=== PATIENT | female | born 1945 | race Caucasian/White ===

== ENCOUNTER 2016-04-22 16:32 | Inpatient (IN) | payer MEDICARE ==
[2016-04-22] MEDS ORDERED: Albuterol-Ipratrop 3 mg / 0.5 (3 ml) UD INH STA ×2 (16:48→16:49)
--- NOTE | 2016-04-22 16:59 | ED PDOC ---
HPI: SOB/CHF/COPD Time Seen by Provider: 04/22/16 16:46 Chief Complaint (Nursing): Respiratory Distress Chief Complaint (Provider): Respiratory Distress History Per: EMS, Family History/Exam Limitations: clinical condition Onset/Duration Of Symptoms: Days (2x) Current Symptoms Are (Timing): Still Present Current Respiratory Medications: See Home Med List, Albuterol Severity: Severe Additional History Per: EMS, Family Additional Complaint(s): 70 year old female patient with a pertinent past medical history of asthma is brought into the ED by EMS for respiratory distress. She was in bed for the past 2x days. He family found her and called 911 just prior to arrival because she was having shortness of breath. She was tachycardic with her heart rate in the 180's as per EMS. EMS reports she had bilateral wheezing, and she was given albuterol and Cardizem one 25. Her heart rate lowered to the 120's and she was put on CPAP. Her condition improved upon arrival to the ED. PMD: cannot obtain secondary to patient's clinical condition. Past Medical History Reviewed: Historical Data, Nursing Documentation, Vital Signs Vital Signs: Last Vital Signs Temp 100.0 F H 04/22/16 17:10 Pulse 153 H 04/22/16 16:41 Resp 40 H 04/22/16 17:02 BP 155/76 H 04/22/16 17:45 Pulse Ox 98 04/22/16 18:14 - Medical History PMH: Asthma, CHF, HTN, Hypercholesterolemia, Seizures Denies: HIV, Chronic Kidney Disease - Family History Family History: States: Unknown Family Hx - Living Arrangements Living Arrangements: Alone - Social History Alcohol: None Drugs: Denies - Home Medications Home Medications: Ambulatory Orders Medication Instructions Recorded Albuterol HFA [Ventolin HFA 90 2 puff IH Q4H PRN 04/22/16 mcg/actuation (8 g)] Amlodipine Besylate/Benazepril 1 cap PO DAILY 04/22/16 [Lotrel 10-20 mg Capsule] Atenolol/Chlorthalidone [Tenoretic 1 tab PO DAILY 04/22/16 50 Tablet] Fluticasone/Salmeterol 250/50 1 puff IH Q12H 04/22/16 [Advair Diskus 250/50] Montelukast [Singulair] 10 mg PO DAILY 04/22/16 Phenytoin, Extended [Dilantin] 100 mg PO BID 04/22/16 - Allergies Allergies/Adverse Reactions: Allergies Allergy/AdvReac Type Severity Reaction Status Date / Time No Known Allergies Allergy Verified 04/22/16 16:41 Wells Criteria for PE - Wells Criteria for Pulmonary Embolism Clinical Signs and Symptoms of DVT: Yes P.E is #1 Diagnosis, or Equally Likely: Yes Heart Rate >100: Yes Immobilization at least 3 days;Surgery previous 4 weeks: No Previous, objectively diagnosed PE or DVT: No Hemoptysis: No Malignancy w/treatment within 6 months, or palliative: No Total Score: 5.5 Review of Systems Review Of Systems: ROS cannot be obtained secondary to pt's inabilty to answer questions. (secondary to clinical condition) Physical Exam - Reviewed Nursing Documentation Reviewed: Yes Vital Signs Reviewed: Yes - Physical Exam Appears: Positive for: Non-toxic Head Exam: Positive for: ATRAUMATIC, NORMOCEPHALIC Cardiovascular/Chest: Positive for: Tachycardia, Irregularly Irregular Respiratory: Positive for: Rhonchi (bilateral). Negative for: Respiratory Distress Extremity: Positive for: Pedal Edema (no open lesions), Other (bilateral lower edema) DTR - Ankle (R): 3+ DTR - Ankle (L): 3+ - Laboratory Results Result Diagrams: 04/22/16 17:15 04/22/16 17:15 - ECG Interpretation Of ECG: A fib with RVR @ 151. O2 Sat by Pulse Oximetry: 98 (RA) Pulse Ox Interpretation: Normal - Radiology X-Ray: Read By Radiologist (Right lower lobe infiltrate and associated right pleural effusion. Cardiomegaly, move mild pulmonary vascular congestion.) - CT Scan/US CT chest Other Rad Interpretation: Pending - Progress ED Course And Treament: Pt administered Cardizem, Duonebs, Solumedrol, Rocephin, Zithromax and Lasix. - Physician Consult Information Physician Contacted: Luis Gilbert - Core Measure Core Measure Indicators: Pneumonia - Critical Care Total Time (In Min): 45 Nebulizer Treatments/Peak Flow - Duonebs Number of Bronchodilator Doses given?: 2 - Pre/Post Peak Flow Pre Treatment Peak Flow: 2 Post treatment Peak Flow: 2 Medical Decision Making Medical Decision Makin:46 Initial impression: differential diagnoses include but are not limited to CHF, atrial fibrillation, and asthma exacerbation. Initial plan: * XRay portale cest * EKG * b-type natriuretic peptide * labs * thyroid stimulating hormone * d-dimer (COAG) * PTT * prothrombin time * cardizem 25mg IVP * duoneb 3mL INH * duoneb 3ml INH * SOLU-medrol 125mg IVP * blood culture * accu-chek * peak flow pre/post * peak flow pre/post * urinalysis * reevaluation Scribe Attestation: Documented by Kadie Neff, acting as a scribe for Marcela Cho MD. Provider Scribe Attestation: All medical record entries made by the Scribe were at my direction and personally dictated by me. I have reviewed the chart and agree that the record accurately reflects my personal performance of the history, physical exam, medical decision making, and the department course for this patient. I have also personally directed, reviewed, and agree with the discharge instructions and disposition. Disposition - Clinical Impression Clinical Impression: Pneumonia, CHF (congestive heart failure), New onset atrial fibrillation, Atrial fibrillation with RVR, Severe sepsis - Patient ED Disposition Is Patient to be Admitted: Yes - Disposition Disposition Time: 18:27 Condition: GUARDED - Pt Status Changed To: Hospital Disposition Of: Inpatient - Admit Certification Admit to Inpatient:: After my assessment, the patient will require hospitalization for at least two midnights. This is because of the severity of symptoms shown, intensity of services needed, and/or the medical risk in this patient being treated as an outpatient. - POA Present On Arrival: None
[2016-04-22 17:22] LABS: BASO % 0.2 % (0.0-2.0); HEMATOCRIT 47.9 % (34.0-47.0); LYMPH # 0.6 K/uL (1.0-4.3); LYMPH % 4.4 % (20.0-40.0); MEAN CELL VOLUME 98.4 fl (81.0-99.0); MEAN CORPUSCULAR HEMOGLOBIN 31.2 pg (27.0-31.0); MEAN CORPUSCULAR HGB CONC 31.7 g/dL (33.0-37.0); MEAN PLATELET VOLUME 10.3 fl (7.2-11.7); MONO % 7.5 % (0.0-10.0); NEUT # 11.5 K/uL (1.8-7.0); NEUT % 87.9 % (50.0-75.0); NRBC % 0.3 % (0.0-0.0); PLATELET COUNT 105 K/uL (130-400); RED CELL DISTRIBUTION WIDTH 16.5 % (11.5-14.5); WHITE BLOOD COUNT 13.1 K/uL (4.8-10.8)
[2016-04-22 17:28] LABS: ALB/GLOB RATIO 0.7 (1.0-2.1); ALKALINE PHOSPHATASE 139 U/L (38-126); ALT/SGPT 176 U/L (9-52); AST/SGOT 212 U/L (14-36); BILIRUBIN,TOTAL 2.2 mg/dl (0.2-1.3); BLOOD UREA NITROGEN 35 mg/dl (7-17); CARBON DIOXIDE 23 mmol/L (22-30); CHLORIDE 104 mmol/L (98-107); GFR AFRICAN-AMERICAN > 60; GLUCOSE,RANDOM 149 mg/dL (65-105); POTASSIUM 4.7 MMOL/L (3.6-5.0); SODIUM 140 mmol/l (132-148); TOTAL PROTEIN 7.1 G/DL (6.3-8.2)
[2016-04-22] MEDS ORDERED: Albuterol-Ipratrop 3 mg / 0.5 (3 ml) UD ONE (17:38)
[2016-04-22 17:47] LABS: PARTIAL THROMBOPLASTIN TIME 31.4 SECONDS (23.3-32.5)
[2016-04-22 17:59] LABS: THYROID STIMULATING HORMONE 0.15 mIU/ML (0.46-4.68)
--- NOTE | 2016-04-22 17:59 | RAD ---
HISTORY: Shortness of breath, elevated D-dimer. Technique: Single view portable semi erect @ 17:30. COMPARISON: 05/30/2015. FINDINGS: LUNGS: Extensive right lower lobe infiltrate. PLEURA: Right pleural effusion. CARDIOVASCULAR: Cardiomegaly without florid CHF, mild pulmonary vascular congestion. OSSEOUS STRUCTURES: No significant abnormalities. VISUALIZED UPPER ABDOMEN: Normal. OTHER FINDINGS: None. IMPRESSION: Right lower lobe infiltrate and associated right pleural effusion. Cardiomegaly, move mild pulmonary vascular congestion.
[2016-04-22 18:02] LABS: VENOUS BLOOD GAS BASE EXCESS -1.8 mmol/L (0.0-2.0); VENOUS BLOOD GAS PCO2 39 mmHg (40-60); VENOUS BLOOD PH 7.38 (7.32-7.43)
[2016-04-22] MEDS ORDERED: Azithromycin 500 MG in Sodium Chloride 0.9% 250 ML IVPB STA (18:03)
[2016-04-22] MEDS ORDERED: Iodixanol 320 MG/ML 100 ML BOTTLE IV ONE (18:07)
[2016-04-22] MEDS ORDERED: Sodium Chloride 0.9% 50 ML IV ONE (18:07)
[2016-04-22] MEDS ORDERED: cefTRIAXone (Rocephin) 1 gm Inj ONE (18:55)
--- NOTE | 2016-04-22 19:20 | CT ---
EXAM: CT Angiography Chest With Intravenous Contrast. CLINICAL HISTORY: 70 years old, female; Signs and symptoms; Shortness of breath; Additional info: SOB, new onset a fib. Sent ed physician doc. With request. Stopped injector at 80ml' s of contrast, patient raised her hand, TECHNIQUE: Axial computed tomographic angiography images of the chest with intravenous contrast using pulmonary embolism protocol. This CT exam was performed using one or more of the following dose reduction techniques: automated exposure control, adjustment of the mA and/or kV according to patient size, and/or use of iterative reconstruction technique. MIP reconstructed images were created and reviewed. Coronal and sagittal reformatted images were created and reviewed. CONTRAST: 80 mL of [id number] administered intravenously. EXAM DATE/TIME: 04/22/2016 5:51 PM COMPARISON: CR - CHEST PORTABLE 05/30/2015 7:19:40 PM FINDINGS: Artifacts: Streak artifact degrades image quality. Motion artifact degrades image quality. Heart and aorta: The heart is enlarged. There are coronary calcifications. There is fluid in the pericardial recesses. Ascending aorta is dilated 4.3 cm maximal diameter. There are vascular calcifications.Diameter tapers at the arch. Pulmonary arteries: Main pulmonary artery is normal in caliber. There is a very large embolus in the right main pulmonary artery extending into upper, middle and lower lobe branches. There is occlusion of right lower lobe vessels.. There is occlusion of right middle lobe vessels.. There is perfusion of portions of the right upper lobe. There are small nonocclusive left upper lobe emboli. Lungs and pleural spaces: Trachea and main bronchi are patent. There is a moderately large right pleural effusion. There is asymmetric air space disease greatest in the right middle and lower lobes. There is less extensive airspace disease in left upper and right upper lobes. There is minimal atelectasis and scarring at the left base. There is no left effusion. Mediastinum: Esophagus is not optimally evaluated. There is a small hiatal hernia There are mildly prominent mediastinal nodes. Rissa are difficult to evaluate. Thyroid: Thyroid is only partially imaged. Bones/joints: Bony structures are osteopenic.There are degenerative changes in the osseus structures. There is mild compression deformity at T7.There are degenerative changes in the osseus structures. Soft tissues: unremarkable Lymph nodes: See above. Upper abdomen: There is reflux of contrast into hepatic veins and inferior vena cava. There is prominence of both adrenals. IMPRESSION: Large embolus in the right main pulmonary artery, occlusive thrombus in the right middle and lower lobe vessels with airspace disease/infarcts in the right middle and lower lobes and moderately large right effusion; nonocclusive central right upper lobe emboli; small nonocclusive left upper lobe emboli with minimal peripheral airspace disease/infarct; cardiomegaly and atherosclerotic disease in the: 4.3 cm ascending aortic aneurysm Additional findings as described above.
--- NOTE | 2016-04-22 19:21 | CP.CCUPN ---
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 BP after Cardizem bolus = 134 /80. Temp now 100F, RR 40, 98% SPO2 on 100% NRBM. In ER, given IV Lasix (no urine output yet), Empiric dose of Rocephin and Azithromycin. Given elevated d- Dimer, CTA chest pending in ER. No reported observed seizures at home. PMH: HTN, CHF, Hyperlipidemia, Asthma, Seizure disorder PSH: R breast lumpectomy SH: denies tobacco, ETOH use FH: no early deaths from heart disease, stroke, CA. ROS: as above , no other pertinent negs or positives on 12 system review. Allergies: NKDA Home Meds: Albuterol HFA, Salmeterol/ Flutic, Dilantin, Amlodipine/benazepril, Singular, Atenolol/Chlorthalidone No other distress noted: EXAM- HEENT: no icterus, pupils equal and reactive, no nystagmus NECK: no visible JVD, supple, carotids equal upstroke bilat/no bruits CHEST: decreased BS bases, few scattered wheezes audible bilaterally HEART: irregular, distant, S1S2, no murmur audible, no rubs. ABD: soft, no increased distention, no focal tenderness, no HSM. BS hypoactive , EXT: +3 leg edema with bilat hyperpigmented hyperkeratotic distal LE skin changes and discoloration with varicosities and no peripheral/ digital cyanosis , no calf tenderness or palpable cords, distal pulses intact and symmetrical NEURO: oriented x 3, no gross focal motor deficits. SKIN: no rashes, distal LE venous insuff/ stasis skin changes bilaterally EKG: A Fib 151/min, poor quality baseline with noise. LABS: WBC= 13.1 HGB= 15.2 PLTs = 105K PT/INR/PTT= 17.4/1.67/31.4 Na= 140 K= 4.7 CL= 104 HCO3= 23 BUN/Cr= 35/0.7 BS= 149 TBili= 2.2 AST= 212 ALT= 176 ALK Phos= 139 TSH= 0.15 BNP= 29106 Trop #1 neg Lactate= 2.9 on VBG VBG= 7.39/39/79 98% Satn. CXR: Bilateral basilar haziness with RLL RML Pneumonitis (my Interp). Assessment / Major Problems: 1. Acute Resp Insuff 2 Pneumonitis / CHF, with RV and r/o for LV dysfx, r/o Acute-Subacute CA; r/o Acute PTE 2. Paroxysmal, new onset Atrial Fib with RVR, r/o 2' Hyperthyroidism 3. Azotemia, r/o SURAJ versus CKD 4. Elevated LFTs 2 Hepatic Congestion and R Heart Failure 5. Thrombocytopenia 6. Mild Coagulopathy 7. h/o Seizure Disorder PLAN: 1. Close monitoring of resp status, may try non-invasive ventilatory support on BiPAP or HFNC. No Advance Directives noted, thus MV support if deteriorates further. 2. Empiric abx coverage, check Influenza A/B, CT Chest to evaluate for any drainable pleural effusions, also having CTA chest to r/o PTE. 3. Repeat ECHO, results from Jan 2015 reviewed. 4. Lasix IV trial. 5. Serial trops and repeat EKG for better study. EKG from May 2015 was normal in NSR. 6. US Abdomen 7. Venous Doppler Legs 8. Check Free T4, T3, Consider Endo eval for subclinical Hyperthyroidism or NTI. 9. Further immediate orders and mgmt pending clinical course over the next 24H. Clarify any Advance Directives, so far full resuscitation status.
[2016-04-22 19:40] LABS: RBC URINE 4 /hpf (0-3); URINE BACTERIA MANY (<OCC); URINE BILIRUBIN NEGATIVE (NEGATIVE); URINE BLOOD SMALL (NEGATIVE); URINE COLOR AMBER (YELLOW); URINE GLUCOSE (UA) NEG (Normal); URINE KETONE NEGATIVE (NEGATIVE); URINE LEUKOCYTE ESTERASE NEG Leu/uL (Negative); URINE PROTEIN 100 mg/dL (NEGATIVE); WBC URINE 6 /hpf (0-5)
--- NOTE | 2016-04-22 20:03 | US ---
EXAM: US Duplex Bilateral Lower Extremity Veins. CLINICAL HISTORY: 70 years old, female; Signs and symptoms; Edema, localized; Lower extremity, bilateral; Additional info: Ble edema; pulmonary emboli seen on CTA chest TECHNIQUE: Real-time ultrasound scan of the veins of the bilateral lower extremities with color Doppler flow, spectral waveform analysis and compression. EXAM DATE/TIME: 04/22/2016 5:17 PM COMPARISON: There are no prior studies for comparison. FINDINGS: Right deep veins: Common femoral, superficial femoral, popliteal and posterior tibial veins were evaluated. Distal right superficial femoral vein could not be identified. There is occlusive thrombus causing noncompressibility in the right popliteal vein. Right posterior tibial vein could not be identified. Right common femoral, proximal and mid superficial femoral veins are unremarkable. There is compressibility. There is expected flow and spectral and color imaging There is extensive edema in the soft tissues at the right knee and upper calf Left deep veins: Common femoral, superficial femoral, popliteal and posterior tibial veins were evaluated. There is occlusive thrombus causing noncompressibility in the left popliteal vein. Left posterior tibial vein could not be identified. Common femoral and superficial femoral veins are unremarkable. Veins are compressible with expected flow color and spectral imaging There is extensive edema in the soft tissues at the left knee and calf IMPRESSION: Bilateral lower extremity deep venous thrombosis with occlusive thrombi in both popliteal veins with extensive edema at the knees and in the upper calves and nonvisualization of either posterior tibial vein
--- NOTE | 2016-04-22 20:06 | US ---
EXAM: US Duplex Right Upper Extremity Veins. CLINICAL HISTORY: 70 years old, female; Signs and symptoms; Swelling of limb; Lower extremity, right; Additional info: Rue swelling TECHNIQUE: Real-time ultrasound scan of the veins of the right upper extremity with color Doppler flow, spectral waveform analysis and compression. EXAM DATE/TIME: 04/22/2016 6:01 PM COMPARISON: There are no prior studies for comparison. FINDINGS: Deep veins:Jugular, subclavian, axillary, brachial, ulnar and radial veins were examined. Superficial veins: Basilic and cephalic veins were also imaged. Left jugular vein was evaluated for comparison. All accessible veins examined are compressible. There are no intraluminal filling defects. There is expected blood flow on Doppler imaging. There is change in waveform with augmentation. Impression: No deep venous thrombosis in the visualized vascular segments of the right upper extremity
--- NOTE | 2016-04-22 20:25 | CP.PCM.HP ---
Addendum entered and electronically signed by Kendra Dover 04/22/16 22:58: 1. Lactic Acid increased to 4.7, d/w Dr Helton, decision to give 1L NS bolus combined with 60mg of Lasix and repeat lactic acid and BMP at 0100. 2. Hematology Consult placed, spoke with Dr Chacko who will see patient in morning, Pulmonary Consult Dr Mcpherson service called. Original Note: History of Present Illness - History of Present Illness History of Present Illness: 70F seen and examined at bedside, information is from patient, ED documents, and chart review. Patient reports that her symptoms started about 1 week prior with a dry cough, shortness of breath, with lower extremity swelling that worsened, but she denies associated fevers, chills, sore throat, sick contacts, diarrhea. She say she last took her Dilantin 2 wks ago (supported by level <3) and says that she was feeling nauseous at that time. She denies chest pain, abdominal pain, last BM was 2 days ago and she continues to pass flatus. Of note she says she has spent the last 3 days in bed. PMH: Systolic CHF(ECHO 02/12/2015: LVEF- 45-50%, mild TR, mild Pulm HTN), HTN, Asthma, Seizure DO Allergies: NKDA ED COURSE CBC: 13.1>15.2/48<105, MCV- 98.4 CMP: 140/4.7-104/23-35/0.7, Gluc- 149, TBili-2.2, AST/ALT- 212/176, ALP- 139 PT/INR: 17.4H/1.67H aPTT: 31.4 TSH: 0.15L BNP: 13,100 Lactate: 2.9 EKG: A-fib w/ RVR @151 as interpreted by ED attending CXR: RLL infiltrate and effusion CTA Chest: Large PE RIGHT PA, occlusive thrombus in the right middle/lower lobe vessels with airspace dz/infarcts in the right middle/lower lobes and moderately large right effusion, non-occlusive central right upper lobe embol; small non-occlusive ALTHEA emboli w/ minimal peripheral airspace disease/infarct; cardiomegaly and atherosclerotic disease in the 4.3cm ascending aortic aneurysm. RUE Venous Duplex: no DVT BLLE Venous duplex: occlusive thrombi in b/l popliteal veins with extensive edema at the knees and the upper calves Present on Admission - Present on Admission Any Indicators Present on Admission: No Review of Systems - Review of Systems All systems: reviewed and no additional remarkable complaints except - Constitutional Constitutional: As Per HPI - EENT Nose/Mouth/Throat: As Per HPI - Cardiovascular Cardiovascular: As Per HPI - Respiratory Respiratory: As Per HPI, Cough, Dyspnea Past Patient History - Past Medical History & Family History Past Medical History?: Yes - Past Social History Alcohol: None Drugs: Denies - CARDIAC Hx Cardiac Disorders: Yes - PULMONARY Hx Respiratory Disorders: Yes - NEUROLOGICAL Hx Neurological Disorder: Yes - HEENT Hx HEENT Problems: No - RENAL Hx Chronic Kidney Disease: No - ENDOCRINE/METABOLIC Hx Endocrine Disorders: No - HEMATOLOGICAL/ONCOLOGICAL Hx Human Immunodeficiency Virus (HIV): No - INTEGUMENTARY Hx Dermatological Problems: No - MUSCULOSKELETAL/RHEUMATOLOGICAL Hx Falls: No - GASTROINTESTINAL Hx Gastrointestinal Disorders: No - GENITOURINARY/GYNECOLOGICAL Hx Genitourinary Disorders: No - PSYCHIATRIC Hx Psychophysiologic Disorder: No Hx Substance Use: No - SURGICAL HISTORY Other/Comment: R beast lump removal - ANESTHESIA Hx Anesthesia: Yes Hx Anesthesia Reactions: No Meds Allergies/Adverse Reactions: Allergies Allergy/AdvReac Type Severity Reaction Status Date / Time No Known Allergies Allergy Verified 04/22/16 16:41 Physical Exam - Constitutional Appears: Non-toxic, In Acute Distress - Head Exam Head Exam: ATRAUMATIC, NORMAL INSPECTION - Eye Exam Eye Exam: EOMI, Normal appearance, PERRL - ENT Exam ENT Exam: Mucous Membranes Moist, Normal Exam - Neck Exam Neck exam: Positive for: Full Rom, Normal Inspection - Respiratory Exam Respiratory Exam: Accessory Muscle Use, Decreased Breath Sounds (R>L), Clear to Auscultation Bilateral. absent: Rhonchi, Wheezes, NORMAL BREATHING PATTERN ( Tachypneic) - Cardiovascular Exam Cardiovascular Exam: Tachycardia, Irregular Rhythm. absent: Rubs - GI/Abdominal Exam GI & Abdominal Exam: Hernia (umbilical, non-reducible at present, no ulcerations /skin changes), Normal Bowel Sounds, Soft. absent: Guarding, Rebound, Tenderness - Extremities Exam Extremities exam: Positive for: pedal edema (3+ b/l up to knees, 2+ at b/l posterior thighs). Negative for: calf tenderness, normal inspection (thickened skin c/w chronic venous stasis) - Neurological Exam Neurological exam: Alert, Oriented x3 - Psychiatric Exam Psychiatric exam: Normal Affect, Normal Mood - Skin Skin Exam: Intact, Warm Results - Vital Signs Recent Vital Signs: Last Vital Signs Temp 100.0 F H 04/22/16 17:10 Pulse 154 H 04/22/16 20:19 Resp 33 H 04/22/16 20:19 BP 148/59 L 04/22/16 20:19 Pulse Ox 99 04/22/16 19:50 - Labs Result Diagrams: 04/22/16 17:15 04/22/16 17:15 Labs: Laboratory Results - last 24 hr 04/22/16 19:16 Phenytoin < 3.0 L Assessment & Plan (1) Pulmonary embolism with infarction Assessment and Plan: As per positive CTA findings with associated b/l lower extremity DVTs. Exacerbating event multi-factorial with days spent in bed. Unclear at this time if this is entirely responsible for stress leukocytosis and liver congestion picture vs. pneumonia w/separate liver pathology. In addition, combined with heart failure picture likely contributed to new onset atrial fibrillation. Initial Troponin negative at this time. Also may explain prolonged PT/INR and decreased platelet count. - Admit to ICU, Dr Gilbert aware - Therapeutic Lovenox 1mg/kg, SC, Q12H - Pulmonary Consult (Dr Mcpherson) placed - Procalcitonin, repeat lactate - Consider initiating Coumadin bridge - BiPAP - c/w empiric Rocephin/Azithromycin - Echocardiogram in AM - EKG in AM Status: Acute (2) Atrial fibrillation with RVR Assessment and Plan: Acute onset likely exacerbated by fluid overload and shunting from PE. Initial troponin not elevated. - Cardiology Consult (Dr Patton) placed - Therapeutic Lovenox 1mg/kg, SC, Q12H - Cardizem gtt - Consider initiating Coumadin bridge - Serial Troponins - BiPAP - Echocardiogram in AM - EKG in AM Status: Acute (3) Systolic dysfunction with acute on chronic heart failure Assessment and Plan: Patient with worsening SOB, picture complicated with findings of PE, effusion present, bilateral peripheral edema to thighs, and BNP >13, 000. - Cardiology Consult (Dr Patton) - Cardizem gtt - Serial Troponins - BiPAP - Echocardiogram in AM - EKG in AM Status: Acute (4) Hypertension Assessment and Plan: Controlled at this time - Monitor VS - Cardizem gtt Status: Chronic (5) Seizure disorder Assessment and Plan: Patient stopped phenytoin 2 weeks ago 2/2 nausea. Level < 3. - Re-start medication - Seizure Precautions Status: Chronic (6) Asthma Assessment and Plan: Controlled, wheezing treated by EMS likely combination of PE and fluid overload - c/w home medications Status: Chronic
[2016-04-22] MEDS: Enoxaparin 80 mg Syringe SC SCH (20:50)
[2016-04-22 21:13] LABS: NEUTROPHIL 87 % (42-75); TOTAL CELLS COUNTED 100
[2016-04-22] MEDS ORDERED: Albuterol HFA 90 mcg/actuation (8 g) IH PRN (21:49)
[2016-04-22] MEDS ORDERED: Sodium Chloride 0.9% 1,000 ML IV SCH (22:30)
[2016-04-22] MEDS: Fluticasone-Salmeterol 250-50mcg Diskus IH SCH (23:10)
[2016-04-23 01:40] LABS: BLOOD UREA NITROGEN 32 mg/dl (7-17); CALCIUM 7.7 mg/dL (8.4-10.2); CARBON DIOXIDE 23 mmol/L (22-30); CHLORIDE 104 mmol/L (98-107); GFR AFRICAN-AMERICAN > 60; GLUCOSE,RANDOM 162 mg/dL (65-105); POTASSIUM 3.4 MMOL/L (3.6-5.0); SODIUM 145 mmol/l (132-148)
[2016-04-23] MEDS: Potassium CL 10 MEQ/50 ML 50 ML IVPB SCH ×2 (03:09→04:21)
[2016-04-23 05:36] LABS: ALB/GLOB RATIO 0.7 (1.0-2.1); ALKALINE PHOSPHATASE 106 U/L (38-126); ALT/SGPT 150 U/L (9-52); AST/SGOT 158 U/L (14-36); BILIRUBIN,TOTAL 1.6 mg/dl (0.2-1.3); BLOOD UREA NITROGEN 33 mg/dl (7-17); CALCIUM 8.3 mg/dL (8.4-10.2); CARBON DIOXIDE 28 mmol/L (22-30); CHLORIDE 104 mmol/L (98-107); GFR AFRICAN-AMERICAN > 60; GLUCOSE,RANDOM 164 mg/dL (65-105); POTASSIUM 3.7 MMOL/L (3.6-5.0); SODIUM 145 mmol/l (132-148); TOTAL PROTEIN 5.9 G/DL (6.3-8.2)
[2016-04-23 05:37] LABS: BASO % 0.3 % (0.0-2.0); LYMPH # 0.4 K/uL (1.0-4.3); LYMPH % 3.8 % (20.0-40.0); MEAN CELL VOLUME 99.7 fl (81.0-99.0); MEAN CORPUSCULAR HEMOGLOBIN 33.2 pg (27.0-31.0); MEAN CORPUSCULAR HGB CONC 33.3 g/dL (33.0-37.0); MONO # 0.4 K/uL (0.0-0.8); MONO % 3.8 % (0.0-10.0); NEUT # 9.1 K/uL (1.8-7.0); NEUT % 92.1 % (50.0-75.0); NRBC % 0.2 % (0.0-0.0); PLATELET COUNT 92 K/uL (130-400); RED CELL DISTRIBUTION WIDTH 16.1 % (11.5-14.5); WHITE BLOOD COUNT 9.8 K/uL (4.8-10.8)
[2016-04-23 05:44] LABS: PARTIAL THROMBOPLASTIN TIME 36.9 SECONDS (23.3-32.5)
[2016-04-23] MEDS ORDERED: Digoxin 500 mcg/2ml (0.5 mg/2ml) Inj ONE (08:03)
--- NOTE | 2016-04-23 08:09 | CP.PCM.CON ---
History of Present Illness - History of Present Illness History of Present Illness: Full Note Dictated. Pulmonary embolism with A Fib H/O Br Asthma/HTN CVhr Venous stasis lower extremities Pro BNP in 2014 was normal indicating No CHF at that time. IV Digoxin given to slow down HR Echocardiogram to be done once HR slows down Past Patient History - Past Medical History & Family History Past Medical History?: Yes - Past Social History Alcohol: None Drugs: Denies - CARDIAC Hx Cardiac Disorders: Yes - PULMONARY Hx Respiratory Disorders: Yes - NEUROLOGICAL Hx Neurological Disorder: Yes - HEENT Hx HEENT Problems: No - RENAL Hx Chronic Kidney Disease: No - ENDOCRINE/METABOLIC Hx Endocrine Disorders: No - HEMATOLOGICAL/ONCOLOGICAL Hx Human Immunodeficiency Virus (HIV): No - INTEGUMENTARY Hx Dermatological Problems: No - MUSCULOSKELETAL/RHEUMATOLOGICAL Hx Falls: No - GASTROINTESTINAL Hx Gastrointestinal Disorders: No - GENITOURINARY/GYNECOLOGICAL Hx Genitourinary Disorders: No - PSYCHIATRIC Hx Psychophysiologic Disorder: No Hx Substance Use: No - SURGICAL HISTORY Other/Comment: R beast lump removal - ANESTHESIA Hx Anesthesia: Yes Hx Anesthesia Reactions: No Meds Allergies/Adverse Reactions: Allergies Allergy/AdvReac Type Severity Reaction Status Date / Time No Known Allergies Allergy Verified 04/22/16 16:41 - Medications Medications: Current Medications Albuterol (Ventolin Hfa 90 Mcg/Actuation (8 G)) 2 puff IH Q4H PRN PRN Reason: Shortness of Breath Enoxaparin Sodium (Lovenox) 80 mg SC Q12 BRAD PRN Reason: Protocol Last Admin: 04/22/16 20:50 Dose: 80 mg Furosemide (Lasix) 40 mg IVP Q12H [facility] Last Admin: 04/22/16 21:13 Dose: 40 mg Diltiazem HCl 125 mg/ Sodium (Chloride) 125 mls @ 5 mls/hr IV .Q24H ONE; 5 MG/ HR PRN Reason: Protocol Stop: 04/23/16 20:07 Last Titration: 04/23/16 07:12 Dose: 7.5 mg/hr Ceftriaxone Sodium 1 gm/ (Sodium Chloride) 100 mls @ 100 mls/hr IVPB DAILY BRAD Azithromycin 500 mg/ Sodium (Chloride) 250 mls @ 250 mls/hr IVPB DAILY BRAD Sodium Chloride (Sodium Chloride 0.9%) 1,000 mls @ 999 mls/hr IV .Q1H1M [facility] Stop: 04/23/16 22:31 Last Admin: 04/22/16 22:37 Dose: 999 mls/hr Montelukast Sodium (Singulair) 10 mg PO DAILY [facility] Phenytoin Sodium (Dilantin) 100 mg PO BID BRAD Potassium Chloride (K-Dur 20 Meq Er Tab) 20 meq PO BID BRAD Fluticasone/Salmeterol (Advair Diskus 250/50) 1 puff IH Q12H [facility] Last Admin: 04/22/16 23:10 Dose: 1 puff Results - Vital Signs Recent Vital Signs: Last Vital Signs Temp 98.8 F 04/23/16 04:00 Pulse 127 H 04/23/16 07:52 Resp 111 H 04/23/16 07:00 BP 119/86 04/23/16 07:27 Pulse Ox 95 04/23/16 07:27 - Labs Result Diagrams: 04/23/16 04:25 04/23/16 04:25 Labs: Laboratory Results - last 24 hr 04/22/16 04/22/16 04/23/16 19:16 21:23 01:00 WBC RBC Hgb Hct MCV MCH MCHC RDW Plt Count MPV Neut % (Auto) Lymph % (Auto) [place] % (Auto) Eos % (Auto) Baso % (Auto) Neut # Lymph # [place] # Eos # Baso # PT INR APTT Fibrinogen Sodium 145 Potassium 3.4 L Chloride 104 Carbon Dioxide 23 Anion Gap 21 H BUN 32 H Creatinine 0.7 Est GFR ( Amer) > 60 Est GFR (Non-Af Amer) > 60 Random Glucose 162 H Lactic Acid 4.7 H* 2.3 H Calcium 7.7 L Total Bilirubin AST ALT Alkaline Phosphatase Troponin I 0.0150 Total Protein Albumin Globulin Albumin/Globulin Ratio Phenytoin < 3.0 L 04/23/16 04:25 WBC 9.8 RBC 4.11 Hgb 13.6 Hct 41.0 MCV 99.7 H MCH 33.2 H MCHC 33.3 RDW 16.1 H Plt Count 92 L MPV 10.0 Neut % (Auto) 92.1 H Lymph % (Auto) 3.8 L [place] % (Auto) 3.8 Eos % (Auto) 0.0 Baso % (Auto) 0.3 Neut # 9.1 H Lymph # 0.4 L [place] # 0.4 Eos # 0.0 Baso # 0.0 PT 17.5 H INR 1.68 H APTT 36.9 H Fibrinogen 257 Sodium 145 Potassium 3.7 Chloride 104 Carbon Dioxide 28 Anion Gap 17 BUN 33 H Creatinine 0.8 Est GFR ( Amer) > 60 Est GFR (Non-Af Amer) > 60 Random Glucose 164 H Lactic Acid Calcium 8.3 L Total Bilirubin 1.6 H AST 158 H D ALT 150 H Alkaline Phosphatase 106 Troponin I Total Protein 5.9 L Albumin 2.5 L Globulin 3.5 Albumin/Globulin Ratio 0.7 L Phenytoin
[2016-04-23] MEDS ORDERED: Digoxin 500 mcg/2ml (0.5 mg/2ml) Inj IVP ONE (08:13)
[2016-04-23] MEDS ORDERED: Azithromycin 500 MG in Sodium Chloride 0.9% 250 ML IVPB SCH (09:00)
[2016-04-23] MEDS: Potassium Chloride 20 mEq ER Tab PO SCH ×2 (09:01→17:15)
[2016-04-23] MEDS: Enoxaparin 80 mg Syringe SC SCH (09:02)
[2016-04-23] MEDS: Fluticasone-Salmeterol 250-50mcg Diskus IH SCH ×2 (09:12→21:05)
--- NOTE | 2016-04-23 09:59 | CP.PCM.PN ---
Subjective - Date & Time of Evaluation Date of Evaluation: 04/23/16 Time of Evaluation: 07:30 - Subjective Subjective: Ms. Bynum is a 70yo F with PMH of asthma, CHF, HTN and seizures who presented with SOB and leg swelling and is being evaluated and treated for multifactoral respiratory distress. - Pt seen at bedside on NRBM responsive to name and is AAOx3. Pt states she is able to breathing better. . Pt produced 4L of urine over night and has 100ml currently, yellowish clear urine. - Pt has tolerated PO intake denies n/v 12:00 pm :Patient was off of BIPAP eating and tolerating PO intake. Not using accessory muscles, looked comfortable. Objective - Vital Signs/Intake and Output Vital Signs (last 24 hours): Temp Pulse Resp BP Pulse Ox 98.7 F 116 H 43 H 118/81 96 04/23/16 08:00 04/23/16 08:26 04/23/16 08:00 04/23/16 09:01 04/23/16 08:00 Intake and Output: 04/23/16 04/23/16 06:59 18:59 Intake Total 100 15 Output Total 4300 Balance -4200 15 - Medications Medications: Current Medications Albuterol (Ventolin Hfa 90 Mcg/Actuation (8 G)) 2 puff IH Q4H PRN PRN Reason: Shortness of Breath Enoxaparin Sodium (Lovenox) 80 mg SC Q12 BRAD PRN Reason: Protocol Last Admin: 04/23/16 09:02 Dose: 80 mg Furosemide (Lasix) 40 mg IVP Q12H [facility] Last Admin: 04/23/16 09:01 Dose: 40 mg Diltiazem HCl 125 mg/ Sodium (Chloride) 125 mls @ 5 mls/hr IV .Q24H ONE; 5 MG/ HR PRN Reason: Protocol Stop: 04/23/16 20:07 Last Titration: 04/23/16 07:12 Dose: 7.5 mg/hr Ceftriaxone Sodium 1 gm/ (Sodium Chloride) 100 mls @ 100 mls/hr IVPB DAILY [facility] Last Admin: 04/23/16 09:02 Dose: 100 mls/hr Azithromycin 500 mg/ Sodium (Chloride) 250 mls @ 250 mls/hr IVPB DAILY [facility] Last Admin: 04/23/16 09:12 Dose: 250 mls/hr Sodium Chloride (Sodium Chloride 0.9%) 1,000 mls @ 999 mls/hr IV .Q1H1M [facility] Stop: 04/23/16 22:31 Last Admin: 04/22/16 22:37 Dose: 999 mls/hr Montelukast Sodium (Singulair) 10 mg PO DAILY [facility] Last Admin: 04/23/16 09:11 Dose: 10 mg Phenytoin Sodium (Dilantin) 100 mg PO BID [facility] Last Admin: 04/23/16 09:00 Dose: 100 mg Potassium Chloride (K-Dur 20 Meq Er Tab) 20 meq PO BID [facility] Last Admin: 04/23/16 09:01 Dose: 20 meq Fluticasone/Salmeterol (Advair Diskus 250/50) 1 puff IH Q12H [facility] Last Admin: 04/23/16 09:12 Dose: 1 puff - Labs Labs: 04/23/16 04:25 04/23/16 04:25 PT 17.5 SECONDS (9.6-11.2) H 04/23/16 04:25 INR 1.68 (0.92-1.08) H 04/23/16 04:25 APTT 36.9 SECONDS (23.3-32.5) H 04/23/16 04:25 - Head Exam Head Exam: NORMAL INSPECTION - Eye Exam Eye Exam: Normal appearance - Respiratory Exam Respiratory Exam: Accessory Muscle Use, Clear to Ausculation Bilateral Additional comments: Decreased breath sounds on right side more then left - Cardiovascular Exam Cardiovascular Exam: Tachycardia, +S1, +S2 - GI/Abdominal Exam GI & Abdominal Exam: Hernia (umbilical, non-reducible at present) - Extremities Exam Extremities Exam: Pedal Edema Additional comments: B/l swelling of lower extremities - Neurological Exam Neurological Exam: Alert, Awake - Skin Skin Exam: Intact, Warm Assessment and Plan - Assessment and Plan (Free Text) Assessment: Ms. Bynum is a 70yo F with PMH of asthma, CHF, HTN and seizures who presented with SOB and leg swelling and is being evaluated and treated for multifactoral respiratory distress. Multifactoral sepsis Patient present with tachycardia, tachypnea. Initial WBC of 13.1. Lactate level of 4.7. Possible pneumonia as infective source. - Given IV NS fluid bolus - Empiric treatment with azithromycin 500mg IVPB daily and ceftriaxone 1g IVPB daily - Continue IVF hydration Unprovoked subacute Pulmonary Embolism Patient presented with SOB, b/l LE edema of one week onset. Tachycardia of 153bpm and tachypnea of 40bpm and visible respiratory distress. - Full dose lovenox 80mg SC Q12 - Pulmonary consult appreciated - Consider placement of IVC filter Bilateral LE DVTs confirmed w/ U/S - LE duplex positive for b/l occlusive thrombi of the popliteal veins. No DVT of upper extremities. - Full dose lovenox 80mg SC Q12 - Consider placement of IVC filter New onset Afib with RVR not rate controlled - Patient presented with tachycardia of 153 and irregularly irregular rhythm. EKG confirmed afib with RVR. - Cardizem drip 125mg @5ml/hr for rate control - Digoxin 0.25mg PO Q2 rate control - Pt on full dose lovenox for anticoagulation -Cardiology consulted -r/o thyroid pathology, TSH 0.15, f/u T4/T3 levels - Echocardiogram revealed EF of 55% with mildly reduced RV systolic dysfunction and dilated L and R atria. Possible PNA CAP vs HAP - Presented with respiratory distress, elevated white count. Pulmonary infiltrate in R lobe with prominent pleural effusion. - Empiric treatment with azithromycin 500mg IVP daily and ceftriaxone 1g IVP daily - Influenza swab was negative Acute on chronic diastolic HF Patient presented with h/o worsening b/l lower extremity swelling. Pitting edema of b/l LE 3+ up to knees and 2+ the thighs. pBNP 13,000. - Echocardiogram w/ EF of 55% - F/U I/O - Sweeney catheter in place - Cardiology consulted Elevated liver enzymes - F/u Hepatitis panel Chronic HTN - Monitor BP, currently controlled. - Cardizem drip 125mg @5ml/hr Chronic Asthma - Albuteral inhaler 2 puffs Q4 as needed - Advair 1 puff inhaled Q12 - Montlukast 10mg PO daily Seizure disorder - Dilantin 100mg PO BID - f/u CPK levels - seizure precautions Prophylaxis GI: Pantoprazole 20mg PO daily DVT: on full dose lovenox
[2016-04-23 10:15] LABS: T4 6.05 ug/dl (5.5-11.0)
[2016-04-23 10:29] LABS: THYROID STIMULATING HORMONE 0.05 mIU/ML (0.46-4.68)
[2016-04-23] MEDS: Digoxin 250 mcg (0.25 mg) Tab PO SCH ×2 (11:01→12:36)
[2016-04-23 11:06] LABS: NEUTROPHIL 95 % (42-75); TOTAL CELLS COUNTED 100
[2016-04-23 11:09] LABS: LARGE PLATELETS PRESENT
[2016-04-23] MEDS ORDERED: Influenza Vaccine(5yr & older) 0.5 ML/45 MCG IM ONE (11:42)
--- NOTE | 2016-04-23 12:31 | CP.PCM.CON ---
History of Present Illness - History of Present Illness History of Present Illness: CC: Respiratory failure. Pulmonary consult. 70 y/o F, brought to ER [facility] by EMS due to respiratory distress, onset 2-3 days [employer], Pt using Advair, Singular, Albuterol at home with no relief. Pt found by family after 2 days in bed with severe SOB associated to occasional productive cough with strikes of blood, swelling of lower extremities. Worsening symptom of R chest wall pain upon breathing and coughing, dyspnea to minimal exertion, dyspnea at rest, unable to lie flat. Patient stated that was having SOB , RIVAS , leg edema gradually increasing for 1-2 weeks. Aggravating factor: Pt developed tachycardia while assisted by EMS, HR was in the 180's-200 's and having wheezes, was given Albuterol, Cardizem bolus, and placed on BIPAP , after Pt had some relief, HR decreased to the 120's. One's in ER, EKG showed: Initial onset A Fib with RVR, HR 151. CXR showed: RLL PNA associated to R pleural effusion. CT Chest showed: PE R main pulmonary artery, occlusion thrombus in the R middle and lower lobe vessels/infarct , R pleural effusion , Venous U-S L/E showed: B/L lower extremities DVT with occlusive thrombi in both plopiteal veins with extensive edema at the R knee and upper calves/ In ER Pt was placed in Cardizem, Solumedrol, Duoneb, Rocephin, Zithromax, Lasix, there after was admitted to ICU unit. As per Pt; Hx of Asthma since 38 yrs old, retired around 48 y/o 2nd to Pulmonary disability and apparently some psychiatric issue. 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 Pt denied: Fever, chills, n/v/d, abdominal pain, sore throat, CP, syncope, numbness, urinary symptoms, sick contact, recent travel. PMHx: Asthma, Pulmonary HTN, HTN, Acute on Chronic Diastolic HF, dysfunction, Hyperlipidemia, Seizure. Review of Systems - Constitutional Constitutional: Weakness - EENT Eyes: Requires Corrective Lenses Ears: Other (negative) Nose/Mouth/Throat: Other (negative) - Cardiovascular Cardiovascular: Leg Edema, Rapid Heart Rate - Respiratory Respiratory: Cough, Dyspnea, Dyspnea on Exertion, Wheezing, Pain on Inspiration , Chest Congestion, Pain with Coughing - Gastrointestinal Gastrointestinal: Other (negative) - Genitourinary Genitourinary: Other (negative) - Musculoskeletal Musculoskeletal: Other (negative) - Integumentary Integumentary: Change in Pigmentation (lower extremities), Swelling - Neurological Neurological: Convulsions - Psychiatric Psychiatric: Other (negative) - Endocrine Endocrine: Other (negative) - Hematologic/Lymphatic Hematologic: Other (negative) Past Patient History - Past Medical History & Family History Past Medical History?: Yes Pertinent Family History: Unknown - Past Social History Smoking Status: Never Smoked Alcohol: None Drugs: Denies Home Situation {Lives}: Alone - CARDIAC Hx Cardiac Disorders: Yes Hx Congestive Heart Failure: Yes Hx Hypercholesterolemia: Yes Hx Hypertension: Yes - PULMONARY Hx Respiratory Disorders: Yes Hx Asthma: Yes - NEUROLOGICAL Hx Neurological Disorder: Yes Hx Seizures: Yes - HEENT Hx HEENT Problems: No - RENAL Hx Chronic Kidney Disease: No - ENDOCRINE/METABOLIC Hx Endocrine Disorders: Yes Hx Diabetes Mellitus Type 2: Yes - HEMATOLOGICAL/ONCOLOGICAL Hx Blood Disorders: Yes Hx Anemia: Yes Hx Human Immunodeficiency Virus (HIV): No - INTEGUMENTARY Hx Dermatological Problems: Yes Other/Comment: Chronic skin changes lower extremities. - MUSCULOSKELETAL/RHEUMATOLOGICAL Hx Musculoskeletal Disorders: No Hx Falls: No - GASTROINTESTINAL Hx Gastrointestinal Disorders: No - GENITOURINARY/GYNECOLOGICAL Hx Genitourinary Disorders: No - PSYCHIATRIC Hx Psychophysiologic Disorder: No Hx Substance Use: No - SURGICAL HISTORY Hx Surgeries: Yes Other/Comment: R breast lump removed - ANESTHESIA Hx Anesthesia: Yes Hx Anesthesia Reactions: No Meds Allergies/Adverse Reactions: Allergies Allergy/AdvReac Type Severity Reaction Status Date / Time No Known Allergies Allergy Verified 04/22/16 16:41 - Medications Medications: Current Medications Albuterol (Ventolin Hfa 90 Mcg/Actuation (8 G)) 2 puff IH Q4H PRN PRN Reason: Shortness of Breath Digoxin (Lanoxin) 0.25 mg PO Q2H [facility] Stop: 04/23/16 13:01 Last Admin: 04/23/16 11:01 Dose: 0.25 mg Enoxaparin Sodium (Lovenox) 80 mg SC Q12 BRAD PRN Reason: Protocol Last Admin: 04/23/16 09:02 Dose: 80 mg Furosemide (Lasix) 40 mg IVP Q12H [facility] Last Admin: 04/23/16 09:01 Dose: 40 mg Diltiazem HCl 125 mg/ Sodium (Chloride) 125 mls @ 5 mls/hr IV .Q24H ONE; 5 MG/ HR PRN Reason: Protocol Stop: 04/23/16 20:07 Last Titration: 04/23/16 07:12 Dose: 7.5 mg/hr Ceftriaxone Sodium 1 gm/ (Sodium Chloride) 100 mls @ 100 mls/hr IVPB DAILY [facility] Last Admin: 04/23/16 09:02 Dose: 100 mls/hr Azithromycin 500 mg/ Sodium (Chloride) 250 mls @ 250 mls/hr IVPB DAILY [facility] Last Admin: 04/23/16 09:12 Dose: 250 mls/hr Sodium Chloride (Sodium Chloride 0.9%) 1,000 mls @ 999 mls/hr IV .Q1H1M [facility] Stop: 04/23/16 22:31 Last Admin: 04/22/16 22:37 Dose: 999 mls/hr Montelukast Sodium (Singulair) 10 mg PO DAILY [facility] Last Admin: 04/23/16 09:11 Dose: 10 mg Pantoprazole Sodium (Protonix Inj) 40 mg IVP DAILY [facility] Phenytoin Sodium (Dilantin) 100 mg PO BID [facility] Last Admin: 04/23/16 09:00 Dose: 100 mg Potassium Chloride (K-Dur 20 Meq Er Tab) 20 meq PO BID [facility] Last Admin: 04/23/16 09:01 Dose: 20 meq Fluticasone/Salmeterol (Advair Diskus 250/50) 1 puff IH Q12H [facility] Last Admin: 04/23/16 09:12 Dose: 1 puff Physical Exam - Constitutional Additional comments: Mild respiratory distress. - Head Exam Head Exam: NORMAL INSPECTION - Eye Exam Pupil Exam: PERRL - ENT Exam Additional comments: on BIPAP - Neck Exam Neck exam: Positive for: Normal Inspection - Respiratory Exam Respiratory Exam: Decreased Breath Sounds (at bases, R>L), Rhonchi (few), Wheezes (scattered) Additional comments: Crackles R base - Cardiovascular Exam Cardiovascular Exam: Irregular Rhythm. absent: Systolic Murmur - GI/Abdominal Exam GI & Abdominal Exam: Normal Bowel Sounds, Soft - Extremities Exam Extremities exam: Positive for: pedal edema Additional comments: 3+ edema L/E, chronic venous stasis lower extremities. - Back Exam Back exam: NORMAL INSPECTION - Neurological Exam Neurological exam: Alert, Oriented x3 Additional comments: No gross focal motor deficit, generalized weakness. - Psychiatric Exam Psychiatric exam: Anxious - Skin Skin Exam: Normal Color, Warm Additional comments: Lower extremities with scales, callused. Results - Vital Signs Recent Vital Signs: Last Vital Signs Temp 98.2 F 04/23/16 12:00 Pulse 97 H 04/23/16 12:00 Resp 24 04/23/16 12:00 BP 120/73 04/23/16 12:00 Pulse Ox 95 04/23/16 12:00 reviewed Carissa - Labs Result Diagrams: 05/03/16 04:00 05/03/16 06:00 Labs: Laboratory Results - last 24 hr 04/22/16 04/22/16 04/23/16 19:16 21:23 01:00 WBC RBC Hgb Hct MCV MCH MCHC RDW Plt Count MPV Neut % (Auto) Lymph % (Auto) [place] % (Auto) Eos % (Auto) Baso % (Auto) Neut # Lymph # [place] # Eos # Baso # Neutrophils % (Manual) Band Neutrophils % Lymphocytes % (Manual) Monocytes % (Manual) Platelet Estimate Large Platelets Macrocytosis (manual) Tear Drop Cells Ovalocytes PT INR APTT Fibrinogen Sodium 145 Potassium 3.4 L Chloride 104 Carbon Dioxide 23 Anion Gap 21 H BUN 32 H Creatinine 0.7 Est GFR ( Amer) > 60 Est GFR (Non-Af Amer) > 60 Random Glucose 162 H Lactic Acid 4.7 H* 2.3 H Calcium 7.7 L Total Bilirubin AST ALT Alkaline Phosphatase Total Creatine Kinase Troponin I 0.0150 Total Protein Albumin Globulin Albumin/Globulin Ratio Thyroxine (T4) Total T3 TSH 3rd Generation Phenytoin < 3.0 L 04/23/16 04/23/16 04/23/16 04:25 08:19 09:55 WBC 9.8 RBC 4.11 Hgb 13.6 Hct 41.0 MCV 99.7 H MCH 33.2 H MCHC 33.3 RDW 16.1 H Plt Count 92 L MPV 10.0 Neut % (Auto) 92.1 H Lymph % (Auto) 3.8 L [place] % (Auto) 3.8 Eos % (Auto) 0.0 Baso % (Auto) 0.3 Neut # 9.1 H Lymph # 0.4 L [place] # 0.4 Eos # 0.0 Baso # 0.0 Neutrophils % (Manual) 95 H Band Neutrophils % 1 Lymphocytes % (Manual) 1 L Monocytes % (Manual) 3 Platelet Estimate Decreased L Large Platelets Present Macrocytosis (manual) Slight Tear Drop Cells Slight Ovalocytes Slight PT 17.5 H INR 1.68 H APTT 36.9 H Fibrinogen 257 Sodium 145 Potassium 3.7 Chloride 104 Carbon Dioxide 28 Anion Gap 17 BUN 33 H Creatinine 0.8 Est GFR ( Amer) > 60 Est GFR (Non-Af Amer) > 60 Random Glucose 164 H Lactic Acid Calcium 8.3 L Total Bilirubin 1.6 H AST 158 H D ALT 150 H Alkaline Phosphatase 106 Total Creatine Kinase < 20 L Troponin I 0.0160 Total Protein 5.9 L Albumin 2.5 L Globulin 3.5 Albumin/Globulin Ratio 0.7 L Thyroxine (T4) 6.05 Total T3 0.614 L TSH 3rd Generation 0.05 L Phenytoin reviewed J.P. - EKG Data EKG comments: reviewed J.P. - Imaging and Cardiology Chest x-ray Status: Report reviewed by me (Carissa) CT scan - chest Status: Report reviewed by me (Carissa) Venous US Status: Report reviewed by me (Carissa) Assessment & Plan (1) Acute respiratory failure Status: Acute Priority: High (2) Pulmonary embolism with infarction Status: Acute (3) DVT of lower extremity, bilateral Status: Acute Priority: High (4) New onset atrial fibrillation Status: Acute Priority: High (5) Pleural effusion, right Status: Acute (6) Pulmonary artery hypertension Status: Acute (7) Asthma Status: Chronic - Assessment and Plan (Free Text) Plan: Continue BIPAP , switch to N/C when more stable , continue Lovenox, monitor R pleural effusion, Lasix , Xopenex , Pulmicort , genetic markers, IVC filter plans ICU Time: 60 min. - Date & Time Date: 04/23/16
--- NOTE | 2016-04-23 13:07 | CARD ---
APPROVED REPORT EXAM: Two-dimensional and M-mode echocardiogram with Doppler and color Doppler. Other Information Quality : GoodRhythm : NSR INDICATION Pulmonary Embolism 2D DIMENSIONS IVSd0.98 (0.7-1.1cm)LVDd4.52 (3.9-5.9cm) LVOT Diameter2.22 (1.8-2.4cm)PWd1.19 (0.7-1.1cm) IVSs1.18 (0.8-1.2cm)LVDs4.58 (2.5-4.0cm) FS (%) 1.5 %PWs1.24 (0.8-1.2cm) LVEF (%)55.0 (>50%) M-Mode DIMENSIONS Left Atrium (MM)4.47 (2.5-4.0cm)IVSd0.73 (0.7-1.1cm) Aortic Root3.11 (2.2-3.7cm)LVDd5.26 (4.0-5.6cm) Aortic Cusp Exc.1.99 (1.5-2.0cm)PWd0.89 (0.7-1.1cm) IVSs0.76 cmFS (%) 14 % LVDs4.53 (2.0-3.8cm)PWs1.32 cm Mitral Valve E/A ratio0.0 TDI E/Lateral E'0.0E/Medial E'0.0 Tricuspid Valve TR Peak [id number] [id number] Peak Gr.32mmHg [id number] LEFT VENTRICLE The left ventricle is normal size. There is normal left ventricular wall thickness. The left ventricular function is normal. The left ventricular ejection fraction is within the normal range. There is normal LV segmental wall motion. Patient is in A Fib RIGHT VENTRICLE The right ventricle is mildly dilated. There is normal right ventricular wall thickness. RV Systolic function is moderately reduced. ATRIA The left atrium is mildly dilated. The right atrium is mildly dilated. AORTIC VALVE The aortic valve is not well visualized. There is mild aortic regurgitation. There is no aortic valvular stenosis. MITRAL VALVE The mitral valve is mildly thickened. There is no mitral valve stenosis. Mitral regurgitation is moderate. TRICUSPID VALVE The tricuspid valve is normal in structure There is mild tricuspid regurgitation. There is mild pulmonary hypertension. PULMONIC VALVE The pulmonary valve is normal in structure and function. There is no pulmonic valvular regurgitation. GREAT VESSELS The aortic root is normal in size. The IVC is dilated. PERICARDIAL EFFUSION There is a trace loculated anterior pericardial effusion. <Conclusion> The right ventricle is mildly dilated. RV Systolic function is moderately reduced. The left ventricle is normal size. There is normal left ventricular wall thickness. The left ventricular function is normal. The left ventricular ejection fraction is within the normal range. There is mild aortic regurgitation. There is no mitral valve stenosis. There is mild tricuspid regurgitation. There is mild pulmonary hypertension.
--- NOTE | 2016-04-23 14:15 | CARD ---
APPROVED REPORT EKG Measurement Heart [id number] <Conclusion> Atrial fibrillation with rapid ventricular response Nonspecific T wave abnormality Abnormal ECG
--- NOTE | 2016-04-23 14:52 | CARD ---
APPROVED REPORT EKG Measurement Heart [id number] <Conclusion> Atrial fibrillation with rapid ventricular response Anterior infarct, age undetermined Abnormal ECG
--- NOTE | 2016-04-23 15:23 | CP.PCM.CON ---
History of Present Illness - History of Present Illness History of Present Illness: 70 year old female with a history of seizure, HTN, HL, asthma, admitted with pulmonary embolism, bilateral LE DVT complicated by Afib on anticoagulation. The patient reports to progressive shortness of breath over several days. She denies immobility and trauma to her extremities. She is currently receiving therapeutic anticoagulation with lovenox and reports to breathing better. Past medical history: seizure, HTN, HL, asthma Past surgical history: None Family history: Sister had breast cancer Social history: Denies tobacco, alcohol, and illicit drug use. Allergies: NKA Review of systems: All remaining review of systems including HEENT, cardiovascular, respiratory, gastrointestinal, genitourinary, musculoskeletal, dermatologic, neurologic, and psychiatric are negative unless mentioned in the HPI. Past Patient History - Past Medical History & Family History Past Medical History?: Yes - Past Social History Alcohol: None Drugs: Denies - CARDIAC Hx Cardiac Disorders: Yes - PULMONARY Hx Respiratory Disorders: Yes - NEUROLOGICAL Hx Neurological Disorder: Yes - HEENT Hx HEENT Problems: No - RENAL Hx Chronic Kidney Disease: No - ENDOCRINE/METABOLIC Hx Endocrine Disorders: No - HEMATOLOGICAL/ONCOLOGICAL Hx Human Immunodeficiency Virus (HIV): No - INTEGUMENTARY Hx Dermatological Problems: No - MUSCULOSKELETAL/RHEUMATOLOGICAL Hx Falls: No - GASTROINTESTINAL Hx Gastrointestinal Disorders: No - GENITOURINARY/GYNECOLOGICAL Hx Genitourinary Disorders: No - PSYCHIATRIC Hx Psychophysiologic Disorder: No Hx Substance Use: No - SURGICAL HISTORY Other/Comment: R beast lump removal - ANESTHESIA Hx Anesthesia: Yes Hx Anesthesia Reactions: No Meds Allergies/Adverse Reactions: Allergies Allergy/AdvReac Type Severity Reaction Status Date / Time No Known Allergies Allergy Verified 04/22/16 16:41 - Medications Medications: Current Medications Albuterol (Ventolin Hfa 90 Mcg/Actuation (8 G)) 2 puff IH Q4H PRN PRN Reason: Shortness of Breath Enoxaparin Sodium (Lovenox) 80 mg SC Q12 BRAD PRN Reason: Protocol Last Admin: 04/23/16 09:02 Dose: 80 mg Furosemide (Lasix) 40 mg IVP Q12H BRAD Last Admin: 04/23/16 09:01 Dose: 40 mg Diltiazem HCl 125 mg/ Sodium (Chloride) 125 mls @ 5 mls/hr IV .Q24H ONE; 5 MG/ HR PRN Reason: Protocol Stop: 04/23/16 20:07 Last Titration: 04/23/16 07:12 Dose: 7.5 mg/hr Ceftriaxone Sodium 1 gm/ (Sodium Chloride) 100 mls @ 100 mls/hr IVPB DAILY [facility] Last Admin: 04/23/16 09:02 Dose: 100 mls/hr Azithromycin 500 mg/ Sodium (Chloride) 250 mls @ 250 mls/hr IVPB DAILY [facility] Last Admin: 04/23/16 09:12 Dose: 250 mls/hr Sodium Chloride (Sodium Chloride 0.9%) 1,000 mls @ 999 mls/hr IV .Q1H1M [facility] Stop: 04/23/16 22:31 Last Admin: 04/22/16 22:37 Dose: 999 mls/hr Montelukast Sodium (Singulair) 10 mg PO DAILY [facility] Last Admin: 04/23/16 09:11 Dose: 10 mg Pantoprazole Sodium (Protonix Inj) 40 mg IVP DAILY [facility] Last Admin: 04/23/16 12:37 Dose: 40 mg Phenytoin Sodium (Dilantin) 100 mg PO BID [facility] Last Admin: 04/23/16 09:00 Dose: 100 mg Potassium Chloride (K-Dur 20 Meq Er Tab) 20 meq PO BID [facility] Last Admin: 04/23/16 09:01 Dose: 20 meq Fluticasone/Salmeterol (Advair Diskus 250/50) 1 puff IH Q12H [facility] Last Admin: 04/23/16 09:12 Dose: 1 puff Physical Exam - Head Exam Head Exam: ATRAUMATIC - Eye Exam Eye Exam: Normal appearance - ENT Exam ENT Exam: Mucous Membranes Dry - Respiratory Exam Respiratory Exam: NORMAL BREATHING PATTERN - Cardiovascular Exam Cardiovascular Exam: +S1, +S2 - GI/Abdominal Exam GI & Abdominal Exam: Normal Bowel Sounds - Extremities Exam Extremities exam: Positive for: pedal edema - Neurological Exam Neurological exam: Oriented x3 - Psychiatric Exam Psychiatric exam: Normal Affect, Normal Mood - Skin Skin Exam: Warm Results - Vital Signs Recent Vital Signs: Last Vital Signs Temp 98.2 F 04/23/16 12:00 Pulse 106 H 04/23/16 12:44 Resp 24 04/23/16 12:00 BP 123/77 04/23/16 12:44 Pulse Ox 95 04/23/16 12:00 - Labs Result Diagrams: 04/23/16 04:25 04/23/16 04:25 Labs: Laboratory Results - last 24 hr 04/22/16 04/22/16 04/22/16 19:16 21:23 22:06 WBC RBC Hgb Hct MCV MCH MCHC RDW Plt Count MPV Neut % (Auto) Lymph % (Auto) Knox % (Auto) Eos % (Auto) Baso % (Auto) Neut # Lymph # Knox # Eos # Baso # Neutrophils % (Manual) Band Neutrophils % Lymphocytes % (Manual) Monocytes % (Manual) Platelet Estimate Large Platelets Macrocytosis (manual) Tear Drop Cells Ovalocytes PT INR APTT Fibrinogen Sodium Potassium Chloride Carbon Dioxide Anion Gap BUN Creatinine Est GFR ( Amer) Est GFR (Non-Af Amer) Random Glucose Lactic Acid 4.7 H* Calcium Total Bilirubin AST ALT Alkaline Phosphatase Total Creatine Kinase Troponin I Total Protein Albumin Globulin Albumin/Globulin Ratio Procalcitonin 0.26 Thyroxine (T4) Total T3 TSH 3rd Generation Phenytoin < 3.0 L 04/23/16 04/23/16 04/23/16 01:00 04:25 08:19 WBC 9.8 RBC 4.11 Hgb 13.6 Hct 41.0 MCV 99.7 H MCH 33.2 H MCHC 33.3 RDW 16.1 H Plt Count 92 L MPV 10.0 Neut % (Auto) 92.1 H Lymph % (Auto) 3.8 L Knox % (Auto) 3.8 Eos % (Auto) 0.0 Baso % (Auto) 0.3 Neut # 9.1 H Lymph # 0.4 L Knox # 0.4 Eos # 0.0 Baso # 0.0 Neutrophils % (Manual) 95 H Band Neutrophils % 1 Lymphocytes % (Manual) 1 L Monocytes % (Manual) 3 Platelet Estimate Decreased L Large Platelets Present Macrocytosis (manual) Slight Tear Drop Cells Slight Ovalocytes Slight PT 17.5 H INR 1.68 H APTT 36.9 H Fibrinogen 257 Sodium 145 145 Potassium 3.4 L 3.7 Chloride 104 104 Carbon Dioxide 23 28 Anion Gap 21 H 17 BUN 32 H 33 H Creatinine 0.7 0.8 Est GFR ( Amer) > 60 > 60 Est GFR (Non-Af Amer) > 60 > 60 Random Glucose 162 H 164 H Lactic Acid 2.3 H Calcium 7.7 L 8.3 L Total Bilirubin 1.6 H AST 158 H D ALT 150 H Alkaline Phosphatase 106 Total Creatine Kinase Troponin I 0.0150 Total Protein 5.9 L Albumin 2.5 L Globulin 3.5 Albumin/Globulin Ratio 0.7 L Procalcitonin Thyroxine (T4) 6.05 Total T3 0.614 L TSH 3rd Generation 0.05 L Phenytoin 04/23/16 09:55 WBC RBC Hgb Hct MCV MCH MCHC RDW Plt Count MPV Neut % (Auto) Lymph % (Auto) Knox % (Auto) Eos % (Auto) Baso % (Auto) Neut # Lymph # Knox # Eos # Baso # Neutrophils % (Manual) Band Neutrophils % Lymphocytes % (Manual) Monocytes % (Manual) Platelet Estimate Large Platelets Macrocytosis (manual) Tear Drop Cells Ovalocytes PT INR APTT Fibrinogen Sodium Potassium Chloride Carbon Dioxide Anion Gap BUN Creatinine Est GFR ( Amer) Est GFR (Non-Af Amer) Random Glucose Lactic Acid Calcium Total Bilirubin AST ALT Alkaline Phosphatase Total Creatine Kinase < 20 L Troponin I 0.0160 Total Protein Albumin Globulin Albumin/Globulin Ratio Procalcitonin Thyroxine (T4) Total T3 TSH 3rd Generation Phenytoin Assessment & Plan (1) Pulmonary embolism with infarction Assessment and Plan: with B/L DVT - unprovoked recommend IVC filter placement given extensive LE clot burden agree with therapeutic anticoagulation Status: Acute (2) Thrombocytopenia Assessment and Plan: will check HIV and hepatitis panel may be consumptive from extensive clotting Status: Acute (3) Coagulopathy Assessment and Plan: secondary to anticoagulation Thank you for this interesting consult. Status: Acute
--- NOTE | 2016-04-23 16:20 | CP.CCUPN ---
CCU Subjective - Physician Review Subjective (Free Text): PARTS CONTROL CLERK PROGRESS NOTE Patient examined, interim events reviewed: Awake and Alert, placed onto BIPAP (10/5, 40% and TVs averaging 375ml with SPo2 96%) overnight, did tolerate brief time off BiPAP on nasal cannula for breakfast. She denies any headaches, chest discomfort or exertional dyspnea while moving around in bed. Afebrile, no fever spikes overnight, still in rapid A Fib 128, loaded with Digoxin 0.50mg this AM, on Cardizem drip 7.5 mg/hr. ROS: as above , no other pertinent negs or positives on 12 system review. PSFMH: no other new information relevant to current medical problems. No other distress noted: EXAM- HEENT: no icterus, pupils equal and reactive, no nystagmus NECK: no visible JVD, supple, carotids equal upstroke bilat/no bruits CHEST: decreased BS bases, few scattered wheezes audible bilaterally HEART: irregular, distant, S1S2, no murmur audible, no rubs. ABD: soft, no increased distention, no focal tenderness, no HSM. BS hypoactive , EXT: +3 leg edema with bilat hyperpigmented hyperkeratotic distal LE skin changes and discoloration with varicosities and no peripheral/ digital cyanosis , no calf tenderness or palpable cords, distal pulses intact and symmetrical NEURO: oriented x 3, no gross focal motor deficits. SKIN: no rashes, distal LE venous insuff/ stasis skin changes bilaterally LABS: WBC= 9.8 HGB= 13.6 PLTs = 92K PT/INR/PTT= 17.5/1.68/36.9 Na= 145 K= 3.7 CL= 104 HCO3= 28 BUN/Cr= 33/0.8 BS= 164 TBili= 2.2 to 1.6 AST= 212 to 158 ALT= 176 to 150 ALK Phos= 139 to normal 106 Assessment / Major Problems: 1. Acute Resp Insuff 2 Pneumonitis, CHF, Acute PTE 2. Paroxysmal, new onset Atrial Fib with RVR 3. Azotemia, r/o SURAJ versus CKD 4. Elevated LFTs 2 Hepatic Congestion and R Heart Failure 5. Thrombocytopenia 6. Mild Coagulopathy 7. h/o Seizure Disorder PLAN: 1. Consideration for IVC Filter placement given large clot burden. 2. Increase Lovenox to 100mg Q12H 3. Empiric abx coverage. 4. Serial lactates 5. LFTs improved. 6. More digoxin for rate control. 7. Lasix PRN 8. Trial off BiPAP to regular Nasal cannula.
[2016-04-23] MEDS: Enoxaparin 100 mg Syringe SC SCH (21:06)
[2016-04-24 05:22] LABS: HEMATOCRIT 41.6 % (34.0-47.0); MEAN CELL VOLUME 96.1 fl (81.0-99.0); MEAN CORPUSCULAR HEMOGLOBIN 31.4 pg (27.0-31.0); MEAN CORPUSCULAR HGB CONC 32.7 g/dL (33.0-37.0); PLATELET COUNT 106 K/uL (130-400); WHITE BLOOD COUNT 13.4 K/uL (4.8-10.8)
[2016-04-24 05:42] LABS: ALB/GLOB RATIO 0.7 (1.0-2.1); ALKALINE PHOSPHATASE 101 U/L (38-126); ALT/SGPT 107 U/L (9-52); AST/SGOT 67 U/L (14-36); BILIRUBIN,TOTAL 1.3 mg/dl (0.2-1.3); BLOOD UREA NITROGEN 28 mg/dl (7-17); CALCIUM 8.5 mg/dL (8.4-10.2); CARBON DIOXIDE 34 mmol/L (22-30); CHLORIDE 100 mmol/L (98-107); GFR AFRICAN-AMERICAN > 60; GLUCOSE,RANDOM 131 mg/dL (65-105); POTASSIUM 3.3 MMOL/L (3.6-5.0); SODIUM 145 mmol/l (132-148); TOTAL PROTEIN 5.9 G/DL (6.3-8.2)
--- NOTE | 2016-04-24 06:55 | CP.PCM.PN ---
Subjective - Date & Time of Evaluation Date of Evaluation: 04/24/16 Time of Evaluation: 07:15 - Subjective Subjective: -Pt is seen at bedside resting comfortably on nasal canula. Pt states she has been feeling better. Pt denies n/v/d, chest pain. PT produced 2.5L of urine overnight. Placement of a filter in the infrarenal IVC by Dr. Montanez today. Objective - Vital Signs/Intake and Output Vital Signs (last 24 hours): Temp Pulse Resp BP Pulse Ox 97.6 F 105 H 35 H 149/68 92 L 04/24/16 04:00 04/24/16 06:00 04/24/16 06:00 04/24/16 06:00 04/24/16 06:00 Intake and Output: 04/23/16 04/24/16 18:59 06:59 Intake Total 1255 Output Total 1600 2400 Balance -345 -2400 - Medications Medications: Current Medications Budesonide (Pulmicort Respules) 0.5 mg IH Q12 [facility] Enoxaparin Sodium (Lovenox) 100 mg SC Q12 [facility] Last Admin: 04/23/16 21:06 Dose: 100 mg Furosemide (Lasix) 40 mg IVP Q12H [facility] Last Admin: 04/23/16 21:05 Dose: 40 mg Levalbuterol HCl (Xopenex) 0.63 mg INH RQ8 BRAD Montelukast Sodium (Singulair) 10 mg PO DAILY [facility] Last Admin: 04/23/16 09:11 Dose: 10 mg Pantoprazole Sodium (Protonix Inj) 40 mg IVP DAILY [facility] Last Admin: 04/23/16 12:37 Dose: 40 mg Phenytoin Sodium (Dilantin) 100 mg PO BID [facility] Last Admin: 04/23/16 17:13 Dose: 100 mg Potassium Chloride (K-Dur 20 Meq Er Tab) 20 meq PO BID [facility] Last Admin: 04/23/16 17:15 Dose: 20 meq - Labs Labs: 04/24/16 04:30 04/24/16 04:30 PT 17.5 SECONDS (9.6-11.2) H 04/23/16 04:25 INR 1.68 (0.92-1.08) H 04/23/16 04:25 APTT 36.9 SECONDS (23.3-32.5) H 04/23/16 04:25 - Constitutional Appears: No Acute Distress - Head Exam Head Exam: ATRAUMATIC, NORMAL INSPECTION, NORMOCEPHALIC - Respiratory Exam Respiratory Exam: Wheezes (slight wheezes hear in right lung), NORMAL BREATHING PATTERN - Cardiovascular Exam Cardiovascular Exam: Irregular Rhythm, +S1, +S2. absent: Murmur - GI/Abdominal Exam GI & Abdominal Exam: Soft. absent: Tenderness - Extremities Exam Extremities Exam: Pedal Edema. absent: Calf Tenderness Additional comments: - Swelling of lower extremities - Back Exam Additional comments: No bed sore or lesions noted - Skin Skin Exam: Normal Color Assessment and Plan - Assessment and Plan (Free Text) Assessment: Assessment: Ms. Bynum is a 70yo F with PMH of asthma, CHF, HTN and seizures who presented with SOB and leg swelling and is being evaluated and treated for multifactoral respiratory distress. Multifactoral sepsis (improving) - Patient present with tachycardia, tachypnea. Initial WBC of 13.1. Lactate level of 4.7. Possible pneumonia as infective source. - On admission WBC:13.1 - WBC increased from 9.8 to 13.4 from yesterday - Procalcitonin WNL - Given IV NS fluid bolus - Empiric treatment with azithromycin 500mg IVPB daily and ceftriaxone 1g IVPB daily - Continue IVF hydration Unprovoked subacute Pulmonary Embolism Patient presented with SOB, b/l LE edema of one week onset. Tachycardia of 153bpm and tachypnea of 40bpm and visible respiratory distress. - Today heart rate is improving to 100 and RR was 36 - Full dose lovenox 80mg SC Q12 - Pulmonary consult appreciated - IVC filter scheduled for this afternoon - F/u MFTHR, Factor V, ATIII, Protein C&S Bilateral LE DVTs confirmed w/ U/S - LE duplex positive for b/l occlusive thrombi of the popliteal veins. No DVT of upper extremities. - Full dose lovenox 80mg SC Q12 - IVC filter was placed today by New onset Afib with RVR not rate controlled - Patient presented with tachycardia of 153 and irregularly irregular rhythm. EKG confirmed afib with RVR. - Digoxin 0.25mg PO Daily - Pt on full dose lovenox for anticoagulation -Cardiology consulted - Echocardiogram revealed EF of 55% with mildly reduced RV systolic dysfunction and dilated L and R atria. - F/U coag Possible PNA CAP vs HAP - Presented with respiratory distress, elevated white count. Pulmonary infiltrate in R lobe with prominent pleural effusion. - Empiric treatment with azithromycin 500mg IVP daily and ceftriaxone 1g IVP daily - Influenza swab was negative Acute on chronic diastolic HF (Improving) Patient presented with h/o worsening b/l lower extremity swelling. Pitting edema of b/l LE 3+ up to knees and 2+ the thighs. pBNP 13,000. - Echocardiogram w/ EF of 55% - F/U I/O- produced 2.5 liters overnight - Lasix 40 mg IVP Q12H - Pitting edema looking better, rales not heard on auscultataion - Sweeney catheter in place - Cardiology consulted Secondary hypothyroidism: - TSH: .05 - T3: .61, T4 wnl - monitor Elevated liver enzymes (improving) - AST/ALT improved from 158/150 to 67/107 - F/u Hepatitis panel Chronic HTN - Monitor BP, currently controlled. Chronic Asthma - Albuteral inhaler 2 puffs Q4 as needed - Advair 1 puff inhaled Q12 - Montlukast 10mg PO daily Hypokalemia - 3.3 - KDUR 20 meq PO BID - F/U bmp Seizure disorder - Dilantin 100mg PO BID - CPK levels WNL - seizure precautions Thrombocytopenia - F/U HIV, Hep Panel - F/U CBC - F/U coags Prophylaxis GI: Pantoprazole 20mg PO daily DVT: on full dose lovenox
--- NOTE | 2016-04-24 07:29 | CP.CCUPN ---
<Maverick Felix T - Last Filed: 04/24/16 10:29> CCU Subjective - Physician Review Subjective (Free Text): Pt seen and examined at bedside in the ICU. Pt states she's stable and hasn't had any worsening respiratory symptoms and she also denies any acute overnight events or problems. Pt denies any fevers/chills, n/v/d/c, headaches, chest pain , abd pain, hematuria, or dysuria. CCU Objective - Vital Signs / Intake & Output Vital Signs (Last 4 hours): Vital Signs Temp Pulse Resp BP Pulse Ox 04/24/16 07:27 97.7 F 04/24/16 06:00 105 H 35 H 149/68 92 L 04/24/16 04:00 97.6 F 94 H 44 H 146/84 94 L Intake and Output (Last 8hrs): Intake & Output 04/23/16 04/24/16 04/24/16 22:59 06:59 14:59 Intake Total 300 Output Total 3700 300 Balance -3400 -300 Intake: Oral 300 Output: Urine 3700 300 Urethral (Sweeney) 3700 300 Other: # Bowel Movements 1 - Physical Exam Head: Positive for: Atraumatic Pupils: Positive for: PERRL Extroacular Muscles: Positive for: EOMI Mouth: Positive for: Moist Mucous Membranes Neck: Positive for: Normal Range of Motion, Trachea Midline. Negative for: MIDLINE TENDERNESS, JVD Respiratory/Chest: Positive for: Wheezes (mild throughout), Decreased Breath Sounds Cardiovascular: Positive for: Irregular Rhythm Abdomen: Positive for: Normal Bowel Sounds. Negative for: Tenderness, Distention Upper Extremity: Positive for: Normal Inspection. Negative for: Cyanosis Lower Extremity: Positive for: Edema (2+ ), Other (venous insufficiency) Neurological: Positive for: GCS=15, CN II-XII Intact - Medications Active Medications: Active Medications Generic Name Dose Route Start Last Admin Trade Name Freq PRN Reason Stop Dose Admin Budesonide 0.5 mg 04/24/16 09:00 Pulmicort Respules IH Q12 BRAD Enoxaparin Sodium 100 mg 04/23/16 21:00 04/23/16 21:06 Lovenox SC 100 mg Q12 BRAD Administration Furosemide 40 mg 04/22/16 21:00 04/23/16 21:05 Lasix IVP 40 mg Q12H BRAD Administration Levalbuterol HCl 0.63 mg 04/24/16 08:00 Xopenex INH RQ8 BRAD Montelukast Sodium 10 mg 04/23/16 09:00 04/23/16 09:11 Singulair PO 10 mg DAILY BRAD Administration Pantoprazole Sodium 40 mg 04/23/16 11:15 04/23/16 12:37 Protonix Inj IVP 40 mg DAILY BRAD Administration Phenytoin Sodium 100 mg 04/23/16 09:00 04/23/16 17:13 Dilantin PO 100 mg BID BRAD Administration Potassium Chloride 20 meq 04/23/16 09:00 04/23/16 17:15 K-Dur 20 Meq Er Tab PO 20 meq BID BRAD Administration - Patient Studies Lab Studies: Lab Studies 04/24/16 04/23/16 04/23/16 Range/Units 04:30 09:55 08:19 WBC 13.4 H (4.8-10.8) K/uL RBC 4.33 (3.80-5.20) Mil/uL Hgb 13.6 (12.0-16.0) g/dL Hct 41.6 (34.0-47.0) % MCV 96.1 D (81.0-99.0) fl MCH 31.4 H (27.0-31.0) pg MCHC 32.7 L (33.0-37.0) g/dL RDW 16.0 H (11.5-14.5) % Plt Count 106 L (130-400) K/uL Neutrophils % (Manual) (42-75) % Band Neutrophils % (0-2) % Lymphocytes % (Manual) (20-50) % Monocytes % (Manual) (0-10) % Platelet Estimate (NORMAL) Large Platelets Macrocytosis (manual) Tear Drop Cells Ovalocytes Fibrinogen (200-400) mg/dl Sodium 145 (132-148) mmol/l Potassium 3.3 L (3.6-5.0) MMOL/L Chloride 100 (98-107) mmol/L Carbon Dioxide 34 H (22-30) mmol/L Anion Gap 14 (10-20) BUN 28 H (7-17) mg/dl Creatinine 0.6 L (0.7-1.2) mg/dL Est GFR ( Amer) > 60 Est GFR (Non-Af Amer) > 60 Random Glucose 131 H (65-105) mg/dL Calcium 8.5 (8.4-10.2) mg/dL Total Bilirubin 1.3 (0.2-1.3) mg/dl AST 67 H D (14-36) U/L ALT 107 H D (9-52) U/L Alkaline Phosphatase 101 (38-126) U/L Total Creatine Kinase < 20 L (30-135) U/L Troponin I 0.0160 (0.00-0.120) ng/mL Total Protein 5.9 L (6.3-8.2) G/DL Albumin 2.4 L (3.5-5.0) g/dL Globulin 3.5 (2.2-3.9) gm/dL Albumin/Globulin Ratio 0.7 L (1.0-2.1) Procalcitonin (0.19-0.49) NG/ML Thyroxine (T4) 6.05 (5.5-11.0) ug/dl Total T3 0.614 L (1.49-2.60) nmol/L TSH 3rd Generation 0.05 L (0.46-4.68) mIU/ML 04/23/16 04/22/16 Range/Units 04:25 22:06 WBC (4.8-10.8) K/uL RBC (3.80-5.20) Mil/uL Hgb (12.0-16.0) g/dL Hct (34.0-47.0) % MCV (81.0-99.0) fl MCH (27.0-31.0) pg MCHC (33.0-37.0) g/dL RDW (11.5-14.5) % Plt Count (130-400) K/uL Neutrophils % (Manual) 95 H (42-75) % Band Neutrophils % 1 (0-2) % Lymphocytes % (Manual) 1 L (20-50) % Monocytes % (Manual) 3 (0-10) % Platelet Estimate Decreased L (NORMAL) Large Platelets Present Macrocytosis (manual) Slight Tear Drop Cells Slight Ovalocytes Slight Fibrinogen 257 (200-400) mg/dl Sodium (132-148) mmol/l Potassium (3.6-5.0) MMOL/L Chloride (98-107) mmol/L Carbon Dioxide (22-30) mmol/L Anion Gap (10-20) BUN (7-17) mg/dl Creatinine (0.7-1.2) mg/dL Est GFR ( Amer) Est GFR (Non-Af Amer) Random Glucose (65-105) mg/dL Calcium (8.4-10.2) mg/dL Total Bilirubin (0.2-1.3) mg/dl AST (14-36) U/L ALT (9-52) U/L Alkaline Phosphatase (38-126) U/L Total Creatine Kinase (30-135) U/L Troponin I (0.00-0.120) ng/mL Total Protein (6.3-8.2) G/DL Albumin (3.5-5.0) g/dL Globulin (2.2-3.9) gm/dL Albumin/Globulin Ratio (1.0-2.1) Procalcitonin 0.26 (0.19-0.49) NG/ML Thyroxine (T4) (5.5-11.0) ug/dl Total T3 (1.49-2.60) nmol/L TSH 3rd Generation (0.46-4.68) mIU/ML Laboratory Results - last 24 hr 04/22/16 04/23/16 04/23/16 22:06 04:25 08:19 WBC RBC Hgb Hct MCV MCH MCHC RDW Plt Count Neutrophils % (Manual) 95 H Band Neutrophils % 1 Lymphocytes % (Manual) 1 L Monocytes % (Manual) 3 Platelet Estimate Decreased L Large Platelets Present Macrocytosis (manual) Slight Tear Drop Cells Slight Ovalocytes Slight Fibrinogen 257 Sodium Potassium Chloride Carbon Dioxide Anion Gap BUN Creatinine Est GFR ( Amer) Est GFR (Non-Af Amer) Random Glucose Calcium Total Bilirubin AST ALT Alkaline Phosphatase Total Creatine Kinase Troponin I Total Protein Albumin Globulin Albumin/Globulin Ratio Procalcitonin 0.26 Thyroxine (T4) 6.05 Total T3 0.614 L TSH 3rd Generation 0.05 L 04/23/16 04/24/16 09:55 04:30 WBC 13.4 H RBC 4.33 Hgb 13.6 Hct 41.6 MCV 96.1 D MCH 31.4 H MCHC 32.7 L RDW 16.0 H Plt Count 106 L Neutrophils % (Manual) Band Neutrophils % Lymphocytes % (Manual) Monocytes % (Manual) Platelet Estimate Large Platelets Macrocytosis (manual) Tear Drop Cells Ovalocytes Fibrinogen Sodium 145 Potassium 3.3 L Chloride 100 Carbon Dioxide 34 H Anion Gap 14 BUN 28 H Creatinine 0.6 L Est GFR ( Amer) > 60 Est GFR (Non-Af Amer) > 60 Random Glucose 131 H Calcium 8.5 Total Bilirubin 1.3 AST 67 H D ALT 107 H D Alkaline Phosphatase 101 Total Creatine Kinase < 20 L Troponin I 0.0160 Total Protein 5.9 L Albumin 2.4 L Globulin 3.5 Albumin/Globulin Ratio 0.7 L Procalcitonin Thyroxine (T4) Total T3 TSH 3rd Generation EKG/Cardiology Studies: Cardiology / EKG Studies 04/23/16 09:00 EKG [ELECTROCARDIOGRAM] DAILY Comment: CHF exacerbation Mode Of Transportation: PORTABLE Reason For Exam: New Onset A-fib w/ PE Fingerstick Blood Sugar Results: 162 Review of Systems - Review of Systems Review of Systems: see HPI Critical Care Progress Note - Nutrition Nutrition: Nutrition Category Date Time Status Heart Healthy Diet [DIET] Diets 04/23/16 Breakfast Active Assessment/Plan - Assessment and Plan (Free Text) Plan: 70yo F with PMHx of asthma, CHF, HTN and seizures is admitted to ICU for SOB, dyspnea, and new onset afib rvr in setting of pulmonary embolisms 1) Acute Respiratory Insufficiency -Likely due to pneumonitis, CHF, acute PE -Chest CT (04/22): Large embolus R main pulm artery, airspace dz/infarcts in R middle & lower lobs -NC o2NC -Lasix 40mg IVP Q12H -Xopenex 0.63mg INh RQ8H -Pulmicort 0.5mg INH Q12H -Azithromycin 500mg IVPB Daily -f/u MTHFR, Factor V, ATIII -f/u Protein C, S -f/u IVC filter placement given extensive clot burden and decreased pulmonary reserve 2) Afib w RVR -New onset -Echo (04/23): LVEF 55%, Normal LV wal thickness, Normal LV function, Mild RV dilation, Moderately reduced RV systolic function -Lovenox 100mg SC Q12H -Dig 0.25mg PO Daily, may increase to total of 0.375mg as per Cardio -f/u Coags 3) Pneumonia -CAP vs HAP -Azithromycin 500mg IVP Daily -Ceftriaxone 1g IVP Daily 4) Azotemia -r/o SURAJ vs CKD -f/u Renal function 5) Elevated LFTs -Likely due to hepatic congestion and R heart failure -Trending downward -f/u coags 6) Thrombocytopenia -Extensive clotting VS dz process -f/u HIV, Hep Panel -f/u CBCs -f/u coags 7) Mild coagulopathy -Liver dysfunction -f/u coags 8) Seizure Disorder -Phenytoin 100mg PO BID 9) Hypokalemia -Kdur 20 PO Daily -K 10 mEq x2 <Luis Gilbert - Last Filed: 04/24/16 14:24> CCU Subjective - Physician Review Subjective (Free Text): 04/24/16 14:23Attestation: Patient seen and examined at the bedside with Resident Dr. Fili Felix; and I agree with his outline of plans and management documented below as discussed on AM rounds reflecting my review of all applicable clinical data, and participation in the care of the patient throughout the day in ICU; today, April 24, 2016.
[2016-04-24] MEDS: Levalbuterol 0.63 MG/3 ML Inhal Soln UD INH SCH ×2 (07:31→15:33)
[2016-04-24] MEDS ORDERED: Azithromycin 500 MG in Sodium Chloride 0.9% 250 ML IVPB SCH (09:00)
[2016-04-24] MEDS: Potassium Chloride 20 mEq ER Tab PO SCH ×2 (09:35→16:12)
[2016-04-24] MEDS: Azithromycin 500 MG in Sodium Chloride 0.9% 250 ML IVPB SCH (09:39)
[2016-04-24 09:40] LABS: NEUTROPHIL 93 % (42-75); TOTAL CELLS COUNTED 100
[2016-04-24] MEDS: Potassium CL 10 MEQ/50 ML 50 ML IVPB SCH (09:41)
[2016-04-24] MEDS: Digoxin 250 mcg (0.25 mg) Tab PO SCH (10:41)
--- NOTE | 2016-04-24 10:55 | CP.PCM.PN ---
Subjective - Date & Time of Evaluation Date of Evaluation: 04/24/16 Time of Evaluation: 10:30 - Subjective Subjective: Clinically improved , sitting up in bed, able to eat her breafast unassisted Can participate in conversation Mild tachypnoea at 18-20 BPM Pulse Ox 96% on O2 with N/C A Fib at 110 BPM BP 120/70 mm Hg Echocardiogram shows Dilated RV and RA with IVS showing paradoxical motion TR with elevated PA syst pressure Pt anticoagulated/ on Digoxin for rate control Going for IVC filter placement Objective - Vital Signs/Intake and Output Vital Signs (last 24 hours): Temp Pulse Resp BP Pulse Ox 97.7 F 105 H 35 H 130/75 92 L 04/24/16 07:27 04/24/16 06:00 04/24/16 06:00 04/24/16 09:36 04/24/16 06:00 Intake and Output: 04/24/16 04/24/16 06:59 18:59 Output Total 2400 Balance -2400 - Medications Medications: Current Medications Budesonide (Pulmicort Respules) 0.5 mg IH Q12 [facility] Digoxin (Lanoxin) 0.25 mg PO DAILY [facility] Last Admin: 04/24/16 10:41 Dose: 0.25 mg Enoxaparin Sodium (Lovenox) 100 mg SC Q12 [facility] Last Admin: 04/23/16 21:06 Dose: 100 mg Furosemide (Lasix) 40 mg IVP Q12H [facility] Last Admin: 04/24/16 09:36 Dose: 40 mg Ceftriaxone Sodium 1 gm/ (Sodium Chloride) 100 mls @ 100 mls/hr IVPB DAILY [facility] Last Admin: 04/24/16 09:37 Dose: 100 mls/hr Azithromycin 500 mg/ Sodium (Chloride) 250 mls @ 250 mls/hr IVPB DAILY [facility] Last Admin: 04/24/16 09:39 Dose: 250 mls/hr Levalbuterol HCl (Xopenex) 0.63 mg INH RQ8 [facility] Last Admin: 04/24/16 07:31 Dose: 0.63 mg Montelukast Sodium (Singulair) 10 mg PO DAILY [facility] Last Admin: 04/24/16 09:35 Dose: 10 mg Pantoprazole Sodium (Protonix Inj) 40 mg IVP DAILY [facility] Last Admin: 04/24/16 09:36 Dose: 40 mg Phenytoin Sodium (Dilantin) 100 mg PO BID [facility] Last Admin: 04/24/16 09:35 Dose: 100 mg Potassium Chloride (K-Dur 20 Meq Er Tab) 20 meq PO BID [facility] Last Admin: 04/24/16 09:35 Dose: 20 meq - Labs Labs: 04/24/16 04:30 04/24/16 04:30 PT 17.5 SECONDS (9.6-11.2) H 04/23/16 04:25 INR 1.68 (0.92-1.08) H 04/23/16 04:25 APTT 36.9 SECONDS (23.3-32.5) H 04/23/16 04:25
[2016-04-24] MEDS ORDERED: Iodixanol 320 MG/ML 100 ML BOTTLE IV ONE (11:18)
[2016-04-24] MEDS ORDERED: Lidocaine 1% Inj (20ml) ONE (11:48)
--- NOTE | 2016-04-24 12:18 | PCM.SURG1 ---
Surgeon's Initial Post Op Note - Surgeon's Notes Surgeon: Josse Montanez MD Track Greaser: None Type of Anesthesia: Local Pre-Operative Diagnosis: Pulmonary embolism, DVT Operative Findings: Patent right common femoral vein. Inferior venacavagram showed normal IVC, no thrombus. Inflow of renal veins noted. Post-Operative Diagnosis: Pulmonary embolism, DVT Operation Performed: Placement of a retrievable filter in the infrarenal IVC. Specimen/Specimens Removed: None Estimated Blood Loss: EBL {In ML}: 2 Blood Products Given: N/A Drains Used: No Drains Post-Op Condition: Fair Date of Surgery/Procedure: 04/24/16 Time of Surgery/Procedure: 12:15
--- NOTE | 2016-04-24 12:50 | CP.PCM.CON ---
History of Present Illness - History of Present Illness History of Present Illness: PODIATRY CONSULT NOTE 70 year old female seen at bedside with attending Dr. Sola negrete. Pt has painful elongated disfigured toenails heightened by digital deformities. Pt reperts pain is a 2/10 to the nail plates when they catch on bedding. Pt is noted to have increased bilateral lower extremity edema. Patient reports recent shortness of breath due to respiratory symptoms and acute PE, breathing normally on nasal air at time of interview. Pt denies chest pain, n/v/f/c at this time. Past Patient History - Past Medical History & Family History Past Medical History?: Yes - Past Social History Alcohol: None Drugs: Denies - CARDIAC Hx Cardiac Disorders: Yes - PULMONARY Hx Respiratory Disorders: Yes - NEUROLOGICAL Hx Neurological Disorder: Yes - HEENT Hx HEENT Problems: No - RENAL Hx Chronic Kidney Disease: No - ENDOCRINE/METABOLIC Hx Endocrine Disorders: No - HEMATOLOGICAL/ONCOLOGICAL Hx Human Immunodeficiency Virus (HIV): No - INTEGUMENTARY Hx Dermatological Problems: No - MUSCULOSKELETAL/RHEUMATOLOGICAL Hx Falls: No - GASTROINTESTINAL Hx Gastrointestinal Disorders: No - GENITOURINARY/GYNECOLOGICAL Hx Genitourinary Disorders: No - PSYCHIATRIC Hx Psychophysiologic Disorder: No Hx Substance Use: No - SURGICAL HISTORY Other/Comment: R beast lump removal - ANESTHESIA Hx Anesthesia: Yes Hx Anesthesia Reactions: No Meds Allergies/Adverse Reactions: Allergies Allergy/AdvReac Type Severity Reaction Status Date / Time No Known Allergies Allergy Verified 04/22/16 16:41 - Medications Medications: Current Medications Budesonide (Pulmicort Respules) 0.5 mg IH Q12 [facility] Digoxin (Lanoxin) 0.25 mg PO DAILY [facility] Last Admin: 04/24/16 10:41 Dose: 0.25 mg Enoxaparin Sodium (Lovenox) 100 mg SC Q12 [facility] Last Admin: 04/23/16 21:06 Dose: 100 mg Ceftriaxone Sodium 1 gm/ (Sodium Chloride) 100 mls @ 100 mls/hr IVPB DAILY [facility] Last Admin: 04/24/16 09:37 Dose: 100 mls/hr Azithromycin 500 mg/ Sodium (Chloride) 250 mls @ 250 mls/hr IVPB DAILY [facility] Last Admin: 04/24/16 09:39 Dose: 250 mls/hr Levalbuterol HCl (Xopenex) 0.63 mg INH RQ8 [facility] Last Admin: 04/24/16 07:31 Dose: 0.63 mg Montelukast Sodium (Singulair) 10 mg PO DAILY [facility] Last Admin: 04/24/16 09:35 Dose: 10 mg Pantoprazole Sodium (Protonix Inj) 40 mg IVP DAILY [facility] Last Admin: 04/24/16 09:36 Dose: 40 mg Phenytoin Sodium (Dilantin) 100 mg PO BID [facility] Last Admin: 04/24/16 09:35 Dose: 100 mg Potassium Chloride (K-Dur 20 Meq Er Tab) 20 meq PO BID [facility] Last Admin: 04/24/16 09:35 Dose: 20 meq Physical Exam - Constitutional Appears: Well, Non-toxic, No Acute Distress - Extremities Exam Extremities exam: Positive for: calf tenderness, pedal edema Additional comments: VASC: DP and PT pulses are fully palpable. Bilateral pitting edema noted, Minor calf tenderness bilaterally. Temperature gradient rusn warm to cool proximal to distal. DERM: No open wounds or inter-digital macerations. Elongated, dystrophic, discolored, brittle nails noted bilaterally to all 10 nail plates. Right anterior tesfaye noted scaling tender patch on a bed of erythemaous dermal tissue. Same presentation noted to medial left ankle. Left sub 3rd metatarsal head hyperkeratotic lesion noted. Right foot plantar-medial callous noted to 1st met- head prominence. NEURO: Protective sensation is grossly intact bilaterally. ORTHO: Riht foot severed abducted hallux with significantly dorsally deviated/ subluxed 2nd digit overriding 1st digit. Right hammertoe contractures noted to 3rd and 4th digits Results - Vital Signs Recent Vital Signs: Last Vital Signs Temp 97.9 F 04/24/16 12:31 Pulse 125 H 04/24/16 12:31 Resp 22 04/24/16 12:31 BP 138/75 04/24/16 12:31 Pulse Ox 94 L 04/24/16 12:31 - Labs Result Diagrams: 04/24/16 04:30 04/24/16 04:30 Labs: Laboratory Results - last 24 hr 04/22/16 04/24/16 22:06 04:30 WBC 13.4 H RBC 4.33 Hgb 13.6 Hct 41.6 MCV 96.1 D MCH 31.4 H MCHC 32.7 L RDW 16.0 H Plt Count 106 L Neutrophils % (Manual) 93 H Lymphocytes % (Manual) 3 L Monocytes % (Manual) 4 Platelet Estimate Decreased L RBC Morphology Normal Sodium 145 Potassium 3.3 L Chloride 100 Carbon Dioxide 34 H Anion Gap 14 BUN 28 H Creatinine 0.6 L Est GFR ( Amer) > 60 Est GFR (Non-Af Amer) > 60 Random Glucose 131 H Calcium 8.5 Total Bilirubin 1.3 AST 67 H D ALT 107 H D Alkaline Phosphatase 101 Total Protein 5.9 L Albumin 2.4 L Globulin 3.5 Albumin/Globulin Ratio 0.7 L Procalcitonin 0.26 Hepatitis A IgM Ab Negative Hep Bs Antigen Negative Hep B Core IgM Ab Negative Hepatitis C Antibody Negative Assessment & Plan - Assessment and Plan (Free Text) Assessment: 70 year old female with 1) onychomycosis x10 digits 2) Left severe hallux abducto-valgus deformity w/ potentially dislocated 2nd digit. 3) Unprovoked subacute Pulmonary Embolism, LE duplex positive for b/l occlusive thrombi of the popliteal vein. 4) Left plantar callous/IPK lesion Plan: Patient evaluated and treated at bedside, with attending Dr. Selby present. Chart labs and vitals reviewed. - LE duplex reviewed, noted positive for b/l occlusive thrombi of the popliteal veins - Performed onycho-reduction to all 10 nail plates. - Ordered Lac-hydrin cream for application to bilateral lower extremity. - Educated patient on need for routine nail care. All patient's questions and concerns were addressed to her satisfaction. Pt is stable from podiatric stand point. Podiatry signing off. To follow-up with Dr. Selby in office. Thank you for allowing podiatry service to participate in the care this patient. - Date & Time Date: 04/24/16 Time: 09:00
[2016-04-24] MEDS ORDERED: Metoprolol 1 mg/ml Inj IVP ONE (13:12)
--- NOTE | 2016-04-24 14:05 | CON ---
DATE: 04/23/2016 She is hospitalized in room 421 of intensive care unit. HISTORY OF PRESENT ILLNESS: This 70-year-old female who has a history of bronchial asthma and hypert ension and was hospitalized for shortness of breath in 01/2015, arrived in the hospital profoundly sh ort of breath after having been unwell and having spent a couple of days in bed. She was found to be in atrial fibrillation and is now in intensive care unit after CT scan of the chest showed evidence of large pulmonary emboli. She is not a smoker. She is hypertensive with a history of bronchial ast hma and chronic venous stasis of the lower extremities. PHYSICAL EXAMINATION: GENERAL AND VITAL SIGNS: Shows an elderly, slightly obese female, on a BiPAP machine with 40% FiO2 a nd a pulse oximetry at 95%. She demonstrates atrial fibrillation and her heart rate is controlled us ing IV Cardizem. Her heart rate now is 115-120 beats per minute with a blood pressure of 114/70 mmHg . EXTREMITIES: There was evidence of chronic venous stasis of lower extremities, which included partia lly pitting significant pedal edema with evidence of stasis dermatitis. Pedal pulses could not be pa lpated because of significant pedal edema. NECK: Her neck veins could not be examined because of a s hort, thick neck. Warm. Nailbeds were pink. No cyanosis, central or peripheral, was evident.HEART: The apex was not palpable. The heart sounds were distant. There was no gallop. LUNGS: Inspiratory effort was poor. Rales could not be appreciated. DIAGNOSTIC DATA: Her electrocardiogram at admission showed atrial fibrillation with rapid heart rate and a poor R-wave progression from V1-V3 suggestive of possible old septal wall myocardial infarctio n. An electrocardiogram from 01/2015 showed normal R waves in chest leads and a virtually normal josr ctrocardiogram at that time. Electrocardiogram done this morning shows persistent atrial flutter/fib rillation with normal R-wave progression in anterior chest leads, no Q-waves in inferior leads and no nspecific ST-T changes. Review of the echocardiogram from 01/2015 shows a fairly normally functionin g left ventricle with no ____. LABORATORY DATA: At this point, shows that on arrival in the hospital her WBC count was 13,100 which is normal this morning at 9800. She arrived in the hospital with severe lactic acidosis with a leve l of 4.7, which subsequently came down to 2.3. The patient also had a brief period of hypokalemia, w hich has been subsequently corrected. BUN and creatinine at admission were 35 and 0.7 mg%, which thi s morning is 33 and 1.8 mg%. AST, ALT show moderately elevated levels which are also beginning to co me down. A CT of the chest shows large pulmonary emboli, particularly in the right pulmonary artery. The troponins are normal. IMPRESSION: At this time is multiple pulmonary emboli in a patient with chronic venous stasis of low er extremities, a history of hypertension and asthma with an acute onset of atrial fibrillation which I suspect is a consequence of pulmonary emboli. The patient at this juncture is adequately oxygenat ed and appears hemodynamically stable. I have requested 0.5 mg of digoxin to be given intravenously so her heart rate can be slowed down and she can be tapered off of Cardizem. An echocardiogram will be obtained once her heart rate comes below 90 beats per minute. In the meantime, she has been start ed on anticoagulation. She will need long-term anticoagulation given the evidence of chronic venous stasis and this large pulmonary emboli. I will follow the patient with you. Shawn Patton MD cc: 23 TT: 04/23/2016 09:39:17 Confirmation # [id number] Dictation # [id number] mn 04/24/2016 13:04:26
[2016-04-24] MEDS: Enoxaparin 100 mg Syringe SC SCH ×2 (14:07→21:30)
--- NOTE | 2016-04-24 15:15 | VASCULAR ---
PROCEDURE: Date of procedure: 04/24/2016 Procedure: Inferior vena cava filter insertion, CPT 39757 Medications: 1% lidocaine HISTORY: Pulmonary embolization, DVT. TECHNIQUE: Following informed consent and procedure time-out, the patient is placed supine on the interventional table. Patient right groin was prepped and draped in the usual sterile fashion. Ultrasound showed a compressible and patent right common femoral vein. After skin was anesthetized with 1% lidocaine, the femoral vein was accessed with micropuncture technique. The introducer sheath of an IVC filter was advanced over wire and positioned within the inferior vena cava and an inferior vena cavagram was performed. The inferior vena cava is normal without evidence of thrombus. The inflow of the right and left renal veins were noted. There is no venous anomalies. A retrievable filter was then placed within the infrarenal IVC. Following IVC filter placement, the sheath was removed and pressure was applied to Pt's right groin until hemostasis was achieved. A dressing was applied. IMPRESSION: Placement of retrievable filter within the infrarenal IVC.
--- NOTE | 2016-04-24 16:39 | CP.PCM.PN ---
Subjective - Date & Time of Evaluation Date of Evaluation: 04/24/16 Time of Evaluation: 13:10 - Subjective Subjective: F/U Acute respiratory failure/PE. Pt on O2 with N/C, increased HR up to 132, no chest pain, no chest congestion. Objective - Vital Signs/Intake and Output Vital Signs (last 24 hours): Temp Pulse Resp BP Pulse Ox 97.4 F L 120 H 28 H 127/79 91 L 04/24/16 16:00 04/24/16 16:00 04/24/16 16:00 04/24/16 16:00 04/24/16 16:00 Intake and Output: 04/24/16 04/24/16 06:59 18:59 Output Total 2400 Balance -2400 - Medications Medications: Current Medications Budesonide (Pulmicort Respules) 0.5 mg IH Q12 [facility] Digoxin (Lanoxin) 0.25 mg PO DAILY [facility] Last Admin: 04/24/16 10:41 Dose: 0.25 mg Enoxaparin Sodium (Lovenox) 100 mg SC Q12 [facility] Last Admin: 04/24/16 14:07 Dose: 100 mg Ceftriaxone Sodium 1 gm/ (Sodium Chloride) 100 mls @ 100 mls/hr IVPB DAILY [facility] Last Admin: 04/24/16 09:37 Dose: 100 mls/hr Azithromycin 500 mg/ Sodium (Chloride) 250 mls @ 250 mls/hr IVPB DAILY [facility] Last Admin: 04/24/16 09:39 Dose: 250 mls/hr Lactic Acid (Lac-Hydrin 12% Lotion (225 G)) 1 applic TOP DAILY [facility] Last Admin: 04/24/16 14:06 Dose: 1 applic Levalbuterol HCl (Xopenex) 0.63 mg INH RQ8 [facility] Last Admin: 04/24/16 15:33 Dose: 0.63 mg Montelukast Sodium (Singulair) 10 mg PO DAILY [facility] Last Admin: 04/24/16 09:35 Dose: 10 mg Pantoprazole Sodium (Protonix Inj) 40 mg IVP DAILY [facility] Last Admin: 04/24/16 09:36 Dose: 40 mg Phenytoin Sodium (Dilantin) 100 mg PO BID [facility] Last Admin: 04/24/16 16:12 Dose: 100 mg Potassium Chloride (K-Dur 20 Meq Er Tab) 20 meq PO BID [facility] Last Admin: 04/24/16 16:12 Dose: 20 meq - Labs Labs: 04/24/16 04:30 04/24/16 04:30 PT 17.5 SECONDS (9.6-11.2) H 04/23/16 04:25 INR 1.68 (0.92-1.08) H 04/23/16 04:25 APTT 36.9 SECONDS (23.3-32.5) H 04/23/16 04:25 - Constitutional Appears: No Acute Distress - Head Exam Head Exam: NORMAL INSPECTION - Eye Exam Eye Exam: PERRL - ENT Exam ENT Exam: Normal Oropharynx Additional comments: On BIPAP - Neck Exam Neck Exam: Normal Inspection - Respiratory Exam Respiratory Exam: Rhonchi (scattered), Wheezes (few) - Cardiovascular Exam Cardiovascular Exam: Tachycardia, Irregular Rhythm - GI/Abdominal Exam GI & Abdominal Exam: Soft, Normal Bowel Sounds - Extremities Exam Extremities Exam: Pedal Edema Additional comments: L/E with edema 3+, chronic venous stasis, distal skin changes. - Neurological Exam Neurological Exam: Alert, Oriented x3 Additional comments: No gross focal motor deficit, generalized weakness. - Psychiatric Exam Psychiatric exam: Anxious - Skin Skin Exam: Warm Assessment and Plan (1) Acute respiratory failure Status: Acute (2) Pulmonary embolism with infarction Status: Acute (3) DVT of lower extremity, bilateral Status: Acute (4) New onset atrial fibrillation Status: Acute (5) Pleural effusion, right Status: Acute (6) Pulmonary artery hypertension Status: Acute (7) Asthma Status: Chronic - Assessment and Plan (Free Text) Plan: Pt continue with A Fib with increased ventricular response, having Digoxin, Lopressor, had IVC filter insertion, Continue Lovenox, albuterol and rest of Tx. ICU time: 40 minutes.
--- NOTE | 2016-04-24 19:46 | CP.PCM.PN ---
Subjective - Date & Time of Evaluation Date of Evaluation: 04/24/16 Time of Evaluation: 13:00 - Subjective Subjective: Breathing better s/p IVC filter Objective - Vital Signs/Intake and Output Vital Signs (last 24 hours): Temp Pulse Resp BP Pulse Ox 97.4 F L 114 H 32 H 119/66 90 L 04/24/16 16:00 04/24/16 17:59 04/24/16 17:59 04/24/16 17:59 04/24/16 17:59 Intake and Output: 04/24/16 04/25/16 18:59 06:59 Intake Total 1030 Output Total 1600 Balance -570 - Medications Medications: Current Medications Budesonide (Pulmicort Respules) 0.5 mg IH Q12 [facility] Digoxin (Lanoxin) 0.25 mg PO DAILY [facility] Last Admin: 04/24/16 10:41 Dose: 0.25 mg Enoxaparin Sodium (Lovenox) 100 mg SC Q12 [facility] Last Admin: 04/24/16 14:07 Dose: 100 mg Ceftriaxone Sodium 1 gm/ (Sodium Chloride) 100 mls @ 100 mls/hr IVPB DAILY [facility] Last Admin: 04/24/16 09:37 Dose: 100 mls/hr Azithromycin 500 mg/ Sodium (Chloride) 250 mls @ 250 mls/hr IVPB DAILY [facility] Last Admin: 04/24/16 09:39 Dose: 250 mls/hr Lactic Acid (Lac-Hydrin 12% Lotion (225 G)) 1 applic TOP DAILY [facility] Last Admin: 04/24/16 14:06 Dose: 1 applic Levalbuterol HCl (Xopenex) 0.63 mg INH RQ8 [facility] Last Admin: 04/24/16 15:33 Dose: 0.63 mg Metoprolol Tartrate (Lopressor) 25 mg PO Q12 [facility] Montelukast Sodium (Singulair) 10 mg PO DAILY [facility] Last Admin: 04/24/16 09:35 Dose: 10 mg Pantoprazole Sodium (Protonix Inj) 40 mg IVP DAILY [facility] Last Admin: 04/24/16 09:36 Dose: 40 mg Phenytoin Sodium (Dilantin) 100 mg PO BID [facility] Last Admin: 04/24/16 16:12 Dose: 100 mg Potassium Chloride (K-Dur 20 Meq Er Tab) 20 meq PO BID [facility] Last Admin: 04/24/16 16:12 Dose: 20 meq - Labs Labs: 04/24/16 04:30 04/24/16 04:30 PT 17.5 SECONDS (9.6-11.2) H 04/23/16 04:25 INR 1.68 (0.92-1.08) H 04/23/16 04:25 APTT 36.9 SECONDS (23.3-32.5) H 04/23/16 04:25 - Head Exam Head Exam: ATRAUMATIC - ENT Exam ENT Exam: Mucous Membranes Dry - Respiratory Exam Respiratory Exam: NORMAL BREATHING PATTERN - Cardiovascular Exam Cardiovascular Exam: +S1, +S2 - GI/Abdominal Exam GI & Abdominal Exam: Normal Bowel Sounds - Extremities Exam Extremities Exam: Pedal Edema - Neurological Exam Neurological Exam: Oriented x3 - Psychiatric Exam Psychiatric exam: Normal Affect, Normal Mood - Skin Skin Exam: Warm Assessment and Plan (1) Pulmonary embolism with infarction Assessment & Plan: with B/L LE DVT - unprovoked s/p IVC filter therapeutic anticoagulation Status: Acute (2) Thrombocytopenia Assessment & Plan: mild and improved element of consumption from clotting ?element of dilantin effect Status: Acute (3) Coagulopathy Assessment & Plan: anticoagulation Status: Acute
[2016-04-24] MEDS: Budesonide 0.5 mg/2 ml Inhal Susp UD IH SCH (20:00)
[2016-04-25] MEDS: Levalbuterol 0.63 MG/3 ML Inhal Soln UD INH SCH ×3 (00:51→15:15)
[2016-04-25] MEDS ORDERED: Metoprolol 1 mg/ml Inj IVP ONE (01:53)
[2016-04-25] MEDS ORDERED: Levalbuterol 0.63 MG/3 ML Inhal Soln UD INH ONE (05:50)
[2016-04-25] MEDS: Budesonide 0.5 mg/2 ml Inhal Susp UD IH SCH ×2 (07:19→20:01)
[2016-04-25 07:21] LABS: BLOOD UREA NITROGEN 23 mg/dl (7-17); CALCIUM 8.4 mg/dL (8.4-10.2); CARBON DIOXIDE 33 mmol/L (22-30); CHLORIDE 99 mmol/L (98-107); GFR AFRICAN-AMERICAN > 60; GLUCOSE,RANDOM 109 mg/dL (65-105); POTASSIUM 4.1 MMOL/L (3.6-5.0); SODIUM 138 mmol/l (132-148)
[2016-04-25 07:47] LABS: HEMATOCRIT 42.5 % (34.0-47.0); MEAN CORPUSCULAR HEMOGLOBIN 31.6 pg (27.0-31.0); MEAN CORPUSCULAR HGB CONC 32.2 g/dL (33.0-37.0); RED CELL DISTRIBUTION WIDTH 16.2 % (11.5-14.5); WHITE BLOOD COUNT 11.2 K/uL (4.8-10.8)
[2016-04-25 07:51] LABS: MEAN CELL VOLUME 98.1 fl (81.0-99.0)
--- NOTE | 2016-04-25 08:19 | CP.PCM.PN ---
Subjective - Date & Time of Evaluation Date of Evaluation: 04/25/16 Time of Evaluation: 08:00 - Subjective Subjective: Patient is resting comfortably, sating well at 98% on o2 via nc, s/p ivc filter right lower ext; bedside monitor shows persistent tachycardia, 100-110s; lopressor 5mg iv given overnight; patient is in no acute distress; denies chest pain, headache, vision changes, nausea, vomiting, fever, or chills; has been tolerating diet well; physical therapy pending. Objective - Vital Signs/Intake and Output Vital Signs (last 24 hours): Temp Pulse Resp BP Pulse Ox 98.8 F 106 H 21 133/90 96 04/25/16 04:00 04/25/16 06:00 04/25/16 06:00 04/25/16 06:00 04/25/16 06:00 Intake and Output: 04/25/16 04/25/16 06:59 18:59 Intake Total 210 Output Total 800 Balance -590 - Medications Medications: Current Medications Budesonide (Pulmicort Respules) 0.5 mg IH Q12 [facility] Last Admin: 04/25/16 07:19 Dose: 0.5 mg Digoxin (Lanoxin) 0.25 mg PO DAILY [facility] Last Admin: 04/24/16 10:41 Dose: 0.25 mg Enoxaparin Sodium (Lovenox) 100 mg SC Q12 [facility] Last Admin: 04/24/16 21:30 Dose: 100 mg Ceftriaxone Sodium 1 gm/ (Sodium Chloride) 100 mls @ 100 mls/hr IVPB DAILY [facility] Last Admin: 04/24/16 09:37 Dose: 100 mls/hr Azithromycin 500 mg/ Sodium (Chloride) 250 mls @ 250 mls/hr IVPB DAILY [facility] Last Admin: 04/24/16 09:39 Dose: 250 mls/hr Lactic Acid (Lac-Hydrin 12% Lotion (225 G)) 1 applic TOP DAILY [facility] Last Admin: 04/24/16 14:06 Dose: 1 applic Levalbuterol HCl (Xopenex) 0.63 mg INH RQ8 [facility] Last Admin: 04/25/16 07:19 Dose: 0.63 mg Metoprolol Tartrate (Lopressor) 25 mg PO Q12 [facility] Last Admin: 04/24/16 21:27 Dose: 25 mg Montelukast Sodium (Singulair) 10 mg PO DAILY [facility] Last Admin: 04/24/16 09:35 Dose: 10 mg Pantoprazole Sodium (Protonix Inj) 40 mg IVP DAILY [facility] Last Admin: 04/24/16 09:36 Dose: 40 mg Phenytoin Sodium (Dilantin) 100 mg PO BID [facility] Last Admin: 04/24/16 16:12 Dose: 100 mg Potassium Chloride (K-Dur 20 Meq Er Tab) 20 meq PO BID [facility] Last Admin: 04/24/16 16:12 Dose: 20 meq - Labs Labs: 04/25/16 06:00 04/25/16 06:00 PT 17.5 SECONDS (9.6-11.2) H 04/23/16 04:25 INR 1.68 (0.92-1.08) H 04/23/16 04:25 APTT 36.9 SECONDS (23.3-32.5) H 04/23/16 04:25 - Constitutional Appears: No Acute Distress - Head Exam Head Exam: ATRAUMATIC, NORMAL INSPECTION, NORMOCEPHALIC - Eye Exam Eye Exam: EOMI, Normal appearance, PERRL - ENT Exam ENT Exam: Mucous Membranes Moist - Respiratory Exam Respiratory Exam: Clear to Ausculation Bilateral Additional comments: shallow breathing however sating well - Cardiovascular Exam Cardiovascular Exam: +S1, +S2 - GI/Abdominal Exam GI & Abdominal Exam: Soft, Normal Bowel Sounds - Extremities Exam Extremities Exam: Pedal Edema - Neurological Exam Neurological Exam: Alert, Awake, CN II-XII Intact, Oriented x3 Assessment and Plan - Assessment and Plan (Free Text) Assessment: Assessment/plans; 70 yo female with pmhx of HTN, CHF, HLD, asthma, seizure disorder was admitted for bilateral low ext dvt, PE. 1)Sepsis, secondary to DVT/PE, possible pneumonia -stable; vitals reviewed, tachycardia -leukocytosis trending downward -c/w azithromycin and ceftriaxone (day 3) -PCT normal limit 2)Subacute pulmonary embolism -s/p ivc filter -lovenox 100mg q12 (discontinued after morning dose) -start xarelto 15mg po bid from tonight for 21 days; then 20mg po once daily with food -editorial clerk Dr Patton and IR Dr Montanez consults appreciated 3)bilateral lower ext DVT -c/w xarelto 4)atrial fibrillation, RVR -increased metoprolol tartrate 50mg po bid -digoxin 0.25mg po daily -monitor HR in telemetry -started xarelto 5)possible pneumonia -unlikely PNA, however patients admitting presentation, sepsis, elevated lactate -c/w azithromycin and ceftriaxone -monitor 6)hypertension, controlled --monitor 7)thrombocytopenia, most likely sepsis related -platelets 98 (low) -monitor platelets 8)Seizure hx -c/w phenytoin 100mg po bid -monitor 9)Prophylactic measures: -xarelto already ordered 10)right sided heart failure, acute most likely -echo reviewed, mitral valve thickened, mild pulmonary hypertension, RV mildly dilated -monitor
[2016-04-25] MEDS: Potassium Chloride 20 mEq ER Tab PO SCH (08:28)
[2016-04-25] MEDS: Digoxin 250 mcg (0.25 mg) Tab PO SCH (08:29)
[2016-04-25] MEDS: Enoxaparin 100 mg Syringe SC SCH (08:30)
[2016-04-25] MEDS: Azithromycin 500 MG in Sodium Chloride 0.9% 250 ML IVPB SCH (08:31)
--- NOTE | 2016-04-25 12:15 | CP.PCM.PN ---
Subjective - Date & Time of Evaluation Date of Evaluation: 04/25/16 Time of Evaluation: 12:00 - Subjective Subjective: Was given Ativan last night for restlessness and has CO2 retention this morning again Mildly drowsy, easily arousable Steady sinus rhythm at 88 BPM Resp rate 18-20 BPM Pulse ox 94% on O2 supplement by N/C BP 128/70 mmHg Few basal rales BUN/Creatinine steadily declining which attests to good tissue perfusion Stable from cardiac point of view. Objective - Vital Signs/Intake and Output Vital Signs (last 24 hours): Temp Pulse Resp BP Pulse Ox 97.9 F 109 H 22 135/65 97 04/25/16 12:00 04/25/16 12:00 04/25/16 12:00 04/25/16 12:00 04/25/16 12:00 Intake and Output: 04/25/16 04/25/16 06:59 18:59 Intake Total 210 630 Output Total 800 Balance -590 630 - Medications Medications: Current Medications Budesonide (Pulmicort Respules) 0.5 mg IH Q12 [facility] Last Admin: 04/25/16 07:19 Dose: 0.5 mg Digoxin (Lanoxin) 0.25 mg PO DAILY [facility] Last Admin: 04/25/16 08:29 Dose: 0.25 mg Enoxaparin Sodium (Lovenox) 100 mg SC Q12 [facility] Last Admin: 04/25/16 08:30 Dose: 100 mg Ceftriaxone Sodium 1 gm/ (Sodium Chloride) 100 mls @ 100 mls/hr IVPB DAILY [facility] Last Admin: 04/25/16 08:30 Dose: 100 mls/hr Azithromycin 500 mg/ Sodium (Chloride) 250 mls @ 250 mls/hr IVPB DAILY [facility] Last Admin: 04/25/16 08:31 Dose: 250 mls/hr Lactic Acid (Lac-Hydrin 12% Lotion (225 G)) 1 applic TOP DAILY [facility] Last Admin: 04/24/16 14:06 Dose: 1 applic Levalbuterol HCl (Xopenex) 0.63 mg INH RQ8 [facility] Last Admin: 04/25/16 07:19 Dose: 0.63 mg Metoprolol Tartrate (Lopressor) 50 mg PO Q12 [facility] Montelukast Sodium (Singulair) 10 mg PO DAILY [facility] Last Admin: 04/25/16 08:31 Dose: 10 mg Phenytoin Sodium (Dilantin) 100 mg PO BID [facility] Last Admin: 04/25/16 08:28 Dose: 100 mg - Labs Labs: 04/25/16 06:00 04/25/16 06:00 PT 17.5 SECONDS (9.6-11.2) H 04/23/16 04:25 INR 1.68 (0.92-1.08) H 04/23/16 04:25 APTT 36.9 SECONDS (23.3-32.5) H 04/23/16 04:25
--- NOTE | 2016-04-25 12:31 | CP.PCM.PN ---
Subjective - Date & Time of Evaluation Date of Evaluation: 04/25/16 Time of Evaluation: 12:20 - Subjective Subjective: Sitting OOB, Breathes comfortably, Can carry on conversation Tolerated IVC filter placement A Fib at 110 BPM (Metoprolol was added to Dig 0.25/day for rate control) BP 118/70 mm Hg Pulse Ox 96-97% on N/C supplement JVP flat Chest clear hear sounds pure May be switched to Xarelto Resolving Liver enzyme levels attest to dropping PA pressures Discussed with residents Objective - Vital Signs/Intake and Output Vital Signs (last 24 hours): Temp Pulse Resp BP Pulse Ox 97.9 F 109 H 22 135/65 97 04/25/16 12:00 04/25/16 12:00 04/25/16 12:00 04/25/16 12:00 04/25/16 12:00 Intake and Output: 04/25/16 04/25/16 06:59 18:59 Intake Total 210 630 Output Total 800 Balance -590 630 - Medications Medications: Current Medications Budesonide (Pulmicort Respules) 0.5 mg IH Q12 [facility] Last Admin: 04/25/16 07:19 Dose: 0.5 mg Digoxin (Lanoxin) 0.25 mg PO DAILY [facility] Last Admin: 04/25/16 08:29 Dose: 0.25 mg Enoxaparin Sodium (Lovenox) 100 mg SC Q12 [facility] Last Admin: 04/25/16 08:30 Dose: 100 mg Ceftriaxone Sodium 1 gm/ (Sodium Chloride) 100 mls @ 100 mls/hr IVPB DAILY [facility] Last Admin: 04/25/16 08:30 Dose: 100 mls/hr Azithromycin 500 mg/ Sodium (Chloride) 250 mls @ 250 mls/hr IVPB DAILY [facility] Last Admin: 04/25/16 08:31 Dose: 250 mls/hr Lactic Acid (Lac-Hydrin 12% Lotion (225 G)) 1 applic TOP DAILY [facility] Last Admin: 04/24/16 14:06 Dose: 1 applic Levalbuterol HCl (Xopenex) 0.63 mg INH RQ8 [facility] Last Admin: 04/25/16 07:19 Dose: 0.63 mg Metoprolol Tartrate (Lopressor) 50 mg PO Q12 [facility] Montelukast Sodium (Singulair) 10 mg PO DAILY [facility] Last Admin: 04/25/16 08:31 Dose: 10 mg Phenytoin Sodium (Dilantin) 100 mg PO BID [facility] Last Admin: 04/25/16 08:28 Dose: 100 mg - Labs Labs: 04/25/16 06:00 04/25/16 06:00 PT 17.5 SECONDS (9.6-11.2) H 04/23/16 04:25 INR 1.68 (0.92-1.08) H 04/23/16 04:25 APTT 36.9 SECONDS (23.3-32.5) H 04/23/16 04:25
--- NOTE | 2016-04-25 16:15 | CP.PCM.PN ---
Subjective - Date & Time of Evaluation Date of Evaluation: 04/25/16 Time of Evaluation: 13:00 - Subjective Subjective: F/U S/P Acute respiratory failure. Pt awake, No A/D, no CP, no fever. Objective - Vital Signs/Intake and Output Vital Signs (last 24 hours): Temp Pulse Resp BP Pulse Ox 99.2 F 111 H 20 136/92 H 95 04/25/16 15:53 04/25/16 15:53 04/25/16 15:53 04/25/16 15:53 04/25/16 15:53 Intake and Output: 04/25/16 04/25/16 06:59 18:59 Intake Total 210 630 Output Total 800 Balance -590 630 - Medications Medications: Current Medications Budesonide (Pulmicort Respules) 0.5 mg IH Q12 [facility] Last Admin: 04/25/16 07:19 Dose: 0.5 mg Digoxin (Lanoxin) 0.25 mg PO DAILY [facility] Last Admin: 04/25/16 08:29 Dose: 0.25 mg Ceftriaxone Sodium 1 gm/ (Sodium Chloride) 100 mls @ 100 mls/hr IVPB DAILY [facility] Last Admin: 04/25/16 08:30 Dose: 100 mls/hr Azithromycin 500 mg/ Sodium (Chloride) 250 mls @ 250 mls/hr IVPB DAILY [facility] Last Admin: 04/25/16 08:31 Dose: 250 mls/hr Lactic Acid (Lac-Hydrin 12% Lotion (225 G)) 1 applic TOP DAILY [facility] Last Admin: 04/24/16 14:06 Dose: 1 applic Levalbuterol HCl (Xopenex) 0.63 mg INH RQ8 [facility] Last Admin: 04/25/16 15:15 Dose: 0.63 mg Metoprolol Tartrate (Lopressor) 50 mg PO Q12 [facility] Montelukast Sodium (Singulair) 10 mg PO DAILY [facility] Last Admin: 04/25/16 08:31 Dose: 10 mg Phenytoin Sodium (Dilantin) 100 mg PO BID [facility] Last Admin: 04/25/16 08:28 Dose: 100 mg Rivaroxaban (Xarelto) 15 mg PO BIDWM [facility] PRN Reason: Protocol Stop: 05/17/16 11:00 - Labs Labs: 04/25/16 06:00 04/25/16 06:00 PT 17.5 SECONDS (9.6-11.2) H 04/23/16 04:25 INR 1.68 (0.92-1.08) H 04/23/16 04:25 APTT 36.9 SECONDS (23.3-32.5) H 04/23/16 04:25 - Constitutional Appears: No Acute Distress - Head Exam Head Exam: NORMAL INSPECTION - Eye Exam Eye Exam: PERRL - ENT Exam ENT Exam: Mucous Membranes Moist Additional comments: Off BIPAP, on N/C. - Neck Exam Neck Exam: Normal Inspection - Respiratory Exam Respiratory Exam: Rhonchi (scattered), Wheezes (few) - Cardiovascular Exam Cardiovascular Exam: Irregular Rhythm - GI/Abdominal Exam GI & Abdominal Exam: Soft, Normal Bowel Sounds - Extremities Exam Extremities Exam: Pedal Edema - Neurological Exam Neurological Exam: Alert, Oriented x3 Additional comments: No gross focal motor deficit, generalized weakness. - Psychiatric Exam Psychiatric exam: Anxious - Skin Skin Exam: Warm (stasis skin changes L/E.) Additional comments: Stasis skin changes b/l lower extremities Assessment and Plan (1) Acute respiratory failure Status: Acute (2) Pulmonary embolism with infarction Status: Acute (3) DVT of lower extremity, bilateral Status: Acute (4) New onset atrial fibrillation Status: Acute (5) Pleural effusion, right Status: Resolved (6) Pulmonary artery hypertension Status: Acute (7) Asthma Status: Chronic - Assessment and Plan (Free Text) Plan: Continue in O2 Tess MEYER Xarelto.
[2016-04-26] MEDS: Levalbuterol 0.63 MG/3 ML Inhal Soln UD INH SCH ×4 (00:30→23:18)
--- NOTE | 2016-04-26 03:18 | CP.PCM.PN ---
Subjective - Date & Time of Evaluation Date of Evaluation: 04/25/16 Time of Evaluation: 18:00 - Subjective Subjective: Breathing better Objective - Vital Signs/Intake and Output Vital Signs (last 24 hours): Temp Pulse Resp BP Pulse Ox 98.2 F 99 H 18 133/71 95 04/25/16 23:58 04/25/16 23:58 04/25/16 23:58 04/25/16 23:58 04/25/16 23:58 Intake and Output: 04/25/16 04/26/16 18:59 07:59 Intake Total 1720 Output Total 800 Balance 920 - Medications Medications: Current Medications Budesonide (Pulmicort Respules) 0.5 mg IH Q12 [facility] Last Admin: 04/25/16 20:01 Dose: 0.5 mg Digoxin (Lanoxin) 0.25 mg PO DAILY [facility] Last Admin: 04/25/16 08:29 Dose: 0.25 mg Ceftriaxone Sodium 1 gm/ (Sodium Chloride) 100 mls @ 100 mls/hr IVPB DAILY [facility] Last Admin: 04/25/16 08:30 Dose: 100 mls/hr Azithromycin 500 mg/ Sodium (Chloride) 250 mls @ 250 mls/hr IVPB DAILY [facility] Last Admin: 04/25/16 08:31 Dose: 250 mls/hr Lactic Acid (Lac-Hydrin 12% Lotion (225 G)) 1 applic TOP DAILY [facility] Last Admin: 04/24/16 14:06 Dose: 1 applic Levalbuterol HCl (Xopenex) 0.63 mg INH RQ8 [facility] Last Admin: 04/26/16 00:30 Dose: 0.63 mg Metoprolol Tartrate (Lopressor) 50 mg PO Q12 [facility] Last Admin: 04/25/16 21:30 Dose: 50 mg Montelukast Sodium (Singulair) 10 mg PO DAILY [facility] Last Admin: 04/25/16 08:31 Dose: 10 mg Phenytoin Sodium (Dilantin) 100 mg PO BID [facility] Last Admin: 04/25/16 17:37 Dose: 100 mg Rivaroxaban (Xarelto) 15 mg PO BIDWM [facility] PRN Reason: Protocol Stop: 05/17/16 11:00 Last Admin: 04/25/16 17:36 Dose: 15 mg - Labs Labs: 04/25/16 06:00 04/25/16 06:00 PT 17.5 SECONDS (9.6-11.2) H 04/23/16 04:25 INR 1.68 (0.92-1.08) H 04/23/16 04:25 APTT 36.9 SECONDS (23.3-32.5) H 04/23/16 04:25 - Head Exam Head Exam: ATRAUMATIC - Eye Exam Eye Exam: Normal appearance - ENT Exam ENT Exam: Mucous Membranes Dry - Respiratory Exam Respiratory Exam: NORMAL BREATHING PATTERN - Cardiovascular Exam Cardiovascular Exam: +S1, +S2 - Extremities Exam Extremities Exam: Pedal Edema Assessment and Plan (1) Pulmonary embolism with infarction Assessment & Plan: with B/L LE DVT - unprovoked s/p IVC filter on Xarelto Status: Acute (2) Thrombocytopenia Assessment & Plan: mild lovenox d/c's and Xarelto started Status: Acute (3) Coagulopathy Assessment & Plan: anticoagulation Status: Acute
[2016-04-26 07:10] LABS: BASO % 0.1 % (0.0-2.0); EOS # 0.1 K/uL (0.0-0.7); EOS % 1.1 % (0.0-4.0); HEMATOCRIT 43.1 % (34.0-47.0); LYMPH # 0.7 K/uL (1.0-4.3); LYMPH % 6.2 % (20.0-40.0); MEAN CELL VOLUME 96.9 fl (81.0-99.0); MEAN CORPUSCULAR HEMOGLOBIN 31.4 pg (27.0-31.0); MEAN CORPUSCULAR HGB CONC 32.4 g/dL (33.0-37.0); MEAN PLATELET VOLUME 9.3 fl (7.2-11.7); MONO # 0.7 K/uL (0.0-0.8); MONO % 6.3 % (0.0-10.0); NEUT # 9.3 K/uL (1.8-7.0); NEUT % 86.3 % (50.0-75.0); RED CELL DISTRIBUTION WIDTH 16.1 % (11.5-14.5); WHITE BLOOD COUNT 10.8 K/uL (4.8-10.8)
[2016-04-26] MEDS: Budesonide 0.5 mg/2 ml Inhal Susp UD IH SCH ×2 (08:05→20:06)
[2016-04-26] MEDS: Digoxin 250 mcg (0.25 mg) Tab PO SCH (09:28)
[2016-04-26] MEDS: Azithromycin 500 MG in Sodium Chloride 0.9% 250 ML IVPB SCH (09:39)
--- NOTE | 2016-04-26 09:42 | CP.PCM.PN ---
Subjective - Date & Time of Evaluation Date of Evaluation: 04/26/16 Time of Evaluation: 09:42 - Subjective Subjective: - PT seen sitting in her chair eating breakfast, saturating at 98 % on nasal canula. Denies any overnight events. States she had a bowl movement last night. She is still not able to walk to the bathroom yet. Pt states when she wakes up in the morning she has some difficulty breathing, but currently she states she is doing well. Denies N/V/D/ chest pain. - Physical therapy pending Objective - Vital Signs/Intake and Output Vital Signs (last 24 hours): Temp Pulse Resp BP Pulse Ox 98.3 F 119 H 18 134/71 96 04/26/16 08:00 04/26/16 09:29 04/26/16 08:00 04/26/16 09:29 04/26/16 08:00 Intake and Output: 04/26/16 04/26/16 06:59 18:59 Intake Total Output Total Balance - Medications Medications: Current Medications Budesonide (Pulmicort Respules) 0.5 mg IH Q12 [facility] Last Admin: 04/26/16 08:05 Dose: 0.5 mg Digoxin (Lanoxin) 0.25 mg PO DAILY [facility] Last Admin: 04/26/16 09:28 Dose: 0.25 mg Ceftriaxone Sodium 1 gm/ (Sodium Chloride) 100 mls @ 100 mls/hr IVPB DAILY [facility] Last Admin: 04/26/16 09:30 Dose: 100 mls/hr Azithromycin 500 mg/ Sodium (Chloride) 250 mls @ 250 mls/hr IVPB DAILY [facility] Last Admin: 04/26/16 09:39 Dose: 250 mls/hr Lactic Acid (Lac-Hydrin 12% Lotion (225 G)) 1 applic TOP DAILY [facility] Last Admin: 04/24/16 14:06 Dose: 1 applic Levalbuterol HCl (Xopenex) 0.63 mg INH RQ8 [facility] Last Admin: 04/26/16 08:05 Dose: 0.63 mg Metoprolol Tartrate (Lopressor) 50 mg PO Q12 [facility] Last Admin: 04/26/16 09:29 Dose: 50 mg Montelukast Sodium (Singulair) 10 mg PO DAILY [facility] Last Admin: 04/26/16 09:29 Dose: 10 mg Phenytoin Sodium (Dilantin) 100 mg PO BID [facility] Last Admin: 04/26/16 09:28 Dose: 100 mg Rivaroxaban (Xarelto) 15 mg PO BIDWM [facility] PRN Reason: Protocol Stop: 05/17/16 11:00 Last Admin: 04/26/16 09:29 Dose: 15 mg - Labs Labs: 04/26/16 06:30 04/25/16 06:00 PT 17.5 SECONDS (9.6-11.2) H 04/23/16 04:25 INR 1.68 (0.92-1.08) H 04/23/16 04:25 APTT 36.9 SECONDS (23.3-32.5) H 04/23/16 04:25 - Constitutional Appears: No Acute Distress - Head Exam Head Exam: ATRAUMATIC, NORMAL INSPECTION, NORMOCEPHALIC - Eye Exam Eye Exam: Normal appearance Pupil Exam: NORMAL ACCOMODATION, PERRL - Respiratory Exam Respiratory Exam: Clear to Ausculation Bilateral (Shallow smaller breaths) - Cardiovascular Exam Cardiovascular Exam: +S1, +S2 - GI/Abdominal Exam GI & Abdominal Exam: Soft, Normal Bowel Sounds. absent: Tenderness - Neurological Exam Neurological Exam: Alert, Awake, CN II-XII Intact Assessment and Plan - Assessment and Plan (Free Text) Assessment: 70 yo female with pmhx of HTN, CHF, HLD, asthma, seizure disorder was admitted for bilateral low ext dvt, PE. 1)Sepsis, secondary to DVT/PE, possible pneumonia -stable; vitals reviewed, tachycardia -leukocytosis trending downward -c/w azithromycin and ceftriaxone (day 4) Continue one more day -PCT normal limit 2)Subacute pulmonary embolism -s/p ivc filter -xarelto 15mg po bid for 21 days from intial dose; then 20mg po once daily with food -electrocardiogram technician Dr Patton and IR Dr Montanez consults appreciated 3)bilateral lower ext DVT -c/w xarelto 4)atrial fibrillation, RVR -increased metoprolol tartrate 50mg po bid -digoxin 0.25mg po daily -monitor HR in telemetry -started xarelto 5)possible pneumonia -unlikely PNA, however patients admitting presentation, sepsis, elevated lactate -c/w azithromycin and ceftriaxone -monitor 6)hypertension, controlled --monitor 7)thrombocytopenia, most likely sepsis related -platelets 98 (low) -monitor platelets 8)Seizure hx -c/w phenytoin 100mg po bid -monitor 9)Prophylactic measures: -xarelto already ordered 10)right sided heart failure, acute most likely -echo reviewed, mitral valve thickened, mild pulmonary hypertension, RV mildly dilated -monitor. - F/U on Liver Function test tomorrow. . PT recommended TCU
--- NOTE | 2016-04-26 19:55 | CP.PCM.PN ---
Subjective - Date & Time of Evaluation Date of Evaluation: 04/26/16 - Subjective Subjective: F/U S/P Acute respiratory failure/ PE Pt breathing well, no A/D, smiling. Objective - Vital Signs/Intake and Output Vital Signs (last 24 hours): Temp Pulse Resp BP Pulse Ox 98.2 F 115 H 22 126/72 99 04/26/16 19:49 04/26/16 19:49 04/26/16 19:49 04/26/16 19:49 04/26/16 19:49 Intake and Output: 04/26/16 04/27/16 18:59 06:59 Intake Total 1090 Output Total 1050 Balance 40 - Medications Medications: Current Medications Budesonide (Pulmicort Respules) 0.5 mg IH Q12 [facility] Last Admin: 04/26/16 08:05 Dose: 0.5 mg Digoxin (Lanoxin) 0.25 mg PO DAILY [facility] Last Admin: 04/26/16 09:28 Dose: 0.25 mg Ceftriaxone Sodium 1 gm/ (Sodium Chloride) 100 mls @ 100 mls/hr IVPB DAILY [facility] Last Admin: 04/26/16 09:30 Dose: 100 mls/hr Azithromycin 500 mg/ Sodium (Chloride) 250 mls @ 250 mls/hr IVPB DAILY [facility] Last Admin: 04/26/16 09:39 Dose: 250 mls/hr Lactic Acid (Lac-Hydrin 12% Lotion (225 G)) 1 applic TOP DAILY [facility] Last Admin: 04/26/16 09:50 Dose: 1 applic Levalbuterol HCl (Xopenex) 0.63 mg INH RQ8 [facility] Last Admin: 04/26/16 15:44 Dose: 0.63 mg Metoprolol Tartrate (Lopressor) 50 mg PO Q12 [facility] Last Admin: 04/26/16 09:29 Dose: 50 mg Montelukast Sodium (Singulair) 10 mg PO DAILY [facility] Last Admin: 04/26/16 09:29 Dose: 10 mg Phenytoin Sodium (Dilantin) 100 mg PO BID [facility] Last Admin: 04/26/16 16:42 Dose: 100 mg Rivaroxaban (Xarelto) 15 mg PO BIDWM [facility] PRN Reason: Protocol Stop: 05/17/16 11:00 Last Admin: 04/26/16 16:42 Dose: 15 mg - Labs Labs: 04/26/16 06:30 04/25/16 06:00 PT 17.5 SECONDS (9.6-11.2) H 04/23/16 04:25 INR 1.68 (0.92-1.08) H 04/23/16 04:25 APTT 36.9 SECONDS (23.3-32.5) H 04/23/16 04:25 - Constitutional Appears: No Acute Distress - Head Exam Head Exam: NORMAL INSPECTION - Eye Exam Eye Exam: PERRL - Neck Exam Neck Exam: Normal Inspection - Respiratory Exam Respiratory Exam: Decreased Breath Sounds (at bases), Rhonchi (scattered), Wheezes (few) - Cardiovascular Exam Cardiovascular Exam: Irregular Rhythm - GI/Abdominal Exam GI & Abdominal Exam: Soft, Normal Bowel Sounds - Extremities Exam Extremities Exam: Pedal Edema - Neurological Exam Neurological Exam: Alert, Oriented x3 Additional comments: No gross focal motor deficit, generalized weakness. - Psychiatric Exam Psychiatric exam: Anxious - Skin Skin Exam: Warm (Stasis skin changes L/E) Additional comments: Stasis skin changes lower extremities. Assessment and Plan (1) Acute respiratory failure Status: Acute (2) Pulmonary embolism with infarction Status: Acute (3) DVT of lower extremity, bilateral Status: Acute (4) New onset atrial fibrillation Status: Acute (5) Pleural effusion, right Status: Resolved (6) Pulmonary artery hypertension Status: Acute (7) Asthma Status: Chronic - Assessment and Plan (Free Text) Plan: Continue O2 NC,Xarelto, Pulmicort, Singulair.
--- NOTE | 2016-04-27 00:53 | CP.PCM.PN ---
Subjective - Date & Time of Evaluation Date of Evaluation: 04/26/16 Time of Evaluation: 16:00 - Subjective Subjective: Feeling better Objective - Vital Signs/Intake and Output Vital Signs (last 24 hours): Temp Pulse Resp BP Pulse Ox 97.8 F 108 H 20 111/73 99 04/26/16 23:59 04/26/16 23:59 04/26/16 23:59 04/26/16 23:59 04/26/16 23:59 Intake and Output: 04/26/16 04/27/16 18:59 06:59 Intake Total 1090 500 Output Total 1050 1050 Balance 40 -550 - Medications Medications: Current Medications Budesonide (Pulmicort Respules) 0.5 mg IH Q12 [facility] Last Admin: 04/26/16 20:06 Dose: 0.5 mg Digoxin (Lanoxin) 0.25 mg PO DAILY [facility] Last Admin: 04/26/16 09:28 Dose: 0.25 mg Ceftriaxone Sodium 1 gm/ (Sodium Chloride) 100 mls @ 100 mls/hr IVPB DAILY [facility] Last Admin: 04/26/16 09:30 Dose: 100 mls/hr Azithromycin 500 mg/ Sodium (Chloride) 250 mls @ 250 mls/hr IVPB DAILY [facility] Last Admin: 04/26/16 09:39 Dose: 250 mls/hr Lactic Acid (Lac-Hydrin 12% Lotion (225 G)) 1 applic TOP DAILY [facility] Last Admin: 04/26/16 09:50 Dose: 1 applic Levalbuterol HCl (Xopenex) 0.63 mg INH RQ8 [facility] Last Admin: 04/26/16 23:18 Dose: 0.63 mg Metoprolol Tartrate (Lopressor) 50 mg PO Q12 [facility] Last Admin: 04/26/16 21:30 Dose: 50 mg Montelukast Sodium (Singulair) 10 mg PO DAILY [facility] Last Admin: 04/26/16 09:29 Dose: 10 mg Phenytoin Sodium (Dilantin) 100 mg PO BID [facility] Last Admin: 04/26/16 16:42 Dose: 100 mg Rivaroxaban (Xarelto) 15 mg PO BIDWM [facility] PRN Reason: Protocol Stop: 05/17/16 11:00 Last Admin: 04/26/16 16:42 Dose: 15 mg - Labs Labs: 04/26/16 06:30 04/25/16 06:00 PT 17.5 SECONDS (9.6-11.2) H 04/23/16 04:25 INR 1.68 (0.92-1.08) H 04/23/16 04:25 APTT 36.9 SECONDS (23.3-32.5) H 04/23/16 04:25 - Head Exam Head Exam: ATRAUMATIC - Eye Exam Eye Exam: Normal appearance - ENT Exam ENT Exam: Mucous Membranes Dry - Respiratory Exam Respiratory Exam: NORMAL BREATHING PATTERN - Cardiovascular Exam Cardiovascular Exam: +S1, +S2 - GI/Abdominal Exam GI & Abdominal Exam: Normal Bowel Sounds - Extremities Exam Extremities Exam: Normal Inspection Assessment and Plan (1) Pulmonary embolism with infarction Assessment & Plan: with B/L LE DVT - unprovoked s/p IVC filter on Xarelto Status: Acute (2) Thrombocytopenia Assessment & Plan: mild cont. to monitor Status: Acute (3) Coagulopathy Assessment & Plan: anticoagulation Status: Acute
[2016-04-27 02:55] LABS: PHOSPHATIDYLSERINE AB IGM <25 U/mL (<25)
[2016-04-27 04:16] LABS: CARDIOLIPIN AB (IGA) <11 APL (<=11)
[2016-04-27 07:31] LABS: ALB/GLOB RATIO 0.7 (1.0-2.1); BILIRUBIN,TOTAL 0.9 mg/dl (0.2-1.3); TOTAL PROTEIN 5.6 G/DL (6.3-8.2)
[2016-04-27] MEDS ORDERED: Metoprolol 1 mg/ml Inj IVP ONE (07:33)
[2016-04-27] MEDS: Budesonide 0.5 mg/2 ml Inhal Susp UD IH SCH ×3 (07:40→21:00)
[2016-04-27] MEDS: Levalbuterol 0.63 MG/3 ML Inhal Soln UD INH SCH (07:41)
[2016-04-27] MEDS: Digoxin 250 mcg (0.25 mg) Tab PO SCH (09:38)
[2016-04-27] MEDS: Azithromycin 500 MG in Sodium Chloride 0.9% 250 ML IVPB SCH (09:47)
[2016-04-27] MEDS ORDERED: Digoxin 250 mcg (0.25 mg) Tab PO ONE (11:42)
--- NOTE | 2016-04-27 12:15 | CP.PCM.PN ---
Subjective - Date & Time of Evaluation Date of Evaluation: 04/27/16 Time of Evaluation: 08:00 - Subjective Subjective: - Pt was seen at bedside on nasal canula saturating at 95%, she states she has been having some trouble breathing since she woke up. Yesterday she refused to want to lay down in bed and sat in the chair the most of the day. She has been tolerating PO intake, denies nausea, vomiting, diarrhea, chest pain. Objective - Vital Signs/Intake and Output Vital Signs (last 24 hours): Temp Pulse Resp BP Pulse Ox 98.5 F 108 H 20 121/79 97 04/27/16 09:00 04/27/16 09:39 04/27/16 09:00 04/27/16 10:22 04/27/16 09:00 Intake and Output: 04/27/16 04/27/16 06:59 18:59 Intake Total 600 Output Total 1800 Balance -1200 - Medications Medications: Current Medications Budesonide (Pulmicort Respules) 0.5 mg IH Q12 [facility] Last Admin: 04/26/16 20:06 Dose: 0.5 mg Digoxin (Lanoxin) 0.25 mg PO DAILY [facility] Last Admin: 04/27/16 09:38 Dose: 0.25 mg Furosemide (Lasix) 40 mg IVP BID [facility] Ceftriaxone Sodium 1 gm/ (Sodium Chloride) 100 mls @ 100 mls/hr IVPB DAILY [facility] Last Admin: 04/27/16 09:41 Dose: 100 mls/hr Azithromycin 500 mg/ Sodium (Chloride) 250 mls @ 250 mls/hr IVPB DAILY [facility] Last Admin: 04/27/16 09:47 Dose: 250 mls/hr Lactic Acid (Lac-Hydrin 12% Lotion (225 G)) 1 applic TOP DAILY [facility] Last Admin: 04/27/16 09:48 Dose: 1 applic Levalbuterol HCl (Xopenex) 0.63 mg INH RQ8 [facility] Last Admin: 04/27/16 07:41 Dose: 0.63 mg Metoprolol Tartrate (Lopressor) 100 mg PO Q12 [facility] Montelukast Sodium (Singulair) 10 mg PO DAILY [facility] Last Admin: 04/27/16 09:40 Dose: 10 mg Phenytoin Sodium (Dilantin) 100 mg PO BID [facility] Last Admin: 03/13/17 09:38 Dose: 100 mg Rivaroxaban (Xarelto) 15 mg PO BIDWM [facility] PRN Reason: Protocol Stop: 05/17/16 11:00 Last Admin: 04/27/16 09:40 Dose: 15 mg - Labs Labs: 04/26/16 06:30 04/25/16 06:00 PT 17.5 SECONDS (9.6-11.2) H 04/23/16 04:25 INR 1.68 (0.92-1.08) H 04/23/16 04:25 APTT 36.9 SECONDS (23.3-32.5) H 04/23/16 04:25 - Constitutional Appears: Chronically Ill - Head Exam Head Exam: ATRAUMATIC, NORMAL INSPECTION, NORMOCEPHALIC - Eye Exam Eye Exam: EOMI, Normal appearance, PERRL Pupil Exam: NORMAL ACCOMODATION, PERRL - Respiratory Exam Respiratory Exam: Clear to Ausculation Bilateral, Rhonchi Additional comments: Short rapid breaths - B/L course crackles noted - Cardiovascular Exam Cardiovascular Exam: REGULAR RHYTHM, +S1, +S2 - GI/Abdominal Exam GI & Abdominal Exam: Soft, Normal Bowel Sounds - Extremities Exam Extremities Exam: Pedal Edema Additional comments: 3+ tibial pitting edema - Back Exam Additional comments: 1cm sacral ulcer - Neurological Exam Neurological Exam: Alert, Awake Assessment and Plan - Assessment and Plan (Free Text) Assessment: 70 yo female with pmhx of HTN, CHF, HLD, asthma, seizure disorder was admitted for bilateral low ext dvt, PE. 1)Sepsis, secondary to DVT/PE, possible pneumonia -stable; vitals reviewed, tachycardia -leukocytosis trending downward -complete azithromycin and ceftriaxone (day 5) D/C after this dose - F/U: Antiphospholipid, Antithrombin III, Favtor Vleiden, MTHFR, Protien C, Protein S, Prothrombin -PCT normal limit 2)Subacute pulmonary embolism -s/p ivc filter -xarelto 15mg po bid for 21 days from intial dose; then 20mg po once daily with food -marketing communications associate Dr Patton and IR Dr Montanez consults appreciated 3)bilateral lower ext DVT -c/w xarelto 4)atrial fibrillation, RVR - HR this morning was 136: Metoprolol 5 mg IVP was given w/ a stat EKG -increased metoprolol tartrate 100mg po bid -digoxin 0.25mg po daily -monitor HR in telemetry -started xarelto 5.CHF exacerbation (Systolic) - Lasix 40 mg PO BID 6)Possible pneumonia -unlikely PNA, however patients admitting presentation, sepsis, elevated lactate -Come azithromycin and ceftriaxone after today dose -monitor 7)hypertension, controlled --monitor 8)thrombocytopenia, most likely sepsis related -platelets 97 (low) -monitor platelets 9)Seizure hx -c/w phenytoin 100mg po bid -monitor 10)Prophylactic measures: -xarelto already ordered 11)right sided heart failure, acute most likely -echo reviewed, mitral valve thickened, mild pulmonary hypertension, RV mildly dilated -monitor. - Liver enzymes trending down 46/62. . PT recommended TCU
[2016-04-27 13:37] LABS: ABG ALLEN TEST YES; ARTERIAL BLOOD GAS HCO3 35.9 mmol/L (21-28); ARTERIAL BLOOD GAS O2 CAPACITY 19.1 mL/dL (16-24); ARTERIAL BLOOD GAS O2 CONTENT 18.4 ML/dL (15-23); ARTERIAL BLOOD GAS PO2 67 mm/Hg (80-100); ARTERIAL BLOOD HGB O2 SAT 92.2 % (95.0-98.0); HHB 3.4 % (0.0-5.0); METHEMOGLOBIN 1.4 % (0.0-3.0)
--- NOTE | 2016-04-27 13:54 | RAD ---
HISTORY: sob COMPARISON: 04/22/2016 FINDINGS: LUNGS: No definite consolidation. However, consolidation at the lung bases may be obscured by pleural effusions. PLEURA: Bilateral pleural effusion, right greater than left. CARDIOVASCULAR: Cardiomegaly. OSSEOUS STRUCTURES: No significant abnormalities. VISUALIZED UPPER ABDOMEN: Normal. OTHER FINDINGS: None. IMPRESSION: Bilateral pleural effusion, right greater than left. Cannot exclude infiltrate at lung bases.
[2016-04-27 14:56] VITALS: BMI 37.7
[2016-04-27 15:53] LABS: B2 GLYCOPROTEIN I AB(IGA) <9 SAU (<=20); B2 GLYCOPROTEIN I AB(IGG) <9 SGU (<=20); B2 GLYCOPROTEIN I AB(IGM) <9 SMU (<=20); PHOSPHATIDYLSERINE AB IGA <20 U/mL (<20)
--- NOTE | 2016-04-27 16:24 | CP.PCM.PN ---
Subjective - Date & Time of Evaluation Date of Evaluation: 04/27/16 - Subjective Subjective: F/U respiratory Failure Pt on respiratory distress today, on NC increased to 4 L/M, Pt with SOB. Objective - Vital Signs/Intake and Output Vital Signs (last 24 hours): Temp Pulse Resp BP Pulse Ox 98.2 F 103 H 20 107/70 95 04/27/16 13:00 04/27/16 13:00 04/27/16 13:00 04/27/16 13:00 04/27/16 13:00 Intake and Output: 04/27/16 04/27/16 06:59 18:59 Intake Total 600 Output Total 1800 Balance -1200 - Medications Medications: Current Medications Budesonide (Pulmicort Respules) 0.5 mg IH Q12 [facility] Last Admin: 04/27/16 07:40 Dose: 0.5 mg Digoxin (Lanoxin) 0.25 mg PO DAILY [facility] Last Admin: 04/27/16 09:38 Dose: 0.25 mg Furosemide (Lasix) 40 mg IVP BID [facility] Ceftriaxone Sodium 1 gm/ (Sodium Chloride) 100 mls @ 100 mls/hr IVPB DAILY [facility] Last Admin: 04/27/16 09:41 Dose: 100 mls/hr Azithromycin 500 mg/ Sodium (Chloride) 250 mls @ 250 mls/hr IVPB DAILY [facility] Last Admin: 04/27/16 09:47 Dose: 250 mls/hr Lactic Acid (Lac-Hydrin 12% Lotion (225 G)) 1 applic TOP DAILY [facility] Last Admin: 04/27/16 09:48 Dose: 1 applic Metoprolol Tartrate (Lopressor) 100 mg PO Q12 [facility] Montelukast Sodium (Singulair) 10 mg PO DAILY [facility] Last Admin: 04/27/16 09:40 Dose: 10 mg Phenytoin Sodium (Dilantin) 100 mg PO BID [facility] Last Admin: 04/27/16 09:38 Dose: 100 mg Rivaroxaban (Xarelto) 15 mg PO BIDWM [facility] PRN Reason: Protocol Stop: 05/17/16 11:00 Last Admin: 04/27/16 09:40 Dose: 15 mg - Labs Labs: 04/26/16 06:30 04/25/16 06:00 PT 17.5 SECONDS (9.6-11.2) H 04/23/16 04:25 INR 1.68 (0.92-1.08) H 04/23/16 04:25 APTT 36.9 SECONDS (23.3-32.5) H 04/23/16 04:25 - Constitutional Appears: No Acute Distress, Chronically Ill - Head Exam Head Exam: NORMAL INSPECTION - Eye Exam Eye Exam: PERRL - ENT Exam Additional comments: On BIPAP - Neck Exam Neck Exam: Normal Inspection - Respiratory Exam Respiratory Exam: Decreased Breath Sounds, Rhonchi (scattered), Wheezes (few) - Cardiovascular Exam Cardiovascular Exam: Irregular Rhythm - GI/Abdominal Exam GI & Abdominal Exam: Soft, Normal Bowel Sounds - Extremities Exam Extremities Exam: Pedal Edema - Neurological Exam Neurological Exam: Alert, Oriented x3 Additional comments: Generalized weakness. - Psychiatric Exam Psychiatric exam: Anxious - Skin Additional comments: Stasis skin changes lower extremities. Assessment and Plan (1) Acute respiratory failure Status: Acute (2) Pulmonary embolism with infarction Status: Acute (3) DVT of lower extremity, bilateral Status: Acute (4) New onset atrial fibrillation Status: Acute (5) Pleural effusion, right Status: Resolved (6) Pulmonary artery hypertension Status: Acute (7) Asthma Status: Chronic - Assessment and Plan (Free Text) Plan: Lasix, Xarelto, rest of Tx, CXR and ABG Stat, closed F/U. ICU Time: 40 min.
--- NOTE | 2016-04-27 19:08 | PCM.PROC ---
Procedures Attestation:: I certify that I have explained the specified Operation(s) or Procedure(s), risks, benefits and reasonable alternatives to the Patient and/or other person responsible. The opportunity was given to ask questions and all questions answered - Extubation Patient Condition: Patient has been successfully extubated and assessed Oxygen Therapy: O2 via Nasal Cannula Patient Tolerated Procedure: No Complications Additional Comments: As per family request, Patient was terminally extubated at 6:50 PM, she received IV Morphine anf started on Morphine drip
--- NOTE | 2016-04-27 19:16 | CP.CCUPN ---
CCU Subjective - Physician Review Events Since Last Encounter (Free Text): 04/27/16 19:22 The Patient was seen and examined at the bedside, Medical records reviewed, all clinical/lab/hemodynamic/radiographic data were reviewed and management issues were discussed and formulated, 70 years old M with multiple medical conditions including HTN, HLD, CHF, Asthma , and Seizures Initially admitted to the ICU for Acute Resp failure sec to Pneumonia/CHF, Acute PTE and new onset A Fib with RVR, Clinically improved and was transferred out of ICU, ICU evaluation called for worsening respiratory status today, CXR showing worsening RLL atelectasis/ Effusion Transferred to ICU, placed on BIPAP Transferred to ICU, placed on BIPAP, given lasix, Nebs, Antibiotics and AC continued HR in 130s, but the dose of Lopressor was increased to 100 mg, will give early Planning to continue on BIPAP, given lasix, Nebs, Antibiotics and AC continued CCU Objective - Vital Signs / Intake & Output Vital Signs (Last 4 hours): Vital Signs Temp Pulse Resp BP Pulse Ox 04/27/16 18:00 140 H 30 H 146/60 91 L 04/27/16 16:56 108/68 04/27/16 16:37 98.6 F 69 20 108/68 98 Intake and Output (Last 8hrs): Intake & Output 04/27/16 04/27/16 04/27/16 06:59 14:59 22:59 Intake Total 100 Output Total 750 Balance -650 Weight 206 lb 0.7 oz Intake: Oral 100 Output: Urine 750 Urethral (Sweeney) 750 - Physical Exam Head: Positive for: Atraumatic Pupils: Positive for: PERRL Extroacular Muscles: Positive for: EOMI Mouth: Positive for: Moist Mucous Membranes Neck: Positive for: Normal Range of Motion, Trachea Midline. Negative for: MIDLINE TENDERNESS, JVD Respiratory/Chest: Positive for: Wheezes (mild throughout), Decreased Breath Sounds Cardiovascular: Positive for: Irregular Rhythm Abdomen: Positive for: Normal Bowel Sounds. Negative for: Tenderness, Distention Upper Extremity: Positive for: Normal Inspection. Negative for: Cyanosis Lower Extremity: Positive for: Edema (2+ ), Other (venous insufficiency) Neurological: Positive for: GCS=15, CN II-XII Intact - Medications Active Medications: Active Medications Generic Name Dose Route Start Last Admin Trade Name Freq PRN Reason Stop Dose Admin Budesonide 0.5 mg 04/24/16 09:00 04/27/16 07:40 Pulmicort Respules IH 0.5 mg Q12 [facility] Administration Digoxin 0.25 mg 04/24/16 10:00 04/27/16 09:38 Lanoxin PO 0.25 mg DAILY [facility] Administration Furosemide 40 mg 04/27/16 17:00 04/27/16 16:56 Lasix IVP 40 mg BID [facility] Administration Ceftriaxone Sodium 1 gm/ 100 mls @ 100 mls/hr 04/24/16 09:00 04/27/16 09:41 Sodium Chloride IVPB 100 mls/hr DAILY [facility] Administration Azithromycin 500 mg/ Sodium 250 mls @ 250 mls/hr 04/24/16 09:00 04/27/16 09:47 Chloride IVPB 250 mls/hr DAILY [facility] Administration Lactic Acid 1 applic 04/25/16 09:00 04/27/16 09:48 Lac-Hydrin 12% Lotion (225 G) TOP 1 applic DAILY [facility] Administration Metoprolol Tartrate 100 mg 04/27/16 11:45 Lopressor PO Q12 [facility] Montelukast Sodium 10 mg 04/23/16 09:00 04/27/16 09:40 Singulair PO 10 mg DAILY [facility] Administration Phenytoin Sodium 100 mg 04/23/16 09:00 04/27/16 16:54 Dilantin PO 100 mg BID [facility] Administration Rivaroxaban 15 mg 04/25/16 17:00 04/27/16 17:47 Xarelto PO 05/17/16 11:00 15 mg BIDWM [facility] Administration Protocol - Patient Studies Lab Studies: Microbiology Studies 04/25/16 19:31 MRSA Culture (Admit) - Final Naris MRSA NOT DETECTED Lab Studies 04/27/16 04/27/16 04/24/16 Range/Units 13:25 05:35 04:30 Protein C Antigen 59 L (70-140) % Protein C Activity 53 L (70-180) % Protein S Activity 82 (60-140) % Protein S Antigen 93 (70-140) % pCO2 51 H (35-45) mm/Hg pO2 67 L (80-100) mm/Hg HCO3 35.9 H (21-28) mmol/L ABG pH 7.50 H (7.35-7.45) ABG Total CO2 41.4 H (22-28) mmol/L ABG O2 Saturation 96.4 (95-98) % ABG O2 Content 18.4 (15-23) ML/dL ABG Base Excess 14.3 H (-2.0-3.0) mmol/L ABG Hemoglobin 14.2 (11.7-17.4) g/dL ABG Carboxyhemoglobin 3.0 H (0.5-1.5) % POC ABG HHb (Measured) 3.4 (0.0-5.0) % ABG Methemoglobin 1.4 (0.0-3.0) % ABG O2 Capacity 19.1 (16-24) mL/dL Frankie Test Yes A-a O2 Difference 97.0 mm/Hg Hgb O2 Saturation 92.2 L (95.0-98.0) % FiO2 32.0 % Total Bilirubin 0.9 (0.2-1.3) mg/dl Direct Bilirubin 0.3 (0.0-0.4) mg/ml AST 46 H D (14-36) U/L ALT 62 H D (9-52) U/L Alkaline Phosphatase 108 (38-126) U/L Total Protein 5.6 L (6.3-8.2) G/DL Albumin 2.3 L (3.5-5.0) g/dL Globulin 3.3 (2.2-3.9) gm/dL Albumin/Globulin Ratio 0.7 L (1.0-2.1) Yrru-1-Iuehqjsurxbg Ab (<=20) ANGELITA Beta-2 GPI IgG Ab (<=20) [facility] Beta-2 GPI IgM Ab (<=20) [facility] Phosphatidylserine IgG (<10) U/mL Phosphatidylserine IgA (<20) U/mL Phosphatidylserine IgM (<25) U/mL Anti-Phospholipid Intrp (()) Anti-Cardiolipin IgG Ab (<=14) GPL Anti-Cardiolipin IgA Ab (<=11) APL Anti-Cardiolipin IgM Ab (<=12) [facility]PL 04/24/16 Range/Units 00:50 Protein C Antigen (70-140) % Protein C Activity (70-180) % Protein S Activity (60-140) % Protein S Antigen (70-140) % pCO2 (35-45) mm/Hg pO2 (80-100) mm/Hg HCO3 (21-28) mmol/L ABG pH (7.35-7.45) ABG Total CO2 (22-28) mmol/L ABG O2 Saturation (95-98) % ABG O2 Content (15-23) ML/dL ABG Base Excess (-2.0-3.0) mmol/L ABG Hemoglobin (11.7-17.4) g/dL ABG Carboxyhemoglobin (0.5-1.5) % POC ABG HHb (Measured) (0.0-5.0) % ABG Methemoglobin (0.0-3.0) % ABG O2 Capacity (16-24) mL/dL Frankie Test A-a O2 Difference mm/Hg Hgb O2 Saturation (95.0-98.0) % FiO2 % Total Bilirubin (0.2-1.3) mg/dl Direct Bilirubin (0.0-0.4) mg/ml AST (14-36) U/L ALT (9-52) U/L Alkaline Phosphatase (38-126) U/L Total Protein (6.3-8.2) G/DL Albumin (3.5-5.0) g/dL Globulin (2.2-3.9) gm/dL Albumin/Globulin Ratio (1.0-2.1) Xmgp-2-Ysmauujqqkwk Ab <9 (<=20) ANGELITA Beta-2 GPI IgG Ab <9 (<=20) [facility] Beta-2 GPI IgM Ab <9 (<=20) [facility] Phosphatidylserine IgG <10 (<10) U/mL Phosphatidylserine IgA <20 (<20) U/mL Phosphatidylserine IgM <25 (<25) U/mL Anti-Phospholipid Intrp see note (()) Anti-Cardiolipin IgG Ab <14 (<=14) GPL Anti-Cardiolipin IgA Ab <11 (<=11) APL Anti-Cardiolipin IgM Ab <12 (<=12) MPL Laboratory Results - last 24 hr 04/24/16 04/24/16 04/27/16 00:50 04:30 05:35 Protein C Antigen 59 L Protein C Activity 53 L Protein S Activity 82 Protein S Antigen 93 pCO2 pO2 HCO3 ABG pH ABG Total CO2 ABG O2 Saturation ABG O2 Content ABG Base Excess ABG Hemoglobin ABG Carboxyhemoglobin POC ABG HHb (Measured) ABG Methemoglobin ABG O2 Capacity Frankie Test A-a O2 Difference Hgb O2 Saturation FiO2 Total Bilirubin 0.9 Direct Bilirubin 0.3 AST 46 H D ALT 62 H D Alkaline Phosphatase 108 Total Protein 5.6 L Albumin 2.3 L Globulin 3.3 Albumin/Globulin Ratio 0.7 L Wzpn-3-Ohexvyaizftg Ab <9 Beta-2 GPI IgG Ab <9 Beta-2 GPI IgM Ab <9 Phosphatidylserine IgG <10 Phosphatidylserine IgA <20 Phosphatidylserine IgM <25 Anti-Phospholipid Intrp see note Anti-Cardiolipin IgG Ab <14 Anti-Cardiolipin IgA Ab <11 Anti-Cardiolipin IgM Ab <12 04/27/16 13:25 Protein C Antigen Protein C Activity Protein S Activity Protein S Antigen pCO2 51 H pO2 67 L HCO3 35.9 H ABG pH 7.50 H ABG Total CO2 41.4 H ABG O2 Saturation 96.4 ABG O2 Content 18.4 ABG Base Excess 14.3 H ABG Hemoglobin 14.2 ABG Carboxyhemoglobin 3.0 H POC ABG HHb (Measured) 3.4 ABG Methemoglobin 1.4 ABG O2 Capacity 19.1 Frankie Test Yes A-a O2 Difference 97.0 Hgb O2 Saturation 92.2 L FiO2 32.0 Total Bilirubin Direct Bilirubin AST ALT Alkaline Phosphatase Total Protein Albumin Globulin Albumin/Globulin Ratio Gonw-4-Cbdvmeqooitl Ab Beta-2 GPI IgG Ab Beta-2 GPI IgM Ab Phosphatidylserine IgG Phosphatidylserine IgA Phosphatidylserine IgM Anti-Phospholipid Intrp Anti-Cardiolipin IgG Ab Anti-Cardiolipin IgA Ab Anti-Cardiolipin IgM Ab EKG/Cardiology Studies: Cardiology / EKG Studies 04/27/16 ELECTROCARDIOGRAM Stat Comment: admitted with pe/dvt Mode Of Transportation: BED Reason For Exam: sob, worsened this morning Fingerstick Blood Sugar Results: 162 Critical Care Progress Note - Nutrition Nutrition: Nutrition Category Date Time Status NPO Diet [DIET] Diets 04/27/16 Dinner Active Assessment/Plan (1) Acute respiratory failure Current Visit: Yes Status: Acute Priority: High (2) DVT of lower extremity, bilateral Current Visit: Yes Status: Acute Priority: High (3) Atrial fibrillation with RVR Current Visit: Yes Status: Acute (4) CHF (congestive heart failure) Current Visit: Yes Status: Acute (5) Pleural effusion, right Current Visit: Yes Status: Acute (6) Pulmonary artery hypertension Current Visit: Yes Status: Acute (7) Pulmonary embolism with infarction Current Visit: Yes Status: Acute (8) Severe sepsis Current Visit: Yes Status: Acute (9) Systolic dysfunction with acute on chronic heart failure Current Visit: Yes Status: Acute (10) Seizure disorder Current Visit: Yes Status: Chronic
--- NOTE | 2016-04-27 19:46 | CARD ---
APPROVED REPORT EKG Measurement Heart [id number] <Conclusion> Atrial fibrillation with rapid ventricular response T wave abnormality, consider lateral ischemia Abnormal ECG
[2016-04-28 06:06] LABS: ABG ALLEN TEST YES; ABG MECHANICAL RATE 14; ARTERIAL BLOOD GAS HCO3 36.1 mmol/L (21-28); ARTERIAL BLOOD GAS MODE BiPAP; ARTERIAL BLOOD GAS PO2 141 mm/Hg (80-100); ARTERIAL BLOOD HGB O2 SAT 96.6 % (95.0-98.0); CARBOXYHEMOGLOBIN 2.5 % (0.5-1.5); HHB -0.1 % (0.0-5.0)
[2016-04-28 06:33] LABS: HEMATOCRIT 39.8 % (34.0-47.0); MEAN CELL VOLUME 99.3 fl (81.0-99.0); MEAN CORPUSCULAR HEMOGLOBIN 32.2 pg (27.0-31.0); MEAN CORPUSCULAR HGB CONC 32.4 g/dL (33.0-37.0); RED CELL DISTRIBUTION WIDTH 16.2 % (11.5-14.5); WHITE BLOOD COUNT 11.5 K/uL (4.8-10.8)
[2016-04-28 07:14] LABS: BLOOD UREA NITROGEN 19 mg/dl (7-17); CALCIUM 8.1 mg/dL (8.4-10.2); CARBON DIOXIDE 39 mmol/L (22-30); CHLORIDE 94 mmol/L (98-107); GFR AFRICAN-AMERICAN > 60; GLUCOSE,RANDOM 118 mg/dL (65-105); POTASSIUM 3.9 MMOL/L (3.6-5.0); SODIUM 134 mmol/l (132-148)
[2016-04-28] MEDS: Budesonide 0.5 mg/2 ml Inhal Susp UD IH SCH ×2 (09:10→20:10)
[2016-04-28] MEDS: Digoxin 250 mcg (0.25 mg) Tab PO SCH (09:49)
[2016-04-28] MEDS: Azithromycin 500 MG in Sodium Chloride 0.9% 250 ML IVPB SCH (09:53)
--- NOTE | 2016-04-28 12:02 | CP.PCM.PN ---
Subjective - Date & Time of Evaluation Date of Evaluation: 04/28/16 Time of Evaluation: 07:00 - Subjective Subjective: 70 YO F was transferred from telometry back to the ICU yesterday evening do to increase in respiratory distress. - She was seen at bedside today, on bipap, she states her breathing is better then yesterday and she is improving. Denies any current chest pain/n/v/d. BIPAP settings FIO2:40. - Sweeney: Clear/yellow urine noted, produced 3500ml/ 24 hours. Spoke w/ assistant director of nursing Dr. Allen: Considering her most recent ABG and Xray findings of B/L pleural effusions, will consider Thoracentesis/ pig tail catheter, either latter today or tomorrow depending on the condition of the patient. ( Hold Xarelto until procedure) Objective - Vital Signs/Intake and Output Vital Signs (last 24 hours): Temp Pulse Resp BP Pulse Ox 99.8 F H 100 H 26 H 109/58 L 98 04/28/16 08:00 04/28/16 09:50 04/28/16 08:00 04/28/16 09:50 04/28/16 08:00 Intake and Output: 04/28/16 04/28/16 06:59 18:59 Intake Total 10 Output Total 500 Balance -490 - Medications Medications: Current Medications Budesonide (Pulmicort Respules) 0.5 mg IH Q12 [facility] Last Admin: 04/28/16 09:10 Dose: 0.5 mg Digoxin (Lanoxin) 0.25 mg PO DAILY [facility] Last Admin: 04/28/16 09:49 Dose: 0.25 mg Furosemide (Lasix) 40 mg IVP BID [facility] Last Admin: 04/28/16 09:49 Dose: 40 mg Ceftriaxone Sodium 1 gm/ (Sodium Chloride) 100 mls @ 100 mls/hr IVPB DAILY [facility] Last Admin: 04/28/16 09:52 Dose: 100 mls/hr Azithromycin 500 mg/ Sodium (Chloride) 250 mls @ 250 mls/hr IVPB DAILY [facility] Last Admin: 04/28/16 09:53 Dose: 250 mls/hr Lactic Acid (Lac-Hydrin 12% Lotion (225 G)) 1 applic TOP DAILY [facility] Last Admin: 04/28/16 09:52 Dose: 1 applic Metoprolol Tartrate (Lopressor) 100 mg PO Q12 [facility] Last Admin: 04/28/16 09:50 Dose: 100 mg Montelukast Sodium (Singulair) 10 mg PO DAILY [facility] Last Admin: 04/28/16 09:51 Dose: 10 mg Phenytoin Sodium (Dilantin) 100 mg PO BID [facility] Last Admin: 04/28/16 09:49 Dose: 100 mg Rivaroxaban (Xarelto) 15 mg PO BIDWM [facility] PRN Reason: Protocol Stop: 05/17/16 11:00 Last Admin: 04/28/16 09:51 Dose: 15 mg - Labs Labs: 04/28/16 05:20 04/28/16 05:20 PT 17.5 SECONDS (9.6-11.2) H 04/23/16 04:25 INR 1.68 (0.92-1.08) H 04/23/16 04:25 APTT 36.9 SECONDS (23.3-32.5) H 04/23/16 04:25 - Constitutional Appears: No Acute Distress, Chronically Ill - Head Exam Head Exam: ATRAUMATIC, NORMAL INSPECTION, NORMOCEPHALIC - Respiratory Exam Respiratory Exam: Clear to Ausculation Bilateral, NORMAL BREATHING PATTERN Additional comments: On Bipap - Cardiovascular Exam Cardiovascular Exam: REGULAR RHYTHM, +S1, +S2 - GI/Abdominal Exam GI & Abdominal Exam: Soft, Normal Bowel Sounds. absent: Tenderness - Neurological Exam Neurological Exam: Alert, Awake, Oriented x3 Assessment and Plan - Assessment and Plan (Free Text) Assessment: 70 yo female with pmhx of HTN, CHF, HLD, asthma, seizure disorder was admitted for bilateral low ext dvt, PE. 1)Sepsis, secondary to DVT/PE, possible pneumonia -stable; vitals reviewed, tachycardia -leukocytosis trending downward - Decreased Antithrombin III: 52, Protien C: 53 -D/C azithromycin and ceftriaxone completed course of antibiotics - F/U: Antiphospholipid, , MTHFR, Prothrombin - Troponin x 1 neg 04/28/16 2)Subacute pulmonary embolism -s/p ivc filter -(Hold xarelto untill thoracacentesis tomorrow then continue: 15mg po bid for 21 days from intial dose; then 20mg po once daily with food) -radiation control worker Dr Patton and IR Dr Montanez consults appreciated 3)bilateral lower ext DVT -hold xarelto untill IR sees patient for possible thoracentesis tomorrow 4)atrial fibrillation, RVR - HR this morning was 100. -increased metoprolol tartrate 100mg po bid -digoxin 0.25mg po daily -monitor HR in telemetry -hold xarelto untill IR sees patient for possible thoracentesis tomorrow 5.CHF exacerbation (Systolic) - Lasix 40 mg PO BID - X Ray show b/l pleural effusion: Spoke to Dr. Allen will do thoracocentesis either today or tommorrow w/ IR. 6)Possible pneumonia -Completed: azithromycin and ceftriaxone -monitor 7)hypertension, controlled --monitor 8)thrombocytopenia,(Resolved) - 134 9)Seizure hx -c/w phenytoin 100mg po bid -monitor 10)Prophylactic measures: -hold xarelto untill IR sees patient for possible thoracentesis tomorrow 11)right sided heart failure, acute most likely -echo reviewed, mitral valve thickened, mild pulmonary hypertension, RV mildly dilated -monitor. - Liver enzymes trending down 46/62. . PT recommended TCU
--- NOTE | 2016-04-28 12:06 | RAD ---
HISTORY: F/U Pneumonia Resp distress COMPARISON: Multiple chest radiographs most recently from 04/27/2016. FINDINGS: LUNGS: Hazy opacity in both lung bases right greater than left. Hazy right paratracheal opacity, stable since yesterday. Increased pulmonary vascular congestion. PLEURA: Layering pleural effusion on the right not significantly changed since yesterday. CARDIOVASCULAR: Stable cardiomediastinal silhouette. OSSEOUS STRUCTURES: The osseous structures demonstrate degenerative changes. VISUALIZED UPPER ABDOMEN: Upper abdomen is suboptimally evaluated. OTHER FINDINGS: None. IMPRESSION: Bilateral pleural effusions right greater than left with associated compressive atelectasis and/or pneumonia. Increased pulmonary vascular congestion.
--- NOTE | 2016-04-28 13:27 | CP.CCUPN ---
CCU Subjective - Physician Review Events Since Last Encounter (Free Text): 04/28/16 13:28 The Patient was seen and examined at the bedside, Medical records reviewed, all clinical/lab/hemodynamic/radiographic data were reviewed and management issues were discussed and formulated, 70 years old F with multiple medical conditions including HTN, HLD, CHF, Asthma , and Seizures Disorder Initially admitted to the ICU for Acute Resp failure sec to Pneumonia/CHF, Acute PTE, Renal insuffiency and new onset A Fib with RVR, Date of Surgery/Procedure: 04/24/16, she underwent Placement of a retrievable filter in the infrarenal IVC for acute Pulmonary embolism, DVT Manged with diuresis, IV antibiortics and Anticoagulation Clinically improved and was transferred out of ICU, 04/27, ICU evaluation called for worsening respiratory status today, tachycardia CXR showing worsening RLL atelectasis/Effusion Transferred to ICU, placed on BIPAP, given lasix, Nebs, Antibiotics and AC continued Slightly better today however the CXR, worsening Right sided atelectasis/ Effusion/pneumonia Last 24H I&O 1000/3500 (-2.5L) Afebrile On Anticoagulation with Xarelto Discussed with IR, plan of Pig tail placement tomorrow Today ABG with acute respiratory acidosis and metabolic alkalosis 7.40/69 BIPAP sitting changed to 14/6/40%, Repeat ABG pending 04/28/16 13:35 CXR : 04/28/2016 IMPRESSION: Bilateral pleural effusions right greater than left with associated compressive atelectasis and/or pneumonia. Increased pulmonary vascular congestion. CCU Objective - Vital Signs / Intake & Output Vital Signs (Last 4 hours): Vital Signs Pulse BP 04/28/16 09:50 100 H 109/58 L 04/28/16 09:49 109/58 L Intake and Output (Last 8hrs): Intake & Output 04/27/16 04/28/16 04/28/16 22:59 06:59 14:59 Intake Total 10 Output Total 150 350 Balance -140 -350 Weight 204 lb Intake: IV 10 Output: Urine 150 350 Urethral (Sweeney) 150 350 - Physical Exam Head: Positive for: Atraumatic Pupils: Positive for: PERRL Extroacular Muscles: Positive for: EOMI Mouth: Positive for: Moist Mucous Membranes Neck: Positive for: Normal Range of Motion, Trachea Midline. Negative for: MIDLINE TENDERNESS, JVD Respiratory/Chest: Positive for: Wheezes (mild throughout), Decreased Breath Sounds Cardiovascular: Positive for: Irregular Rhythm Abdomen: Positive for: Normal Bowel Sounds. Negative for: Tenderness, Distention Upper Extremity: Positive for: Normal Inspection. Negative for: Cyanosis Lower Extremity: Positive for: Edema (2+ ), Other (venous insufficiency) Neurological: Positive for: GCS=15, CN II-XII Intact - Medications Active Medications: Active Medications Generic Name Dose Route Start Last Admin Trade Name Freq PRN Reason Stop Dose Admin Budesonide 0.5 mg 04/28/16 09:00 04/28/16 09:10 Pulmicort Respules IH 0.5 mg Q12 [facility] Administration Digoxin 0.25 mg 04/28/16 09:00 04/28/16 09:49 Lanoxin PO 0.25 mg DAILY [facility] Administration Furosemide 40 mg 04/28/16 09:00 04/28/16 09:49 Lasix IVP 40 mg BID [facility] Administration Ceftriaxone Sodium 1 gm/ 100 mls @ 100 mls/hr 04/28/16 09:00 04/28/16 09:52 Sodium Chloride IVPB 100 mls/hr DAILY [facility] Administration Azithromycin 500 mg/ Sodium 250 mls @ 250 mls/hr 04/28/16 09:00 04/28/16 09:53 Chloride IVPB 250 mls/hr DAILY [facility] Administration Lactic Acid 1 applic 04/28/16 09:00 04/28/16 09:52 Lac-Hydrin 12% Lotion (225 G) TOP 1 applic DAILY [facility] Administration Metoprolol Tartrate 100 mg 04/28/16 09:00 04/28/16 09:50 Lopressor PO 100 mg Q12 [facility] Administration Montelukast Sodium 10 mg 04/28/16 09:00 04/28/16 09:51 Singulair PO 10 mg DAILY [facility] Administration Phenytoin Sodium 100 mg 04/28/16 09:00 04/28/16 09:49 Dilantin PO 100 mg BID [facility] Administration Rivaroxaban 15 mg 04/28/16 08:00 04/28/16 09:51 Xarelto PO 05/17/16 11:00 15 mg BIDWM [facility] Administration Protocol - Patient Studies Lab Studies: Microbiology Studies 04/25/16 19:31 MRSA Culture (Admit) - Final Naris MRSA NOT DETECTED Lab Studies 04/28/16 04/28/16 04/28/16 Range/Units 09:40 05:56 05:20 WBC 11.5 H (4.8-10.8) K/uL RBC 4.00 (3.80-5.20) Mil/uL Hgb 12.9 (12.0-16.0) g/dL Hct 39.8 (34.0-47.0) % MCV 99.3 H D (81.0-99.0) fl MCH 32.2 H (27.0-31.0) pg MCHC 32.4 L (33.0-37.0) g/dL RDW 16.2 H (11.5-14.5) % Plt Count 134 (130-400) K/uL Protein C Antigen (70-140) % Protein S Antigen (70-140) % Antithrombin III Activ (80-120) % activity Factor V Activity (65-150) % pCO2 69 H (35-45) mm/Hg pO2 141 H (80-100) mm/Hg HCO3 36.1 H (21-28) mmol/L ABG pH 7.40 (7.35-7.45) ABG Total CO2 44.8 H (22-28) mmol/L ABG O2 Saturation 100.1 H (95-98) % ABG O2 Content 19.0 (15-23) ML/dL ABG Base Excess 14.4 H (-2.0-3.0) mmol/L ABG Hemoglobin 13.8 (11.7-17.4) g/dL ABG Carboxyhemoglobin 2.5 H (0.5-1.5) % POC ABG HHb (Measured) -0.1 L (0.0-5.0) % ABG Methemoglobin 1.0 (0.0-3.0) % ABG O2 Capacity 19.0 (16-24) mL/dL Frankie Test Yes A-a O2 Difference 201.0 mm/Hg Hgb O2 Saturation 96.6 (95.0-98.0) % Vent Mode Bipap Mechanical Rate 14 FiO2 60.0 % Inspiratory BiPAP 12 Expiratory BiPAP 6 Sodium 134 (132-148) mmol/l Potassium 3.9 (3.6-5.0) MMOL/L Chloride 94 L (98-107) mmol/L Carbon Dioxide 39 H (22-30) mmol/L Anion Gap 5 L (10-20) BUN 19 H (7-17) mg/dl Creatinine 0.5 L (0.7-1.2) mg/dL Est GFR ( Amer) > 60 Est GFR (Non-Af Amer) > 60 Random Glucose 118 H (65-105) mg/dL Calcium 8.1 L (8.4-10.2) mg/dL Troponin I 0.0320 (0.00-0.120) ng/mL Tkut-4-Fwuwejturpit Ab (<=20) ANGELITA Beta-2 GPI IgG Ab (<=20) [facility] Beta-2 GPI IgM Ab (<=20) [facility] Phosphatidylserine IgA (<20) U/mL Anti-Phospholipid Intrp (()) 04/27/16 04/24/16 04/24/16 Range/Units 13:25 04:30 00:50 WBC (4.8-10.8) K/uL RBC (3.80-5.20) Mil/uL Hgb (12.0-16.0) g/dL Hct (34.0-47.0) % MCV (81.0-99.0) fl MCH (27.0-31.0) pg MCHC (33.0-37.0) g/dL RDW (11.5-14.5) % Plt Count (130-400) K/uL Protein C Antigen 59 L (70-140) % Protein S Antigen 93 (70-140) % Antithrombin III Activ 52 L (80-120) % activity Factor V Activity 84 (65-150) % pCO2 51 H (35-45) mm/Hg pO2 67 L (80-100) mm/Hg HCO3 35.9 H (21-28) mmol/L ABG pH 7.50 H (7.35-7.45) ABG Total CO2 41.4 H (22-28) mmol/L ABG O2 Saturation 96.4 (95-98) % ABG O2 Content 18.4 (15-23) ML/dL ABG Base Excess 14.3 H (-2.0-3.0) mmol/L ABG Hemoglobin 14.2 (11.7-17.4) g/dL ABG Carboxyhemoglobin 3.0 H (0.5-1.5) % POC ABG HHb (Measured) 3.4 (0.0-5.0) % ABG Methemoglobin 1.4 (0.0-3.0) % ABG O2 Capacity 19.1 (16-24) mL/dL Frankie Test Yes A-a O2 Difference 97.0 mm/Hg Hgb O2 Saturation 92.2 L (95.0-98.0) % Vent Mode Mechanical Rate FiO2 32.0 % Inspiratory BiPAP Expiratory BiPAP Sodium (132-148) mmol/l Potassium (3.6-5.0) MMOL/L Chloride (98-107) mmol/L Carbon Dioxide (22-30) mmol/L Anion Gap (10-20) BUN (7-17) mg/dl Creatinine (0.7-1.2) mg/dL Est GFR ( Amer) Est GFR (Non-Af Amer) Random Glucose (65-105) mg/dL Calcium (8.4-10.2) mg/dL Troponin I (0.00-0.120) ng/mL Byha-6-Ysggccfsmnjs Ab <9 (<=20) ANGELITA Beta-2 GPI IgG Ab <9 (<=20) [facility] Beta-2 GPI IgM Ab <9 (<=20) [facility] Phosphatidylserine IgA <20 (<20) U/mL Anti-Phospholipid Intrp see note (()) Laboratory Results - last 24 hr 04/24/16 04/24/16 04/27/16 00:50 04:30 13:25 WBC RBC Hgb Hct MCV MCH MCHC RDW Plt Count Protein C Antigen 59 L Protein S Antigen 93 Antithrombin III Activ 52 L Factor V Activity 84 pCO2 51 H pO2 67 L HCO3 35.9 H ABG pH 7.50 H ABG Total CO2 41.4 H ABG O2 Saturation 96.4 ABG O2 Content 18.4 ABG Base Excess 14.3 H ABG Hemoglobin 14.2 ABG Carboxyhemoglobin 3.0 H POC ABG HHb (Measured) 3.4 ABG Methemoglobin 1.4 ABG O2 Capacity 19.1 Frankie Test Yes A-a O2 Difference 97.0 Hgb O2 Saturation 92.2 L Vent Mode Mechanical Rate FiO2 32.0 Inspiratory BiPAP Expiratory BiPAP Sodium Potassium Chloride Carbon Dioxide Anion Gap BUN Creatinine Est GFR ( Amer) Est GFR (Non-Af Amer) Random Glucose Calcium Troponin I Jfpl-0-Pxgvzferairt Ab <9 Beta-2 GPI IgG Ab <9 Beta-2 GPI IgM Ab <9 Phosphatidylserine IgA <20 Anti-Phospholipid Intrp see note 04/28/16 04/28/16 04/28/16 05:20 05:56 09:40 WBC 11.5 H RBC 4.00 Hgb 12.9 Hct 39.8 MCV 99.3 H D MCH 32.2 H MCHC 32.4 L RDW 16.2 H Plt Count 134 Protein C Antigen Protein S Antigen Antithrombin III Activ Factor V Activity pCO2 69 H pO2 141 H HCO3 36.1 H ABG pH 7.40 ABG Total CO2 44.8 H ABG O2 Saturation 100.1 H ABG O2 Content 19.0 ABG Base Excess 14.4 H ABG Hemoglobin 13.8 ABG Carboxyhemoglobin 2.5 H POC ABG HHb (Measured) -0.1 L ABG Methemoglobin 1.0 ABG O2 Capacity 19.0 Frankie Test Yes A-a O2 Difference 201.0 Hgb O2 Saturation 96.6 Vent Mode Bipap Mechanical Rate 14 FiO2 60.0 Inspiratory BiPAP 12 Expiratory BiPAP 6 Sodium 134 Potassium 3.9 Chloride 94 L Carbon Dioxide 39 H Anion Gap 5 L BUN 19 H Creatinine 0.5 L Est GFR ( Amer) > 60 Est GFR (Non-Af Amer) > 60 Random Glucose 118 H Calcium 8.1 L Troponin I 0.0320 Qbku-4-Gemngdndbsyo Ab Beta-2 GPI IgG Ab Beta-2 GPI IgM Ab Phosphatidylserine IgA Anti-Phospholipid Intrp Fingerstick Blood Sugar Results: 162 Review of Systems - Cardiovascular Cardiovascular: absent: Chest Pain, Chest Pain at Rest, Chest Pain with Activity , Diaphoresis - Respiratory Respiratory: Cough, Dyspnea, Dyspnea on Exertion, Pain on Inspiration, Chest Congestion, Excessive Mucous Production. absent: Hemoptysis, Wheezing, Snoring , Stridor, Change in Mucous Color, Pain with Coughing - Gastrointestinal Gastrointestinal: absent: Abdominal Pain, Nausea, Vomiting Critical Care Progress Note - Nutrition Nutrition: Nutrition Category Date Time Status NPO Diet [DIET] Diets 04/27/16 Dinner Active Assessment/Plan (1) Acute respiratory failure Current Visit: Yes Status: Acute Priority: High Comment: Multifactorial from CHF, Acute PTE with worsening RLL atelectasis/Effusion BIPAP Xarelto Aggressive Pulmonary toilets, duonebs Q 6H, Antibiotics, percussive bed. (2) Atrial fibrillation with RVR Current Visit: Yes Status: Acute Comment: HR contol with Metoprolol Tartrate 100 mg PO Q12 [facility] AC with Rivaroxaban (Xarelto) 15 mg PO BIDWM [facility] (3) CHF (congestive heart failure) Current Visit: Yes Status: Acute Comment: Furosemide 40 mg IVP BID Daily Wt Strict I&O (4) Pleural effusion, right Current Visit: Yes Status: Acute Comment: IR consulted scheduled for pig tail drainage tomorrow, will follow up pleural fluid analysis. (5) Pulmonary artery hypertension Current Visit: Yes Status: Acute (6) Pulmonary embolism with infarction Current Visit: Yes Status: Acute (7) Severe sepsis Current Visit: Yes Status: Acute (8) Systolic dysfunction with acute on chronic heart failure Current Visit: Yes Status: Acute (9) Seizure disorder Current Visit: Yes Status: Chronic (10) DVT of lower extremity, bilateral Current Visit: Yes Status: Acute Priority: High
[2016-04-28 14:31] LABS: ABG ALLEN TEST YES; ABG MECHANICAL RATE 16; ARTERIAL BLOOD GAS HCO3 38.3 mmol/L (21-28); ARTERIAL BLOOD GAS O2 CAPACITY 19.4 mL/dL (16-24); ARTERIAL BLOOD GAS PH 7.47 (7.35-7.45); ARTERIAL BLOOD GAS PO2 80 mm/Hg (80-100); ARTERIAL BLOOD HGB O2 SAT 94.1 % (95.0-98.0); CARBOXYHEMOGLOBIN 2.8 % (0.5-1.5); HHB 1.8 % (0.0-5.0); METHEMOGLOBIN 1.3 % (0.0-3.0)
--- NOTE | 2016-04-28 17:00 | CP.PCM.PN ---
Subjective - Date & Time of Evaluation Date of Evaluation: 04/27/16 Time of Evaluation: 12:00 - Subjective Subjective: More short of breath Objective - Vital Signs/Intake and Output Vital Signs (last 24 hours): Temp Pulse Resp BP Pulse Ox 99.8 F H 105 H 26 H 109/58 L 98 04/28/16 08:00 04/28/16 16:09 04/28/16 08:00 04/28/16 09:50 04/28/16 08:00 Intake and Output: 04/28/16 04/28/16 06:59 18:59 Intake Total 10 Output Total 500 Balance -490 - Medications Medications: Current Medications Budesonide (Pulmicort Respules) 0.5 mg IH Q12 [facility] Last Admin: 04/28/16 09:10 Dose: 0.5 mg Digoxin (Lanoxin) 0.25 mg PO DAILY [facility] Last Admin: 04/28/16 09:49 Dose: 0.25 mg Furosemide (Lasix) 40 mg IVP BID [facility] Last Admin: 04/28/16 09:49 Dose: 40 mg Ceftriaxone Sodium 1 gm/ (Sodium Chloride) 100 mls @ 100 mls/hr IVPB DAILY [facility] Last Admin: 04/28/16 09:52 Dose: 100 mls/hr Azithromycin 500 mg/ Sodium (Chloride) 250 mls @ 250 mls/hr IVPB DAILY [facility] Last Admin: 04/28/16 09:53 Dose: 250 mls/hr Lactic Acid (Lac-Hydrin 12% Lotion (225 G)) 1 applic TOP DAILY [facility] Last Admin: 04/28/16 09:52 Dose: 1 applic Metoprolol Tartrate (Lopressor) 100 mg PO Q12 [facility] Last Admin: 04/28/16 09:50 Dose: 100 mg Montelukast Sodium (Singulair) 10 mg PO DAILY [facility] Last Admin: 04/28/16 09:51 Dose: 10 mg Phenytoin Sodium (Dilantin) 100 mg PO BID [facility] Last Admin: 04/28/16 09:49 Dose: 100 mg Rivaroxaban (Xarelto) 15 mg PO BIDWM [facility] PRN Reason: Protocol Stop: 05/17/16 11:00 Last Admin: 04/28/16 09:51 Dose: 15 mg - Labs Labs: 04/28/16 05:20 04/28/16 05:20 PT 17.5 SECONDS (9.6-11.2) H 04/23/16 04:25 INR 1.68 (0.92-1.08) H 04/23/16 04:25 APTT 36.9 SECONDS (23.3-32.5) H 04/23/16 04:25 - Head Exam Head Exam: ATRAUMATIC - Eye Exam Eye Exam: Normal appearance - ENT Exam ENT Exam: Mucous Membranes Dry - Respiratory Exam Respiratory Exam: Decreased Breath Sounds - Cardiovascular Exam Cardiovascular Exam: +S1, +S2 - GI/Abdominal Exam GI & Abdominal Exam: Normal Bowel Sounds - Extremities Exam Extremities Exam: Pedal Edema Assessment and Plan (1) Pulmonary embolism with infarction Assessment & Plan: with B/L LE DVT - unprovoked s/p IVC filter on Xarelto Status: Acute (2) Thrombocytopenia Assessment & Plan: mild, cont. to monitor Status: Acute (3) Coagulopathy Assessment & Plan: anticoagulation Status: Acute
[2016-04-29 05:28] LABS: MEAN CELL VOLUME 96.6 fl (81.0-99.0); MEAN CORPUSCULAR HEMOGLOBIN 31.5 pg (27.0-31.0); MEAN CORPUSCULAR HGB CONC 32.6 g/dL (33.0-37.0); RED CELL DISTRIBUTION WIDTH 16.2 % (11.5-14.5); WHITE BLOOD COUNT 11.9 K/uL (4.8-10.8)
[2016-04-29 05:46] LABS: ALB/GLOB RATIO 0.7 (1.0-2.1); ALKALINE PHOSPHATASE 139 U/L (38-126); ALT/SGPT 61 U/L (9-52); AST/SGOT 64 U/L (14-36); BILIRUBIN,TOTAL 0.9 mg/dl (0.2-1.3); BLOOD UREA NITROGEN 18 mg/dl (7-17); CALCIUM 8.4 mg/dL (8.4-10.2); CHLORIDE 91 mmol/L (98-107); GFR AFRICAN-AMERICAN > 60; GLUCOSE,RANDOM 120 mg/dL (65-105); POTASSIUM 4.1 MMOL/L (3.6-5.0); SODIUM 141 mmol/l (132-148); TOTAL PROTEIN 5.9 G/DL (6.3-8.2)
[2016-04-29 05:52] LABS: CARBON DIOXIDE 38 mmol/L (22-30)
[2016-04-29 06:00] LABS: ABG ALLEN TEST YES; ABG MECHANICAL RATE 16; ARTERIAL BLOOD GAS HCO3 38.5 mmol/L (21-28); ARTERIAL BLOOD GAS MODE BiPAP; ARTERIAL BLOOD GAS O2 CAPACITY 19.1 mL/dL (16-24); ARTERIAL BLOOD GAS O2 CONTENT 18.7 ML/dL (15-23); ARTERIAL BLOOD GAS PH 7.44 (7.35-7.45); ARTERIAL BLOOD GAS PO2 84 mm/Hg (80-100); ARTERIAL BLOOD HGB O2 SAT 94.3 % (95.0-98.0); CARBOXYHEMOGLOBIN 2.7 % (0.5-1.5); HHB 1.8 % (0.0-5.0); METHEMOGLOBIN 1.3 % (0.0-3.0)
[2016-04-29] MEDS: Albuterol-Ipratrop 3 mg / 0.5 (3 ml) UD INH PRN (08:20)
[2016-04-29] MEDS: Budesonide 0.5 mg/2 ml Inhal Susp UD IH SCH ×2 (08:21→22:05)
[2016-04-29] MEDS: Digoxin 250 mcg (0.25 mg) Tab PO SCH (08:32)
[2016-04-29] MEDS: Azithromycin 500 MG in Sodium Chloride 0.9% 250 ML IVPB SCH (08:33)
--- NOTE | 2016-04-29 09:16 | CP.PCM.PN ---
Subjective - Date & Time of Evaluation Date of Evaluation: 04/29/16 Time of Evaluation: 07:00 - Subjective Subjective: - Pt was seen resting in bed on bipap Sat at 97%. She states she is feeling better. She has been tolerating PO intake. Currently denies N/V/D/ chest pain. Urine: clear/ yellow Urine: 2900ml within last 24 hours Objective - Vital Signs/Intake and Output Vital Signs (last 24 hours): Temp Pulse Resp BP Pulse Ox 97.7 F 100 H 29 H 115/62 95 04/29/16 06:00 04/29/16 08:32 04/29/16 06:00 04/29/16 08:32 04/29/16 06:00 Intake and Output: 04/29/16 04/29/16 06:59 18:59 Intake Total 135 Output Total 700 Balance -565 - Medications Medications: Current Medications Albuterol/Ipratropium (Duoneb 3 Mg/0.5 Mg (3 Ml) Ud) 3 ml INH RQ6 PRN PRN Reason: Shortness of Breath Last Admin: 04/29/16 08:20 Dose: 3 ml Budesonide (Pulmicort Respules) 0.5 mg IH Q12 [facility] Last Admin: 04/29/16 08:21 Dose: 0.5 mg Digoxin (Lanoxin) 0.25 mg PO DAILY [facility] Last Admin: 04/29/16 08:32 Dose: 0.25 mg Furosemide (Lasix) 40 mg IVP BID [facility] Last Admin: 04/29/16 08:32 Dose: 40 mg Ceftriaxone Sodium 1 gm/ (Sodium Chloride) 100 mls @ 100 mls/hr IVPB DAILY [facility] Last Admin: 04/28/16 09:52 Dose: 100 mls/hr Azithromycin 500 mg/ Sodium (Chloride) 250 mls @ 250 mls/hr IVPB DAILY [facility] Last Admin: 04/29/16 08:33 Dose: 250 mls/hr Lactic Acid (Lac-Hydrin 12% Lotion (225 G)) 1 applic TOP DAILY [facility] Last Admin: 04/29/16 08:42 Dose: 1 applic Metoprolol Tartrate (Lopressor) 100 mg PO Q12 [facility] Last Admin: 04/29/16 08:32 Dose: 100 mg Montelukast Sodium (Singulair) 10 mg PO DAILY [facility] Last Admin: 04/29/16 08:33 Dose: 10 mg Phenytoin Sodium (Dilantin) 100 mg PO BID [facility] Last Admin: 04/29/16 08:31 Dose: 100 mg Rivaroxaban (Xarelto) 15 mg PO BIDWM [facility] PRN Reason: Protocol Stop: 05/17/16 11:00 Last Admin: 04/28/16 09:51 Dose: 15 mg - Labs Labs: 04/29/16 04:35 04/29/16 04:35 PT 17.5 SECONDS (9.6-11.2) H 04/23/16 04:25 INR 1.68 (0.92-1.08) H 04/23/16 04:25 APTT 36.9 SECONDS (23.3-32.5) H 04/23/16 04:25 - Constitutional Appears: No Acute Distress, Chronically Ill - Head Exam Head Exam: ATRAUMATIC, NORMAL INSPECTION, NORMOCEPHALIC - Eye Exam Eye Exam: Normal appearance - Respiratory Exam Respiratory Exam: absent: Rales, Wheezes (Decreased breath sounds at base of right lung) Additional comments: Rapid shallow breaths - Cardiovascular Exam Cardiovascular Exam: REGULAR RHYTHM, +S1, +S2 - GI/Abdominal Exam GI & Abdominal Exam: Soft, Normal Bowel Sounds - Extremities Exam Additional comments: 2+ tibial edema b/l - Neurological Exam Neurological Exam: Alert, Awake, Oriented x3 Assessment and Plan - Assessment and Plan (Free Text) Assessment: 70 yo female with pmhx of HTN, CHF, HLD, asthma, seizure disorder was admitted for bilateral low ext dvt, PE. 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 -increased metoprolol tartrate 100mg po bid -digoxin 0.25mg po daily - Monitor HR -hold xarelto untill IR sees patient for possible thoracentesis today 6.CHF exacerbation (Systolic) - Lasix 40 mg PO BID - X Ray show b/l pleural effusion: Consulted IR: Will do Thoracentesis today 7)Possible pneumonia -Completed: azithromycin and ceftriaxone -monitor 8)hypertension, controlled --monitor 9)Seizure hx -c/w phenytoin 100mg po bid -monitor 10)Prophylactic measures: -hold xarelto untill IR sees patient for possible thoracentesis today 11)right sided heart failure, acute most likely -echo reviewed, mitral valve thickened, mild pulmonary hypertension, RV mildly dilated -monitor. - Liver enzymes trending down 64/61. . PT recommended TCU
--- NOTE | 2016-04-29 09:27 | CP.PCM.PN ---
Subjective - Date & Time of Evaluation Date of Evaluation: 04/29/16 Time of Evaluation: 08:40 - Subjective Subjective: Developed dyspnoea and hypercapnoea couple of days back requiring ventilatory support, has had an IVC filter placed Was briefly intubated and extubated at family's request Now on BiPAP has pulse Ox 96% A Fib at 90 BPM/BP 118 /70 mm Hg No gallop, no rales Chest x rays show significant bilat pleural effusions discussed with Oil Rigger Is pt's respiratory embarassment due to Pleural fluid IR should be consulted to asses this mode of reliefe for the pt (Have withsharmaine Rushingrelto in anticipation of poss pleural tap) Objective - Vital Signs/Intake and Output Vital Signs (last 24 hours): Temp Pulse Resp BP Pulse Ox 97.7 F 100 H 29 H 115/62 95 04/29/16 06:00 04/29/16 08:32 04/29/16 06:00 04/29/16 08:32 04/29/16 06:00 Intake and Output: 04/29/16 04/29/16 06:59 18:59 Intake Total 135 Output Total 700 Balance -565 - Medications Medications: Current Medications Albuterol/Ipratropium (Duoneb 3 Mg/0.5 Mg (3 Ml) Ud) 3 ml INH RQ6 PRN PRN Reason: Shortness of Breath Last Admin: 04/29/16 08:20 Dose: 3 ml Budesonide (Pulmicort Respules) 0.5 mg IH Q12 [facility] Last Admin: 04/29/16 08:21 Dose: 0.5 mg Digoxin (Lanoxin) 0.25 mg PO DAILY [facility] Last Admin: 04/29/16 08:32 Dose: 0.25 mg Furosemide (Lasix) 40 mg IVP BID [facility] Last Admin: 04/29/16 08:32 Dose: 40 mg Ceftriaxone Sodium 1 gm/ (Sodium Chloride) 100 mls @ 100 mls/hr IVPB DAILY [facility] Last Admin: 04/28/16 09:52 Dose: 100 mls/hr Azithromycin 500 mg/ Sodium (Chloride) 250 mls @ 250 mls/hr IVPB DAILY [facility] Last Admin: 04/29/16 08:33 Dose: 250 mls/hr Lactic Acid (Lac-Hydrin 12% Lotion (225 G)) 1 applic TOP DAILY [facility] Last Admin: 04/29/16 08:42 Dose: 1 applic Metoprolol Tartrate (Lopressor) 100 mg PO Q12 [facility] Last Admin: 04/29/16 08:32 Dose: 100 mg Montelukast Sodium (Singulair) 10 mg PO DAILY [facility] Last Admin: 04/29/16 08:33 Dose: 10 mg Phenytoin Sodium (Dilantin) 100 mg PO BID [facility] Last Admin: 04/29/16 08:31 Dose: 100 mg Rivaroxaban (Xarelto) 15 mg PO BIDWM [facility] PRN Reason: Protocol Stop: 05/17/16 11:00 Last Admin: 04/28/16 09:51 Dose: 15 mg - Labs Labs: 04/29/16 04:35 04/29/16 04:35 PT 17.5 SECONDS (9.6-11.2) H 04/23/16 04:25 INR 1.68 (0.92-1.08) H 04/23/16 04:25 APTT 36.9 SECONDS (23.3-32.5) H 04/23/16 04:25
--- NOTE | 2016-04-29 10:11 | CP.PCM.PCO ---
Assessment & Plan - Assessment and Plan (Free Text) Assessment: I personally examined patient and reviewed case with residents and remote sensing technologist on 04/28. I am unable to provide addendum in [employer] due to technical computer reasons. I have reviewed Dr. Hurtado' note as well as all relevant imaging, labs, and qa consultant notes. On rounds, pt on bipap and still with some shortness of breath but feeling better. On exam marked decreased breath sounds on the right and CXR with increased fluid on right and ABG with pCO2 69 and HCO3 36. Pt with respiratory acidosis and metabolic alkalosis (ph 7.4). Reviewed case and plan for pleural tap tomorrow and hold xarelto. Monitor ABG for improvements or worsening.
[2016-04-29] MEDS ORDERED: Lidocaine 1% Inj (20ml) ONE (11:21)
--- NOTE | 2016-04-29 12:01 | PCM.SURG1 ---
Surgeon's Initial Post Op Note - Surgeon's Notes Surgeon: Josse Montanez MD Tool Supervisor: None Type of Anesthesia: Local Pre-Operative Diagnosis: Pleural effusion, shortness of breath Operative Findings: US showed a large right effusion. Post-Operative Diagnosis: Pleural effusion Operation Performed: US guided right thoracentesis. Specimen/Specimens Removed: 1200 cc of serosanguinious fluid Estimated Blood Loss: EBL {In ML}: 0 Blood Products Given: N/A Drains Used: No Drains Post-Op Condition: Poor Date of Surgery/Procedure: 04/29/16 Time of Surgery/Procedure: 12:00
--- NOTE | 2016-04-29 12:34 | RAD ---
Indication: Status post thoracentesis Portable chest Comparison: Chest x-ray performed 04/28/16, CTA chest performed 04/22/16 Findings: Cardiomegaly. Interval decrease in right-sided pleural effusion. Small bilateral pleural effusions and associated consolidations. Medial right upper lobe opacity. Mild pulmonary venous congestion. No definite pneumothorax. Please note that chest x-ray has limited sensitivity for the detection of pulmonary masses. Osseous demineralization. Degenerative changes. Impression: Cardiomegaly. Interval decrease in right-sided pleural effusion. Small bilateral pleural effusions and associated consolidations. Medial right upper lobe opacity. Mild pulmonary venous congestion.
[2016-04-29 12:52] LABS: BODY FLUID TYPE PLEURAL/THORACENTESI
--- NOTE | 2016-04-29 12:59 | CP.PCM.PN ---
Subjective - Date & Time of Evaluation Date of Evaluation: 04/29/16 Time of Evaluation: 13:00 - Subjective Subjective: F/U Acute respiratory failure. Pt is awake, saying feels well on BIPAP, VS stable, Pt is s/p R thoracentesis with 1200 cc pleural fluid removed. On BIPAP FIO2 40%. Objective - Vital Signs/Intake and Output Vital Signs (last 24 hours): Temp Pulse Resp BP Pulse Ox 99.3 F 110 H 24 109/67 95 04/29/16 11:54 04/29/16 12:16 04/29/16 12:16 04/29/16 12:16 04/29/16 12:16 Intake and Output: 04/29/16 04/29/16 06:59 18:59 Intake Total 135 Output Total 700 Balance -565 - Medications Medications: Current Medications Albuterol/Ipratropium (Duoneb 3 Mg/0.5 Mg (3 Ml) Ud) 3 ml INH RQ6 PRN PRN Reason: Shortness of Breath Last Admin: 04/29/16 08:20 Dose: 3 ml Budesonide (Pulmicort Respules) 0.5 mg IH Q12 [facility] Last Admin: 04/29/16 08:21 Dose: 0.5 mg Digoxin (Lanoxin) 0.25 mg PO DAILY [facility] Last Admin: 04/29/16 08:32 Dose: 0.25 mg Furosemide (Lasix) 40 mg IVP BID [facility] Last Admin: 04/29/16 08:32 Dose: 40 mg Ceftriaxone Sodium 1 gm/ (Sodium Chloride) 100 mls @ 100 mls/hr IVPB DAILY [facility] Last Admin: 04/28/16 09:52 Dose: 100 mls/hr Azithromycin 500 mg/ Sodium (Chloride) 250 mls @ 250 mls/hr IVPB DAILY [facility] Last Admin: 04/29/16 08:33 Dose: 250 mls/hr Lactic Acid (Lac-Hydrin 12% Lotion (225 G)) 1 applic TOP DAILY [facility] Last Admin: 04/29/16 08:42 Dose: 1 applic Metoprolol Tartrate (Lopressor) 100 mg PO Q12 [facility] Last Admin: 04/29/16 08:32 Dose: 100 mg Montelukast Sodium (Singulair) 10 mg PO DAILY [facility] Last Admin: 04/29/16 08:33 Dose: 10 mg Phenytoin Sodium (Dilantin) 100 mg PO BID [facility] Last Admin: 04/29/16 08:31 Dose: 100 mg Rivaroxaban (Xarelto) 15 mg PO BIDWM [facility] PRN Reason: Protocol Stop: 05/17/16 11:00 Last Admin: 04/28/16 09:51 Dose: 15 mg - Labs Labs: 04/29/16 04:35 04/29/16 04:35 PT 12.7 SECONDS (9.6-11.2) H 04/29/16 11:29 INR 1.22 (0.92-1.08) H 04/29/16 11:29 APTT 36.9 SECONDS (23.3-32.5) H 04/23/16 04:25 - Constitutional Appears: No Acute Distress, Chronically Ill - Head Exam Head Exam: NORMAL INSPECTION - Eye Exam Eye Exam: PERRL - ENT Exam Additional comments: On BIPAP - Neck Exam Neck Exam: Normal Inspection - Respiratory Exam Respiratory Exam: Decreased Breath Sounds, Rhonchi (scattered), Wheezes (few) - Cardiovascular Exam Cardiovascular Exam: Irregular Rhythm - GI/Abdominal Exam GI & Abdominal Exam: Soft, Normal Bowel Sounds - Extremities Exam Extremities Exam: Pedal Edema - Neurological Exam Neurological Exam: Alert, Oriented x3 Additional comments: Generalized weakness. - Skin Skin Exam: Warm (Stasis skin changes lower extremities.) Assessment and Plan (1) Acute respiratory failure Status: Acute (2) Pulmonary embolism with infarction Status: Acute (3) DVT of lower extremity, bilateral Status: Acute (4) New onset atrial fibrillation Status: Acute (5) Pleural effusion, right Status: Resolved (6) Pulmonary artery hypertension Status: Acute (7) Asthma Status: Chronic - Assessment and Plan (Free Text) Plan: CXR 04/29/16 shows: Decreased R side Pleural effusion, small b/l pleural effusion and associated consolidations, medial RUL opacity. mild pulmonary congestion. Continue Duoneb, Pulmicort, Singulair, Xarelto, Lasix, continue on BIPAP. ICU TIME: 40 MIN.
--- NOTE | 2016-04-29 13:18 | CP.CCUPN ---
CCU Subjective - Physician Review Events Since Last Encounter (Free Text): 04/29/16 13:14 Patient seen and examined in the morning. States that her breathing is worst since last night. Breathing very fast, pulling 300 mL of TV. Bilateral velcro sounds on inspiration. No sputum production. Bedside tap for right sided pleural effusion 1.2 L of serous-sanguinolent fluid , states her breathing probably a little better after tap. pe: bp 109/67 mmhg, hr 110 bpm, rr 24 bm, T 99.3 f, saturaing 95% on bpap aaox3 lungs as above s1, s2 irregularly irregular abdomen soft, non tende right upper extremities with mild edema right lower extremity with area of redness and pus under keratin area. acute respiratory failure: wbc count stable, no fever, on inhaled sterids, nebulizations, ceftriaxone adn azitromycin. a. fib with rvr: xarelto held today due to pleural tap, will resume tomorrow. pe with large thrombus burden on the right: full anticoagulation renal function stable thrombocytopenia: improving seizure disorded Discussed advance directive with narcisa and her sister. As per sister there is a daughter in [place] who is not involved in her care. CCU Objective - Vital Signs / Intake & Output Vital Signs (Last 4 hours): Vital Signs Temp Pulse Resp BP Pulse Ox 04/29/16 12:16 110 H 24 109/67 95 04/29/16 11:54 99.3 F 100 H 37 H 109/67 93 L 04/29/16 11:25 103 H Intake and Output (Last 8hrs): Intake & Output 04/28/16 04/29/16 04/29/16 22:59 06:59 14:59 Intake Total 60 75 Output Total 2200 700 Balance -2140 -625 Weight 201 lb 8 oz Intake: IV 10 0 Oral 50 75 Output: Urine 2200 700 Urethral (Sweeney) 2200 700 Other: # Bowel Movements 1 - Physical Exam Head: Positive for: Atraumatic Pupils: Positive for: PERRL Extroacular Muscles: Positive for: EOMI Mouth: Positive for: Moist Mucous Membranes Neck: Positive for: Normal Range of Motion, Trachea Midline. Negative for: MIDLINE TENDERNESS, JVD Respiratory/Chest: Positive for: Wheezes (mild throughout), Decreased Breath Sounds Cardiovascular: Positive for: Irregular Rhythm Abdomen: Positive for: Normal Bowel Sounds. Negative for: Tenderness, Distention Upper Extremity: Positive for: Normal Inspection. Negative for: Cyanosis Lower Extremity: Positive for: Edema (2+ ), Other (venous insufficiency) Neurological: Positive for: GCS=15, CN II-XII Intact - Medications Active Medications: Active Medications Generic Name Dose Route Start Last Admin Trade Name Freq PRN Reason Stop Dose Admin Albuterol/Ipratropium 3 ml 04/28/16 17:27 04/29/16 08:20 Duoneb 3 Mg/0.5 Mg (3 Ml) Ud INH 3 ml RQ6 PRN Administration Shortness of Breath Budesonide 0.5 mg 04/28/16 09:00 04/29/16 08:21 Pulmicort Respules IH 0.5 mg Q12 [facility] Administration Digoxin 0.25 mg 04/28/16 09:00 04/29/16 08:32 Lanoxin PO 0.25 mg DAILY [facility] Administration Furosemide 40 mg 04/29/16 13:15 Lasix IVP Q12H [facility] Haloperidol Lactate 2 mg 04/29/16 13:11 Haldol IVP Q10M PRN Agitation Ceftriaxone Sodium 1 gm/ 100 mls @ 100 mls/hr 04/28/16 09:00 04/28/16 09:52 Sodium Chloride IVPB 100 mls/hr DAILY [facility] Administration Azithromycin 500 mg/ Sodium 250 mls @ 250 mls/hr 04/28/16 09:00 04/29/16 08:33 Chloride IVPB 250 mls/hr DAILY [facility] Administration Lactic Acid 1 applic 04/28/16 09:00 04/29/16 08:42 Lac-Hydrin 12% Lotion (225 G) TOP 1 applic DAILY [facility] Administration Metoprolol Tartrate 100 mg 04/28/16 09:00 04/29/16 08:32 Lopressor PO 100 mg Q12 [facility] Administration Montelukast Sodium 10 mg 04/28/16 09:00 04/29/16 08:33 Singulair PO 10 mg DAILY [facility] Administration Phenytoin Sodium 100 mg 04/29/16 13:15 Dilantin PO Q12H [facility] Rivaroxaban 15 mg 04/28/16 08:00 04/28/16 09:51 Xarelto PO 05/17/16 11:00 15 mg BIDWM [facility] Administration Protocol - Patient Studies Lab Studies: Microbiology Studies 04/27/16 23:00 MRSA Culture (Admit) - Final Nose MRSA NOT DETECTED Lab Studies 04/29/16 04/29/16 04/29/16 Range/Units 12:20 11:29 05:44 WBC (4.8-10.8) K/uL RBC (3.80-5.20) Mil/uL Hgb (12.0-16.0) g/dL Hct (34.0-47.0) % MCV (81.0-99.0) fl MCH (27.0-31.0) pg MCHC (33.0-37.0) g/dL RDW (11.5-14.5) % Plt Count (130-400) K/uL PT 12.7 H (9.6-11.2) SECONDS INR 1.22 H (0.92-1.08) Factor V (()) pCO2 67 H (35-45) mm/Hg pO2 84 (80-100) mm/Hg HCO3 38.5 H (21-28) mmol/L ABG pH 7.44 (7.35-7.45) ABG Total CO2 47.6 H (22-28) mmol/L ABG O2 Saturation 98.1 H (95-98) % ABG O2 Content 18.7 (15-23) ML/dL ABG Base Excess 17.5 H (-2.0-3.0) mmol/L ABG Hemoglobin 14.1 (11.7-17.4) g/dL ABG Carboxyhemoglobin 2.7 H (0.5-1.5) % POC ABG HHb (Measured) 1.8 (0.0-5.0) % ABG Methemoglobin 1.3 (0.0-3.0) % ABG O2 Capacity 19.1 (16-24) mL/dL Frankie Test Yes A-a O2 Difference 117.0 mm/Hg Hgb O2 Saturation 94.3 L (95.0-98.0) % Vent Mode Bipap Mechanical Rate 16 FiO2 40.0 % Inspiratory BiPAP 12 Expiratory BiPAP 6 Sodium (132-148) mmol/l Potassium (3.6-5.0) MMOL/L Chloride (98-107) mmol/L Carbon Dioxide (22-30) mmol/L Anion Gap (10-20) BUN (7-17) mg/dl Creatinine (0.7-1.2) mg/dL Est GFR ( Amer) Est GFR (Non-Af Amer) POC Glucose (mg/dL) (65-110) mg/dL Random Glucose (65-105) mg/dL Calcium (8.4-10.2) mg/dL Total Bilirubin (0.2-1.3) mg/dl AST (14-36) U/L ALT (9-52) U/L Alkaline Phosphatase (38-126) U/L Total Protein (6.3-8.2) G/DL Albumin (3.5-5.0) g/dL Globulin (2.2-3.9) gm/dL Albumin/Globulin Ratio (1.0-2.1) Fluid Source Pleural/thoracentesi MTHFR DNA Mutation Anal (()) MTHFR Interpretation (()) MTHFR Reviewed By (()) Prothrombin Mut Interp (()) Prothrombin Gene Mutate (()) Prothromb Gene Review (()) 04/29/16 04/29/16 04/28/16 Range/Units 04:54 04:35 11:30 WBC 11.9 H (4.8-10.8) K/uL RBC 4.34 (3.80-5.20) Mil/uL Hgb 13.7 (12.0-16.0) g/dL Hct 42.0 (34.0-47.0) % MCV 96.6 D (81.0-99.0) fl MCH 31.5 H (27.0-31.0) pg MCHC 32.6 L (33.0-37.0) g/dL RDW 16.2 H (11.5-14.5) % Plt Count 157 (130-400) K/uL PT (9.6-11.2) SECONDS INR (0.92-1.08) Factor V (()) pCO2 61 H (35-45) mm/Hg pO2 80 (80-100) mm/Hg HCO3 38.3 H (21-28) mmol/L ABG pH 7.47 H (7.35-7.45) ABG Total CO2 46.3 H (22-28) mmol/L ABG O2 Saturation 98.1 H (95-98) % ABG O2 Content 19.0 (15-23) ML/dL ABG Base Excess 17.3 H (-2.0-3.0) mmol/L ABG Hemoglobin 14.3 (11.7-17.4) g/dL ABG Carboxyhemoglobin 2.8 H (0.5-1.5) % POC ABG HHb (Measured) 1.8 (0.0-5.0) % ABG Methemoglobin 1.3 (0.0-3.0) % ABG O2 Capacity 19.4 (16-24) mL/dL Frankie Test Yes A-a O2 Difference 129.0 mm/Hg Hgb O2 Saturation 94.1 L (95.0-98.0) % Vent Mode Mechanical Rate 16 FiO2 40.0 % Inspiratory BiPAP 12 Expiratory BiPAP 6 Sodium 141 (132-148) mmol/l Potassium 4.1 (3.6-5.0) MMOL/L Chloride 91 L (98-107) mmol/L Carbon Dioxide 38 H (22-30) mmol/L Anion Gap 16 (10-20) BUN 18 H (7-17) mg/dl Creatinine 0.4 L (0.7-1.2) mg/dL Est GFR ( Amer) > 60 Est GFR (Non-Af Amer) > 60 POC Glucose (mg/dL) 106 (65-110) mg/dL Random Glucose 120 H (65-105) mg/dL Calcium 8.4 (8.4-10.2) mg/dL Total Bilirubin 0.9 (0.2-1.3) mg/dl AST 64 H D (14-36) U/L ALT 61 H (9-52) U/L Alkaline Phosphatase 139 H D (38-126) U/L Total Protein 5.9 L (6.3-8.2) G/DL Albumin 2.4 L (3.5-5.0) g/dL Globulin 3.6 (2.2-3.9) gm/dL Albumin/Globulin Ratio 0.7 L (1.0-2.1) Fluid Source MTHFR DNA Mutation Anal (()) MTHFR Interpretation (()) MTHFR Reviewed By (()) Prothrombin Mut Interp (()) Prothrombin Gene Mutate (()) Prothromb Gene Review (()) 04/24/16 Range/Units 04:30 WBC (4.8-10.8) K/uL RBC (3.80-5.20) Mil/uL Hgb (12.0-16.0) g/dL Hct (34.0-47.0) % MCV (81.0-99.0) fl MCH (27.0-31.0) pg MCHC (33.0-37.0) g/dL RDW (11.5-14.5) % Plt Count (130-400) K/uL PT (9.6-11.2) SECONDS INR (0.92-1.08) Factor V see note (()) pCO2 (35-45) mm/Hg pO2 (80-100) mm/Hg HCO3 (21-28) mmol/L ABG pH (7.35-7.45) ABG Total CO2 (22-28) mmol/L ABG O2 Saturation (95-98) % ABG O2 Content (15-23) ML/dL ABG Base Excess (-2.0-3.0) mmol/L ABG Hemoglobin (11.7-17.4) g/dL ABG Carboxyhemoglobin (0.5-1.5) % POC ABG HHb (Measured) (0.0-5.0) % ABG Methemoglobin (0.0-3.0) % ABG O2 Capacity (16-24) mL/dL Frankie Test A-a O2 Difference mm/Hg Hgb O2 Saturation (95.0-98.0) % Vent Mode Mechanical Rate FiO2 % Inspiratory BiPAP Expiratory BiPAP Sodium (132-148) mmol/l Potassium (3.6-5.0) MMOL/L Chloride (98-107) mmol/L Carbon Dioxide (22-30) mmol/L Anion Gap (10-20) BUN (7-17) mg/dl Creatinine (0.7-1.2) mg/dL Est GFR ( Amer) Est GFR (Non-Af Amer) POC Glucose (mg/dL) (65-110) mg/dL Random Glucose (65-105) mg/dL Calcium (8.4-10.2) mg/dL Total Bilirubin (0.2-1.3) mg/dl AST (14-36) U/L ALT (9-52) U/L Alkaline Phosphatase (38-126) U/L Total Protein (6.3-8.2) G/DL Albumin (3.5-5.0) g/dL Globulin (2.2-3.9) gm/dL Albumin/Globulin Ratio (1.0-2.1) Fluid Source MTHFR DNA Mutation Anal see note H (()) MTHFR Interpretation see note (()) MTHFR Reviewed By see note (()) Prothrombin Mut Interp see note (()) Prothrombin Gene Mutate see note (()) Prothromb Gene Review see note (()) Laboratory Results - last 24 hr 04/24/16 04/28/16 04/29/16 04:30 11:30 04:35 WBC 11.9 H RBC 4.34 Hgb 13.7 Hct 42.0 MCV 96.6 D MCH 31.5 H MCHC 32.6 L RDW 16.2 H Plt Count 157 PT INR Factor V see note pCO2 61 H pO2 80 HCO3 38.3 H ABG pH 7.47 H ABG Total CO2 46.3 H ABG O2 Saturation 98.1 H ABG O2 Content 19.0 ABG Base Excess 17.3 H ABG Hemoglobin 14.3 ABG Carboxyhemoglobin 2.8 H POC ABG HHb (Measured) 1.8 ABG Methemoglobin 1.3 ABG O2 Capacity 19.4 Frankie Test Yes A-a O2 Difference 129.0 Hgb O2 Saturation 94.1 L Vent Mode Mechanical Rate 16 FiO2 40.0 Inspiratory BiPAP 12 Expiratory BiPAP 6 Sodium 141 Potassium 4.1 Chloride 91 L Carbon Dioxide 38 H Anion Gap 16 BUN 18 H Creatinine 0.4 L Est GFR ( Amer) > 60 Est GFR (Non-Af Amer) > 60 POC Glucose (mg/dL) Random Glucose 120 H Calcium 8.4 Total Bilirubin 0.9 AST 64 H D ALT 61 H Alkaline Phosphatase 139 H D Total Protein 5.9 L Albumin 2.4 L Globulin 3.6 Albumin/Globulin Ratio 0.7 L Fluid Source MTHFR DNA Mutation Anal see note H MTHFR Interpretation see note MTHFR Reviewed By see note Prothrombin Mut Interp see note Prothrombin Gene Mutate see note Prothromb Gene Review see note 04/29/16 04/29/16 04/29/16 04:54 05:44 11:29 WBC RBC Hgb Hct MCV MCH MCHC RDW Plt Count PT 12.7 H INR 1.22 H Factor V pCO2 67 H pO2 84 HCO3 38.5 H ABG pH 7.44 ABG Total CO2 47.6 H ABG O2 Saturation 98.1 H ABG O2 Content 18.7 ABG Base Excess 17.5 H ABG Hemoglobin 14.1 ABG Carboxyhemoglobin 2.7 H POC ABG HHb (Measured) 1.8 ABG Methemoglobin 1.3 ABG O2 Capacity 19.1 Frankie Test Yes A-a O2 Difference 117.0 Hgb O2 Saturation 94.3 L Vent Mode Bipap Mechanical Rate 16 FiO2 40.0 Inspiratory BiPAP 12 Expiratory BiPAP 6 Sodium Potassium Chloride Carbon Dioxide Anion Gap BUN Creatinine Est GFR ( Amer) Est GFR (Non-Af Amer) POC Glucose (mg/dL) 106 Random Glucose Calcium Total Bilirubin AST ALT Alkaline Phosphatase Total Protein Albumin Globulin Albumin/Globulin Ratio Fluid Source MTHFR DNA Mutation Anal MTHFR Interpretation MTHFR Reviewed By Prothrombin Mut Interp Prothrombin Gene Mutate Prothromb Gene Review 04/29/16 12:20 WBC RBC Hgb Hct MCV MCH MCHC RDW Plt Count PT INR Factor V pCO2 pO2 HCO3 ABG pH ABG Total CO2 ABG O2 Saturation ABG O2 Content ABG Base Excess ABG Hemoglobin ABG Carboxyhemoglobin POC ABG HHb (Measured) ABG Methemoglobin ABG O2 Capacity Frankie Test A-a O2 Difference Hgb O2 Saturation Vent Mode Mechanical Rate FiO2 Inspiratory BiPAP Expiratory BiPAP Sodium Potassium Chloride Carbon Dioxide Anion Gap BUN Creatinine Est GFR ( Amer) Est GFR (Non-Af Amer) POC Glucose (mg/dL) Random Glucose Calcium Total Bilirubin AST ALT Alkaline Phosphatase Total Protein Albumin Globulin Albumin/Globulin Ratio Fluid Source Pleural/thoracentesi MTHFR DNA Mutation Anal MTHFR Interpretation MTHFR Reviewed By Prothrombin Mut Interp Prothrombin Gene Mutate Prothromb Gene Review Fingerstick Blood Sugar Results: 162 Critical Care Progress Note - Nutrition Nutrition: Nutrition Category Date Time Status NPO Diet [DIET] Diets 04/27/16 Dinner Active
[2016-04-29 14:47] LABS: BF GROSS APPEARANCE TURBID (CLEAR)
[2016-04-29 16:17] LABS: BODY FLUID TOTAL COUNT 100 (0-0)
--- NOTE | 2016-04-29 16:46 | CP.PCM.PCO ---
Assessment/Plan - Assessment and Plan (Free Text) Assessment: I am unable to write an addendum to resident note due to "[employer]" I saw and evaluated the patient. I discussed the case with the resident and agree with the findings and plan as documented in the resident's note. Despite thoracocentesis pt still only looks slightly improved will follow
[2016-04-30 05:54] LABS: EOS # 0.1 K/uL (0.0-0.7); EOS % 0.5 % (0.0-4.0); HEMATOCRIT 43.5 % (34.0-47.0); LYMPH # 0.6 K/uL (1.0-4.3); LYMPH % 4.4 % (20.0-40.0); MEAN CELL VOLUME 95.2 fl (81.0-99.0); MEAN CORPUSCULAR HEMOGLOBIN 31.2 pg (27.0-31.0); MEAN CORPUSCULAR HGB CONC 32.8 g/dL (33.0-37.0); MEAN PLATELET VOLUME 9.5 fl (7.2-11.7); MONO % 7.1 % (0.0-10.0); NEUT # 12.5 K/uL (1.8-7.0); PLATELET COUNT 182 K/uL (130-400); RED CELL DISTRIBUTION WIDTH 15.8 % (11.5-14.5); WHITE BLOOD COUNT 14.2 K/uL (4.8-10.8)
[2016-04-30 05:56] LABS: ABG ALLEN TEST YES; ABG MECHANICAL RATE 16; ARTERIAL BLOOD GAS HCO3 38.9 mmol/L (21-28); ARTERIAL BLOOD GAS MODE BiPAP; ARTERIAL BLOOD GAS O2 CAPACITY 19.7 mL/dL (16-24); ARTERIAL BLOOD GAS O2 CONTENT 19.3 ML/dL (15-23); ARTERIAL BLOOD GAS PO2 79 mm/Hg (80-100); ARTERIAL BLOOD HGB O2 SAT 94.5 % (95.0-98.0); CARBOXYHEMOGLOBIN 2.7 % (0.5-1.5); HHB 1.7 % (0.0-5.0); METHEMOGLOBIN 1.1 % (0.0-3.0)
[2016-04-30 06:05] LABS: CHLORIDE 89 mmol/L (98-107); POTASSIUM 3.9 MMOL/L (3.6-5.0); SODIUM 136 mmol/l (132-148)
[2016-04-30 06:07] LABS: GFR AFRICAN-AMERICAN > 60
[2016-04-30 06:08] LABS: BLOOD UREA NITROGEN 17 mg/dl (7-17); CALCIUM 8.3 mg/dL (8.4-10.2); CARBON DIOXIDE 39 mmol/L (22-30); GLUCOSE,RANDOM 123 mg/dL (65-105)
[2016-04-30] MEDS: Albuterol-Ipratrop 3 mg / 0.5 (3 ml) UD INH PRN (08:21)
[2016-04-30] MEDS: Budesonide 0.5 mg/2 ml Inhal Susp UD IH SCH (08:21)
[2016-04-30] MEDS: Digoxin 250 mcg (0.25 mg) Tab PO SCH (08:57)
[2016-04-30] MEDS: Azithromycin 500 MG in Sodium Chloride 0.9% 250 ML IVPB SCH (08:59)
[2016-04-30 09:21] LABS: NEUTROPHIL 87 % (42-75); TOTAL CELLS COUNTED 100
--- NOTE | 2016-04-30 10:59 | CP.PCM.PN ---
Subjective - Date & Time of Evaluation Date of Evaluation: 04/30/16 Time of Evaluation: 07:30 - Subjective Subjective: PT seen and examined at bedside resting on a non rebreathable mask, off of bipap. Pt seems more comfortable then yesterday. She states that she has slept well though out the night. She states she is feeling better then yesterday. She states she is having some mild pain at the site of the thoracocentesis. Pts sister phone number # [phone] Pts daughter phone # [phone] Objective - Vital Signs/Intake and Output Vital Signs (last 24 hours): Temp Pulse Resp BP Pulse Ox 100.4 F H 91 H 49 H 112/62 95 04/30/16 08:00 04/30/16 10:00 04/30/16 10:00 04/30/16 10:00 04/30/16 10:00 Intake and Output: 04/30/16 04/30/16 06:59 18:59 Intake Total 130 450 Output Total 1500 Balance -1370 450 - Medications Medications: Current Medications Albuterol/Ipratropium (Duoneb 3 Mg/0.5 Mg (3 Ml) Ud) 3 ml INH RQ6 PRN PRN Reason: Shortness of Breath Last Admin: 04/30/16 08:21 Dose: 3 ml Budesonide (Pulmicort Respules) 0.5 mg IH Q12 [facility] Last Admin: 04/30/16 08:21 Dose: 0.5 mg Digoxin (Lanoxin) 0.25 mg PO DAILY [facility] Last Admin: 04/30/16 08:57 Dose: 0.25 mg Furosemide (Lasix) 40 mg IVP Q12@0900,2100 [facility] Last Admin: 04/30/16 08:57 Dose: 40 mg Haloperidol Lactate (Haldol) 2 mg IVP Q10M PRN PRN Reason: Agitation Ceftriaxone Sodium 1 gm/ (Sodium Chloride) 100 mls @ 100 mls/hr IVPB DAILY [facility] Last Admin: 04/29/16 11:00 Dose: 100 mls/hr Azithromycin 500 mg/ Sodium (Chloride) 250 mls @ 250 mls/hr IVPB DAILY [facility] Last Admin: 04/30/16 08:59 Dose: 250 mls/hr Lactic Acid (Lac-Hydrin 12% Lotion (225 G)) 1 applic TOP DAILY [facility] Last Admin: 04/30/16 08:56 Dose: 1 applic Metoprolol Tartrate (Lopressor) 100 mg PO Q12 [facility] Last Admin: 04/30/16 08:58 Dose: 100 mg Montelukast Sodium (Singulair) 10 mg PO DAILY [facility] Last Admin: 04/30/16 08:59 Dose: 10 mg Phenytoin Sodium (Dilantin) 100 mg PO Q12@0900,2100 [facility] Last Admin: 04/30/16 08:56 Dose: 100 mg Rivaroxaban (Xarelto) 15 mg PO BIDWM [facility] PRN Reason: Protocol Stop: 05/17/16 11:00 Last Admin: 04/28/16 09:51 Dose: 15 mg - Labs Labs: 04/30/16 05:00 04/30/16 05:00 PT 12.7 SECONDS (9.6-11.2) H 04/29/16 11:29 INR 1.22 (0.92-1.08) H 04/29/16 11:29 APTT 36.9 SECONDS (23.3-32.5) H 04/23/16 04:25 - Constitutional Appears: Chronically Ill - Head Exam Head Exam: ATRAUMATIC, NORMAL INSPECTION, NORMOCEPHALIC - Respiratory Exam Respiratory Exam: Decreased Breath Sounds (Decreased breath sounds b/l at the base of he lungs) - Cardiovascular Exam Cardiovascular Exam: REGULAR RHYTHM, +S1, +S2 - GI/Abdominal Exam GI & Abdominal Exam: Soft, Normal Bowel Sounds. absent: Tenderness - Extremities Exam Extremities Exam: absent: Calf Tenderness - Back Exam Additional comments: Drain attached to the back on the right side. c/d/i. Draining - Neurological Exam Neurological Exam: Alert, Awake, Oriented x3 (Pt has baseline dementia) - Skin Additional comments: Lower extremity redness and chronic skin changes Assessment and Plan - Assessment and Plan (Free Text) Assessment: 70 yo female with pmhx of HTN, CHF, HLD, asthma, seizure disorder was admitted for bilateral low ext dvt, PE. 1) Pleural effusion secondary to PE/Pnemonia - X Ray show b/l pleural effusion: Consulted IR: - Right bedside pleural effusion 1.2L of serous- sanguinolent fluid. Patient appears to be doing better since procedure. 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 -increased metoprolol tartrate 100mg po bid -digoxin 0.25mg po daily - Monitor HR - On xarelto 6.CHF exacerbation (Systolic) - Lasix 40 mg PO BID 7)Possible pneumonia -Continue: azithromycin and ceftriaxone -monitor - [employer] will contact ID. 8)hypertension, controlled --monitor 9)Seizure hx -c/w phenytoin 100mg po bid -monitor 10)Prophylactic measures: -Xarelto 11)right sided heart failure, acute most likely -echo reviewed, mitral valve thickened, mild pulmonary hypertension, RV mildly dilated -monitor. - Liver enzymes trending down 64/61. . PT recommended TCU
--- NOTE | 2016-04-30 11:06 | CP.CCUPN ---
CCU Subjective - Physician Review Events Since Last Encounter (Free Text): 04/30/16 11:00 Patient seen and examined in the morning. Her respiratory distress looks the same than yesterday to me, but she states that she feels better than before. Lungs sound a little more clear than before. pe: bp 112/62 mmhg, hr 91 bpm, rr 18 bm, T 100.4 f, saturaing 95% on bpap aaox3 lungs as above s1, s2 irregularly irregular abdomen soft, non tende right upper extremities with mild edema right lower extremity with area of redness and pus under keratin area. acute respiratory failure: improved, no sputum production, slight higher temperature 100.4, wbc count increasing, changed to ventimask and tolerated, has some of her breakfast today. a. fib with rvr: xarelto restarted for today pe with large thrombus burden on the right: on full anticoagulation renal function stable thrombocytopenia: improving seizure disorded CCU Objective - Vital Signs / Intake & Output Vital Signs (Last 4 hours): Vital Signs Temp Pulse Resp BP Pulse Ox 04/30/16 10:00 91 H 49 H 112/62 95 04/30/16 08:58 111 H 111/52 L 04/30/16 08:57 111/52 L 04/30/16 08:23 120 H 04/30/16 08:00 100.4 F H 107 H 20 106/70 95 Intake and Output (Last 8hrs): Intake & Output 04/29/16 04/30/16 04/30/16 22:59 06:59 14:59 Intake Total 120 10 450 Output Total 2700 1100 Balance -2580 -1090 450 Intake: IV 20 10 Intake, Piggyback 250 Oral 100 200 Output: Urine 2700 1100 Urethral (Sweeney) 2700 1100 - Physical Exam Head: Positive for: Atraumatic Pupils: Positive for: PERRL Extroacular Muscles: Positive for: EOMI Mouth: Positive for: Moist Mucous Membranes Neck: Positive for: Normal Range of Motion, Trachea Midline. Negative for: MIDLINE TENDERNESS, JVD Respiratory/Chest: Positive for: Wheezes (mild throughout), Decreased Breath Sounds Cardiovascular: Positive for: Irregular Rhythm Abdomen: Positive for: Normal Bowel Sounds. Negative for: Tenderness, Distention Upper Extremity: Positive for: Normal Inspection. Negative for: Cyanosis Lower Extremity: Positive for: Edema (2+ ), Other (venous insufficiency) Neurological: Positive for: GCS=15, CN II-XII Intact - Medications Active Medications: Active Medications Generic Name Dose Route Start Last Admin Trade Name Freq PRN Reason Stop Dose Admin Albuterol/Ipratropium 3 ml 04/28/16 17:27 04/30/16 08:21 Duoneb 3 Mg/0.5 Mg (3 Ml) Ud INH 3 ml RQ6 PRN Administration Shortness of Breath Budesonide 0.5 mg 04/28/16 09:00 04/30/16 08:21 Pulmicort Respules IH 0.5 mg Q12 [facility] Administration Digoxin 0.25 mg 04/28/16 09:00 04/30/16 08:57 Lanoxin PO 0.25 mg DAILY [facility] Administration Furosemide 40 mg 04/29/16 21:00 04/30/16 08:57 Lasix IVP 40 mg Q12@0900,2100 [facility] Administration Haloperidol Lactate 2 mg 04/29/16 13:11 Haldol IVP Q10M PRN Agitation Ceftriaxone Sodium 1 gm/ 100 mls @ 100 mls/hr 04/28/16 09:00 04/29/16 11:00 Sodium Chloride IVPB 100 mls/hr DAILY [facility] Administration Azithromycin 500 mg/ Sodium 250 mls @ 250 mls/hr 04/28/16 09:00 04/30/16 08:59 Chloride IVPB 250 mls/hr DAILY [facility] Administration Lactic Acid 1 applic 04/28/16 09:00 04/30/16 08:56 Lac-Hydrin 12% Lotion (225 G) TOP 1 applic DAILY [facility] Administration Metoprolol Tartrate 100 mg 04/28/16 09:00 04/30/16 08:58 Lopressor PO 100 mg Q12 [facility] Administration Montelukast Sodium 10 mg 04/28/16 09:00 04/30/16 08:59 Singulair PO 10 mg DAILY [facility] Administration Phenytoin Sodium 100 mg 04/29/16 21:00 04/30/16 08:56 Dilantin PO 100 mg Q12@0900,2100 [facility] Administration Rivaroxaban 15 mg 04/28/16 08:00 04/28/16 09:51 Xarelto PO 05/17/16 11:00 15 mg BIDWM [facility] Administration Protocol - Patient Studies Lab Studies: Microbiology Studies 04/29/16 12:20 Fungal Culture - Preliminary Pleural Fluid 04/29/16 12:20 Gram Stain - Final Pleural Fluid 04/27/16 23:00 MRSA Culture (Admit) - Final Nose MRSA NOT DETECTED Lab Studies 04/30/16 04/30/16 04/29/16 Range/Units 05:08 05:00 12:20 WBC 14.2 H (4.8-10.8) K/uL RBC 4.57 (3.80-5.20) Mil/uL Hgb 14.3 (12.0-16.0) g/dL Hct 43.5 (34.0-47.0) % MCV 95.2 (81.0-99.0) fl MCH 31.2 H (27.0-31.0) pg MCHC 32.8 L (33.0-37.0) g/dL RDW 15.8 H (11.5-14.5) % Plt Count 182 (130-400) K/uL MPV 9.5 (7.2-11.7) fl Neut % (Auto) 88.0 H (50.0-75.0) % Lymph % (Auto) 4.4 L (20.0-40.0) % Hyde % (Auto) 7.1 (0.0-10.0) % Eos % (Auto) 0.5 (0.0-4.0) % Baso % (Auto) 0.0 (0.0-2.0) % Neut # 12.5 H (1.8-7.0) K/uL Lymph # 0.6 L (1.0-4.3) K/uL Hyde # 1.0 H (0.0-0.8) K/uL Eos # 0.1 (0.0-0.7) K/uL Baso # 0.0 (0.0-0.2) K/uL Neutrophils % (Manual) 87 H (42-75) % Lymphocytes % (Manual) 5 L (20-50) % Monocytes % (Manual) 8 (0-10) % Platelet Estimate Normal (NORMAL) RBC Morphology Normal (NORMAL) PT (9.6-11.2) SECONDS INR (0.92-1.08) pCO2 57 H (35-45) mm/Hg pO2 79 L (80-100) mm/Hg HCO3 38.9 H (21-28) mmol/L ABG pH 7.50 H (7.35-7.45) ABG Total CO2 46.2 H (22-28) mmol/L ABG O2 Saturation 98.2 H (95-98) % ABG O2 Content 19.3 (15-23) ML/dL ABG Base Excess 18.0 H (-2.0-3.0) mmol/L ABG Hemoglobin 14.5 (11.7-17.4) g/dL ABG Carboxyhemoglobin 2.7 H (0.5-1.5) % POC ABG HHb (Measured) 1.7 (0.0-5.0) % ABG Methemoglobin 1.1 (0.0-3.0) % ABG O2 Capacity 19.7 (16-24) mL/dL Frankie Test Yes A-a O2 Difference 135.0 mm/Hg Hgb O2 Saturation 94.5 L (95.0-98.0) % Vent Mode Bipap Mechanical Rate 16 FiO2 40.0 % Inspiratory BiPAP 12 Expiratory BiPAP 6 Sodium 136 (132-148) mmol/l Potassium 3.9 (3.6-5.0) MMOL/L Chloride 89 L (98-107) mmol/L Carbon Dioxide 39 H (22-30) mmol/L Anion Gap 12 (10-20) BUN 17 (7-17) mg/dl Creatinine 0.4 L (0.7-1.2) mg/dL Est GFR ( Amer) > 60 Est GFR (Non-Af Amer) > 60 Random Glucose 123 H (65-105) mg/dL Calcium 8.3 L (8.4-10.2) mg/dL Lactate Dehydrogenase 632 H (313-618) U/L Fluid Source Pleural/thoracentesi Fluid Appearance Turbid (CLEAR) Fluid WBC 4867.0 H (0.0-300.0) /mm3 Fluid RBC 910332.0 H (0.0-0.0) /mm3 Fluid Tot Cell Count 100 H (0-0) Fluid Neutrophils 82.0 H (0-0) % Fluid Lymphocytes 16.0 H (0-0) % Fld Monocyte/Macrophag 2 H (0-0) % Fluid Glucose 93 (NONE ESTABLISHED) mg/dL Fluid Total Protein 3.3 (NONE ESTABLISHED) g/dL Fluid LDH 2589 (NONE ESTABLISHED) IU Fluid Amylase < 30 (NONE ESTABLISHED) mg/dL Fluid Comment Bloody 04/29/16 Range/Units 11:29 WBC (4.8-10.8) K/uL RBC (3.80-5.20) Mil/uL Hgb (12.0-16.0) g/dL Hct (34.0-47.0) % MCV (81.0-99.0) fl MCH (27.0-31.0) pg MCHC (33.0-37.0) g/dL RDW (11.5-14.5) % Plt Count (130-400) K/uL MPV (7.2-11.7) fl Neut % (Auto) (50.0-75.0) % Lymph % (Auto) (20.0-40.0) % Hyde % (Auto) (0.0-10.0) % Eos % (Auto) (0.0-4.0) % Baso % (Auto) (0.0-2.0) % Neut # (1.8-7.0) K/uL Lymph # (1.0-4.3) K/uL Hyde # (0.0-0.8) K/uL Eos # (0.0-0.7) K/uL Baso # (0.0-0.2) K/uL Neutrophils % (Manual) (42-75) % Lymphocytes % (Manual) (20-50) % Monocytes % (Manual) (0-10) % Platelet Estimate (NORMAL) RBC Morphology (NORMAL) PT 12.7 H (9.6-11.2) SECONDS INR 1.22 H (0.92-1.08) pCO2 (35-45) mm/Hg pO2 (80-100) mm/Hg HCO3 (21-28) mmol/L ABG pH (7.35-7.45) ABG Total CO2 (22-28) mmol/L ABG O2 Saturation (95-98) % ABG O2 Content (15-23) ML/dL ABG Base Excess (-2.0-3.0) mmol/L ABG Hemoglobin (11.7-17.4) g/dL ABG Carboxyhemoglobin (0.5-1.5) % POC ABG HHb (Measured) (0.0-5.0) % ABG Methemoglobin (0.0-3.0) % ABG O2 Capacity (16-24) mL/dL Frankie Test A-a O2 Difference mm/Hg Hgb O2 Saturation (95.0-98.0) % Vent Mode Mechanical Rate FiO2 % Inspiratory BiPAP Expiratory BiPAP Sodium (132-148) mmol/l Potassium (3.6-5.0) MMOL/L Chloride (98-107) mmol/L Carbon Dioxide (22-30) mmol/L Anion Gap (10-20) BUN (7-17) mg/dl Creatinine (0.7-1.2) mg/dL Est GFR ( Amer) Est GFR (Non-Af Amer) Random Glucose (65-105) mg/dL Calcium (8.4-10.2) mg/dL Lactate Dehydrogenase (313-618) U/L Fluid Source Fluid Appearance (CLEAR) Fluid WBC (0.0-300.0) /mm3 Fluid RBC (0.0-0.0) /mm3 Fluid Tot Cell Count (0-0) Fluid Neutrophils (0-0) % Fluid Lymphocytes (0-0) % Fld Monocyte/Macrophag (0-0) % Fluid Glucose (NONE ESTABLISHED) mg/dL Fluid Total Protein (NONE ESTABLISHED) g/dL Fluid LDH (NONE ESTABLISHED) IU Fluid Amylase (NONE ESTABLISHED) mg/dL Fluid Comment Laboratory Results - last 24 hr 04/29/16 04/29/16 04/30/16 11:29 12:20 05:00 WBC 14.2 H RBC 4.57 Hgb 14.3 Hct 43.5 MCV 95.2 MCH 31.2 H MCHC 32.8 L RDW 15.8 H Plt Count 182 MPV 9.5 Neut % (Auto) 88.0 H Lymph % (Auto) 4.4 L Hyde % (Auto) 7.1 Eos % (Auto) 0.5 Baso % (Auto) 0.0 Neut # 12.5 H Lymph # 0.6 L Hyde # 1.0 H Eos # 0.1 Baso # 0.0 Neutrophils % (Manual) 87 H Lymphocytes % (Manual) 5 L Monocytes % (Manual) 8 Platelet Estimate Normal RBC Morphology Normal PT 12.7 H INR 1.22 H pCO2 pO2 HCO3 ABG pH ABG Total CO2 ABG O2 Saturation ABG O2 Content ABG Base Excess ABG Hemoglobin ABG Carboxyhemoglobin POC ABG HHb (Measured) ABG Methemoglobin ABG O2 Capacity Frankie Test A-a O2 Difference Hgb O2 Saturation Vent Mode Mechanical Rate FiO2 Inspiratory BiPAP Expiratory BiPAP Sodium 136 Potassium 3.9 Chloride 89 L Carbon Dioxide 39 H Anion Gap 12 BUN 17 Creatinine 0.4 L Est GFR ( Amer) > 60 Est GFR (Non-Af Amer) > 60 Random Glucose 123 H Calcium 8.3 L Lactate Dehydrogenase 632 H Fluid Source Pleural/thoracentesi Fluid Appearance Turbid Fluid WBC 4867.0 H Fluid RBC 026070.0 H Fluid Tot Cell Count 100 H Fluid Neutrophils 82.0 H Fluid Lymphocytes 16.0 H Fld Monocyte/Macrophag 2 H Fluid Glucose 93 Fluid Total Protein 3.3 Fluid LDH 2589 Fluid Amylase < 30 Fluid Comment Bloody 04/30/16 05:08 WBC RBC Hgb Hct MCV MCH MCHC RDW Plt Count MPV Neut % (Auto) Lymph % (Auto) Hyde % (Auto) Eos % (Auto) Baso % (Auto) Neut # Lymph # Hyde # Eos # Baso # Neutrophils % (Manual) Lymphocytes % (Manual) Monocytes % (Manual) Platelet Estimate RBC Morphology PT INR pCO2 57 H pO2 79 L HCO3 38.9 H ABG pH 7.50 H ABG Total CO2 46.2 H ABG O2 Saturation 98.2 H ABG O2 Content 19.3 ABG Base Excess 18.0 H ABG Hemoglobin 14.5 ABG Carboxyhemoglobin 2.7 H POC ABG HHb (Measured) 1.7 ABG Methemoglobin 1.1 ABG O2 Capacity 19.7 Frankie Test Yes A-a O2 Difference 135.0 Hgb O2 Saturation 94.5 L Vent Mode Bipap Mechanical Rate 16 FiO2 40.0 Inspiratory BiPAP 12 Expiratory BiPAP 6 Sodium Potassium Chloride Carbon Dioxide Anion Gap BUN Creatinine Est GFR ( Amer) Est GFR (Non-Af Amer) Random Glucose Calcium Lactate Dehydrogenase Fluid Source Fluid Appearance Fluid WBC Fluid RBC Fluid Tot Cell Count Fluid Neutrophils Fluid Lymphocytes Fld Monocyte/Macrophag Fluid Glucose Fluid Total Protein Fluid LDH Fluid Amylase Fluid Comment Fingerstick Blood Sugar Results: 162 Critical Care Progress Note - Nutrition Nutrition: Nutrition Category Date Time Status Heart Healthy Diet [DIET] Diets 04/29/16 Dinner Active
--- NOTE | 2016-04-30 12:58 | RAD ---
PROCEDURE: CHEST RADIOGRAPH, 1 VIEW HISTORY: s/p thoracentesis COMPARISON: 04/29/2016 FINDINGS: LUNGS: Opacity at both lung bases, right greater than left. No significant change from prior examination. Probable bilateral pleural effusion as well as likely consolidation at lung bases. PLEURA: Probable bilateral pleural effusion from CARDIOVASCULAR: Normal. OSSEOUS STRUCTURES: No significant abnormalities. VISUALIZED UPPER ABDOMEN: Normal. OTHER FINDINGS: None. IMPRESSION: No significant change from prior examination. Bilateral pleural effusion with likely consolidation at both lung bases.
--- NOTE | 2016-04-30 14:46 | VASCULAR ---
PROCEDURE: Date of procedure: 04/29/2016 Procedure: 1. Ultrasound-guided Right thoracentesis, CPT 08099 Medications: 1% Lidocaine HISTORY: Right pleural effusion, shortness of breath TECHNIQUE: Following informed consent ,the Patients' right chest was marked. Procedure time-out was called, and the patient was placed in the sitting position and limited ultrasound showed a large right effusion. The patient's right back was prepped and draped in the usual sterile fashion. After the skin was anesthetized with lidocaine, a drainage catheter was advanced under ultrasound guidance into the pleural space. Ultrasound-guided thoracentesis was performed. A total of 1200 cubic centimeters of serosanguinous fluid removed without complication. A Xeroform dressing was applied. IMPRESSION: Ultrasound guided Right thoracentesis. There were no immediate complications.
--- NOTE | 2016-04-30 15:04 | CP.PCM.PN ---
Subjective - Date & Time of Evaluation Date of Evaluation: 04/30/16 - Subjective Subjective: F/U Acute respiratory failure. Pt breathing better on VMax. Objective - Vital Signs/Intake and Output Vital Signs (last 24 hours): Temp Pulse Resp BP Pulse Ox 98.4 F 109 H 31 H 117/61 96 04/30/16 12:00 04/30/16 14:00 04/30/16 14:00 04/30/16 14:00 04/30/16 14:00 Intake and Output: 04/30/16 04/30/16 06:59 18:59 Intake Total 130 670 Output Total 1500 Balance -1370 670 - Medications Medications: Current Medications Albuterol/Ipratropium (Duoneb 3 Mg/0.5 Mg (3 Ml) Ud) 3 ml INH RQ6 PRN PRN Reason: Shortness of Breath Last Admin: 04/30/16 08:21 Dose: 3 ml Budesonide (Pulmicort Respules) 0.5 mg IH Q12 [facility] Last Admin: 04/30/16 08:21 Dose: 0.5 mg Digoxin (Lanoxin) 0.25 mg PO DAILY [facility] Last Admin: 04/30/16 08:57 Dose: 0.25 mg Furosemide (Lasix) 40 mg IVP Q12@0900,2100 [facility] Last Admin: 04/30/16 08:57 Dose: 40 mg Haloperidol Lactate (Haldol) 2 mg IVP Q10M PRN PRN Reason: Agitation Ceftriaxone Sodium 1 gm/ (Sodium Chloride) 100 mls @ 100 mls/hr IVPB DAILY [facility] Last Admin: 04/30/16 12:15 Dose: 100 mls/hr Azithromycin 500 mg/ Sodium (Chloride) 250 mls @ 250 mls/hr IVPB DAILY [facility] Last Admin: 04/30/16 08:59 Dose: 250 mls/hr Lactic Acid (Lac-Hydrin 12% Lotion (225 G)) 1 applic TOP DAILY [facility] Last Admin: 04/30/16 08:56 Dose: 1 applic Metoprolol Tartrate (Lopressor) 100 mg PO Q12 [facility] Last Admin: 04/30/16 08:58 Dose: 100 mg Montelukast Sodium (Singulair) 10 mg PO DAILY [facility] Last Admin: 04/30/16 08:59 Dose: 10 mg Phenytoin Sodium (Dilantin) 100 mg PO Q12@0900,2100 [facility] Last Admin: 04/30/16 08:56 Dose: 100 mg Rivaroxaban (Xarelto) 15 mg PO BIDWM [facility] PRN Reason: Protocol Stop: 05/17/16 11:00 Last Admin: 04/28/16 09:51 Dose: 15 mg - Labs Labs: 04/30/16 05:00 04/30/16 05:00 PT 12.7 SECONDS (9.6-11.2) H 04/29/16 11:29 INR 1.22 (0.92-1.08) H 04/29/16 11:29 APTT 36.9 SECONDS (23.3-32.5) H 04/23/16 04:25 - Constitutional Appears: No Acute Distress, Chronically Ill - Head Exam Head Exam: NORMAL INSPECTION - Eye Exam Eye Exam: PERRL - ENT Exam Additional comments: On BIPAP - Neck Exam Neck Exam: Normal Inspection - Respiratory Exam Respiratory Exam: Decreased Breath Sounds, Rhonchi (scattered), Wheezes (few) - Cardiovascular Exam Cardiovascular Exam: Irregular Rhythm - GI/Abdominal Exam GI & Abdominal Exam: Soft, Normal Bowel Sounds - Extremities Exam Extremities Exam: Pedal Edema - Neurological Exam Neurological Exam: Alert, Oriented x3 Additional comments: Generalized weakness - Skin Skin Exam: Warm Assessment and Plan (1) Acute respiratory failure Status: Acute (2) Pulmonary embolism with infarction Status: Acute (3) DVT of lower extremity, bilateral Status: Acute (4) New onset atrial fibrillation Status: Acute (5) Pleural effusion, right Status: Resolved (6) Pulmonary artery hypertension Status: Acute (7) Asthma Status: Chronic - Assessment and Plan (Free Text) Plan: Continue Pulmicort, Singulair, Duoneb, Xarelto ICU TIME: 42 MIN.
--- NOTE | 2016-04-30 20:23 | CP.PCM.PN ---
Subjective - Date & Time of Evaluation Date of Evaluation: 04/30/16 Time of Evaluation: 11:00 - Subjective Subjective: Feels breathing is improved Objective - Vital Signs/Intake and Output Vital Signs (last 24 hours): Temp Pulse Resp BP Pulse Ox 99.9 F H 121 H 45 H 120/55 L 98 04/30/16 20:08 04/30/16 20:08 04/30/16 20:08 04/30/16 20:08 04/30/16 20:08 Intake and Output: 04/30/16 05/01/16 18:59 06:59 Intake Total 790 130 Output Total 700 100 Balance 90 30 - Medications Medications: Current Medications Albuterol/Ipratropium (Duoneb 3 Mg/0.5 Mg (3 Ml) Ud) 3 ml INH RQ6 PRN PRN Reason: Shortness of Breath Last Admin: 04/30/16 08:21 Dose: 3 ml Budesonide (Pulmicort Respules) 0.5 mg IH Q12 [facility] Last Admin: 04/30/16 08:21 Dose: 0.5 mg Digoxin (Lanoxin) 0.25 mg PO DAILY [facility] Last Admin: 04/30/16 08:57 Dose: 0.25 mg Furosemide (Lasix) 40 mg IVP Q12@0900,2100 [facility] Last Admin: 04/30/16 08:57 Dose: 40 mg Haloperidol Lactate (Haldol) 2 mg IVP Q10M PRN PRN Reason: Agitation Ceftriaxone Sodium 1 gm/ (Sodium Chloride) 100 mls @ 100 mls/hr IVPB DAILY [facility] Last Admin: 04/30/16 12:15 Dose: 100 mls/hr Azithromycin 500 mg/ Sodium (Chloride) 250 mls @ 250 mls/hr IVPB DAILY [facility] Last Admin: 04/30/16 08:59 Dose: 250 mls/hr Lactic Acid (Lac-Hydrin 12% Lotion (225 G)) 1 applic TOP DAILY [facility] Last Admin: 04/30/16 08:56 Dose: 1 applic Metoprolol Tartrate (Lopressor) 100 mg PO Q12 [facility] Last Admin: 04/30/16 08:58 Dose: 100 mg Montelukast Sodium (Singulair) 10 mg PO DAILY [facility] Last Admin: 04/30/16 08:59 Dose: 10 mg Phenytoin Sodium (Dilantin) 100 mg PO Q12@0900,2100 [facility] Last Admin: 04/30/16 08:56 Dose: 100 mg Rivaroxaban (Xarelto) 15 mg PO BIDWM [facility] PRN Reason: Protocol Stop: 05/17/16 11:00 Last Admin: 04/30/16 16:03 Dose: 15 mg - Labs Labs: 04/30/16 05:00 04/30/16 05:00 PT 12.7 SECONDS (9.6-11.2) H 04/29/16 11:29 INR 1.22 (0.92-1.08) H 04/29/16 11:29 APTT 36.9 SECONDS (23.3-32.5) H 04/23/16 04:25 - Head Exam Head Exam: ATRAUMATIC - Eye Exam Eye Exam: Normal appearance - ENT Exam ENT Exam: Mucous Membranes Dry - Respiratory Exam Respiratory Exam: NORMAL BREATHING PATTERN - Cardiovascular Exam Cardiovascular Exam: +S1, +S2 - GI/Abdominal Exam GI & Abdominal Exam: Normal Bowel Sounds - Extremities Exam Extremities Exam: Pedal Edema - Neurological Exam Neurological Exam: Oriented x3 - Psychiatric Exam Psychiatric exam: Normal Affect, Normal Mood - Skin Skin Exam: Warm Assessment and Plan (1) Pulmonary embolism with infarction Assessment & Plan: with B/L LE DVT - unprovoked s/p IVC filter on Xarelto Status: Acute (2) Leukocytosis Assessment & Plan: on antibiotics Status: Acute (3) Coagulopathy Assessment & Plan: anticoagulation Status: Acute (4) Thrombocytopenia Assessment & Plan: resolved Status: Acute
[2016-05-01 04:36] LABS: HEMATOCRIT 41.1 % (34.0-47.0); MEAN CELL VOLUME 94.6 fl (81.0-99.0); MEAN CORPUSCULAR HGB CONC 32.8 g/dL (33.0-37.0); RED CELL DISTRIBUTION WIDTH 15.4 % (11.5-14.5); WHITE BLOOD COUNT 12.4 K/uL (4.8-10.8)
[2016-05-01 04:37] LABS: BLOOD UREA NITROGEN 19 mg/dl (7-17); CALCIUM 7.9 mg/dL (8.4-10.2); CHLORIDE 90 mmol/L (98-107); GFR AFRICAN-AMERICAN > 60; GLUCOSE,RANDOM 139 mg/dL (65-105); POTASSIUM 3.3 MMOL/L (3.6-5.0); SODIUM 134 mmol/l (132-148)
[2016-05-01 05:04] LABS: CARBON DIOXIDE 40 mmol/L (22-30)
[2016-05-01] MEDS ORDERED: Potassium Chloride 20 mEq ER Tab PO ONE (05:31)
[2016-05-01 05:48] LABS: RBC URINE 471 /hpf (0-3); URINE BACTERIA RARE (<OCC); URINE BILIRUBIN SMALL (NEGATIVE); URINE BLOOD LARGE (NEGATIVE); URINE COLOR AMBER (YELLOW); URINE GLUCOSE (UA) NEG (Normal); URINE KETONE NEGATIVE (NEGATIVE); URINE LEUKOCYTE ESTERASE TRACE Leu/uL (Negative); URINE PROTEIN 100 mg/dL (NEGATIVE); WBC URINE 43 /hpf (0-5)
--- NOTE | 2016-05-01 08:41 | CP.PCM.PN ---
Subjective - Date & Time of Evaluation Date of Evaluation: 05/01/16 Time of Evaluation: 07:00 - Subjective Subjective: 70 YO F was seen sitting up in a chair on a non rebreather (50%). She seems more comfortable then yesterday, Pt states she is feeling better then yesterday. Denies any Chest pain/ Nausea/ Vomiting. She has been eating well and tolerating PO intake Objective - Vital Signs/Intake and Output Vital Signs (last 24 hours): Temp Pulse Resp BP Pulse Ox 97.3 F L 108 H 32 H 104/56 L 97 05/01/16 07:50 05/01/16 07:50 05/01/16 07:50 05/01/16 07:50 05/01/16 07:50 Intake and Output: 05/01/16 05/01/16 06:59 18:59 Intake Total 350 Output Total 1300 Balance -950 - Medications Medications: Current Medications Albuterol/Ipratropium (Duoneb 3 Mg/0.5 Mg (3 Ml) Ud) 3 ml INH RQ6 PRN PRN Reason: Shortness of Breath Last Admin: 04/30/16 08:21 Dose: 3 ml Budesonide (Pulmicort Respules) 0.5 mg IH Q12 [facility] Last Admin: 04/30/16 08:21 Dose: 0.5 mg Digoxin (Lanoxin) 0.25 mg PO DAILY [facility] Last Admin: 04/30/16 08:57 Dose: 0.25 mg Furosemide (Lasix) 40 mg IVP Q12@0900,2100 [facility] Last Admin: 04/30/16 21:13 Dose: 40 mg Haloperidol Lactate (Haldol) 2 mg IVP Q10M PRN PRN Reason: Agitation Ceftriaxone Sodium 1 gm/ (Sodium Chloride) 100 mls @ 100 mls/hr IVPB DAILY [facility] Last Admin: 04/30/16 12:15 Dose: 100 mls/hr Azithromycin 500 mg/ Sodium (Chloride) 250 mls @ 250 mls/hr IVPB DAILY [facility] Last Admin: 04/30/16 08:59 Dose: 250 mls/hr Lactic Acid (Lac-Hydrin 12% Lotion (225 G)) 1 applic TOP DAILY [facility] Last Admin: 04/30/16 08:56 Dose: 1 applic Metoprolol Tartrate (Lopressor) 100 mg PO Q12 [facility] Last Admin: 04/30/16 21:13 Dose: 100 mg Montelukast Sodium (Singulair) 10 mg PO DAILY [facility] Last Admin: 04/30/16 08:59 Dose: 10 mg Pantoprazole Sodium (Protonix Ec Tab) 40 mg PO DAILY [facility] Phenytoin Sodium (Dilantin) 100 mg PO Q12@0900,2100 [facility] Last Admin: 04/30/16 21:13 Dose: 100 mg Rivaroxaban (Xarelto) 15 mg PO BIDWM [facility] PRN Reason: Protocol Stop: 05/17/16 11:00 Last Admin: 04/30/16 16:03 Dose: 15 mg - Labs Labs: 05/01/16 04:10 05/01/16 04:10 PT 12.7 SECONDS (9.6-11.2) H 04/29/16 11:29 INR 1.22 (0.92-1.08) H 04/29/16 11:29 APTT 36.9 SECONDS (23.3-32.5) H 04/23/16 04:25 - Constitutional Appears: Chronically Ill - Head Exam Head Exam: ATRAUMATIC, NORMAL INSPECTION, NORMOCEPHALIC - Respiratory Exam Additional comments: Short rapid breaths - Decrease breath sounds at base b/l - Cardiovascular Exam Cardiovascular Exam: REGULAR RHYTHM, +S1, +S2 - GI/Abdominal Exam GI & Abdominal Exam: Soft, Normal Bowel Sounds. absent: Tenderness - Neurological Exam Neurological Exam: Alert, Awake, CN II-XII Intact, Oriented x3 Assessment and Plan - Assessment and Plan (Free Text) Assessment: 70 yo female with pmhx of HTN, CHF, HLD, asthma, seizure disorder was admitted for bilateral low ext dvt, PE. 1) Pleural effusion secondary to PE/Pnemonia - X Ray show b/l pleural effusion: Consulted IR: - Right bedside pleural effusion 1.2L of serous- sanguinolent fluid. Patient appears to be doing better since procedure. 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 3) Metabolic Alkalosis w/ inadequate compensation - PH:7.53, HCO3: 40.9, PCO2:56 4)Subacute pulmonary embolism -s/p ivc filter - xarelto Today then continue: 15mg po bid for 21 days from intial dose; then 20mg po once daily with food) -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 9)hypertension, controlled --monitor 9)Seizure hx -c/w phenytoin 100mg po bid -monitor 10)Prophylactic measures: -Xarelto 11)right sided heart failure, acute most likely -echo reviewed, mitral valve thickened, mild pulmonary hypertension, RV mildly dilated -monitor. - Liver enzymes trending down 64/61. . PT recommended TCU
[2016-05-01] MEDS: Digoxin 250 mcg (0.25 mg) Tab PO SCH (08:43)
[2016-05-01] MEDS: Pantoprazole 40 mg EC Tab PO SCH (08:47)
[2016-05-01] MEDS: Azithromycin 500 MG in Sodium Chloride 0.9% 250 ML IVPB SCH (08:48)
[2016-05-01] MEDS: Budesonide 0.5 mg/2 ml Inhal Susp UD IH SCH (08:55)
[2016-05-01] MEDS: Albuterol-Ipratrop 3 mg / 0.5 (3 ml) UD INH PRN ×2 (08:55→19:27)
[2016-05-01 08:56] LABS: ABG ALLEN TEST YES; ARTERIAL BLOOD GAS HCO3 40.9 mmol/L (21-28); ARTERIAL BLOOD GAS MODE VM; ARTERIAL BLOOD GAS O2 CAPACITY 19.5 mL/dL (16-24); ARTERIAL BLOOD GAS O2 CONTENT 19.5 ML/dL (15-23); ARTERIAL BLOOD GAS PH 7.53 (7.35-7.45); ARTERIAL BLOOD GAS PO2 130 mm/Hg (80-100); ARTERIAL BLOOD HGB O2 SAT 96.2 % (95.0-98.0); CARBOXYHEMOGLOBIN 2.4 % (0.5-1.5); HHB 0.1 % (0.0-5.0); METHEMOGLOBIN 1.3 % (0.0-3.0)
--- NOTE | 2016-05-01 12:12 | CP.CCUPN ---
CCU Subjective - Physician Review Subjective (Free Text): 05/01/16 12:02 Patient appears clinically improved, no complaints, titrated down to nasal cannula oxygen. CCU Objective - Vital Signs / Intake & Output Vital Signs (Last 4 hours): Vital Signs Temp Pulse Resp BP Pulse Ox 05/01/16 11:43 98.1 F 90 46 H 110/71 99 05/01/16 10:00 101 H 29 H 132/65 99 05/01/16 08:43 96 H 100/65 Intake and Output (Last 8hrs): Intake & Output 04/30/16 05/01/16 05/01/16 22:59 06:59 14:59 Intake Total 250 220 370 Output Total 1100 900 Balance -850 -680 370 Weight 185 lb Intake: IV 10 Intake, Piggyback 250 Oral 240 220 120 Output: Urine 1100 900 Urethral (Sweeney) 1100 900 Other: # Bowel Movements 1 - Physical Exam Head: Positive for: Atraumatic Pupils: Positive for: PERRL Extroacular Muscles: Positive for: EOMI Mouth: Positive for: Moist Mucous Membranes Neck: Positive for: Normal Range of Motion, Trachea Midline. Negative for: MIDLINE TENDERNESS, JVD Respiratory/Chest: Positive for: Wheezes (mild throughout), Decreased Breath Sounds Cardiovascular: Positive for: Irregular Rhythm Abdomen: Positive for: Normal Bowel Sounds. Negative for: Tenderness, Distention Upper Extremity: Positive for: Normal Inspection. Negative for: Cyanosis Lower Extremity: Positive for: Edema (2+ ), Other (venous insufficiency) Neurological: Positive for: GCS=15, CN II-XII Intact - Medications Active Medications: Active Medications Generic Name Dose Route Start Last Admin Trade Name Freq PRN Reason Stop Dose Admin Albuterol/Ipratropium 3 ml 04/28/16 17:27 05/01/16 08:55 Duoneb 3 Mg/0.5 Mg (3 Ml) Ud INH 3 ml RQ6 PRN Administration Shortness of Breath Budesonide 0.5 mg 04/28/16 09:00 05/01/16 08:55 Pulmicort Respules IH 0.5 mg Q12 [facility] Administration Digoxin 0.25 mg 04/28/16 09:00 05/01/16 08:43 Lanoxin PO 0.25 mg DAILY [facility] Administration Guaifenesin 1,200 mg 05/01/16 12:00 Mucinex La PO Q12 [facility] Haloperidol Lactate 2 mg 04/29/16 13:11 Haldol IVP Q10M PRN Agitation Ceftriaxone Sodium 1 gm/ 100 mls @ 100 mls/hr 04/28/16 09:00 05/01/16 08:47 Sodium Chloride IVPB 100 mls/hr DAILY [facility] Administration Azithromycin 500 mg/ Sodium 250 mls @ 250 mls/hr 04/28/16 09:00 05/01/16 08:48 Chloride IVPB 250 mls/hr DAILY [facility] Administration Lactic Acid 1 applic 04/28/16 09:00 05/01/16 08:42 Lac-Hydrin 12% Lotion (225 G) TOP 1 applic DAILY [facility] Administration Metoprolol Tartrate 100 mg 04/28/16 09:00 05/01/16 08:43 Lopressor PO 100 mg Q12 [facility] Administration Montelukast Sodium 10 mg 04/28/16 09:00 05/01/16 08:48 Singulair PO 10 mg DAILY [facility] Administration Pantoprazole Sodium 40 mg 05/01/16 09:00 05/01/16 08:47 Protonix Ec Tab PO 40 mg DAILY [facility] Administration Phenytoin Sodium 100 mg 04/29/16 21:00 05/01/16 08:42 Dilantin PO 100 mg Q12@0900,2100 [facility] Administration Rivaroxaban 15 mg 04/28/16 08:00 05/01/16 08:48 Xarelto PO 05/17/16 11:00 15 mg BIDWM [facility] Administration Protocol - Patient Studies Lab Studies: Microbiology Studies 04/29/16 12:20 Anaerobic Culture - Final Pleural Fluid NO ANAEROBES ISOLATED. 04/29/16 12:20 Mycobacterial Culture - Preliminary Other: Please Indicate 04/29/16 12:20 Gram Stain - Final Pleural Fluid Body Fluid Culture - Preliminary NO GROWTH AFTER 24 HOURS 04/29/16 12:20 Fungal Culture - Preliminary Pleural Fluid Lab Studies 05/01/16 05/01/16 04/30/16 Range/Units 08:50 04:10 04:00 WBC 12.4 H (4.8-10.8) K/uL RBC 4.34 (3.80-5.20) Mil/uL Hgb 13.5 (12.0-16.0) g/dL Hct 41.1 (34.0-47.0) % MCV 94.6 (81.0-99.0) fl MCH 31.0 (27.0-31.0) pg MCHC 32.8 L (33.0-37.0) g/dL RDW 15.4 H (11.5-14.5) % Plt Count 210 (130-400) K/uL pCO2 56 H (35-45) mm/Hg pO2 130 H (80-100) mm/Hg HCO3 40.9 H* (21-28) mmol/L ABG pH 7.53 H (7.35-7.45) ABG Total CO2 48.5 H (22-28) mmol/L ABG O2 Saturation 99.9 H (95-98) % ABG O2 Content 19.5 (15-23) ML/dL ABG Base Excess 20.5 H (-2.0-3.0) mmol/L ABG Hemoglobin 14.3 (11.7-17.4) g/dL ABG Carboxyhemoglobin 2.4 H (0.5-1.5) % POC ABG HHb (Measured) 0.1 (0.0-5.0) % ABG Methemoglobin 1.3 (0.0-3.0) % ABG O2 Capacity 19.5 (16-24) mL/dL Frankie Test Yes A-a O2 Difference 157.0 mm/Hg Hgb O2 Saturation 96.2 (95.0-98.0) % Vent Mode Vm FiO2 50.0 % Blood Gas Comments Vm 50% Crit Value Called To Pearl kerr r.n. Crit Value Called By Karissa Lynch Value Read Back Y Blood Gas Notified Time 855 Sodium 134 (132-148) mmol/l Potassium 3.3 L (3.6-5.0) MMOL/L Chloride 90 L (98-107) mmol/L Carbon Dioxide 40 H* (22-30) mmol/L Anion Gap 7 L (10-20) BUN 19 H (7-17) mg/dl Creatinine 0.4 L (0.7-1.2) mg/dL Est GFR ( Amer) > 60 Est GFR (Non-Af Amer) > 60 Random Glucose 139 H (65-105) mg/dL Calcium 7.9 L (8.4-10.2) mg/dL Urine Color Caty (YELLOW) Urine Clarity Slighty-cloudy (Clear) Urine pH 6.0 (5.0-8.0) Ur Specific [place] 1.020 (1.003-1.030) Urine Protein 100 (NEGATIVE) mg/dL Urine Glucose (UA) Neg (Normal) mg/dL Urine Ketones Negative (NEGATIVE) mg/dL Urine Blood Large (NEGATIVE) Urine Nitrate Negative (NEGATIVE) Urine Bilirubin Small (NEGATIVE) Urine Urobilinogen 4.0 H (0.2-1.0) mg/dL Ur Leukocyte Esterase Trace (Negative) [place]/uL Urine RBC (Auto) 471 H (0-3) /hpf Urine Microscopic WBC 43 H (0-5) /hpf Ur Squamous Epith Cells 5 (0-5) /hpf Urine Bacteria Rare (<OCC) Digoxin 0.9 (0.8-2.0) ng/mL Laboratory Results - last 24 hr 04/30/16 05/01/16 05/01/16 04:00 04:10 08:50 WBC 12.4 H RBC 4.34 Hgb 13.5 Hct 41.1 MCV 94.6 MCH 31.0 MCHC 32.8 L RDW 15.4 H Plt Count 210 pCO2 56 H pO2 130 H HCO3 40.9 H* ABG pH 7.53 H ABG Total CO2 48.5 H ABG O2 Saturation 99.9 H ABG O2 Content 19.5 ABG Base Excess 20.5 H ABG Hemoglobin 14.3 ABG Carboxyhemoglobin 2.4 H POC ABG HHb (Measured) 0.1 ABG Methemoglobin 1.3 ABG O2 Capacity 19.5 Frankie Test Yes A-a O2 Difference 157.0 Hgb O2 Saturation 96.2 Vent Mode Vm FiO2 50.0 Blood Gas Comments Vm 50% Crit Value Called To Pearl kerr r.n. Crit Value Called By Karissa Crikalina Value Read Back Y Blood Gas Notified Time 855 Sodium 134 Potassium 3.3 L Chloride 90 L Carbon Dioxide 40 H* Anion Gap 7 L BUN 19 H Creatinine 0.4 L Est GFR ( Amer) > 60 Est GFR (Non-Af Amer) > 60 Random Glucose 139 H Calcium 7.9 L Urine Color Caty Urine Clarity Slighty-cloudy Urine pH 6.0 Ur Specific [place] 1.020 Urine Protein 100 Urine Glucose (UA) Neg Urine Ketones Negative Urine Blood Large Urine Nitrate Negative Urine Bilirubin Small Urine Urobilinogen 4.0 H Ur Leukocyte Esterase Trace Urine RBC (Auto) 471 H Urine Microscopic WBC 43 H Ur Squamous Epith Cells 5 Urine Bacteria Rare Digoxin 0.9 Fingerstick Blood Sugar Results: 162 Review of Systems - Review of Systems All systems: reviewed and no additional remarkable complaints except Critical Care Progress Note - Nutrition Nutrition: Nutrition Category Date Time Status Heart Healthy Diet [DIET] Diets 04/29/16 Dinner Active Assessment/Plan (1) Acute respiratory failure Assessment and plan: Neuro: alert and oriented x 3, seizure disorder continue Pulm: PE on Xarelto,. Pneumonia not improving on ceftriaxone and azithromycin, will consider modifying, called ID consult Dr. Vasquez. continue duonebs, budesonide q12h, singulair, adding mucolytic. CV: afib rate controlled with metoprolol po bid. right sided CHF with mild pulm HTN, patient clinically euvolemic, stopping diuretics. Hem: no acute issues Renal: chronic respiratory acidosis with metabolic compensation and concomitant metabolic alkalosis from aggressive diuresis, will give diamox. Endo: no acute issues. GI: heart healthy diet ID: sepsis from community acquired pneumonia, on ceftriaxone and azithromycin without improvement. Considering broadening coverage. ID - Dr. Vasquez DVT proph - Xarelto GI proph - protonix Code status - full code Crtical Care Time spent 35 minutes Multi-disciplinary rounds were performed with house staff, nursing, speech therapy, respiratory therapy, pharmacy and nutrition with integrated input from the primary team/attending and other consulting services. The documented time is cumulative and includes review of patient data/exams/labs/chart review and examination of the patient on rounds and throughout the day; time is exclusive of any procedures or teaching time. Current Visit: Yes Status: Acute Priority: High Comment: Multifactorial from CHF, Acute PTE with worsening RLL atelectasis/Effusion BIPAP Xarelto Aggressive Pulmonary toilets, duonebs Q 6H, Antibiotics, percussive bed.
--- NOTE | 2016-05-01 14:40 | CP.PCM.CON ---
History of Present Illness - History of Present Illness History of Present Illness: 70 year old female patient with a pertinent past medical history of asthma is brought into the ED by EMS for respiratory distress. She was in bed for the past 2x days. He family found her and called 911 just prior to arrival because she was having shortness of breath. She was tachycardic with her heart rate in the 180's as per EMS. EMS reports she had bilateral wheezing, and she was given albuterol and Cardizem one 25. Her heart rate lowered to the 120's and she was put on CPAP. Her condition improved upon arrival to the ED. FEBRILE ON ADMISSION WITH RESP FAILURE ==> CULTURED UP AND STARTED ON ANTIBIOTICS FOUND TO HAVE DVT PULMONARY EMBOLUS AND AFIB ===> STARTED ON ANTICOAG CULTURES ALL NEG THUS FAR AFEBRILE Review of Systems - Constitutional Constitutional: As Per HPI, Anorexia, Malaise - EENT Eyes: absent: As Per HPI, Blind Spots, Blurred Vision, Change in Vision, Decreased Night Vision, Diplopia, Discharge, Dry Eye, Exophthalmos, Floaters, Irritation, Itchy Eyes, Loss of Peripheral Vision, Pain, Photophobia, Requires Corrective Lenses, Sees Flashes, Spots in Vision, Tunnel Vision, Other Visual Disturbances, Loss of Vision, Other Ears: absent: As Per HPI, Decreased Hearing, Ear Discharge, Ear Pain, Tinnitus, Abnormal Hearing, Disequilibrium, Dizziness, Other Nose/Mouth/Throat: absent: As Per HPI, Epistaxis, Nasal Congestion, Nasal Discharge, Nasal Obstruction, Nasal Trauma, Nose Pain, Post Nasal Drip, Sinus Pain, Sinus Pressure, Bleeding Gums, Change in Voice, Dental Pain, Dry Mouth, Dysphagia, Halitosis, Hoarsness, Lip Swelling, Mouth Lesions, Mouth Pain, Odynophagia, Sore Throat, Throat Swelling, Tongue Swelling, Facial Pain, Neck Pain, Neck Mass, Other - Breasts Breasts: absent: As Per HPI, Change in Shape, Mass, Pain, Nipple Discharge, Nipple Inversion, Skin Changes, Swelling, Other - Cardiovascular Cardiovascular: As Per HPI - Respiratory Respiratory: As Per HPI, Cough, Dyspnea on Exertion - Gastrointestinal Gastrointestinal: absent: As Per HPI, Abdominal Pain, Belching, Bloating, Change in Bowel Habits, Change in Stool Character, Coffee Ground Emesis, Constipation, Cramping, Diarrhea, Dyspepsia, Dysphagia, Early Satiety, Excessive Flatus, Fecal Incontinence, Heartburn, Hematemesis, Hematochezia, Loose Stools, Melena, Nausea, Odynophagia, Temesmus, Vomiting, Other - Genitourinary Genitourinary: absent: As Per HPI, Change in Urinary Stream, Difficulty Urinating, Dysuria, Flank Pain, Hematuria, Pyuria, Nocturia, Urinary Incontinence, Urinary Frequency, Urinary Hesitance, Urinary Urgency, Voiding Freq/Small Amts, Freq UTI, Hx Renal/Bladder Calculi, Hx /Renal Surgery, Bladder Distension, Other - Reproductive: Female Reproductive:Female: absent: As Per HPI, Amenorrhea, Amenorrhea/ Control, Currently Menstual, Cycle <21 Days, Cycle >35 Days, Cycle Variable, Menses 1-7 Days, Menses >/= 8 Days, Menses Variable, Cycle > 4 Weeks Between, No Menses for 6 Months, Heavy Menses, Light Menses, Normal Menses, Spotting Between Cycles , S/P Hysterectomy, Menopausal, Post Menopausal, Premenarche, Abnormal Vaginal Bleeding, Dysmenorrhea, Dyspareunia, Genital Lesions, Genital Pruritis, Pelvic Pain, Prolapse Symptoms, Sexual Dysfunction, Vaginal Discharge, Vaginal Dryness , Vaginal Odor, Vaginal Pruritis, Other - Menstruation Menstruation: absent: As Per HPI, Amenorrhea, Amenorrhea/ Control, Currently Menstual, Cycle <21 Days, Cycle >35 Days, Cycle Variable, Menses 1-7 Days, Menses >/= 8 Days, Menses Variable, Cycle > 4 Weeks Between, No Menses for 6 Months, Heavy Menses, Light Menses, Normal Menses, Spotting Between Cycles , S/P Hysterectomy, Menopausal, Post Menopausal, Premenarche, Abnormal Vaginal Bleeding, Dysmenorrhea, Other - Musculoskeletal Musculoskeletal: As Per HPI - Integumentary Integumentary: absent: As Per HPI, Acne, Alopecia, Bleeding Lesions, Change in Hair, Change in Nails, Change in Pigmentation, Changing Lesions, Dry Skin, Erythema, Furuncle, Hirsutism, Lesions, New Lesions, Non-Healing Lesions, Photosensitivity, Pruritus, Rash, Skin Pain, Skin Ulcer, Sores, Striae, Swelling , Unusual Bruising, Wounds, Jaundice, Other - Neurological Neurological: absent: As Per HPI, Abnormal Gait, Abnormal Hearing, Abnormal Movements, Abnormal Speech, Behavioral Changes, Burning Sensations, Confusion, Convulsions, Disequilibrium, Dizziness, Numbness, Focal Weakness, Frequent Falls , Headaches, Lack of Coordination, Loss of Vision, Memory Loss, Paresthesias, Radicular Pain, Restless Legs, Sensory Deficit, Syncope, Tingling, Tremor, Vertigo, Weakness, Other Visual Disturbances, Other - Psychiatric Psychiatric: absent: As Per HPI, Abnormal Sleep Pattern, Anhedonia, Anxiety, Auditory Hallucinations, Behavioral Changes, Change in Appetite, Change in Libido, Confusion, Depression, Difficulty Concentrating, Hallucinations, Homicidal Ideation, Hopelessness, Irritability, Memory Loss, Mood Swings, Panic Attacks, Paranoia, Suicidal Ideation, Visual Hallucinations, Tactile Hallucinations, Other - Endocrine Endocrine: absent: As Per HPI, Change in Body Appearance, Change in Libido, Cold Intolorance, Deepening of Voice, Excessive Sweating, Fatigue, Flushing, Heat Intolorance, Increase in Ring/Shoe/Hat Size, Palpitations, Polydipsia, Polyphagia, Polyuria, Other - Hematologic/Lymphatic Hematologic: absent: As Per HPI, Easy Bleeding, Easy Bruising, Lymphadenopathy, Other Past Patient History - Past Medical History & Family History Past Medical History?: Yes - Past Social History Smoking Status: Never Smoked Alcohol: None Drugs: Denies Home Situation {Lives}: Alone - CARDIAC Hx Cardiac Disorders: Yes Hx Congestive Heart Failure: Yes Hx Hypercholesterolemia: Yes Hx Hypertension: Yes - PULMONARY Hx Respiratory Disorders: Yes Hx Asthma: Yes - NEUROLOGICAL Hx Neurological Disorder: Yes Hx Seizures: Yes - HEENT Hx HEENT Problems: No - RENAL Hx Chronic Kidney Disease: No - ENDOCRINE/METABOLIC Hx Endocrine Disorders: Yes Hx Diabetes Mellitus Type 2: Yes - HEMATOLOGICAL/ONCOLOGICAL Hx Blood Disorders: Yes Hx Anemia: Yes Hx Human Immunodeficiency Virus (HIV): No - INTEGUMENTARY Hx Dermatological Problems: Yes Other/Comment: Chronic skin changes lower extremities. - MUSCULOSKELETAL/RHEUMATOLOGICAL Hx Musculoskeletal Disorders: No Hx Falls: No - GASTROINTESTINAL Hx Gastrointestinal Disorders: No - GENITOURINARY/GYNECOLOGICAL Hx Genitourinary Disorders: No - PSYCHIATRIC Hx Psychophysiologic Disorder: No Hx Substance Use: No - SURGICAL HISTORY Hx Surgeries: Yes Other/Comment: R beast lump removal - ANESTHESIA Hx Anesthesia: Yes Hx Anesthesia Reactions: No Meds Allergies/Adverse Reactions: Allergies Allergy/AdvReac Type Severity Reaction Status Date / Time No Known Allergies Allergy Verified 04/22/16 16:41 - Medications Medications: Current Medications Acetazolamide (Diamox 500 Mg Inj) 500 mg IV Q12 [facility] Stop: 05/01/16 21:01 Last Admin: 05/01/16 13:12 Dose: 500 mg Albuterol/Ipratropium (Duoneb 3 Mg/0.5 Mg (3 Ml) Ud) 3 ml INH RQ6 PRN PRN Reason: Shortness of Breath Last Admin: 05/01/16 08:55 Dose: 3 ml Budesonide (Pulmicort Respules) 0.5 mg IH Q12 [facility] Last Admin: 05/01/16 08:55 Dose: 0.5 mg Digoxin (Lanoxin) 0.25 mg PO DAILY [facility] Last Admin: 05/01/16 08:43 Dose: 0.25 mg Guaifenesin (Mucinex La) 1,200 mg PO Q12 [facility] Haloperidol Lactate (Haldol) 2 mg IVP Q10M PRN PRN Reason: Agitation Ceftriaxone Sodium 1 gm/ (Sodium Chloride) 100 mls @ 100 mls/hr IVPB DAILY [facility] Last Admin: 05/01/16 08:47 Dose: 100 mls/hr Azithromycin 500 mg/ Sodium (Chloride) 250 mls @ 250 mls/hr IVPB DAILY [facility] Last Admin: 05/01/16 08:48 Dose: 250 mls/hr Lactic Acid (Lac-Hydrin 12% Lotion (225 G)) 1 applic TOP DAILY [facility] Last Admin: 05/01/16 08:42 Dose: 1 applic Metoprolol Tartrate (Lopressor) 100 mg PO Q12 [facility] Last Admin: 05/01/16 08:43 Dose: 100 mg Montelukast Sodium (Singulair) 10 mg PO DAILY [facility] Last Admin: 05/01/16 08:48 Dose: 10 mg Pantoprazole Sodium (Protonix Ec Tab) 40 mg PO DAILY [facility] Last Admin: 05/01/16 08:47 Dose: 40 mg Phenytoin Sodium (Dilantin) 100 mg PO Q12@0900,2100 [facility] Last Admin: 05/01/16 08:42 Dose: 100 mg Rivaroxaban (Xarelto) 15 mg PO BIDWM [facility] PRN Reason: Protocol Stop: 05/17/16 11:00 Last Admin: 05/01/16 08:48 Dose: 15 mg Physical Exam - Constitutional Appears: Non-toxic, Chronically Ill - Head Exam Head Exam: ATRAUMATIC, NORMAL INSPECTION, NORMOCEPHALIC - Eye Exam Eye Exam: EOMI, PERRL. absent: Scleral icterus - ENT Exam ENT Exam: Mucous Membranes Dry, Normal External Ear Exam, Normal Oropharynx - Neck Exam Neck exam: Negative for: Lymphadenopathy, Thyromegaly - Respiratory Exam Respiratory Exam: Decreased Breath Sounds, Prolonged Expiratory Phase, Rhonchi, Wheezes - Cardiovascular Exam Cardiovascular Exam: Tachycardia, Irregular Rhythm, REGULAR RHYTHM, +S1, +S2 - GI/Abdominal Exam GI & Abdominal Exam: Diminished Bowel Sounds, Distended, Soft. absent: Organomegaly, Rebound, Rigid, Tenderness - Rectal Exam Rectal Exam: Deferred - Exam Exam: NORMAL INSPECTION - Extremities Exam Extremities exam: Positive for: pedal pulses present. Negative for: calf tenderness, pedal edema, tenderness - Back Exam Back exam: absent: CVA tenderness (L), CVA tenderness (R), paraspinal tenderness - Neurological Exam Neurological exam: Alert, CN II-XII Intact, Oriented x3, Reflexes Normal - Psychiatric Exam Psychiatric exam: Normal Mood - Skin Skin Exam: Dry, Intact Results - Vital Signs Recent Vital Signs: Last Vital Signs Temp 98.1 F 05/01/16 11:43 Pulse 90 05/01/16 11:43 Resp 46 H 05/01/16 11:43 BP 110/71 05/01/16 11:43 Pulse Ox 99 05/01/16 11:43 - Labs Result Diagrams: 05/01/16 04:10 05/01/16 04:10 Labs: Laboratory Results - last 24 hr 04/30/16 05/01/16 05/01/16 04:00 04:10 08:50 WBC 12.4 H RBC 4.34 Hgb 13.5 Hct 41.1 MCV 94.6 MCH 31.0 MCHC 32.8 L RDW 15.4 H Plt Count 210 pCO2 56 H pO2 130 H HCO3 40.9 H* ABG pH 7.53 H ABG Total CO2 48.5 H ABG O2 Saturation 99.9 H ABG O2 Content 19.5 ABG Base Excess 20.5 H ABG Hemoglobin 14.3 ABG Carboxyhemoglobin 2.4 H POC ABG HHb (Measured) 0.1 ABG Methemoglobin 1.3 ABG O2 Capacity 19.5 Frankie Test Yes A-a O2 Difference 157.0 Hgb O2 Saturation 96.2 Vent Mode Vm FiO2 50.0 Blood Gas Comments Vm 50% Crit Value Called To Pearl kerr r.n. Crit Value Called By Karissa Crit Value Read Back Y Blood Gas Notified Time 855 Sodium 134 Potassium 3.3 L Chloride 90 L Carbon Dioxide 40 H* Anion Gap 7 L BUN 19 H Creatinine 0.4 L Est GFR ( Amer) > 60 Est GFR (Non-Af Amer) > 60 Random Glucose 139 H Calcium 7.9 L Procalcitonin 0.17 L Urine Color Caty Urine Clarity Slighty-cloudy Urine pH 6.0 Ur Specific Paulina 1.020 Urine Protein 100 Urine Glucose (UA) Neg Urine Ketones Negative Urine Blood Large Urine Nitrate Negative Urine Bilirubin Small Urine Urobilinogen 4.0 H Ur Leukocyte Esterase Trace Urine RBC (Auto) 471 H Urine Microscopic WBC 43 H Ur Squamous Epith Cells 5 Urine Bacteria Rare Digoxin 0.9 HIV 1&2 Antibody Screen Negative Assessment & Plan (1) Acute respiratory failure Status: Acute Priority: High (2) DVT of lower extremity, bilateral Status: Acute Priority: High (3) New onset atrial fibrillation Status: Acute Priority: High (4) Atrial fibrillation with RVR Status: Acute (5) CHF (congestive heart failure) Status: Acute (6) Coagulopathy Status: Acute (7) Leukocytosis Status: Acute (8) Pleural effusion, right Status: Acute - Assessment and Plan (Free Text) Assessment: S/P DVT, PE RESP FAILURE, PNEUMONIA, EXAC COPD ALL CULTURES NEG OK TO D/C IV ANTIBIOTICS RECULTURE FOR FEVER
[2016-05-01] MEDS: guaiFENesin 600 mg ER Tab PO SCH ×2 (16:51→20:01)
--- NOTE | 2016-05-01 17:56 | CP.PCM.PN ---
Subjective - Date & Time of Evaluation Date of Evaluation: 05/01/16 - Subjective Subjective: F/U Acute respiratory failure. Pt in no A/D, no c/o on BIPAP. Objective - Vital Signs/Intake and Output Vital Signs (last 24 hours): Temp Pulse Resp BP Pulse Ox 98.4 F 95 H 28 H 122/63 96 05/01/16 16:00 05/01/16 16:00 05/01/16 16:00 05/01/16 16:00 05/01/16 16:00 Intake and Output: 05/01/16 05/01/16 06:59 18:59 Intake Total 350 470 Output Total 1300 600 Balance -950 -130 - Medications Medications: Current Medications Acetazolamide (Diamox 500 Mg Inj) 500 mg IV Q12 [facility] Stop: 05/01/16 21:01 Last Admin: 05/01/16 13:12 Dose: 500 mg Albuterol/Ipratropium (Duoneb 3 Mg/0.5 Mg (3 Ml) Ud) 3 ml INH RQ6 PRN PRN Reason: Shortness of Breath Last Admin: 05/01/16 08:55 Dose: 3 ml Budesonide (Pulmicort Respules) 0.5 mg IH Q12 [facility] Last Admin: 05/01/16 08:55 Dose: 0.5 mg Digoxin (Lanoxin) 0.25 mg PO DAILY [facility] Last Admin: 05/01/16 08:43 Dose: 0.25 mg Guaifenesin (Mucinex La) 1,200 mg PO Q12 [facility] Last Admin: 05/01/16 16:51 Dose: 1,200 mg Haloperidol Lactate (Haldol) 2 mg IVP Q10M PRN PRN Reason: Agitation Lactic Acid (Lac-Hydrin 12% Lotion (225 G)) 1 applic TOP DAILY [facility] Last Admin: 05/01/16 08:42 Dose: 1 applic Metoprolol Tartrate (Lopressor) 100 mg PO Q12 [facility] Last Admin: 05/01/16 08:43 Dose: 100 mg Montelukast Sodium (Singulair) 10 mg PO DAILY [facility] Last Admin: 05/01/16 08:48 Dose: 10 mg Pantoprazole Sodium (Protonix Ec Tab) 40 mg PO DAILY [facility] Last Admin: 05/01/16 08:47 Dose: 40 mg Phenytoin Sodium (Dilantin) 100 mg PO Q12@0900,2100 [facility] Last Admin: 05/01/16 08:42 Dose: 100 mg Rivaroxaban (Xarelto) 15 mg PO BIDWM [facility] PRN Reason: Protocol Stop: 05/17/16 11:00 Last Admin: 05/01/16 16:51 Dose: 15 mg - Labs Labs: 05/01/16 04:10 05/01/16 04:10 PT 12.7 SECONDS (9.6-11.2) H 04/29/16 11:29 INR 1.22 (0.92-1.08) H 04/29/16 11:29 APTT 36.9 SECONDS (23.3-32.5) H 04/23/16 04:25 - Constitutional Appears: No Acute Distress, Chronically Ill - Head Exam Head Exam: NORMAL INSPECTION - Eye Exam Eye Exam: PERRL - Neck Exam Neck Exam: Normal Inspection - Respiratory Exam Respiratory Exam: Decreased Breath Sounds (at bases), Rhonchi (scattered) - Cardiovascular Exam Cardiovascular Exam: Irregular Rhythm - GI/Abdominal Exam GI & Abdominal Exam: Soft, Normal Bowel Sounds - Extremities Exam Extremities Exam: Pedal Edema - Neurological Exam Neurological Exam: Alert, Oriented x3 Additional comments: Generalized weakness - Skin Skin Exam: Warm Additional comments: Stasis sin changes lower extremities. Assessment and Plan (1) Acute respiratory failure Status: Acute (2) Pulmonary embolism with infarction Status: Acute (3) DVT of lower extremity, bilateral Status: Acute (4) New onset atrial fibrillation Status: Acute (5) Pleural effusion, right Status: Resolved (6) Pulmonary artery hypertension Status: Acute (7) Asthma Status: Chronic - Assessment and Plan (Free Text) Plan: Continue Duoneb, Pulmocort, Singulair, Mucinex , Xarelto ICU TIME: 40 MIN.
[2016-05-02 06:02] LABS: ABG ALLEN TEST YES; ARTERIAL BLOOD GAS HCO3 29.3 mmol/L (21-28); ARTERIAL BLOOD GAS O2 CONTENT 18.5 ML/dL (15-23); ARTERIAL BLOOD GAS PH 7.38 (7.35-7.45); ARTERIAL BLOOD GAS PO2 78 mm/Hg (80-100); ARTERIAL BLOOD HGB O2 SAT 93.9 % (95.0-98.0); CARBOXYHEMOGLOBIN 2.5 % (0.5-1.5); HHB 2.3 % (0.0-5.0); METHEMOGLOBIN 1.2 % (0.0-3.0)
[2016-05-02 06:35] LABS: ALB/GLOB RATIO 0.7 (1.0-2.1); ALKALINE PHOSPHATASE 185 U/L (38-126); ALT/SGPT 82 U/L (9-52); AST/SGOT 97 U/L (14-36); BILIRUBIN,TOTAL 0.7 mg/dl (0.2-1.3); BLOOD UREA NITROGEN 15 mg/dl (7-17); CALCIUM 8.5 mg/dL (8.4-10.2); CARBON DIOXIDE 30 mmol/L (22-30); CHLORIDE 97 mmol/L (98-107); GFR AFRICAN-AMERICAN > 60; GLUCOSE,RANDOM 115 mg/dL (65-105); POTASSIUM 3.4 MMOL/L (3.6-5.0); SODIUM 133 mmol/l (132-148); TOTAL PROTEIN 6.2 G/DL (6.3-8.2)
[2016-05-02 06:43] LABS: HEMATOCRIT 42.6 % (34.0-47.0); MEAN CELL VOLUME 96.5 fl (81.0-99.0); MEAN CORPUSCULAR HEMOGLOBIN 31.1 pg (27.0-31.0); MEAN CORPUSCULAR HGB CONC 32.2 g/dL (33.0-37.0); RED CELL DISTRIBUTION WIDTH 16.5 % (11.5-14.5); WHITE BLOOD COUNT 10.7 K/uL (4.8-10.8)
--- NOTE | 2016-05-02 08:37 | CP.CCUPN ---
CCU Subjective - Physician Review Events Since Last Encounter (Free Text): 05/02/16 08:34 Patient awake, on O2 supplement by nasal canula, no distress, no pressors, no fever, events reviewed CCU Objective - Vital Signs / Intake & Output Vital Signs (Last 4 hours): Vital Signs Pulse Resp BP Pulse Ox 05/02/16 06:00 88 24 116/52 L 98 Intake and Output (Last 8hrs): Intake & Output 05/01/16 05/02/16 05/02/16 22:59 06:59 14:59 Intake Total 250 0 Output Total 800 Balance -550 0 Weight 185 lb 9.6 oz Intake: IV 10 0 Oral 240 Output: Urine 800 Urethral (Sweeney) 600 Urine, Voided 200 Other: # Bowel Movements 1 - Physical Exam Head: Positive for: Atraumatic Pupils: Positive for: PERRL Extroacular Muscles: Positive for: EOMI Mouth: Positive for: Moist Mucous Membranes Neck: Positive for: Normal Range of Motion, Trachea Midline. Negative for: MIDLINE TENDERNESS, JVD Respiratory/Chest: Positive for: Wheezes (mild throughout), Decreased Breath Sounds Cardiovascular: Positive for: Irregular Rhythm Abdomen: Positive for: Normal Bowel Sounds. Negative for: Tenderness, Distention Upper Extremity: Positive for: Normal Inspection. Negative for: Cyanosis Lower Extremity: Positive for: Edema (2+ ), Other (venous insufficiency) Neurological: Positive for: GCS=15, CN II-XII Intact - Medications Active Medications: Active Medications Generic Name Dose Route Start Last Admin Trade Name Freq PRN Reason Stop Dose Admin Albuterol/Ipratropium 3 ml 04/28/16 17:27 05/01/16 19:27 Duoneb 3 Mg/0.5 Mg (3 Ml) Ud INH 3 ml RQ6 PRN Administration Shortness of Breath Budesonide 0.5 mg 04/28/16 09:00 05/01/16 08:55 Pulmicort Respules IH 0.5 mg Q12 [facility] Administration Digoxin 0.25 mg 04/28/16 09:00 05/01/16 08:43 Lanoxin PO 0.25 mg DAILY [facility] Administration Guaifenesin 1,200 mg 05/01/16 12:00 05/01/16 20:01 Mucinex La PO 1,200 mg Q12 [facility] Administration Haloperidol Lactate 2 mg 04/29/16 13:11 Haldol IVP Q10M PRN Agitation Lactic Acid 1 applic 04/28/16 09:00 05/01/16 08:42 Lac-Hydrin 12% Lotion (225 G) TOP 1 applic DAILY [facility] Administration Metoprolol Tartrate 100 mg 04/28/16 09:00 05/01/16 20:02 Lopressor PO 100 mg Q12 [facility] Administration Montelukast Sodium 10 mg 04/28/16 09:00 05/01/16 08:48 Singulair PO 10 mg DAILY [facility] Administration Pantoprazole Sodium 40 mg 05/01/16 09:00 05/01/16 08:47 Protonix Ec Tab PO 40 mg DAILY [facility] Administration Phenytoin Sodium 100 mg 04/29/16 21:00 05/01/16 20:01 Dilantin PO 100 mg Q12@0900,2100 [facility] Administration Rivaroxaban 15 mg 04/28/16 08:00 05/01/16 16:51 Xarelto PO 05/17/16 11:00 15 mg BIDWM [facility] Administration Protocol - Patient Studies Lab Studies: Microbiology Studies 05/01/16 04:10 Blood Culture - Preliminary Blood-Venous NO GROWTH AFTER 24 HOURS 04/29/16 12:20 Gram Stain - Final Pleural Fluid Body Fluid Culture - Preliminary NO GROWTH AFTER 2 DAYS 04/29/16 12:20 Anaerobic Culture - Final Pleural Fluid NO ANAEROBES ISOLATED. Lab Studies 05/02/16 05/02/16 05/01/16 Range/Units 06:02 06:01 11:55 WBC 10.7 (4.8-10.8) K/uL RBC 4.41 (3.80-5.20) Mil/uL Hgb 13.7 (12.0-16.0) g/dL Hct 42.6 (34.0-47.0) % MCV 96.5 (81.0-99.0) fl MCH 31.1 H (27.0-31.0) pg MCHC 32.2 L (33.0-37.0) g/dL RDW 16.5 H (11.5-14.5) % Plt Count 247 (130-400) K/uL pCO2 55 H (35-45) mm/Hg pO2 78 L (80-100) mm/Hg HCO3 29.3 H (21-28) mmol/L ABG pH 7.38 (7.35-7.45) ABG Total CO2 34.2 H (22-28) mmol/L ABG O2 Saturation 97.6 (95-98) % ABG O2 Content 18.5 (15-23) ML/dL ABG Base Excess 5.7 H (-2.0-3.0) mmol/L ABG Hemoglobin 14.0 (11.7-17.4) g/dL ABG Carboxyhemoglobin 2.5 H (0.5-1.5) % POC ABG HHb (Measured) 2.3 (0.0-5.0) % ABG Methemoglobin 1.2 (0.0-3.0) % ABG O2 Capacity 19.0 (16-24) mL/dL Frankie Test Yes A-a O2 Difference 81.0 mm/Hg Hgb O2 Saturation 93.9 L (95.0-98.0) % Vent Mode FiO2 32.0 % Blood Gas Comments Crit Value Called To Crit Value Called By Crit Value Read Back Blood Gas Notified Time Sodium 133 (132-148) mmol/l Potassium 3.4 L (3.6-5.0) MMOL/L Chloride 97 L (98-107) mmol/L Carbon Dioxide 30 (22-30) mmol/L Anion Gap 9 L (10-20) BUN 15 (7-17) mg/dl Creatinine 0.5 L (0.7-1.2) mg/dL Est GFR ( Amer) > 60 Est GFR (Non-Af Amer) > 60 Random Glucose 115 H (65-105) mg/dL Calcium 8.5 (8.4-10.2) mg/dL Total Bilirubin 0.7 (0.2-1.3) mg/dl AST 97 H D (14-36) U/L ALT 82 H D (9-52) U/L Alkaline Phosphatase 185 H D (38-126) U/L Total Protein 6.2 L (6.3-8.2) G/DL Albumin 2.5 L (3.5-5.0) g/dL Globulin 3.7 (2.2-3.9) gm/dL Albumin/Globulin Ratio 0.7 L (1.0-2.1) Procalcitonin 0.18 L (0.19-0.49) NG/ML HIV 1&2 Antibody Screen (NEGATIVE) 05/01/16 05/01/16 Range/Units 08:50 04:10 WBC (4.8-10.8) K/uL RBC (3.80-5.20) Mil/uL Hgb (12.0-16.0) g/dL Hct (34.0-47.0) % MCV (81.0-99.0) fl MCH (27.0-31.0) pg MCHC (33.0-37.0) g/dL RDW (11.5-14.5) % Plt Count (130-400) K/uL pCO2 56 H (35-45) mm/Hg pO2 130 H (80-100) mm/Hg HCO3 40.9 H* (21-28) mmol/L ABG pH 7.53 H (7.35-7.45) ABG Total CO2 48.5 H (22-28) mmol/L ABG O2 Saturation 99.9 H (95-98) % ABG O2 Content 19.5 (15-23) ML/dL ABG Base Excess 20.5 H (-2.0-3.0) mmol/L ABG Hemoglobin 14.3 (11.7-17.4) g/dL ABG Carboxyhemoglobin 2.4 H (0.5-1.5) % POC ABG HHb (Measured) 0.1 (0.0-5.0) % ABG Methemoglobin 1.3 (0.0-3.0) % ABG O2 Capacity 19.5 (16-24) mL/dL Frankie Test Yes A-a O2 Difference 157.0 mm/Hg Hgb O2 Saturation 96.2 (95.0-98.0) % Vent Mode Vm FiO2 50.0 % Blood Gas Comments Vm 50% Crit Value Called To Pearl kerr r.n. Crit Value Called By Karissa Crikalina Value Read Back Y Blood Gas Notified Time 855 Sodium (132-148) mmol/l Potassium (3.6-5.0) MMOL/L Chloride (98-107) mmol/L Carbon Dioxide (22-30) mmol/L Anion Gap (10-20) BUN (7-17) mg/dl Creatinine (0.7-1.2) mg/dL Est GFR ( Amer) Est GFR (Non-Af Amer) Random Glucose (65-105) mg/dL Calcium (8.4-10.2) mg/dL Total Bilirubin (0.2-1.3) mg/dl AST (14-36) U/L ALT (9-52) U/L Alkaline Phosphatase (38-126) U/L Total Protein (6.3-8.2) G/DL Albumin (3.5-5.0) g/dL Globulin (2.2-3.9) gm/dL Albumin/Globulin Ratio (1.0-2.1) Procalcitonin 0.17 L (0.19-0.49) NG/ML HIV 1&2 Antibody Screen Negative (NEGATIVE) Laboratory Results - last 24 hr 05/01/16 05/01/16 05/01/16 04:10 08:50 11:55 WBC RBC Hgb Hct MCV MCH MCHC RDW Plt Count pCO2 56 H pO2 130 H HCO3 40.9 H* ABG pH 7.53 H ABG Total CO2 48.5 H ABG O2 Saturation 99.9 H ABG O2 Content 19.5 ABG Base Excess 20.5 H ABG Hemoglobin 14.3 ABG Carboxyhemoglobin 2.4 H POC ABG HHb (Measured) 0.1 ABG Methemoglobin 1.3 ABG O2 Capacity 19.5 Frankie Test Yes A-a O2 Difference 157.0 Hgb O2 Saturation 96.2 Vent Mode Vm FiO2 50.0 Blood Gas Comments Vm 50% Crit Value Called To Pearl kerr r.n. Crit Value Called By Karissa Lynch Value Read Back Y Blood Gas Notified Time 855 Sodium Potassium Chloride Carbon Dioxide Anion Gap BUN Creatinine Est GFR ( Amer) Est GFR (Non-Af Amer) Random Glucose Calcium Total Bilirubin AST ALT Alkaline Phosphatase Total Protein Albumin Globulin Albumin/Globulin Ratio Procalcitonin 0.17 L 0.18 L HIV 1&2 Antibody Screen Negative 05/02/16 05/02/16 06:01 06:02 WBC 10.7 RBC 4.41 Hgb 13.7 Hct 42.6 MCV 96.5 MCH 31.1 H MCHC 32.2 L RDW 16.5 H Plt Count 247 pCO2 55 H pO2 78 L HCO3 29.3 H ABG pH 7.38 ABG Total CO2 34.2 H ABG O2 Saturation 97.6 ABG O2 Content 18.5 ABG Base Excess 5.7 H ABG Hemoglobin 14.0 ABG Carboxyhemoglobin 2.5 H POC ABG HHb (Measured) 2.3 ABG Methemoglobin 1.2 ABG O2 Capacity 19.0 Frankie Test Yes A-a O2 Difference 81.0 Hgb O2 Saturation 93.9 L Vent Mode FiO2 32.0 Blood Gas Comments Crit Value Called To Crit Value Called By Crit Value Read Back Blood Gas Notified Time Sodium 133 Potassium 3.4 L Chloride 97 L Carbon Dioxide 30 Anion Gap 9 L BUN 15 Creatinine 0.5 L Est GFR ( Amer) > 60 Est GFR (Non-Af Amer) > 60 Random Glucose 115 H Calcium 8.5 Total Bilirubin 0.7 AST 97 H D ALT 82 H D Alkaline Phosphatase 185 H D Total Protein 6.2 L Albumin 2.5 L Globulin 3.7 Albumin/Globulin Ratio 0.7 L Procalcitonin HIV 1&2 Antibody Screen Fingerstick Blood Sugar Results: 162 Critical Care Progress Note - Nutrition Nutrition: Nutrition Category Date Time Status Heart Healthy Diet [DIET] Diets 04/29/16 Dinner Active Assessment/Plan - Assessment and Plan (Free Text) Assessment: A/p Respiratory insufficiency, PE/DVT, pneumonia, seizer disorder, sepsis, astma, A Fib, CHF, pulmonary hypertension - O2 supplement - Pulmonary toilets - Continue meds - Follow up labs
[2016-05-02] MEDS: Albuterol-Ipratrop 3 mg / 0.5 (3 ml) UD INH PRN (08:55)
[2016-05-02] MEDS: Budesonide 0.5 mg/2 ml Inhal Susp UD IH SCH (08:56)
--- NOTE | 2016-05-02 09:36 | CP.PCM.PN ---
Subjective - Date & Time of Evaluation Date of Evaluation: 05/02/16 Time of Evaluation: 08:00 - Subjective Subjective: Seated comfortably upright. Tachypneic breathing pattern improving. Answers questions appropriately with complete sentences. Tolerating PO intake. No nausea , vomiting, diarrhea. Afebrile. No complaints. Reports improved pain at site of thoracocenthesis. No over-night events. No chest pain or pleurisy. Objective - Vital Signs/Intake and Output Vital Signs (last 24 hours): Temp Pulse Resp BP Pulse Ox 98.4 F 90 24 113/66 99 05/02/16 08:00 05/02/16 08:00 05/02/16 08:00 05/02/16 08:00 05/02/16 08:00 Intake and Output: 05/02/16 05/02/16 06:59 18:59 Intake Total 130 Output Total 200 Balance -70 - Medications Medications: Current Medications Albuterol/Ipratropium (Duoneb 3 Mg/0.5 Mg (3 Ml) Ud) 3 ml INH RQ6 PRN PRN Reason: Shortness of Breath Last Admin: 05/02/16 08:55 Dose: 3 ml Budesonide (Pulmicort Respules) 0.5 mg IH Q12 [facility] Last Admin: 05/02/16 08:56 Dose: 0.5 mg Digoxin (Lanoxin) 0.25 mg PO DAILY [facility] Last Admin: 05/01/16 08:43 Dose: 0.25 mg Guaifenesin (Mucinex La) 1,200 mg PO Q12 [facility] Last Admin: 05/01/16 20:01 Dose: 1,200 mg Haloperidol Lactate (Haldol) 2 mg IVP Q10M PRN PRN Reason: Agitation Lactic Acid (Lac-Hydrin 12% Lotion (225 G)) 1 applic TOP DAILY [facility] Last Admin: 05/01/16 08:42 Dose: 1 applic Metoprolol Tartrate (Lopressor) 100 mg PO Q12 [facility] Last Admin: 05/01/16 20:02 Dose: 100 mg Montelukast Sodium (Singulair) 10 mg PO DAILY [facility] Last Admin: 05/01/16 08:48 Dose: 10 mg Pantoprazole Sodium (Protonix Ec Tab) 40 mg PO DAILY [facility] Last Admin: 05/01/16 08:47 Dose: 40 mg Phenytoin Sodium (Dilantin) 100 mg PO Q12@0900,2100 [facility] Last Admin: 05/01/16 20:01 Dose: 100 mg Rivaroxaban (Xarelto) 15 mg PO BIDWM [facility] PRN Reason: Protocol Stop: 05/17/16 11:00 Last Admin: 05/01/16 16:51 Dose: 15 mg - Labs Labs: 05/02/16 06:02 05/02/16 06:02 PT 12.7 SECONDS (9.6-11.2) H 04/29/16 11:29 INR 1.22 (0.92-1.08) H 04/29/16 11:29 APTT 36.9 SECONDS (23.3-32.5) H 04/23/16 04:25 - Head Exam Head Exam: ATRAUMATIC, NORMOCEPHALIC - Eye Exam Eye Exam: EOMI, Normal appearance Pupil Exam: PERRL - ENT Exam ENT Exam: Mucous Membranes Moist - Neck Exam Neck Exam: Full ROM - Respiratory Exam Respiratory Exam: Rhonchi (Scattered). absent: Rales, Wheezes, Respiratory Distress Additional comments: Mild increased RR - Cardiovascular Exam Cardiovascular Exam: Irregular Rhythm. absent: Tachycardia, Murmur - GI/Abdominal Exam GI & Abdominal Exam: Soft. absent: Distended, Tenderness - Extremities Exam Extremities Exam: absent: Tenderness Additional comments: Anterior tibial healing ulcerations. No oozing or bleeding. No signs of acute infection. Assessment and Plan - Assessment and Plan (Free Text) Plan: 1. 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 Atrial fibrillation, RVR Likely secondary to clot burden and RV Strain Rate improving 80s Metoprolol tartrate 100mg po bid Digoxin 0.25mg po daily Dig level WNL .9( 05/01/16) Xarelto Cardio on board 3. BL Pleural Effusions Right bedside pleural effusion 1.2L of serous-sanguinous fluid. Patient appears to be doing better since procedure. PCO2: 56, HCO3:40.9, PH:7.53 (Exudative Fluid ) Pleural fluid: WBC: 4867, RBC: 085551, LDH:2589 Afebrile throughout the night WBC trending down Discontinue Azithromycin and Ceftriaxone ID (Dr Vasquez) consult 4. HF, acute decompensation (Systolic) Likely secondary to RV Strain from clot burden Echo reviewed, mitral valve thickened, mild pulmonary hypertension, RV mildly dilated Stop Lasix Met Alk improved with Diamox Will replace K+ 5. Hypertension, controlled Continue current management 6. Seizure hx NOS Phenytoin 100mg po bid
[2016-05-02] MEDS: Pantoprazole 40 mg EC Tab PO SCH (09:38)
[2016-05-02] MEDS: guaiFENesin 600 mg ER Tab PO SCH ×2 (09:38→22:29)
[2016-05-02] MEDS: Digoxin 250 mcg (0.25 mg) Tab PO SCH (09:39)
[2016-05-02] MEDS ORDERED: Potassium Chloride 20 mEq ER Tab PO ONE (11:23)
--- NOTE | 2016-05-02 17:35 | CP.PCM.PN ---
Subjective - Date & Time of Evaluation Date of Evaluation: 05/02/16 - Subjective Subjective: F/U Respiratory failure. Pt smiling, no A/D, on NC 3 l/m. Objective - Vital Signs/Intake and Output Vital Signs (last 24 hours): Temp Pulse Resp BP Pulse Ox 97.9 F 81 26 H 112/63 100 05/02/16 12:00 05/02/16 14:00 05/02/16 14:00 05/02/16 14:00 05/02/16 14:00 Intake and Output: 05/02/16 05/02/16 06:59 18:59 Intake Total 130 1680 Output Total 200 Balance -70 1680 - Medications Medications: Current Medications Albuterol/Ipratropium (Duoneb 3 Mg/0.5 Mg (3 Ml) Ud) 3 ml INH RQ6 PRN PRN Reason: Shortness of Breath Last Admin: 05/02/16 08:55 Dose: 3 ml Budesonide (Pulmicort Respules) 0.5 mg IH Q12 [facility] Last Admin: 05/02/16 08:56 Dose: 0.5 mg Digoxin (Lanoxin) 0.25 mg PO DAILY [facility] Last Admin: 05/02/16 09:39 Dose: 0.25 mg Guaifenesin (Mucinex La) 1,200 mg PO Q12 [facility] Last Admin: 05/02/16 09:38 Dose: 1,200 mg Haloperidol Lactate (Haldol) 2 mg IVP Q10M PRN PRN Reason: Agitation Lactic Acid (Lac-Hydrin 12% Lotion (225 G)) 1 applic TOP DAILY [facility] Last Admin: 05/02/16 09:37 Dose: 1 applic Metoprolol Tartrate (Lopressor) 100 mg PO Q12 [facility] Last Admin: 05/02/16 09:38 Dose: 100 mg Montelukast Sodium (Singulair) 10 mg PO DAILY [facility] Last Admin: 05/02/16 09:38 Dose: 10 mg Pantoprazole Sodium (Protonix Ec Tab) 40 mg PO DAILY [facility] Last Admin: 05/02/16 09:38 Dose: 40 mg Phenytoin Sodium (Dilantin) 100 mg PO Q12@0900,2100 [facility] Last Admin: 05/02/16 09:38 Dose: 100 mg Rivaroxaban (Xarelto) 15 mg PO BIDWM [facility]PL[facility] PRN Reason: Protocol Stop: 05/17/16 11:00 Last Admin: 05/02/16 17:00 Dose: 15 mg - Labs Labs: 05/02/16 06:02 05/02/16 06:02 PT 12.7 SECONDS (9.6-11.2) H 04/29/16 11:29 INR 1.22 (0.92-1.08) H 04/29/16 11:29 APTT 36.9 SECONDS (23.3-32.5) H 04/23/16 04:25 - Constitutional Appears: No Acute Distress, Chronically Ill - Head Exam Head Exam: NORMAL INSPECTION - Eye Exam Eye Exam: PERRL - ENT Exam Additional comments: On NC - Neck Exam Neck Exam: Normal Inspection - Respiratory Exam Respiratory Exam: Decreased Breath Sounds (at bases), Rhonchi (few at bases) Additional comments: few crackles R base - Cardiovascular Exam Cardiovascular Exam: Irregular Rhythm - GI/Abdominal Exam GI & Abdominal Exam: Soft, Normal Bowel Sounds - Extremities Exam Extremities Exam: Pedal Edema - Neurological Exam Neurological Exam: Alert, Oriented x3 Additional comments: Generalized weakness. - Psychiatric Exam Psychiatric exam: Normal Mood - Skin Skin Exam: Warm Assessment and Plan (1) Acute respiratory failure Status: Acute (2) Pulmonary embolism with infarction Status: Acute (3) DVT of lower extremity, bilateral Status: Acute (4) New onset atrial fibrillation Status: Acute (5) Pulmonary artery hypertension Status: Acute (6) Bilateral pleural effusion Status: Acute (7) Asthma Status: Chronic - Assessment and Plan (Free Text) Plan: ABG PCO2 55 , PO2 78 . FIO2 32, 2 sat 93 , NC 4 L/M , Duoneb, Mucinex, Pulmicort , Singulair , Xarelto ICU TIME: 40 MIN.
--- NOTE | 2016-05-03 07:44 | CP.CCUPN ---
CCU Subjective - Physician Review Events Since Last Encounter (Free Text): 05/03/16 07:44 Patient awake, on O2 supplement by nasal canula, no distress, no pressors, no fever, events reviewed CCU Objective - Vital Signs / Intake & Output Vital Signs (Last 4 hours): Vital Signs Temp Pulse Resp BP Pulse Ox 05/03/16 06:00 96 H 40 H 99/49 L 99 05/03/16 04:00 98.8 F 85 31 H 109/57 L 98 Intake and Output (Last 8hrs): Intake & Output 05/02/16 05/03/16 05/03/16 22:59 06:59 14:59 Intake Total 600 Output Total 1 Balance 599 Intake: Oral 600 Output: Urine/Stool Mix 1 Other: # Voids Urine, Voided 1 1 # Bowel Movements 1 - Physical Exam Head: Positive for: Atraumatic Pupils: Positive for: PERRL Extroacular Muscles: Positive for: EOMI Mouth: Positive for: Moist Mucous Membranes Neck: Positive for: Normal Range of Motion, Trachea Midline. Negative for: MIDLINE TENDERNESS, JVD Respiratory/Chest: Positive for: Wheezes (mild throughout), Decreased Breath Sounds Cardiovascular: Positive for: Irregular Rhythm Abdomen: Positive for: Normal Bowel Sounds. Negative for: Tenderness, Distention Upper Extremity: Positive for: Normal Inspection. Negative for: Cyanosis Lower Extremity: Positive for: Edema (2+ ), Other (venous insufficiency) Neurological: Positive for: GCS=15, CN II-XII Intact - Medications Active Medications: Active Medications Generic Name Dose Route Start Last Admin Trade Name Freq PRN Reason Stop Dose Admin Albuterol/Ipratropium 3 ml 04/28/16 17:27 05/02/16 08:55 Duoneb 3 Mg/0.5 Mg (3 Ml) Ud INH 3 ml RQ6 PRN Administration Shortness of Breath Budesonide 0.5 mg 04/28/16 09:00 05/02/16 08:56 Pulmicort Respules IH 0.5 mg Q12 [facility] Administration Digoxin 0.25 mg 04/28/16 09:00 05/02/16 09:39 Lanoxin PO 0.25 mg DAILY [facility] Administration Guaifenesin 1,200 mg 05/01/16 12:00 05/02/16 22:29 Mucinex La PO 1,200 mg Q12 [facility] Administration Haloperidol Lactate 2 mg 04/29/16 13:11 Haldol IVP Q10M PRN Agitation Lactic Acid 1 applic 04/28/16 09:00 05/02/16 09:37 Lac-Hydrin 12% Lotion (225 G) TOP 1 applic DAILY [facility] Administration Metoprolol Tartrate 100 mg 04/28/16 09:00 05/02/16 22:30 Lopressor PO 100 mg Q12 [facility] Administration Montelukast Sodium 10 mg 04/28/16 09:00 05/02/16 09:38 Singulair PO 10 mg DAILY [facility] Administration Pantoprazole Sodium 40 mg 05/01/16 09:00 05/02/16 09:38 Protonix Ec Tab PO 40 mg DAILY [facility] Administration Phenytoin Sodium 100 mg 04/29/16 21:00 05/02/16 22:30 Dilantin PO 100 mg Q12@0900,2100 [facility] Administration Rivaroxaban 15 mg 04/28/16 08:00 05/02/16 17:00 Xarelto PO 05/17/16 11:00 15 mg BIDWM [facility] Administration Protocol - Patient Studies Lab Studies: Microbiology Studies 05/01/16 04:10 Blood Culture - Preliminary Blood-Venous NO GROWTH AFTER 48 HOURS 04/29/16 12:20 Gram Stain - Final Pleural Fluid Body Fluid Culture - Preliminary NO GROWTH AFTER 3 DAYS Fingerstick Blood Sugar Results: 162 Critical Care Progress Note - Nutrition Nutrition: Nutrition Category Date Time Status Heart Healthy Diet [DIET] Diets 04/29/16 Dinner Active Assessment/Plan - Assessment and Plan (Free Text) Assessment: A/p Respiratory insufficiency, PE/DVT, pneumonia, seizer disorder, sepsis, astma, A Fib, CHF, pulmonary hypertension - O2 supplement - Pulmonary toilets - Continue meds - Follow up labs
[2016-05-03 07:46] LABS: HEMATOCRIT 42.1 % (34.0-47.0); MEAN CELL VOLUME 95.6 fl (81.0-99.0); MEAN CORPUSCULAR HEMOGLOBIN 30.8 pg (27.0-31.0); MEAN CORPUSCULAR HGB CONC 32.2 g/dL (33.0-37.0); WHITE BLOOD COUNT 9.3 K/uL (4.8-10.8)
[2016-05-03 08:02] LABS: ALB/GLOB RATIO 0.6 (1.0-2.1); ALKALINE PHOSPHATASE 202 U/L (38-126); ALT/SGPT 96 U/L (9-52); AST/SGOT 119 U/L (14-36); BILIRUBIN,TOTAL 0.7 mg/dl (0.2-1.3); BLOOD UREA NITROGEN 13 mg/dl (7-17); CALCIUM 8.6 mg/dL (8.4-10.2); CARBON DIOXIDE 28 mmol/L (22-30); CHLORIDE 100 mmol/L (98-107); GFR AFRICAN-AMERICAN > 60; GLUCOSE,RANDOM 113 mg/dL (65-105); POTASSIUM 3.8 MMOL/L (3.6-5.0); SODIUM 132 mmol/l (132-148)
--- NOTE | 2016-05-03 08:35 | CP.PCM.PN ---
Subjective - Date & Time of Evaluation Date of Evaluation: 05/03/16 Time of Evaluation: 07:00 - Subjective Subjective: PAtient appears to be doing well resting on the chair on nasal canula eating her breatkfast. She is tolerating PO intake. Pt had a bowl movment last night. PT has no new complaints Objective - Vital Signs/Intake and Output Vital Signs (last 24 hours): Temp Pulse Resp BP Pulse Ox 98.8 F 96 H 40 H 99/49 L 99 05/03/16 04:00 05/03/16 06:00 05/03/16 06:00 05/03/16 06:00 05/03/16 06:00 Intake and Output: 05/03/16 05/03/16 06:59 18:59 Intake Total 120 Output Total 1 Balance 119 - Medications Medications: Current Medications Albuterol/Ipratropium (Duoneb 3 Mg/0.5 Mg (3 Ml) Ud) 3 ml INH RQ6 PRN PRN Reason: Shortness of Breath Last Admin: 05/02/16 08:55 Dose: 3 ml Budesonide (Pulmicort Respules) 0.5 mg IH Q12 [facility] Last Admin: 05/02/16 08:56 Dose: 0.5 mg Digoxin (Lanoxin) 0.25 mg PO DAILY [facility] Last Admin: 05/02/16 09:39 Dose: 0.25 mg Guaifenesin (Mucinex La) 1,200 mg PO Q12 [facility] Last Admin: 05/02/16 22:29 Dose: 1,200 mg Haloperidol Lactate (Haldol) 2 mg IVP Q10M PRN PRN Reason: Agitation Lactic Acid (Lac-Hydrin 12% Lotion (225 G)) 1 applic TOP DAILY [facility] Last Admin: 05/02/16 09:37 Dose: 1 applic Metoprolol Tartrate (Lopressor) 100 mg PO Q12 [facility] Last Admin: 05/02/16 22:30 Dose: 100 mg Montelukast Sodium (Singulair) 10 mg PO DAILY [facility] Last Admin: 05/02/16 09:38 Dose: 10 mg Pantoprazole Sodium (Protonix Ec Tab) 40 mg PO DAILY [facility] Last Admin: 05/02/16 09:38 Dose: 40 mg Phenytoin Sodium (Dilantin) 100 mg PO Q12@0900,2100 [facility] Last Admin: 05/02/16 22:30 Dose: 100 mg Rivaroxaban (Xarelto) 15 mg PO BIDWM [facility] PRN Reason: Protocol Stop: 05/17/16 11:00 Last Admin: 05/02/16 17:00 Dose: 15 mg - Labs Labs: 05/03/16 04:00 05/03/16 06:00 PT 12.7 SECONDS (9.6-11.2) H 04/29/16 11:29 INR 1.22 (0.92-1.08) H 04/29/16 11:29 APTT 36.9 SECONDS (23.3-32.5) H 04/23/16 04:25 - Constitutional Appears: No Acute Distress - Head Exam Head Exam: ATRAUMATIC, NORMAL INSPECTION, NORMOCEPHALIC - Eye Exam Eye Exam: Normal appearance Pupil Exam: NORMAL ACCOMODATION - Respiratory Exam Respiratory Exam: Clear to Ausculation Bilateral (Still taking short rapid breaths, but saturating well. ), Prolonged Expiratory Phase (Decreased breath sounds noticed at base of lungs b/l) - Cardiovascular Exam Cardiovascular Exam: REGULAR RHYTHM, +S1, +S2 - GI/Abdominal Exam GI & Abdominal Exam: Soft, Normal Bowel Sounds. absent: Tenderness - Neurological Exam Neurological Exam: Alert, Awake, CN II-XII Intact, Oriented x3 - Psychiatric Exam Psychiatric exam: Normal Affect, Normal Mood Assessment and Plan - Assessment and Plan (Free Text) Assessment: 1. 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 Atrial fibrillation, RVR Likely secondary to clot burden and RV Strain Rate improving 80-90's Metoprolol tartrate 100mg po bid Digoxin 0.25mg po daily Dig level WNL .9( 05/01/16) Xarelto Cardio on board - [facility] 3. BL Pleural Effusions Right bedside pleural effusion 1.2L of serous-sanguinous fluid. Patient appears to be doing better since procedure. PCO2: 55, HCO3:29.3, PH:7.38 (Exudative Fluid ) Pleural fluid: WBC: 4867, RBC: 851798, LDH:2589 Afebrile throughout the night WBC trending down ID (Dr Vasquez) consult 4. HF, acute decompensation (Systolic) Likely secondary to RV Strain from clot burden Echo reviewed, mitral valve thickened, mild pulmonary hypertension, RV mildly dilated Stop Lasix Met Alk improved with Diamox K+: wnl 5. Hypertension, controlled Continue current management 6. Seizure hx NOS Phenytoin 100mg po bid
[2016-05-03] MEDS: Pantoprazole 40 mg EC Tab PO SCH (08:51)
[2016-05-03] MEDS: Digoxin 250 mcg (0.25 mg) Tab PO SCH (08:51)
[2016-05-03] MEDS: Albuterol-Ipratrop 3 mg / 0.5 (3 ml) UD INH PRN (09:18)
[2016-05-03] MEDS: Budesonide 0.5 mg/2 ml Inhal Susp UD IH SCH ×2 (09:18→20:05)
[2016-05-03] MEDS: guaiFENesin 600 mg ER Tab PO SCH ×2 (11:47→20:50)
--- NOTE | 2016-05-03 14:15 | CP.PCM.PN ---
Subjective - Date & Time of Evaluation Date of Evaluation: 05/03/16 Time of Evaluation: 08:00 - Subjective Subjective: no complaints afeb off antibiotics Objective - Vital Signs/Intake and Output Vital Signs (last 24 hours): Temp Pulse Resp BP Pulse Ox 97.6 F 86 29 H 114/66 100 05/03/16 12:00 05/03/16 14:00 05/03/16 14:00 05/03/16 14:00 05/03/16 14:00 Intake and Output: 05/03/16 05/03/16 06:59 18:59 Intake Total 120 420 Output Total 1 400 Balance 119 20 - Medications Medications: Current Medications Albuterol/Ipratropium (Duoneb 3 Mg/0.5 Mg (3 Ml) Ud) 3 ml INH RQ6 PRN PRN Reason: Shortness of Breath Last Admin: 05/03/16 09:18 Dose: 3 ml Budesonide (Pulmicort Respules) 0.5 mg IH Q12 [facility] Last Admin: 05/03/16 09:18 Dose: 0.5 mg Digoxin (Lanoxin) 0.25 mg PO DAILY [facility] Last Admin: 05/03/16 08:51 Dose: 0.25 mg Guaifenesin (Mucinex La) 1,200 mg PO Q12 [facility] Last Admin: 05/03/16 11:47 Dose: 1,200 mg Haloperidol Lactate (Haldol) 2 mg IVP Q10M PRN PRN Reason: Agitation Lactic Acid (Lac-Hydrin 12% Lotion (225 G)) 1 applic TOP DAILY [facility] Last Admin: 05/03/16 08:52 Dose: 1 applic Metoprolol Tartrate (Lopressor) 100 mg PO Q12 [facility] Last Admin: 05/03/16 11:47 Dose: 100 mg Montelukast Sodium (Singulair) 10 mg PO DAILY [facility] Last Admin: 05/03/16 08:51 Dose: 10 mg Pantoprazole Sodium (Protonix Ec Tab) 40 mg PO DAILY [facility] Last Admin: 05/03/16 08:51 Dose: 40 mg Phenytoin Sodium (Dilantin) 100 mg PO Q12@0900,2100 [facility] Last Admin: 05/03/16 08:51 Dose: 100 mg Rivaroxaban (Xarelto) 15 mg PO BIDWM [facility] PRN Reason: Protocol Stop: 05/17/16 11:00 Last Admin: 05/03/16 08:50 Dose: 15 mg - Labs Labs: 05/03/16 04:00 05/03/16 06:00 PT 12.7 SECONDS (9.6-11.2) H 04/29/16 11:29 INR 1.22 (0.92-1.08) H 04/29/16 11:29 APTT 36.9 SECONDS (23.3-32.5) H 04/23/16 04:25 - Constitutional Appears: Non-toxic, Chronically Ill - Head Exam Head Exam: NORMOCEPHALIC - Eye Exam Eye Exam: absent: Scleral icterus - ENT Exam ENT Exam: Mucous Membranes Dry - Neck Exam Neck Exam: absent: Lymphadenopathy - Respiratory Exam Respiratory Exam: Decreased Breath Sounds, Clear to Ausculation Bilateral - Cardiovascular Exam Cardiovascular Exam: REGULAR RHYTHM, +S1, +S2 - GI/Abdominal Exam GI & Abdominal Exam: Distended, Soft. absent: Tenderness Assessment and Plan (1) Acute respiratory failure Status: Acute (2) DVT of lower extremity, bilateral Status: Acute (3) New onset atrial fibrillation Status: Acute (4) Atrial fibrillation with RVR Status: Acute (5) CHF (congestive heart failure) Status: Acute (6) Coagulopathy Status: Acute (7) Leukocytosis Status: Acute (8) Pleural effusion, right Status: Resolved
--- NOTE | 2016-05-03 17:05 | RAD ---
HISTORY: Pleural Effusions, shortness of breath COMPARISON: 04/30/2016 TECHNIQUE: Chest PA and lateral FINDINGS: LUNGS: There is stable alveolar density within the right lung, greater within the right lower lobe but also seen in the right upper lobe. There is additionally some areas of increased density seen in the left retrocardiac region although there may be some minor interval improvement aeration in the left upper lobe. Vasculature is mildly congested. Aorta and heart are unchanged. No pneumothorax is seen. Trachea is midline. PLEURA: Small effusions are not excluded. CARDIOVASCULAR: Mild vascular congestion. OSSEOUS STRUCTURES: No significant abnormalities. VISUALIZED UPPER ABDOMEN: Limited. OTHER FINDINGS: None. IMPRESSION: Persistent right lung infiltrates and/or edema. Minimal interval improvement aeration in the left lung although persistent left lower lobe atelectasis is noted. Probable right pleural effusion.
--- NOTE | 2016-05-03 17:15 | US ---
HISTORY: increase liver enzymes COMPARISON: None. TECHNIQUE: Sonographic evaluation of the abdomen. FINDINGS: LIVER: Measures 11.4 cm. Normal echogenicity of the liver parenchyma. No mass. No intrahepatic bile duct dilatation. GALLBLADDER: Unremarkable. No gallstones. COMMON BILE DUCT: Measures 3.8 mm. No stones. No dilatation. PANCREAS: Head and body of the pancreas are normal in outline and echogenicity. The tail of the pancreas was obscured by bowel gas. RIGHT KIDNEY: Measures 10.1cm. Normal echogenicity. No calculus, mass, or hydronephrosis. LEFT KIDNEY: Measures 10.3cm. Two small hypoechoic cysts are seen in the lower left kidney. There is a 1 centimeter midpole cyst, and a 1.1 centimeter x 1.2 centimeter lower pole left renal cyst. No renal calculi are seen. SPLEEN: Normal in size and contour. No mass. AORTA: No aneurysmal dilatation. IVC: Unremarkable. OTHER FINDINGS: No ascites is seen. IMPRESSION: Limited evaluation of the pancreas. Small left renal cyst. No evidence of gallstones. Otherwise unremarkable abdominal ultrasound.
--- NOTE | 2016-05-03 21:05 | CP.PCM.PN ---
Subjective - Date & Time of Evaluation Date of Evaluation: 05/03/16 Time of Evaluation: 17:00 - Subjective Subjective: Feels better, appears weak Objective - Vital Signs/Intake and Output Vital Signs (last 24 hours): Temp Pulse Resp BP Pulse Ox 97.3 F L 78 20 110/63 97 05/03/16 20:54 05/03/16 20:54 05/03/16 20:54 05/03/16 20:54 05/03/16 16:00 Intake and Output: 05/03/16 05/04/16 18:59 06:59 Intake Total 780 Output Total 650 Balance 130 - Medications Medications: Current Medications Albuterol/Ipratropium (Duoneb 3 Mg/0.5 Mg (3 Ml) Ud) 3 ml INH RQ6 PRN PRN Reason: Shortness of Breath Last Admin: 05/03/16 09:18 Dose: 3 ml Budesonide (Pulmicort Respules) 0.5 mg IH Q12 [facility] Last Admin: 05/03/16 20:05 Dose: 0.5 mg Digoxin (Lanoxin) 0.25 mg PO DAILY [facility] Last Admin: 05/03/16 08:51 Dose: 0.25 mg Guaifenesin (Mucinex La) 1,200 mg PO Q12 [facility] Last Admin: 05/03/16 20:50 Dose: 1,200 mg Haloperidol Lactate (Haldol) 2 mg IVP Q10M PRN PRN Reason: Agitation Lactic Acid (Lac-Hydrin 12% Lotion (225 G)) 1 applic TOP DAILY [facility] Last Admin: 05/03/16 08:52 Dose: 1 applic Metoprolol Tartrate (Lopressor) 100 mg PO Q12 [facility] Last Admin: 05/03/16 20:50 Dose: 100 mg Montelukast Sodium (Singulair) 10 mg PO DAILY [facility] Last Admin: 05/03/16 08:51 Dose: 10 mg Pantoprazole Sodium (Protonix Ec Tab) 40 mg PO DAILY [facility] Last Admin: 05/03/16 08:51 Dose: 40 mg Phenytoin Sodium (Dilantin) 100 mg PO Q12@0900,2100 [facility] Last Admin: 05/03/16 20:50 Dose: 100 mg Rivaroxaban (Xarelto) 15 mg PO BIDWM [facility] PRN Reason: Protocol Stop: 05/17/16 11:00 Last Admin: 05/03/16 17:09 Dose: 15 mg - Labs Labs: 05/03/16 04:00 05/03/16 06:00 PT 12.7 SECONDS (9.6-11.2) H 04/29/16 11:29 INR 1.22 (0.92-1.08) H 04/29/16 11:29 APTT 36.9 SECONDS (23.3-32.5) H 04/23/16 04:25 - Head Exam Head Exam: ATRAUMATIC - Eye Exam Eye Exam: Normal appearance - ENT Exam ENT Exam: Mucous Membranes Dry - Respiratory Exam Respiratory Exam: Decreased Breath Sounds - Cardiovascular Exam Cardiovascular Exam: +S1, +S2 - GI/Abdominal Exam GI & Abdominal Exam: Normal Bowel Sounds - Extremities Exam Extremities Exam: Pedal Edema Assessment and Plan (1) Pulmonary embolism with infarction Assessment & Plan: with B/L LE DVT - unprovoked s/p IVC filter on Xarelto Status: Acute (2) Coagulopathy Assessment & Plan: anticoagulation Status: Acute
[2016-05-04] MEDS: Budesonide 0.5 mg/2 ml Inhal Susp UD IH SCH ×2 (07:48→19:24)
[2016-05-04] MEDS: Digoxin 250 mcg (0.25 mg) Tab PO SCH (08:55)
[2016-05-04] MEDS: Pantoprazole 40 mg EC Tab PO SCH (08:56)
[2016-05-04] MEDS: guaiFENesin 600 mg ER Tab PO SCH ×2 (08:56→20:55)
--- NOTE | 2016-05-04 09:51 | CP.PCM.PN ---
Subjective - Date & Time of Evaluation Date of Evaluation: 05/04/16 Time of Evaluation: 07:15 - Subjective Subjective: 70 YO F was seen finishing eating her breakfast. She states her breathing is much better, she is able to conversate in sentences without becoming short of breath. She has been tolerating PO intake, denies N/V/D. Objective - Vital Signs/Intake and Output Vital Signs (last 24 hours): Temp Pulse Resp BP Pulse Ox 98 F 107 H 18 114/71 99 05/04/16 08:18 05/04/16 08:52 05/04/16 08:18 05/04/16 08:52 05/04/16 08:18 - Medications Medications: Current Medications Albuterol/Ipratropium (Duoneb 3 Mg/0.5 Mg (3 Ml) Ud) 3 ml INH RQ6 PRN PRN Reason: Shortness of Breath Last Admin: 05/03/16 09:18 Dose: 3 ml Budesonide (Pulmicort Respules) 0.5 mg IH Q12 [facility] Last Admin: 05/03/16 20:05 Dose: 0.5 mg Digoxin (Lanoxin) 0.25 mg PO DAILY [facility] Last Admin: 05/04/16 08:55 Dose: 0.25 mg Guaifenesin (Mucinex La) 1,200 mg PO Q12 [facility] Last Admin: 05/04/16 08:56 Dose: 1,200 mg Haloperidol Lactate (Haldol) 2 mg IVP Q10M PRN PRN Reason: Agitation Lactic Acid (Lac-Hydrin 12% Lotion (225 G)) 1 applic TOP DAILY [facility] Last Admin: 05/04/16 08:55 Dose: 1 applic Metoprolol Tartrate (Lopressor) 100 mg PO Q12 [facility] Last Admin: 05/04/16 08:52 Dose: 100 mg Montelukast Sodium (Singulair) 10 mg PO DAILY [facility] Last Admin: 05/04/16 08:55 Dose: 10 mg Pantoprazole Sodium (Protonix Ec Tab) 40 mg PO DAILY [facility] Last Admin: 05/04/16 08:56 Dose: 40 mg Phenytoin Sodium (Dilantin) 100 mg PO Q12@0900,2100 [facility] Last Admin: 05/04/16 08:56 Dose: 100 mg Rivaroxaban (Xarelto) 15 mg PO BIDWM [facility] PRN Reason: Protocol Stop: 05/17/16 11:00 Last Admin: 05/04/16 08:55 Dose: 15 mg - Labs Labs: 05/03/16 04:00 05/03/16 06:00 PT 12.7 SECONDS (9.6-11.2) H 04/29/16 11:29 INR 1.22 (0.92-1.08) H 04/29/16 11:29 APTT 36.9 SECONDS (23.3-32.5) H 04/23/16 04:25 - Constitutional Appears: No Acute Distress - Head Exam Head Exam: ATRAUMATIC, NORMAL INSPECTION, NORMOCEPHALIC - Eye Exam Eye Exam: Normal appearance - ENT Exam ENT Exam: Mucous Membranes Moist - Respiratory Exam Respiratory Exam: Clear to Ausculation Bilateral. absent: Rhonchi, Wheezes Additional comments: - Slightly tahpnic.Better then before - On nasal canula. - Decreased breath sounds at bases of lungs - Cardiovascular Exam Cardiovascular Exam: REGULAR RHYTHM, +S1, +S2 - GI/Abdominal Exam GI & Abdominal Exam: Soft, Normal Bowel Sounds. absent: Tenderness - Neurological Exam Neurological Exam: Alert, Awake, Oriented x3 - Psychiatric Exam Psychiatric exam: Normal Affect, Normal Mood Assessment and Plan - Assessment and Plan (Free Text) Assessment: 1. 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 Atrial fibrillation, RVR Likely secondary to clot burden and RV Strain Heart rate 80- 100's Metoprolol tartrate 100mg po bid Digoxin 0.25mg po daily Dig level WNL .9( 05/01/16) Xarelto - Continue telometry 3. BL Pleural Effusions Right bedside pleural effusion 1.2L of serous-sanguinous fluid. Patient appears to be doing better since procedure. PCO2: 55, HCO3:29.3, PH:7.38 (Exudative Fluid ) Pleural fluid: WBC: 4867, RBC: 014298, LDH:2589 Afebrile throughout the night WBC trending down ID (Dr Vasquez) consult - X ray 05/04/16:Persistent right lung infiltrates and/ edema. Minimal interval improvement aeration in the left lung w/ persistent left lower lobe atelectasis. W/ possible right pleural effusion 4. HF, acute decompensation (Systolic) Likely secondary to RV Strain from clot burden Echo reviewed, mitral valve thickened, mild pulmonary hypertension, RV mildly dilated Stop Lasix 5. Hypertension, controlled Continue current management 6. Seizure hx NOS Phenytoin 100mg po bid
--- NOTE | 2016-05-04 15:31 | CP.PCM.PN ---
Subjective - Date & Time of Evaluation Date of Evaluation: 05/04/16 Time of Evaluation: 12:00 - Subjective Subjective: F/U respiratory Failure. No AD , Patient is walking to bathroom with assistance without O2 , no RIVAS , Objective - Vital Signs/Intake and Output Vital Signs (last 24 hours): Temp Pulse Resp BP Pulse Ox 97.5 F L 86 18 108/61 99 05/04/16 12:26 05/04/16 12:26 05/04/16 12:26 05/04/16 12:26 05/04/16 12:26 Intake and Output: 05/04/16 05/04/16 06:59 18:59 Intake Total 360 Balance 360 - Medications Medications: Current Medications Albuterol/Ipratropium (Duoneb 3 Mg/0.5 Mg (3 Ml) Ud) 3 ml INH RQ6 PRN PRN Reason: Shortness of Breath Last Admin: 05/03/16 09:18 Dose: 3 ml Budesonide (Pulmicort Respules) 0.5 mg IH Q12 [facility] Last Admin: 05/03/16 20:05 Dose: 0.5 mg Digoxin (Lanoxin) 0.25 mg PO DAILY [facility] Last Admin: 05/04/16 08:55 Dose: 0.25 mg Guaifenesin (Mucinex La) 1,200 mg PO Q12 [facility] Last Admin: 05/04/16 08:56 Dose: 1,200 mg Lactic Acid (Lac-Hydrin 12% Lotion (225 G)) 1 applic TOP DAILY [facility] Last Admin: 05/04/16 08:55 Dose: 1 applic Metoprolol Tartrate (Lopressor) 100 mg PO Q12 [facility] Last Admin: 05/04/16 08:52 Dose: 100 mg Montelukast Sodium (Singulair) 10 mg PO DAILY [facility] Last Admin: 05/04/16 08:55 Dose: 10 mg Phenytoin Sodium (Dilantin) 100 mg PO Q12@0900,2100 [facility] Last Admin: 05/04/16 08:56 Dose: 100 mg Rivaroxaban (Xarelto) 15 mg PO BIDWM [facility] PRN Reason: Protocol Stop: 05/17/16 11:00 Last Admin: 05/04/16 08:55 Dose: 15 mg - Labs Labs: 05/03/16 04:00 05/03/16 06:00 PT 12.7 SECONDS (9.6-11.2) H 04/29/16 11:29 INR 1.22 (0.92-1.08) H 04/29/16 11:29 APTT 36.9 SECONDS (23.3-32.5) H 04/23/16 04:25 - Constitutional Appears: No Acute Distress - Head Exam Head Exam: NORMAL INSPECTION - Eye Exam Pupil Exam: PERRL - Neck Exam Neck Exam: Normal Inspection - Respiratory Exam Respiratory Exam: Decreased Breath Sounds (at bases) - Cardiovascular Exam Cardiovascular Exam: Irregular Rhythm - GI/Abdominal Exam GI & Abdominal Exam: Soft, Normal Bowel Sounds - Extremities Exam Extremities Exam: Pedal Edema (decreased, chronic skin distal changes) - Back Exam Back Exam: NORMAL INSPECTION - Neurological Exam Neurological Exam: Awake, Oriented x3 Additional comments: no focal motor sensory deficit , generalized weakness - Psychiatric Exam Psychiatric exam: Anxious - Skin Skin Exam: Warm Assessment and Plan (1) Acute respiratory failure Status: Acute (2) Pulmonary embolism with infarction Assessment & Plan: Continue Xarelto , CXR 3-19 with changes from previous P/E with infarct and previous CHF , residual effusions Status: Acute (3) DVT of lower extremity, bilateral Assessment & Plan: continue Xarelto , sp IVC filter, Status: Acute (4) New onset atrial fibrillation Assessment & Plan: Patient on Digoxin , Metropolol Status: Acute (5) Pulmonary artery hypertension Assessment & Plan: improved after treatment of PE and CHF Status: Acute (6) Bilateral pleural effusion Assessment & Plan: improved s/p R thoracentesis , small residual B/L effusions Status: Acute (7) Asthma Assessment & Plan: stable Status: Chronic (8) Chronic venous insufficiency Assessment & Plan: DVT L/E, s/p IVC filter, on Xarelto Status: Chronic - Assessment and Plan (Free Text) Plan: Patient with slow improvement , continue treatment, f/u CT Chest , PT eval
--- NOTE | 2016-05-05 01:37 | CP.PCM.PN ---
Subjective - Date & Time of Evaluation Date of Evaluation: 05/04/16 Time of Evaluation: 18:30 - Subjective Subjective: Feeling better Objective - Vital Signs/Intake and Output Vital Signs (last 24 hours): Temp Pulse Resp BP Pulse Ox 97.5 F L 92 H 20 112/68 98 05/05/16 00:18 05/05/16 00:18 05/05/16 00:18 05/05/16 00:18 05/05/16 00:18 Intake and Output: 05/04/16 05/05/16 18:59 06:59 Intake Total 360 0 Balance 360 0 - Medications Medications: Current Medications Albuterol/Ipratropium (Duoneb 3 Mg/0.5 Mg (3 Ml) Ud) 3 ml INH RQ6 PRN PRN Reason: Shortness of Breath Last Admin: 05/03/16 09:18 Dose: 3 ml Budesonide (Pulmicort Respules) 0.5 mg IH Q12 [facility] Last Admin: 05/04/16 19:24 Dose: 0.5 mg Digoxin (Lanoxin) 0.25 mg PO DAILY [facility] Last Admin: 05/04/16 08:55 Dose: 0.25 mg Guaifenesin (Mucinex La) 1,200 mg PO Q12 [facility] Last Admin: 05/04/16 20:55 Dose: 1,200 mg Lactic Acid (Lac-Hydrin 12% Lotion (225 G)) 1 applic TOP DAILY [facility] Last Admin: 05/04/16 08:55 Dose: 1 applic Metoprolol Tartrate (Lopressor) 100 mg PO Q12 [facility] Last Admin: 05/04/16 20:56 Dose: 100 mg Montelukast Sodium (Singulair) 10 mg PO DAILY [facility] Last Admin: 05/04/16 08:55 Dose: 10 mg Phenytoin Sodium (Dilantin) 100 mg PO Q12@0900,2100 [facility] Last Admin: 05/04/16 20:55 Dose: 100 mg Rivaroxaban (Xarelto) 15 mg PO BIDWM [facility] PRN Reason: Protocol Stop: 05/17/16 11:00 Last Admin: 05/04/16 16:40 Dose: 15 mg - Labs Labs: 05/03/16 04:00 05/03/16 06:00 PT 12.7 SECONDS (9.6-11.2) H 04/29/16 11:29 INR 1.22 (0.92-1.08) H 04/29/16 11:29 APTT 36.9 SECONDS (23.3-32.5) H 04/23/16 04:25 - Head Exam Head Exam: ATRAUMATIC - Eye Exam Eye Exam: Normal appearance - ENT Exam ENT Exam: Mucous Membranes Dry - Respiratory Exam Respiratory Exam: NORMAL BREATHING PATTERN - Cardiovascular Exam Cardiovascular Exam: +S1, +S2 - GI/Abdominal Exam GI & Abdominal Exam: Normal Bowel Sounds - Extremities Exam Extremities Exam: Pedal Edema Assessment and Plan (1) Pulmonary embolism with infarction Assessment & Plan: with B/L LE DVT - unprovoked s/p IVC filter on Xarelto Status: Acute (2) Coagulopathy Assessment & Plan: on anticoagulation Status: Acute
--- NOTE | 2016-05-05 07:42 | CP.PCM.PN ---
Subjective - Date & Time of Evaluation Date of Evaluation: 05/05/16 Time of Evaluation: 07:00 - Subjective Subjective: - Patient was seen at bedside resting comfortably, states she is having a little trouble breathing when she wakes up but nothing significant. PAtient has been advised to not lay flat and keep the bed slightly elevated. - Pt is able to walk to the bathroom with assistance w/o O2. - Pt is tired of laying in bed, she is requesting to be able to sit up in a chair. - PT denies N/V/D/ chest pain Contacted Social Work, awaiting placement Objective - Vital Signs/Intake and Output Vital Signs (last 24 hours): Temp Pulse Resp BP Pulse Ox 97.3 F L 90 20 109/60 100 05/05/16 05:00 05/05/16 05:00 05/05/16 05:00 05/05/16 05:00 05/05/16 05:00 Intake and Output: 05/05/16 05/05/16 06:59 18:59 Intake Total 0 Balance 0 - Medications Medications: Current Medications Albuterol/Ipratropium (Duoneb 3 Mg/0.5 Mg (3 Ml) Ud) 3 ml INH RQ6 PRN PRN Reason: Shortness of Breath Last Admin: 05/03/16 09:18 Dose: 3 ml Budesonide (Pulmicort Respules) 0.5 mg IH Q12 [facility] Last Admin: 05/04/16 19:24 Dose: 0.5 mg Digoxin (Lanoxin) 0.25 mg PO DAILY [facility] Last Admin: 05/04/16 08:55 Dose: 0.25 mg Guaifenesin (Mucinex La) 1,200 mg PO Q12 [facility] Last Admin: 05/04/16 20:55 Dose: 1,200 mg Lactic Acid (Lac-Hydrin 12% Lotion (225 G)) 1 applic TOP DAILY [facility] Last Admin: 05/04/16 08:55 Dose: 1 applic Metoprolol Tartrate (Lopressor) 100 mg PO Q12 [facility] Last Admin: 05/04/16 20:56 Dose: 100 mg Montelukast Sodium (Singulair) 10 mg PO DAILY [facility] Last Admin: 05/04/16 08:55 Dose: 10 mg Phenytoin Sodium (Dilantin) 100 mg PO Q12@0900,2100 [facility] Last Admin: 05/04/16 20:55 Dose: 100 mg Rivaroxaban (Xarelto) 15 mg PO BIDWM [facility] PRN Reason: Protocol Stop: 05/17/16 11:00 Last Admin: 05/04/16 16:40 Dose: 15 mg - Labs Labs: 05/03/16 04:00 05/03/16 06:00 PT 12.7 SECONDS (9.6-11.2) H 04/29/16 11:29 INR 1.22 (0.92-1.08) H 04/29/16 11:29 APTT 36.9 SECONDS (23.3-32.5) H 04/23/16 04:25 - Constitutional Appears: No Acute Distress - Head Exam Head Exam: ATRAUMATIC, NORMAL INSPECTION, NORMOCEPHALIC - Eye Exam Eye Exam: Normal appearance - ENT Exam ENT Exam: Mucous Membranes Moist - Respiratory Exam Respiratory Exam: absent: Rhonchi, Wheezes Additional comments: Decreased breath sounds and bases, less tapnic from previous visits. Seems to be doing well on nasal canula - Cardiovascular Exam Cardiovascular Exam: REGULAR RHYTHM, +S1, +S2 - GI/Abdominal Exam GI & Abdominal Exam: Soft, Normal Bowel Sounds. absent: Tenderness - Extremities Exam Extremities Exam: absent: Pedal Edema Additional comments: Chronic skin changes, healing - Neurological Exam Neurological Exam: Alert, Awake, Normal Gait, Oriented x3 Assessment and Plan - Assessment and Plan (Free Text) Assessment: 1. 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 Atrial fibrillation, RVR Likely secondary to clot burden and RV Strain Heart rate 90-100s Metoprolol tartrate 100mg po bid Digoxin 0.25mg po daily Dig level WNL .9( 05/01/16) Xarelto - Continue telometry 3. BL Pleural Effusions Right bedside pleural effusion 1.2L of serous-sanguinous fluid. Patient appears to be doing better since procedure. PCO2: 55, HCO3:29.3, PH:7.38 (Exudative Fluid ) Pleural fluid: WBC: 4867, RBC: [id number], LDH:2589 Afebrile throughout the night WBC trending down ID (Dr Vasquez) consult - X ray 05/04/16:Persistent right lung infiltrates and/ edema. Minimal interval improvement aeration in the left lung w/ persistent left lower lobe atelectasis. W/ possible right pleural effusion. Follow up w/ Pulm 4. HF, acute decompensation (Systolic) Likely secondary to RV Strain from clot burden Echo reviewed, mitral valve thickened, mild pulmonary hypertension, RV mildly dilated 5. Hypertension, controlled Continue current management 6. Seizure hx NOS Phenytoin 100mg po bid
[2016-05-05] MEDS: Budesonide 0.5 mg/2 ml Inhal Susp UD IH SCH ×2 (07:48→08:13)
[2016-05-05 07:50] LABS: ALKALINE PHOSPHATASE 174 U/L (38-126); ALT/SGPT 70 U/L (9-52); AST/SGOT 56 U/L (14-36); BILIRUBIN,TOTAL 0.5 mg/dl (0.2-1.3); BLOOD UREA NITROGEN 11 mg/dl (7-17); CALCIUM 8.6 mg/dL (8.4-10.2); CARBON DIOXIDE 29 mmol/L (22-30); CHLORIDE 101 mmol/L (98-107); GFR AFRICAN-AMERICAN > 60; GLUCOSE,RANDOM 106 mg/dL (65-105); POTASSIUM 3.7 MMOL/L (3.6-5.0); SODIUM 140 mmol/l (132-148); TOTAL PROTEIN 6.1 G/DL (6.3-8.2)
[2016-05-05 07:52] LABS: ALB/GLOB RATIO 0.6 (1.0-2.1)
[2016-05-05] MEDS: guaiFENesin 600 mg ER Tab PO SCH ×2 (09:44→21:38)
[2016-05-05] MEDS: Digoxin 250 mcg (0.25 mg) Tab PO SCH (09:44)
--- NOTE | 2016-05-05 11:04 | CP.PCM.PN ---
Subjective - Date & Time of Evaluation Date of Evaluation: 05/05/16 Time of Evaluation: 08:00 - Subjective Subjective: afeb off antibiotics cont rx Objective - Vital Signs/Intake and Output Vital Signs (last 24 hours): Temp Pulse Resp BP Pulse Ox 97.9 F 115 H 18 130/69 100 05/05/16 08:16 05/05/16 09:43 05/05/16 08:16 05/05/16 09:43 05/05/16 08:16 Intake and Output: 05/05/16 05/05/16 06:59 18:59 Intake Total 0 Balance 0 - Medications Medications: Current Medications Albuterol/Ipratropium (Duoneb 3 Mg/0.5 Mg (3 Ml) Ud) 3 ml INH RQ6 PRN PRN Reason: Shortness of Breath Last Admin: 05/03/16 09:18 Dose: 3 ml Budesonide (Pulmicort Respules) 0.5 mg IH Q12 [facility] Last Admin: 05/05/16 08:13 Dose: 0.5 mg Digoxin (Lanoxin) 0.25 mg PO DAILY [facility] Last Admin: 05/05/16 09:44 Dose: 0.25 mg Guaifenesin (Mucinex La) 1,200 mg PO Q12 [facility] Last Admin: 05/05/16 09:44 Dose: 1,200 mg Lactic Acid (Lac-Hydrin 12% Lotion (225 G)) 1 applic TOP DAILY [facility] Last Admin: 05/05/16 09:45 Dose: 1 applic Metoprolol Tartrate (Lopressor) 100 mg PO Q12 [facility] Last Admin: 05/05/16 09:43 Dose: 100 mg Montelukast Sodium (Singulair) 10 mg PO DAILY [facility] Last Admin: 05/05/16 09:43 Dose: 10 mg Phenytoin Sodium (Dilantin) 100 mg PO Q12@0900,2100 [facility] Last Admin: 05/05/16 09:43 Dose: 100 mg Rivaroxaban (Xarelto) 15 mg PO BIDWM [facility] PRN Reason: Protocol Stop: 05/17/16 11:00 Last Admin: 05/05/16 09:43 Dose: 15 mg - Labs Labs: 05/03/16 04:00 05/05/16 06:40 PT 12.7 SECONDS (9.6-11.2) H 04/29/16 11:29 INR 1.22 (0.92-1.08) H 04/29/16 11:29 APTT 36.9 SECONDS (23.3-32.5) H 04/23/16 04:25 - Constitutional Appears: Non-toxic, Chronically Ill - Head Exam Head Exam: NORMOCEPHALIC - Eye Exam Eye Exam: absent: Scleral icterus - Neck Exam Neck Exam: absent: Lymphadenopathy - Respiratory Exam Respiratory Exam: Decreased Breath Sounds - Cardiovascular Exam Cardiovascular Exam: REGULAR RHYTHM - GI/Abdominal Exam GI & Abdominal Exam: Distended, Soft Assessment and Plan (1) Acute respiratory failure Status: Acute (2) DVT of lower extremity, bilateral Status: Acute (3) New onset atrial fibrillation Status: Acute (4) Atrial fibrillation with RVR Status: Acute (5) CHF (congestive heart failure) Status: Acute (6) Coagulopathy Status: Acute (7) Leukocytosis Status: Acute (8) Pleural effusion, right Status: Resolved
--- NOTE | 2016-05-05 11:43 | CT ---
PROCEDURE: CT Chest without contrast HISTORY: P/E, Pulmonary infarct , CHF COMPARISON: 04/22/2016 TECHNIQUE: Contiguous axial images were obtained through the chest without intravenous contrast enhancement. Sagittal and coronal reconstructions were performed. Radiation dose (DLP): 533.80 mGy-cm. FINDINGS: LUNGS: There has been improvement in the extent opacity in the right lower lobe compared to the prior examination. There are residual bandlike opacities throughout the right lower lobe and middle lobe. These may reflect atelectasis or residual pneumonia. There is rounded pleural-based opacity in the right upper lobe not evident on prior examination, likely reflecting rounded atelectasis. There is subsegmental atelectasis in the left lower lobe. . MEDIASTINUM: Aneurysmal dilatation of the ascending thoracic aorta to a diameter of 4.3 cm. Cardiomegaly. Dilatation of main pulmonary artery to 3.5 cm diameter. This may correlate with pulmonary arterial hypertension. No lymphadenopathy. PLEURA: Small right pleural effusion. Trace left pleural effusion. There is likely some loculation of the right pleural effusion along the posterior medial right chest wall. BONES: No fracture. No destructive lesion. UPPER ABDOMEN: Grossly unremarkable. OTHER FINDINGS: None. IMPRESSION: Partial resolution of right lower lobe infiltrate with residual bandlike opacities in the right middle and lower lobe and new rounded pleural-based opacity in the lateral right upper lobe, most likely representing atelectasis. Cannot rule out residual consolidation from infectious process. Small right pleural effusion likely with some loculation, markedly decreased in extent compared to prior examination. Trace left pleural effusion and left lower lobe linear atelectasis. Additional findings as above.
--- NOTE | 2016-05-05 13:15 | CP.PCM.PCO ---
Assessment/Plan - Assessment and Plan (Free Text) Assessment: Unable to add addendum to resident note due to [employer] updates, please consider this note to be an addendum I saw and evaluated the patient. I discussed the case with the resident and agree with the findings and plan as documented in the resident's note. will review ct scan with pulm . very very slow improvement.
[2016-05-05] MEDS: Albuterol-Ipratrop 3 mg / 0.5 (3 ml) UD INH PRN (19:19)
--- NOTE | 2016-05-05 19:42 | CP.PCM.PN ---
Subjective - Date & Time of Evaluation Date of Evaluation: 05/05/16 Time of Evaluation: 18:40 - Subjective Subjective: F/U Respiratory failure. No A/D, able to walk to bathroom w/o NC, ambulated thought the lazaro with PT Objective - Vital Signs/Intake and Output Vital Signs (last 24 hours): Temp Pulse Resp BP Pulse Ox 97.2 F L 103 H 18 116/63 94 L 05/05/16 19:41 05/05/16 19:41 05/05/16 19:41 05/05/16 19:41 05/05/16 19:41 - Medications Medications: Current Medications Albuterol/Ipratropium (Duoneb 3 Mg/0.5 Mg (3 Ml) Ud) 3 ml INH RQ6 PRN PRN Reason: Shortness of Breath Last Admin: 05/05/16 19:19 Dose: 3 ml Budesonide (Pulmicort Respules) 0.5 mg IH Q12 [facility] Last Admin: 05/05/16 08:13 Dose: 0.5 mg Digoxin (Lanoxin) 0.25 mg PO DAILY [facility] Last Admin: 05/05/16 09:44 Dose: 0.25 mg Guaifenesin (Mucinex La) 1,200 mg PO Q12 [facility] Last Admin: 05/05/16 09:44 Dose: 1,200 mg Lactic Acid (Lac-Hydrin 12% Lotion (225 G)) 1 applic TOP DAILY [facility] Last Admin: 05/05/16 09:45 Dose: 1 applic Metoprolol Tartrate (Lopressor) 100 mg PO Q12 [facility] Last Admin: 05/05/16 09:43 Dose: 100 mg Montelukast Sodium (Singulair) 10 mg PO DAILY [facility] Last Admin: 05/05/16 09:43 Dose: 10 mg Phenytoin Sodium (Dilantin) 100 mg PO Q12@0900,2100 [facility] Last Admin: 05/05/16 09:43 Dose: 100 mg Rivaroxaban (Xarelto) 15 mg PO BIDWM [facility] PRN Reason: Protocol Stop: 05/17/16 11:00 Last Admin: 05/05/16 16:32 Dose: 15 mg - Labs Labs: 05/03/16 04:00 05/05/16 06:40 PT 12.7 SECONDS (9.6-11.2) H 04/29/16 11:29 INR 1.22 (0.92-1.08) H 04/29/16 11:29 APTT 36.9 SECONDS (23.3-32.5) H 04/23/16 04:25 - Constitutional Appears: No Acute Distress - Head Exam Head Exam: NORMAL INSPECTION - Eye Exam Eye Exam: PERRL - Neck Exam Neck Exam: Normal Inspection - Respiratory Exam Respiratory Exam: Decreased Breath Sounds (at bases) - Cardiovascular Exam Cardiovascular Exam: Irregular Rhythm - GI/Abdominal Exam GI & Abdominal Exam: Soft, Normal Bowel Sounds - Extremities Exam Extremities Exam: Pedal Edema (decreased chronic skin distal changes) - Back Exam Back Exam: NORMAL INSPECTION Additional comments: No focal motor sensory deficit, generalized weakness. - Neurological Exam Neurological Exam: Alert, Oriented x3 - Psychiatric Exam Psychiatric exam: Anxious - Skin Skin Exam: Warm Assessment and Plan (1) Acute respiratory failure Status: Acute (2) Pulmonary embolism with infarction Status: Acute (3) DVT of lower extremity, bilateral Status: Acute (4) New onset atrial fibrillation Status: Acute (5) Pulmonary artery hypertension Status: Acute (6) Bilateral pleural effusion Status: Acute (7) Asthma Status: Chronic (8) Chronic venous insufficiency Status: Chronic - Assessment and Plan (Free Text) Plan: Pt improved and stable to be transferred to TCU.
--- NOTE | 2016-05-06 02:07 | CP.PCM.PN ---
Subjective - Date & Time of Evaluation Date of Evaluation: 05/05/16 Time of Evaluation: 18:00 - Subjective Subjective: Feeling better Objective - Vital Signs/Intake and Output Vital Signs (last 24 hours): Temp Pulse Resp BP Pulse Ox 97.3 F L 78 20 114/72 99 05/06/16 00:06 05/06/16 00:06 05/06/16 00:06 05/06/16 00:06 05/06/16 00:06 - Medications Medications: Current Medications Albuterol/Ipratropium (Duoneb 3 Mg/0.5 Mg (3 Ml) Ud) 3 ml INH RQ6 PRN PRN Reason: Shortness of Breath Last Admin: 05/05/16 19:19 Dose: 3 ml Budesonide (Pulmicort Respules) 0.5 mg IH Q12 [facility] Last Admin: 05/05/16 08:13 Dose: 0.5 mg Digoxin (Lanoxin) 0.25 mg PO DAILY [facility] Last Admin: 05/05/16 09:44 Dose: 0.25 mg Guaifenesin (Mucinex La) 1,200 mg PO Q12 [facility] Last Admin: 05/05/16 21:38 Dose: 1,200 mg Lactic Acid (Lac-Hydrin 12% Lotion (225 G)) 1 applic TOP DAILY [facility] Last Admin: 05/05/16 09:45 Dose: 1 applic Metoprolol Tartrate (Lopressor) 100 mg PO Q12 [facility] Last Admin: 05/05/16 21:37 Dose: 100 mg Montelukast Sodium (Singulair) 10 mg PO DAILY [facility] Last Admin: 05/05/16 09:43 Dose: 10 mg Phenytoin Sodium (Dilantin) 100 mg PO Q12@0900,2100 [facility] Last Admin: 05/05/16 21:37 Dose: 100 mg Rivaroxaban (Xarelto) 15 mg PO BIDWM [facility] PRN Reason: Protocol Stop: 05/17/16 11:00 Last Admin: 05/05/16 16:32 Dose: 15 mg - Labs Labs: 05/03/16 04:00 05/05/16 06:40 PT 12.7 SECONDS (9.6-11.2) H 04/29/16 11:29 INR 1.22 (0.92-1.08) H 04/29/16 11:29 APTT 36.9 SECONDS (23.3-32.5) H 04/23/16 04:25 - Head Exam Head Exam: ATRAUMATIC - Eye Exam Eye Exam: Normal appearance - ENT Exam ENT Exam: Mucous Membranes Dry - Respiratory Exam Respiratory Exam: NORMAL BREATHING PATTERN - Cardiovascular Exam Cardiovascular Exam: +S1, +S2 - GI/Abdominal Exam GI & Abdominal Exam: Normal Bowel Sounds - Extremities Exam Extremities Exam: Pedal Edema Assessment and Plan (1) Pulmonary embolism with infarction Assessment & Plan: B/L LE DVT - provoked s/p IVC filter Xarelto Status: Acute (2) Coagulopathy Assessment & Plan: anticoagulation Status: Acute
[2016-05-06] MEDS: guaiFENesin 600 mg ER Tab PO SCH (09:07)
[2016-05-06] MEDS: Digoxin 250 mcg (0.25 mg) Tab PO SCH (09:07)
[2016-05-06 09:09] VITALS: PULSE 73
--- NOTE | 2016-05-06 11:44 | CP.PCM.DIS ---
Provider - Provider Date of Admission: 04/22/16 18:28 Attending physician: Yakelin Chand MD Consults: 04/22/16 22:58 Nursing Referral for Wound Care Routine Comment: BLE discoloration and foul smelling. Physician Instructions: Reason For Exam: Christian Score of 17. Time Spent in preparation of Discharge (in minutes): 30 Diagnosis - Discharge Diagnosis (1) Acute respiratory failure Status: Acute Priority: High (2) DVT of lower extremity, bilateral Status: Acute Priority: High (3) Atrial fibrillation with RVR Status: Acute (4) Bilateral pleural effusion Status: Acute (5) CHF (congestive heart failure) Status: Acute Hospital Course - Lab Results Lab Results: Micro Results 05/01/16 04:10 Blood-Venous Blood Culture - Final NO GROWTH AFTER 5 DAYS 05/01/16 04:10 Blood-Venous Gram Stain - Final TEST NOT PERFORMED 05/03/16 17:00 Nose MRSA Culture (Admit) - Final MRSA NOT DETECTED 04/29/16 12:20 Pleural Fluid Gram Stain - Final 04/29/16 12:20 Pleural Fluid Body Fluid Culture - Final No growth. 04/29/16 12:20 Pleural Fluid Anaerobic Culture - Final NO ANAEROBES ISOLATED. 04/29/16 12:20 Other: Please Indicate Mycobacterial Culture - Preliminary 04/29/16 12:20 Pleural Fluid Fungal Culture - Preliminary 04/27/16 23:00 Nose MRSA Culture (Admit) - Final MRSA NOT DETECTED 04/25/16 19:31 Naris MRSA Culture (Admit) - Final MRSA NOT DETECTED Most Recent Lab Values WBC 9.3 K/uL (4.8-10.8) 05/03/16 04:00 RBC 4.40 Mil/uL (3.80-5.20) 05/03/16 04:00 Hgb 13.6 g/dL (12.0-16.0) 05/03/16 04:00 Hct 42.1 % (34.0-47.0) 05/03/16 04:00 MCV 95.6 fl (81.0-99.0) 05/03/16 04:00 MCH 30.8 pg (27.0-31.0) 05/03/16 04:00 MCHC 32.2 g/dL (33.0-37.0) L 05/03/16 04:00 RDW 16.0 % (11.5-14.5) H 05/03/16 04:00 Plt Count 257 K/uL (130-400) 05/03/16 04:00 MPV 9.5 fl (7.2-11.7) 04/30/16 05:00 Neut % (Auto) 88.0 % (50.0-75.0) H 04/30/16 05:00 Lymph % (Auto) 4.4 % (20.0-40.0) L 04/30/16 05:00 [place] % (Auto) 7.1 % (0.0-10.0) 04/30/16 05:00 Eos % (Auto) 0.5 % (0.0-4.0) 04/30/16 05:00 Baso % (Auto) 0.0 % (0.0-2.0) 04/30/16 05:00 Neut # 12.5 K/uL (1.8-7.0) H 04/30/16 05:00 Lymph # 0.6 K/uL (1.0-4.3) L 04/30/16 05:00 [place] # 1.0 K/uL (0.0-0.8) H 04/30/16 05:00 Eos # 0.1 K/uL (0.0-0.7) 04/30/16 05:00 Baso # 0.0 K/uL (0.0-0.2) 04/30/16 05:00 Neutrophils % (Manual) 87 % (42-75) H 04/30/16 05:00 Band Neutrophils % 1 % (0-2) 04/23/16 04:25 Lymphocytes % (Manual) 5 % (20-50) L 04/30/16 05:00 Monocytes % (Manual) 8 % (0-10) 04/30/16 05:00 Toxic Granulation Present 04/22/16 17:15 Platelet Estimate Normal (NORMAL) 04/30/16 05:00 Large Platelets Present 04/23/16 04:25 RBC Morphology Normal (NORMAL) 04/30/16 05:00 Macrocytosis (manual) Slight 04/23/16 04:25 Tear Drop Cells Slight 04/23/16 04:25 Ovalocytes Slight 04/23/16 04:25 PT 12.7 SECONDS (9.6-11.2) H 04/29/16 11:29 INR 1.22 (0.92-1.08) H 04/29/16 11:29 APTT 36.9 SECONDS (23.3-32.5) H 04/23/16 04:25 Fibrinogen 257 mg/dl (200-400) 04/23/16 04:25 D-Dimer, Quantitative 15.72 mg/L FEU (0-0.50) H 04/22/16 17:15 Protein C Antigen 59 % (70-140) L 04/24/16 04:30 Protein C Activity 53 % (70-180) L 04/24/16 04:30 Protein S Activity 82 % (60-140) 04/24/16 04:30 Protein S Antigen 93 % (70-140) 04/24/16 04:30 Antithrombin III Activ 52 % activity (80-120) L 04/24/16 04:30 Factor V see note (()) 04/24/16 04:30 Factor V Activity 84 % (65-150) 04/24/16 04:30 pCO2 55 mm/Hg (35-45) H 05/02/16 06:01 pO2 78 mm/Hg (80-100) L 05/02/16 06:01 HCO3 29.3 mmol/L (21-28) H 05/02/16 06:01 ABG pH 7.38 (7.35-7.45) 05/02/16 06:01 ABG Total CO2 34.2 mmol/L (22-28) H 05/02/16 06:01 ABG O2 Saturation 97.6 % (95-98) 05/02/16 06:01 ABG O2 Content 18.5 ML/dL (15-23) 05/02/16 06:01 ABG Base Excess 5.7 mmol/L (-2.0-3.0) H 05/02/16 06:01 ABG Hemoglobin 14.0 g/dL (11.7-17.4) 05/02/16 06:01 ABG Carboxyhemoglobin 2.5 % (0.5-1.5) H 05/02/16 06:01 POC ABG HHb (Measured) 2.3 % (0.0-5.0) 05/02/16 06:01 ABG Methemoglobin 1.2 % (0.0-3.0) 05/02/16 06:01 ABG O2 Capacity 19.0 mL/dL (16-24) 05/02/16 06:01 Frankie Test Yes 05/02/16 06:01 VBG pH 7.38 (7.32-7.43) 04/22/16 17:50 VBG pCO2 39 mmHg (40-60) L 04/22/16 17:50 VBG HCO3 23.5 mmol/L 04/22/16 17:50 VBG Total CO2 24.3 mmol/L (22-28) 04/22/16 17:50 VBG O2 Sat (Calc) 98.7 % (40-65) H 04/22/16 17:50 VBG Base Excess -1.8 mmol/L (0.0-2.0) L 04/22/16 17:50 VBG Potassium 5.0 mmol/L (3.6-5.2) 04/22/16 17:50 A-a O2 Difference 81.0 mm/Hg 05/02/16 06:01 Hgb O2 Saturation 93.9 % (95.0-98.0) L 05/02/16 06:01 Sodium 132.0 mmol/L (132-148) 04/22/16 17:50 Chloride 106.0 mmol/L (98-107) 04/22/16 17:50 Glucose 149 mg/dL (65-105) H 04/22/16 17:50 Lactate 2.9 mmol/L (0.7-2.1) H 04/22/16 17:50 Vent Mode Vm 05/01/16 08:50 Mechanical Rate 16 04/30/16 05:08 FiO2 32.0 % 05/02/16 06:01 Inspiratory BiPAP 12 04/30/16 05:08 Expiratory BiPAP 6 04/30/16 05:08 Blood Gas Comments Vm 50% 05/01/16 08:50 Crit Value Called To Pearl kerr r.n. 05/01/16 08:50 Crit Value Called By Karissa 05/01/16 08:50 Crit Value Read Back Y 05/01/16 08:50 Blood Gas Notified Time 855 05/01/16 08:50 Sodium 140 mmol/l (132-148) 05/05/16 06:40 Potassium 3.7 MMOL/L (3.6-5.0) 05/05/16 06:40 Chloride 101 mmol/L (98-107) 05/05/16 06:40 Carbon Dioxide 29 mmol/L (22-30) 05/05/16 06:40 Anion Gap 14 (10-20) 05/05/16 06:40 BUN 11 mg/dl (7-17) 05/05/16 06:40 Creatinine 0.4 mg/dL (0.7-1.2) L 05/05/16 06:40 Est GFR ( Amer) > 60 05/05/16 06:40 Est GFR (Non-Af Amer) > 60 05/05/16 06:40 POC Glucose (mg/dL) 106 mg/dL (65-110) 04/29/16 04:54 Random Glucose 106 mg/dL (65-105) H 05/05/16 06:40 Lactic Acid 2.3 MMOL/L (0.7-2.1) H 04/23/16 01:00 Calcium 8.6 mg/dL (8.4-10.2) 05/05/16 06:40 Total Bilirubin 0.5 mg/dl (0.2-1.3) 05/05/16 06:40 Direct Bilirubin 0.3 mg/ml (0.0-0.4) 04/27/16 05:35 AST 56 U/L (14-36) H D 05/05/16 06:40 ALT 70 U/L (9-52) H D 05/05/16 06:40 Alkaline Phosphatase 174 U/L (38-126) H 05/05/16 06:40 Lactate Dehydrogenase 632 U/L (313-618) H 04/30/16 05:00 Total Creatine Kinase < 20 U/L (30-135) L 04/23/16 09:55 Troponin I 0.0320 ng/mL (0.00-0.120) 04/28/16 09:40 NT-Pro-B Natriuret Pep 86291 pg/ml (0-900) H 04/22/16 17:15 Total Protein 6.1 G/DL (6.3-8.2) L 05/05/16 06:40 Albumin 2.4 g/dL (3.5-5.0) L 05/05/16 06:40 Globulin 3.7 gm/dL (2.2-3.9) 05/05/16 06:40 Albumin/Globulin Ratio 0.6 (1.0-2.1) L 05/05/16 06:40 Procalcitonin 0.18 NG/ML (0.19-0.49) L 05/01/16 11:55 Thyroxine (T4) 6.05 ug/dl (5.5-11.0) 04/23/16 08:19 Total T3 0.614 nmol/L (1.49-2.60) L 04/23/16 08:19 TSH 3rd Generation 0.05 mIU/ML (0.46-4.68) L 04/23/16 08:19 Venous Blood Potassium 5.0 mmol/L (3.6-5.2) 04/22/16 17:50 Urine Color [place] (YELLOW) 04/30/16 04:00 Urine Clarity Slighty-cloudy (Clear) 04/30/16 04:00 Urine pH 6.0 (5.0-8.0) 04/30/16 04:00 Ur Specific [place] 1.020 (1.003-1.030) 04/30/16 04:00 Urine Protein 100 mg/dL (NEGATIVE) 04/30/16 04:00 Urine Glucose (UA) Neg mg/dL (Normal) 04/30/16 04:00 Urine Ketones Negative mg/dL (NEGATIVE) 04/30/16 04:00 Urine Blood Large (NEGATIVE) 04/30/16 04:00 Urine Nitrate Negative (NEGATIVE) 04/30/16 04:00 Urine Bilirubin Small (NEGATIVE) 04/30/16 04:00 Urine Urobilinogen 4.0 mg/dL (0.2-1.0) H 04/30/16 04:00 Ur Leukocyte Esterase Trace [place]/uL (Negative) 04/30/16 04:00 Urine RBC (Auto) 471 /hpf (0-3) H 04/30/16 04:00 Urine Microscopic WBC 43 /hpf (0-5) H 04/30/16 04:00 Ur Squamous Epith Cells 5 /hpf (0-5) 04/30/16 04:00 Urine Bacteria Rare (<OCC) 04/30/16 04:00 Hyaline Casts >20 /hpf (0-2) H 04/22/16 17:40 Fluid Source Pleural/thoracentesi 04/29/16 12:20 Fluid Appearance Turbid (CLEAR) 04/29/16 12:20 Fluid WBC 4867.0 /mm3 (0.0-300.0) H 04/29/16 12:20 Fluid RBC 175104.0 /mm3 (0.0-0.0) H 04/29/16 12:20 Fluid Tot Cell Count 100 (0-0) H 04/29/16 12:20 Fluid Neutrophils 82.0 % (0-0) H 04/29/16 12:20 Fluid Lymphocytes 16.0 % (0-0) H 04/29/16 12:20 Fld Monocyte/Macrophag 2 % (0-0) H 04/29/16 12:20 Fluid Glucose 93 mg/dL (NONE ESTABLISHED) 04/29/16 12:20 Fluid Total Protein 3.3 g/dL (NONE ESTABLISHED) 04/29/16 12:20 Fluid LDH 2589 IU (NONE ESTABLISHED) 04/29/16 12:20 Fluid Amylase < 30 mg/dL (NONE ESTABLISHED) 04/29/16 12:20 Fluid Comment Bloody 04/29/16 12:20 Digoxin 0.9 ng/mL (0.8-2.0) 05/01/16 04:10 Phenytoin < 3.0 ug/ML (10-20) L 04/22/16 19:16 [id number] Ab <9 ANGELITA (<=20) 04/24/16 00:50 Beta-2 GPI IgG Ab <9 SGU (<=20) 04/24/16 00:50 Beta-2 GPI IgM Ab <9 SMU (<=20) 04/24/16 00:50 Phosphatidylserine IgG <10 U/mL (<10) 04/24/16 00:50 Phosphatidylserine IgA <20 U/mL (<20) 04/24/16 00:50 Phosphatidylserine IgM <25 U/mL (<25) 04/24/16 00:50 Anti-Phospholipid Intrp see note (()) 04/24/16 00:50 Anti-Cardiolipin IgG Ab <14 GPL (<=14) 04/24/16 00:50 Anti-Cardiolipin IgA Ab <11 APL (<=11) 04/24/16 00:50 Anti-Cardiolipin IgM Ab <12 MPL (<=12) 04/24/16 00:50 Hepatitis A IgM Ab Negative (NEGATIVE) 04/24/16 04:30 Hep Bs Antigen Negative (NEGATIVE) 04/24/16 04:30 Hep Bs Antibody Negative (NEGATIVE) 04/24/16 04:30 Hep B Core IgM Ab Negative (NEGATIVE) 04/24/16 04:30 Hepatitis C Antibody Negative (NEGATIVE) 04/24/16 04:30 HIV 1&2 Antibody Screen Negative (NEGATIVE) 05/01/16 04:10 MTHFR DNA Mutation Anal see note (()) H 04/24/16 04:30 MTHFR Interpretation see note (()) 04/24/16 04:30 MTHFR Reviewed By see note (()) 04/24/16 04:30 Prothrombin Mut Interp see note (()) 04/24/16 04:30 Prothrombin Gene Mutate see note (()) 04/24/16 04:30 Prothromb Gene Review see note (()) 04/24/16 04:30 - Hospital Course Hospital Course: 70 YO F who was admitted for SOB and dry cough was found to have b/l DVT and Pulmonary edema. On CTA chest: Bilateral occulusive thrombi was found. Troponin was negative on visit. Patient was on CPAP in ICU and given therapeutic Lovenox. IVC filter was placed by IR do to the patients B/L DVT's. PT was transitioned to BIPAP then nasal canula and transferred to telemetry. Currently patient doing well, is slightly tachipnic but is saturating well. She is able to walk to the the bathroom without the nasal canula. She has been cleared by PT to go to TCU. ambulatory orders - Albuterol/ Ipratropium - Budesonide - Digoxin - Guafenesin - Lac- Hydrin 12% - Metoprolol tartrate - Monteleukast Sodium - Phenytoin Sodium - Rivaraxaban Discharge Exam - Head Exam Head Exam: ATRAUMATIC - Eye Exam Eye Exam: Normal appearance Pupil Exam: NORMAL ACCOMODATION - Respiratory Exam Additional comments: tachpnic : Less then previous visit. - Decreased b/l breath sounds at the bases Discharge Plan - Follow Up Plan Condition: GUARDED Disposition: REHAB FACILITY/REHAB UNIT Instructions: Pulmonary Embolism (GEN), Inferior Vena Cava Filter Placement (DC ), Inferior Vena Cava Filter Placement (GEN) Additional Instructions: - PAtient is stable to be transferred to TCU and is doing better. Please continue current medication regimen. ambulatory orders - Albuterol/ Ipratropium - Budesonide - Digoxin - Guafenesin - Lac- Hydrin 12% - Metoprolol tartrate - Monteleukast Sodium - Phenytoin Sodium - Rivaraxaban
[2016-05-06 12:27] VITALS: BP 109/61; PULSE 76; RESP 20; TEMP 97.4; O2SAT 95
== END 2016-05-06 14:29 | DRG 853 ==
LOC: H.ER 16:32 → H.ERHOLD 18:28 → H.ICU/CCU 20:22 → H.TEL 04-25 13:55 → H.ICU/CCU 04-27 17:54 → H.TEL 05-03 14:46
PROVIDERS: ADMIT Family Medicine Geriatric Medicine; ATTEND Family Medicine Geriatric Medicine
PROC: 5A09557 Assistance with Respiratory Ventilation, Greater than 96 Consecutive Hours, Continuous Positive Airway Pressure (ICD-10-PCS; 2016-04-22)
PROC: 3E0234Z Introduction of Serum, Toxoid and Vaccine into Muscle, Percutaneous Approach (ICD-10-PCS; 2016-04-23)
PROC: 06H03DZ Insertion of Intraluminal Device into Inferior Vena Cava, Percutaneous Approach (ICD-10-PCS; principal; 2016-04-24)
PROC: 0HBRXZZ Excision of Toe Nail, External Approach (ICD-10-PCS; 2016-04-24)
PROC: 0HBRXZZ Excision of Toe Nail, External Approach (ICD-10-PCS; 2016-04-24)
PROC: 0HBRXZZ Excision of Toe Nail, External Approach (ICD-10-PCS; 2016-04-24)
PROC: 0HBRXZZ Excision of Toe Nail, External Approach (ICD-10-PCS; 2016-04-24)
PROC: 0HBRXZZ Excision of Toe Nail, External Approach (ICD-10-PCS; 2016-04-24)
PROC: 0HBRXZZ Excision of Toe Nail, External Approach (ICD-10-PCS; 2016-04-24)
PROC: 0HBRXZZ Excision of Toe Nail, External Approach (ICD-10-PCS; 2016-04-24)
PROC: 0HBRXZZ Excision of Toe Nail, External Approach (ICD-10-PCS; 2016-04-24)
PROC: 0HBRXZZ Excision of Toe Nail, External Approach (ICD-10-PCS; 2016-04-24)
PROC: 0HBRXZZ Excision of Toe Nail, External Approach (ICD-10-PCS; 2016-04-24)
PROC: 0W993ZX Drainage of Right Pleural Cavity, Percutaneous Approach, Diagnostic (ICD-10-PCS; 2016-04-29)
DX: A41.9 Sepsis, unspecified organism (principal); J18.9 Pneumonia, unspecified organism; I26.99 Other pulmonary embolism without acute cor pulmonale; J96.02 Acute respiratory failure with hypercapnia; I50.23 Acute on chronic systolic (congestive) heart failure; E87.4 Mixed disorder of acid-base balance; D68.32 Hemorrhagic disorder due to extrinsic circulating anticoagulants; D69.59 Other secondary thrombocytopenia; I27.2 Other secondary pulmonary hypertension; I11.0 Hypertensive heart disease with heart failure; I82.433 Acute embolism and thrombosis of popliteal vein, bilateral; J98.11 Atelectasis; J44.0 Chronic obstructive pulmonary disease with (acute) lower respiratory infection; J44.1 Chronic obstructive pulmonary disease with (acute) exacerbation; I48.0 Paroxysmal atrial fibrillation; R65.20 Severe sepsis without septic shock; E87.6 Hypokalemia; G40.909 Epilepsy, unspecified, not intractable, without status epilepticus; E78.5 Hyperlipidemia, unspecified; B35.1 Tinea unguium; J45.909 Unspecified asthma, uncomplicated; E05.80 Other thyrotoxicosis without thyrotoxic crisis or storm; I87.2 Venous insufficiency (chronic) (peripheral); Z23 Encounter for immunization; Z79.01 Long term (current) use of anticoagulants

== ENCOUNTER 2016-05-06 10:06 | Inpatient (IN) | payer MEDICARE ==
[2016-05-06 14:48] VITALS: BMI 33.5
[2016-05-06] MEDS ORDERED: Fluticasone-Salmeterol 250-50mcg Diskus IH SCH (15:30)
[2016-05-06 16:40] VITALS: RESP 20
[2016-05-06] MEDS: Albuterol-Ipratrop 3 mg / 0.5 (3 ml) UD INH PRN (20:06)
[2016-05-07] MEDS: Digoxin 250 mcg (0.25 mg) Tab PO SCH (08:39)
[2016-05-07] MEDS: Albuterol-Ipratrop 3 mg / 0.5 (3 ml) UD INH PRN ×2 (08:47→20:53)
[2016-05-07] MEDS: Budesonide 0.5 mg/2 ml Inhal Susp UD IH SCH ×2 (08:47→20:54)
--- NOTE | 2016-05-07 09:55 | CP.PCM.HP ---
History of Present Illness - History of Present Illness History of Present Illness: 70 YO F who was admitted for SOB and dry cough for one week before admission was found to have b/l DVT and Pulmonary edema. - On presenting to the ER she had lower extremity swelling that had worsened. She had denied fever, chills, sore throat, sick contacts, or diarrhea. She had denied any chest pain , abdominal pain. She had spent 3 days in bed, because she didnt feel well. - On CTA chest: Bilateral occulusive thrombi was found. Troponin was negative on visit. Patient was on CPAP in ICU and given therapeutic Lovenox. IVC filter was placed by IR do to the patients B/L DVT's. PT was transitioned to BIPAP then nasal canula and transferred to telemetry. Currently patient doing well, is slightly tachipnic but is saturating well. She is able to walk to the the bathroom without the nasal canula. She has been transfered to the TCU and was seen sitting with her family today off of nasal canula resting comfortably sitting with her family eating lunch. Present on Admission - Present on Admission Any Indicators Present on Admission: Yes History of DVT/PE: Yes History of Uncontrolled Diabetes: No Urinary Catheter: No Decubitus Ulcer Present: No Review of Systems - Review of Systems Review of Systems: negative except as mentioned in hpi Past Patient History - Past Medical History & Family History Past Medical History?: Yes - Past Social History Smoking Status: Never Smoked - CARDIAC Hx Cardiac Disorders: Yes Hx Congestive Heart Failure: Yes Hx Hypercholesterolemia: Yes Hx Hypertension: Yes Hx Peripheral Edema: Yes - PULMONARY Hx Respiratory Disorders: Yes Hx Asthma: Yes Hx Pulmonary Embolism: Yes (current) Other/Comment: s/p thorancentesis (04/29/16). plueral effusion - NEUROLOGICAL Hx Neurological Disorder: Yes Hx Seizures: Yes - HEENT Hx HEENT Problems: No - RENAL Hx Chronic Kidney Disease: No - ENDOCRINE/METABOLIC Hx Endocrine Disorders: Yes Hx Diabetes Mellitus Type 2: Yes - HEMATOLOGICAL/ONCOLOGICAL Hx Blood Disorders: Yes Hx AIDS: No Hx Anemia: Yes Hx Human Immunodeficiency Virus (HIV): No Other/Comment: bilateral lower extremities DVT - INTEGUMENTARY Hx Dermatological Problems: Yes Other/Comment: Chronic skin changes lower extremities. - MUSCULOSKELETAL/RHEUMATOLOGICAL Hx Musculoskeletal Disorders: No Hx Falls: No - GASTROINTESTINAL Hx Gastrointestinal Disorders: No - GENITOURINARY/GYNECOLOGICAL Hx Genitourinary Disorders: No - PSYCHIATRIC Hx Psychophysiologic Disorder: No Hx Substance Use: No - SURGICAL HISTORY Hx Surgeries: Yes Other/Comment: R breast lump removed - ANESTHESIA Hx Anesthesia: Yes Hx Anesthesia Reactions: No Meds Allergies/Adverse Reactions: Allergies Allergy/AdvReac Type Severity Reaction Status Date / Time No Known Allergies Allergy Verified 05/06/16 15:40 Physical Exam - Constitutional Appears: No Acute Distress - Head Exam Head Exam: ATRAUMATIC, NORMAL INSPECTION, NORMOCEPHALIC - ENT Exam ENT Exam: Mucous Membranes Moist - Respiratory Exam Additional comments: Decreased breath sounds b/l at bases. - PT appears comfortable, saturating O2 98 % - Cardiovascular Exam Cardiovascular Exam: REGULAR RHYTHM, +S1, +S2 - GI/Abdominal Exam GI & Abdominal Exam: Normal Bowel Sounds, Soft - Extremities Exam Extremities exam: Negative for: tenderness Additional comments: Chronic skin changes on lower extremities healing - Neurological Exam Neurological exam: Alert, CN II-XII Intact, Oriented x3 Results - Vital Signs Recent Vital Signs: Last Vital Signs Temp 98.4 F 05/07/16 08:16 Pulse 94 H 05/07/16 08:39 Resp 20 05/07/16 08:16 BP 122/64 05/07/16 08:39 Pulse Ox 96 05/07/16 08:16 - Labs Labs: Laboratory Results - last 24 hr 05/06/16 20:25 POC Glucose (mg/dL) 154 H Assessment & Plan - Assessment and Plan (Free Text) Assessment: 1. 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 Atrial fibrillation, RVR Likely secondary to clot burden and RV Strain Heart rate 90-100s Metoprolol tartrate 100mg po bid Digoxin 0.25mg po daily Dig level WNL .9( 05/01/16) Xarelto - Continue telometry 3. BL Pleural Effusions Right bedside pleural effusion 1.2L of serous-sanguinous fluid. Patient appears to be doing better since procedure. PCO2: 55, HCO3:29.3, PH:7.38 (Exudative Fluid ) Pleural fluid: WBC: 4867, RBC: 085136, LDH:2589 Afebrile throughout the night WBC trending down ID (Dr Vasquez) consult - X ray 05/04/16:Persistent right lung infiltrates and/ edema. Minimal interval improvement aeration in the left lung w/ persistent left lower lobe atelectasis. W/ possible right pleural effusion. Follow up w/ Pulm 4. HF, acute decompensation (Systolic) Likely secondary to RV Strain from clot burden Echo reviewed, mitral valve thickened, mild pulmonary hypertension, RV mildly dilated 5. Hypertension, controlled Continue current management 6. Seizure hx NOS Phenytoin 100mg po bid
[2016-05-08] MEDS: Albuterol-Ipratrop 3 mg / 0.5 (3 ml) UD INH PRN ×2 (08:17→22:00)
[2016-05-08] MEDS: Budesonide 0.5 mg/2 ml Inhal Susp UD IH SCH ×2 (08:17→21:59)
[2016-05-08] MEDS: Digoxin 250 mcg (0.25 mg) Tab PO SCH (09:04)
[2016-05-09] MEDS: Albuterol-Ipratrop 3 mg / 0.5 (3 ml) UD INH PRN (08:26)
[2016-05-09] MEDS: Budesonide 0.5 mg/2 ml Inhal Susp UD IH SCH ×2 (08:26→20:05)
[2016-05-09] MEDS: Digoxin 250 mcg (0.25 mg) Tab PO SCH (08:55)
[2016-05-10] MEDS: Budesonide 0.5 mg/2 ml Inhal Susp UD IH SCH ×2 (07:27→20:06)
[2016-05-10] MEDS: Albuterol-Ipratrop 3 mg / 0.5 (3 ml) UD INH PRN ×2 (07:28→20:06)
[2016-05-10] MEDS: Digoxin 250 mcg (0.25 mg) Tab PO SCH (08:48)
--- NOTE | 2016-05-10 11:13 | CP.PCM.PN ---
Subjective - Date & Time of Evaluation Date of Evaluation: 05/10/16 Time of Evaluation: 08:20 - Subjective Subjective: - Patient seen resting in bed comfortably watching TV. Denies any overnight events. Has been tolerating PO intake. Denies any chest pain, SOB, N, V, D. Patients daughter will be leaving back to [place] today. - After discharge from TCU the patient will either move to [place] with her grand daughter or move with her daughter in [place]. Objective - Vital Signs/Intake and Output Vital Signs (last 24 hours): Temp Pulse Resp BP Pulse Ox 98.1 F 92 H 20 130/73 99 05/10/16 07:44 05/10/16 08:47 05/10/16 07:44 05/10/16 08:47 05/10/16 07:44 - Medications Medications: Current Medications Albuterol/Ipratropium (Duoneb 3 Mg/0.5 Mg (3 Ml) Ud) 3 ml INH RQ6 PRN PRN Reason: Shortness of Breath Last Admin: 05/10/16 07:28 Dose: 3 ml Budesonide (Pulmicort Respules) 0.5 mg IH Q12H [facility] Last Admin: 05/10/16 07:27 Dose: 0.5 mg Digoxin (Lanoxin) 0.25 mg PO DAILY [facility] Last Admin: 05/10/16 08:48 Dose: 0.25 mg Lactic Acid (Lac-Hydrin 12% Lotion (225 G)) 1 applic TOP DAILY [facility] Last Admin: 05/10/16 08:48 Dose: 1 u Metoprolol Tartrate (Lopressor) 100 mg PO Q12 [facility] Last Admin: 05/10/16 08:47 Dose: 100 mg Montelukast Sodium (Singulair) 10 mg PO DAILY@1800 [facility] Last Admin: 05/09/16 17:05 Dose: 10 mg Phenytoin Sodium (Dilantin) 100 mg PO Q12@0900,2100 [facility] Last Admin: 05/10/16 08:48 Dose: 100 mg Rivaroxaban (Xarelto) 15 mg PO BIDWM [facility] PRN Reason: Protocol Stop: 05/17/16 11:00 Last Admin: 05/10/16 08:48 Dose: 15 mg - Constitutional Appears: No Acute Distress - Head Exam Head Exam: ATRAUMATIC, NORMAL INSPECTION, NORMOCEPHALIC - Eye Exam Eye Exam: Normal appearance - Respiratory Exam Respiratory Exam: NORMAL BREATHING PATTERN. absent: Rales, Rhonchi, Wheezes Additional comments: Decreased breath sounds and the bases of lungs - Cardiovascular Exam Cardiovascular Exam: REGULAR RHYTHM, +S1, +S2 - GI/Abdominal Exam GI & Abdominal Exam: Soft, Normal Bowel Sounds. absent: Tenderness - Extremities Exam Additional comments: Chronic skin changes on lower extremities. Appear to be improving. - Neurological Exam Neurological Exam: Alert, Awake, Oriented x3 Assessment and Plan - Assessment and Plan (Free Text) Assessment: Assessment: 1. 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 Atrial fibrillation, RVR Likely secondary to clot burden and RV Strain Heart rate 90-100s Metoprolol tartrate 100mg po bid Digoxin 0.25mg po daily Dig level WNL .9 ( 05/01/16) Xarelto 3. Hypertension, controlled Continue current management 4) Moderate intermitant asthma - Duo neb Q6 - Pulmicort .5mg Q12 - Singulair 10 mg PO daily 4. Seizure hx NOS Phenytoin 100mg po bid 5. DVT Px: - Xarelto
[2016-05-11] MEDS: Budesonide 0.5 mg/2 ml Inhal Susp UD IH SCH ×2 (07:59→20:07)
[2016-05-11] MEDS: Digoxin 250 mcg (0.25 mg) Tab PO SCH (08:36)
[2016-05-11 10:41] LABS: HEMATOCRIT 43.9 % (34.0-47.0); MEAN CELL VOLUME 94.2 fl (81.0-99.0); MEAN CORPUSCULAR HEMOGLOBIN 30.3 pg (27.0-31.0); MEAN CORPUSCULAR HGB CONC 32.2 g/dL (33.0-37.0); RED CELL DISTRIBUTION WIDTH 16.4 % (11.5-14.5); WHITE BLOOD COUNT 7.4 K/uL (4.8-10.8)
[2016-05-11 10:55] LABS: BLOOD UREA NITROGEN 13 mg/dl (7-17); CARBON DIOXIDE 25 mmol/L (22-30); CHLORIDE 99 mmol/L (98-107); GFR AFRICAN-AMERICAN > 60; GLUCOSE,RANDOM 161 mg/dL (65-105); POTASSIUM 4.4 MMOL/L (3.6-5.0)
[2016-05-11 11:03] LABS: SODIUM 138 mmol/l (132-148)
[2016-05-11 11:11] LABS: CALCIUM 9.2 mg/dL (8.4-10.2)
[2016-05-11] MEDS: Albuterol-Ipratrop 3 mg / 0.5 (3 ml) UD INH PRN (20:07)
[2016-05-12] MEDS: Budesonide 0.5 mg/2 ml Inhal Susp UD IH SCH ×2 (08:15→20:25)
[2016-05-12] MEDS: Albuterol-Ipratrop 3 mg / 0.5 (3 ml) UD INH PRN (08:15)
[2016-05-12] MEDS: Digoxin 250 mcg (0.25 mg) Tab PO SCH (08:39)
[2016-05-13] MEDS: Budesonide 0.5 mg/2 ml Inhal Susp UD IH SCH ×2 (08:00→20:10)
[2016-05-13] MEDS: Albuterol-Ipratrop 3 mg / 0.5 (3 ml) UD INH PRN (08:00)
[2016-05-13] MEDS: Digoxin 250 mcg (0.25 mg) Tab PO SCH (08:41)
--- NOTE | 2016-05-13 09:33 | CP.PCM.PN ---
Subjective - Date & Time of Evaluation Date of Evaluation: 05/13/16 Time of Evaluation: 09:00 - Subjective Subjective: Patient appears to be doing well resting in bed breathing comfortably on room air. She has been tolerating PO diet. Denies any overnight activities. Pt denies any SOB, chest pain , N/V/D. Objective - Vital Signs/Intake and Output Vital Signs (last 24 hours): Temp Pulse Resp BP Pulse Ox 97.9 F 96 H 20 105/56 L 100 05/13/16 08:13 05/13/16 08:42 05/13/16 08:13 05/13/16 08:42 05/13/16 08:13 - Medications Medications: Current Medications Albuterol/Ipratropium (Duoneb 3 Mg/0.5 Mg (3 Ml) Ud) 3 ml INH RQ6 PRN PRN Reason: Shortness of Breath Last Admin: 05/12/16 08:15 Dose: 3 ml Budesonide (Pulmicort Respules) 0.5 mg IH Q12H [facility] Last Admin: 05/12/16 20:25 Dose: 0.5 mg Digoxin (Lanoxin) 0.25 mg PO DAILY [facility] Last Admin: 05/13/16 08:41 Dose: 0.25 mg Lactic Acid (Lac-Hydrin 12% Lotion (225 G)) 1 applic TOP DAILY [facility] Last Admin: 05/13/16 08:42 Dose: 1 u Metoprolol Tartrate (Lopressor) 100 mg PO Q12 [facility] Last Admin: 05/13/16 08:42 Dose: 100 mg Montelukast Sodium (Singulair) 10 mg PO DAILY@1800 [facility] Last Admin: 05/12/16 17:22 Dose: 10 mg Phenytoin Sodium (Dilantin) 100 mg PO Q12@0900,2100 [facility] Last Admin: 05/13/16 08:42 Dose: 100 mg Rivaroxaban (Xarelto) 15 mg PO BIDWM [facility] PRN Reason: Protocol Stop: 05/16/16 23:59 Last Admin: 05/13/16 09:29 Dose: 15 mg - Labs Labs: 05/11/16 10:25 05/11/16 10:25 - Constitutional Appears: No Acute Distress - Head Exam Head Exam: NORMAL INSPECTION - Eye Exam Eye Exam: Normal appearance - Respiratory Exam Respiratory Exam: absent: Rales, Rhonchi, Wheezes Additional comments: decreased breath sounds on bases b/l - Cardiovascular Exam Cardiovascular Exam: REGULAR RHYTHM, +S1, +S2 - GI/Abdominal Exam GI & Abdominal Exam: Soft, Normal Bowel Sounds. absent: Tenderness - Extremities Exam Extremities Exam: Normal Inspection - Neurological Exam Neurological Exam: Alert, Awake, CN II-XII Intact, Oriented x3 Assessment and Plan - Assessment and Plan (Free Text) Assessment: 1. 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 Atrial fibrillation, RVR Likely secondary to clot burden and RV Strain Heart rate 90-100s Metoprolol tartrate 100mg po bid Digoxin 0.25mg po daily Dig level WNL .9 ( 05/01/16) Xarelto 3. Hypertension, controlled Continue current management 4) Moderate intermitant asthma - Duo neb Q6 - Pulmicort .5mg Q12 - Singulair 10 mg PO daily 4. Seizure hx NOS Phenytoin 100mg po bid 5. DVT Px: - Xarelto
[2016-05-14] MEDS: Budesonide 0.5 mg/2 ml Inhal Susp UD IH SCH (07:47)
[2016-05-14] MEDS: Albuterol-Ipratrop 3 mg / 0.5 (3 ml) UD INH PRN (07:47)
[2016-05-14 08:09] VITALS: BP 129/81; PULSE 98; TEMP 97.2; O2SAT 91
[2016-05-14] MEDS: Digoxin 250 mcg (0.25 mg) Tab PO SCH (09:46)
[2016-05-14 09:49] VITALS: PULSE 98
--- NOTE | 2016-05-14 15:44 | CP.PCM.DIS ---
Provider - Provider Date of Admission: 05/06/16 14:48 Attending physician: Yakelin Chand MD Time Spent in preparation of Discharge (in minutes): 30 Diagnosis - Discharge Diagnosis (1) DVT of lower extremity, bilateral Status: Acute Priority: High Hospital Course - Lab Results Lab Results: Most Recent Lab Values WBC 7.4 K/uL (4.8-10.8) 05/11/16 10:25 RBC 4.66 Mil/uL (3.80-5.20) 05/11/16 10:25 Hgb 14.1 g/dL (12.0-16.0) 05/11/16 10:25 Hct 43.9 % (34.0-47.0) 05/11/16 10:25 MCV 94.2 fl (81.0-99.0) 05/11/16 10:25 MCH 30.3 pg (27.0-31.0) 05/11/16 10:25 MCHC 32.2 g/dL (33.0-37.0) L 05/11/16 10:25 RDW 16.4 % (11.5-14.5) H 05/11/16 10:25 Plt Count 298 K/uL (130-400) 05/11/16 10:25 Sodium 138 mmol/l (132-148) 05/11/16 10:25 Potassium 4.4 MMOL/L (3.6-5.0) 05/11/16 10:25 Chloride 99 mmol/L (98-107) 05/11/16 10:25 Carbon Dioxide 25 mmol/L (22-30) 05/11/16 10:25 Anion Gap 18 (10-20) 05/11/16 10:25 BUN 13 mg/dl (7-17) 05/11/16 10:25 Creatinine 0.5 mg/dL (0.7-1.2) L 05/11/16 10:25 Est GFR ( Amer) > 60 05/11/16 10:25 Est GFR (Non-Af Amer) > 60 05/11/16 10:25 POC Glucose (mg/dL) 154 mg/dL (65-110) H 05/06/16 20:25 Random Glucose 161 mg/dL (65-105) H 05/11/16 10:25 Calcium 9.2 mg/dL (8.4-10.2) 05/11/16 10:25 - Hospital Course Hospital Course: 70 YO F who presented for dry cough, SOB and swelling of the lower extremities was admitted for DVT or PE. Hospital Course: Diagnostic test: EKG: A-fib w/ RVR @151 as interpreted by ED attending CXR: RLL infiltrate and effusion CTA Chest: Large PE RIGHT PA, occlusive thrombus in the right middle/lower lobe vessels with airspace dz/infarcts in the right middle/lower lobes and moderately large right effusion, non-occlusive central right upper lobe embol; small non-occlusive ALTHEA emboli w/ minimal peripheral airspace disease/infarct; cardiomegaly and atherosclerotic disease in the 4.3cm ascending aortic aneurysm. 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 Given breathing treatments. Put on Metoprolol and Dioxin for Atrial fibrillation Patient was on BIPAP transitioned to nasal canula now is able to breath comfortably on room air stable for discharge - Was transitioned to TCU for reconditioning. Discharge Exam - Head Exam Head Exam: NORMAL INSPECTION - Eye Exam Eye Exam: Normal appearance - Respiratory Exam Respiratory Exam: NORMAL BREATHING PATTERN. absent: Rales, Rhonchi Additional comments: decreased breath sounds at the bases - Cardiovascular Exam Cardiovascular Exam: REGULAR RHYTHM, +S1, +S2 - GI/Abdominal Exam GI & Abdominal Exam: Normal Bowel Sounds. absent: Tenderness - Extremities Exam Additional comments: Skin changes noted at lower extremities - Neurological Exam Neurological exam: CN II-XII Intact, Oriented x3 Discharge Plan - Discharge Medications Prescriptions: Phenytoin, Extended [Dilantin] 100 mg PO Q12@0900,2100 #30 cer Ammonium Lactate 12% [Lac-Hydrin 12% Lotion (225 g)] 1 applic TOP DAILY #1 bottle Digoxin [Lanoxin] 0.25 mg PO DAILY #30 tab Budesonide [Pulmicort Respules] 0.5 mg IH Q12 #1 neb Metoprolol Succinate XL [Toprol XL] 100 mg PO DAILY #30 tab Albuterol HFA [Ventolin HFA 90 mcg/actuation (8 g)] 2 puff IH Q4H PRN #1 inhaler PRN Reason: Shortness Of Breath Rivaroxaban [Xarelto] 20 mg PO DAILY #30 tab - Follow Up Plan Condition: GOOD Disposition: HOME/ ROUTINE Instructions: Heart Failure (GEN), Viral Pneumonia (GEN), Sepsis (GEN) Additional Instructions: To follow up in clinic on 05/19/16 at 2pm at [facility]. Ambulatory orders: Phenytoin 100mg PO Q12 Ammonium Lactate bottle Digoxin .25 mg PO daily Budesonide .5 mg IH Q12 Toprolol XL 100mg daily Albuterol HFA 2 puff Q4 PRN Xarelto 20 mg PO daily with food * If symptoms worsen or occur return to the ER*
== END 2016-05-14 16:00 | disposition home or self-care (01) | DRG 299 ==
LOC: H.TCU 14:48
PROVIDERS: ADMIT Family Medicine Geriatric Medicine; ATTEND Family Medicine Geriatric Medicine
PROC: 5A0955Z Assistance with Respiratory Ventilation, Greater than 96 Consecutive Hours (ICD-10-PCS; principal; 2016-05-06)
PROC: F08Z4ZZ Home Management Treatment (ICD-10-PCS; 2016-05-06)
PROC: F07Z9FZ Gait Training/Functional Ambulation Treatment using Assistive, Adaptive, Supportive or Protective Equipment (ICD-10-PCS; 2016-05-06)
PROC: F07L6ZZ Therapeutic Exercise Treatment of Musculoskeletal System - Lower Back / Lower Extremity (ICD-10-PCS; 2016-05-06)
DX: I82.433 Acute embolism and thrombosis of popliteal vein, bilateral (principal); I26.99 Other pulmonary embolism without acute cor pulmonale; I50.22 Chronic systolic (congestive) heart failure; I11.0 Hypertensive heart disease with heart failure; I48.91 Unspecified atrial fibrillation; J45.909 Unspecified asthma, uncomplicated; I71.2 Thoracic aortic aneurysm, without rupture; R56.9 Unspecified convulsions

== ENCOUNTER 2016-06-19 13:35 | Inpatient (IN) | payer MEDICARE ==
[2016-06-19 13:36] VITALS: BMI 33.5
[2016-06-19] MEDS ORDERED: Albuterol-Ipratrop 3 mg / 0.5 (3 ml) UD INH STA (14:15)
[2016-06-19] MEDS ORDERED: Sodium Chloride 0.9% 500 ML IV SCH (14:15)
[2016-06-19] MEDS ORDERED: Albuterol-Ipratrop 3 mg / 0.5 (3 ml) UD IH STA ×2 (14:15)
[2016-06-19] MEDS ORDERED: Albuterol-Ipratrop 3 mg / 0.5 (3 ml) UD ONE (14:19)
--- NOTE | 2016-06-19 14:26 | ED PDOC ---
HPI: SOB/CHF/COPD Time Seen by Provider: 06/19/16 13:59 Chief Complaint (Nursing): Shortness Of Breath Chief Complaint (Provider): Dyspnea History Per: Patient History/Exam Limitations: no limitations Onset/Duration Of Symptoms: Days (2 weeks) Current Symptoms Are (Timing): Still Present Additional Complaint(s): Pt. with dyspnea, decreased appetite. Ongoing for 2 weeks. No chest pain. No headaches. No numbness, tingles. No dizziness, fever, cough, runny nose, nasal congestion. Here few weeks ago and dc. Pt. not taking meds as per what is on the computer. Was at the clinic and told to leave as it was raining, so pt. came here. Has weakness all over. Past Medical History Reviewed: Nursing Documentation, Vital Signs Vital Signs: Last Vital Signs Temp 97.8 F 06/19/16 13:50 Pulse 147 H 06/19/16 14:38 Resp 16 06/19/16 14:38 BP 111/69 06/19/16 14:38 Pulse Ox 100 06/19/16 15:16 - Medical History PMH: Anemia, Asthma, CHF, HTN, Hypercholesterolemia, Peripheral Edema, Pulmonary Embolism (current), Seizures Denies: HIV, Chronic Kidney Disease - Family History Family History: States: Unknown Family Hx - Living Arrangements Living Arrangements: With Family - Social History Current smoker - smoking cessation education provided: No Alcohol: None Drugs: Denies - Home Medications Home Medications: Ambulatory Orders Medication Instructions Recorded Albuterol HFA [Ventolin HFA 90 2 puff IH Q4H PRN #1 inhaler 05/14/16 mcg/actuation (8 g)] Ammonium Lactate 12% [Lac-Hydrin 1 applic TOP DAILY #1 bottle 05/14/16 12% Lotion (225 g)] Budesonide [Pulmicort Respules] 0.5 mg IH Q12 #1 neb 05/14/16 Digoxin [Lanoxin] 0.25 mg PO DAILY #30 tab 05/14/16 Metoprolol Succinate XL [Toprol XL] 100 mg PO DAILY #30 tab 05/14/16 Phenytoin, Extended [Dilantin] 100 mg PO Q12@0900,2100 #30 cer 05/14/16 Rivaroxaban [Xarelto] 20 mg PO DAILY #30 tab 05/14/16 - Allergies Allergies/Adverse Reactions: Allergies Allergy/AdvReac Type Severity Reaction Status Date / Time No Known Allergies Allergy Verified 05/06/16 15:40 Review of Systems ROS Statement: Except As Marked, All Systems Reviewed And Found Negative Constitutional: Positive for: Weakness Cardiovascular: Positive for: Orthopnea Respiratory: Positive for: Shortness of Breath, Wheezing Physical Exam - Reviewed Nursing Documentation Reviewed: Yes Vital Signs Reviewed: Yes - Physical Exam Appears: Positive for: Uncomfortable Head Exam: Positive for: ATRAUMATIC, NORMAL INSPECTION, NORMOCEPHALIC Skin: Positive for: Normal Color, Warm, DRY Eye Exam: Positive for: EOMI, Normal appearance, PERRL ENT: Positive for: Normal ENT Inspection. Negative for: Pharyngeal Erythema Neck: Positive for: Normal, Painless ROM, Supple Cardiovascular/Chest: Positive for: Tachycardia, Irregularly Irregular Respiratory: Positive for: Decreased Breath Sounds, Wheezing (mild). Negative for: Accessory Muscle Use Gastrointestinal/Abdominal: Positive for: Normal Exam, Bowel Sounds, Soft. Negative for: Tenderness Back: Positive for: Normal Inspection. Negative for: L CVA Tenderness, R CVA Tenderness Extremity: Positive for: Normal ROM, Pedal Edema (venous stasis b/l). Negative for: Tenderness Neurologic/Psych: Positive for: Alert, systems operator II-XII, Oriented. Negative for: Motor/Sensory Deficits - Laboratory Results Result Diagrams: 06/19/16 14:25 06/19/16 14:25 - ECG ECG: Positive for: Interpreted By Me, Viewed By Me Interpretation Of Abn EKG: afib O2 Sat by Pulse Oximetry: 92 Pulse Ox Interpretation: Abnormal Interpretation Of Abnormal: improved on rechecking on RA to 99%. - Progress ED Course And Treament: 1517: Dr. Salazar to take over care and fu labs/imaging. Disposition - Clinical Impression Clinical Impression: Dyspnea - Patient ED Disposition Is Patient to be Admitted: Transfer of Care - Disposition Disposition: Transfer of Care Disposition Time: 15:17 Condition: FAIR Patient Signed Over To: Maria Elena Salazar
[2016-06-19 14:35] LABS: ABG ALLEN TEST YES; ARTERIAL BLOOD GAS HCO3 26.1 mmol/L (21-28); ARTERIAL BLOOD GAS PH 7.47 (7.35-7.45); ARTERIAL BLOOD GAS PO2 118 mm/Hg (80-100)
--- NOTE | 2016-06-19 14:52 | RAD ---
HISTORY: Sepsis Patient COMPARISON: Comparison made with chest radiograph and CT scan chest dated 05/03/2016 and 04/21/2019 03/06/2016 respectively. FINDINGS: LUNGS: The central pulmonary vasculature is slightly congested. Bibasilar atelectatic and or infiltrate changes with bilateral effusions PLEURA: No significant pleural effusion identified, no pneumothorax apparent. CARDIOVASCULAR: Marked cardiomegaly. Aneurysmal dilatation of the ascending thoracic aorta as well as prominent main pulmonary trunk are less well appreciated on this study compared to high-resolution CT scan. OSSEOUS STRUCTURES: No significant abnormalities. VISUALIZED UPPER ABDOMEN: Normal. OTHER FINDINGS: None. IMPRESSION: Marked cardiomegaly. Aneurysmal dilatation of the ascending thoracic aorta and main pulmonary trunk less well appreciated on this study compared to high-resolution CT scan. Pulmonary vascular congestion with bibasilar atelectasis and or infiltrates and bilateral effusions.
[2016-06-19 14:57] LABS: BASO # 0.1 K/uL (0.0-0.2); BASO % 0.7 % (0.0-2.0); EOS % 0.4 % (0.0-4.0); HEMATOCRIT 40.2 % (34.0-47.0); LYMPH # 1.2 K/uL (1.0-4.3); LYMPH % 17.5 % (20.0-40.0); MEAN CELL VOLUME 96.9 fl (81.0-99.0); MEAN PLATELET VOLUME 10.3 fl (7.2-11.7); MONO # 0.7 K/uL (0.0-0.8); MONO % 10.8 % (0.0-10.0); NEUT # 4.9 K/uL (1.8-7.0); NEUT % 70.6 % (50.0-75.0); NRBC % 0.1 % (0.0-0.0); RED CELL DISTRIBUTION WIDTH 20.2 % (11.5-14.5); WHITE BLOOD COUNT 6.9 K/uL (4.8-10.8)
[2016-06-19 15:12] LABS: ALB/GLOB RATIO 0.9 (1.0-2.1); ALKALINE PHOSPHATASE 132 U/L (38-126); ALT/SGPT 24 U/L (9-52); AST/SGOT 25 U/L (14-36); BILIRUBIN,TOTAL 1.1 mg/dl (0.2-1.3); BLOOD UREA NITROGEN 14 mg/dl (7-17); CALCIUM 9.3 mg/dL (8.4-10.2); CARBON DIOXIDE 24 mmol/L (22-30); CHLORIDE 104 mmol/L (98-107); GFR AFRICAN-AMERICAN > 60; GLUCOSE,RANDOM 123 mg/dL (65-105); MAGNESIUM 1.8 MG/DL (1.6-2.3); PHOSPHOROUS 3.5 mg/dl (2.5-4.5); POTASSIUM 3.9 MMOL/L (3.6-5.0); SODIUM 140 mmol/l (132-148); TOTAL PROTEIN 6.8 G/DL (6.3-8.2)
--- NOTE | 2016-06-19 15:16 | ED PDOC ---
- Laboratory Results Result Diagrams: 06/20/16 06:00 06/20/16 06:00 - ECG O2 Sat by Pulse Oximetry: 100 Medical Decision Making Medical Decision Making: Time: 1500 Patient signed out by Dr. Estrella pending labs and re-evaluation On my eval pt with persistent tachycardia. Also with persistent dyspnea. Labs demonstrate no detectable digoxin, elevated probnp. IV digoxin and additional IV cardizem load and drip ordered. ARIANA [facility] resident for hospitalization. Scribe Attestation: Documented by Jannette Alicea acting as a scribe for Maria Elena Salazar MD MD Scribe Attestation: All medical record entries made by the Scribe were at my direction and personally dictated by me. I have reviewed the chart and agree that the record accurately reflects my personal performance of the history, physical exam, medical decision making, and the department course for this patient. I have also personally directed, reviewed, and agree with the discharge instructions and disposition. Disposition - Clinical Impression Clinical Impression: Dyspnea - POA Present On Arrival: None - Disposition Disposition: Admitted as In-Patient Disposition Time: 16:45 Condition: FAIR
[2016-06-19 15:20] LABS: PARTIAL THROMBOPLASTIN TIME 27.3 SECONDS (23.3-32.5)
[2016-06-19] MEDS ORDERED: Digoxin 500 mcg/2ml (0.5 mg/2ml) Inj IVP STA (16:35)
[2016-06-19] MEDS ORDERED: Digoxin 500 mcg/2ml (0.5 mg/2ml) Inj ONE (17:22)
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
[2016-06-19] MEDS ORDERED: Albuterol HFA 90 mcg/actuation (8 g) IH PRN (19:34)
[2016-06-19] MEDS: Budesonide 0.5 mg/2 ml Inhal Susp UD IH SCH (20:30)
--- NOTE | 2016-06-20 07:46 | CP.PCM.PN ---
Subjective - Date & Time of Evaluation Date of Evaluation: 06/20/16 Time of Evaluation: 07:20 - Subjective Subjective: Pt is being follow up for afib and sob. Pt states sob has improve significantly especially when ambulating. Pt report having good appetite, tolerating po well, and voiding/bm without difficulty. Denies fever, nausea, vomiting. Denies sob, chest pain, palpitation. Objective - Vital Signs/Intake and Output Vital Signs (last 24 hours): Temp Pulse Resp BP Pulse Ox 97.6 F 78 20 103/71 96 06/20/16 05:00 06/20/16 05:00 06/20/16 05:00 06/20/16 05:00 06/20/16 05:00 - Medications Medications: Current Medications Albuterol (Ventolin Hfa 90 Mcg/Actuation (8 G)) 2 puff IH Q4H PRN PRN Reason: Shortness of Breath Budesonide (Pulmicort Respules) 0.5 mg IH Q12 [facility] Last Admin: 06/19/16 20:30 Dose: 0.5 mg Diltiazem HCl 125 mg/ Sodium (Chloride) 125 mls @ 5 mls/hr IV .Q24H ONE; 5 MG/ HR PRN Reason: Protocol Stop: 06/20/16 16:43 Last Admin: 06/19/16 17:46 Dose: 5 mls/hr Lactic Acid (Lac-Hydrin 12% Lotion (225 G)) 1 applic TOP DAILY [facility] Ondansetron HCl (Zofran Inj) 4 mg IVP Q6 PRN PRN Reason: Nausea/Vomiting Phenytoin Sodium (Dilantin) 100 mg PO Q12@0900,2100 [facility] Last Admin: 06/19/16 21:41 Dose: 100 mg Rivaroxaban (Xarelto) 20 mg PO DAILY [facility] PRN Reason: Protocol Last Admin: 06/19/16 21:40 Dose: 20 mg Fluticasone/Salmeterol (Advair Diskus 250/50) 1 puff IH BID [facility] - Labs Labs: PT 13.9 SECONDS (9.6-11.2) H 06/19/16 14:25 INR 1.34 (0.92-1.08) H 06/19/16 14:25 APTT 27.3 SECONDS (23.3-32.5) 06/19/16 14:25 - Additional Findings Additional findings: - Constitutional Appears: No Acute Distress, Chronically Ill - Head Exam Head Exam: ATRAUMATIC - Eye Exam Eye Exam: EOMI - ENT Exam ENT Exam: Mucous Membranes Moist - Neck Exam Neck exam: Positive for: Full Rom - Respiratory Exam Respiratory Exam: Decreased Breath Sounds b/l lower lobe with mild crackles - Cardiovascular Exam Cardiovascular Exam: Irregular rhythm, +S1, +S2, no murmur/gallops/rub appreciated - GI/Abdominal Exam GI & Abdominal Exam: Normal Bowel Sounds, Soft Additional comments: obese abdomen, midline reducible hernia - Extremities Exam Extremities exam: Positive for: b/l pedal pulses present +3. dry scaling hyperpigmented skin of the lower extremity. faint +1 pedal pulse. sensation deminished b/l lower ext but motor is intact. Negative for: calf tenderness and sarah's sign. - Back Exam Back exam: full range of motion - Neurological Exam Neurological exam: Alert, Oriented x3 - Psychiatric Exam Psychiatric exam: Normal Affect, Normal Mood - Skin Skin Exam: please see extermities of b/l lower ext. Assessment and Plan - Assessment and Plan (Free Text) Assessment: 70 y/o F with hx of systolic CHF, HTN, Asthma, Afib, Seizures, Right Pulm Artery PE ( s/p IVC filter) presents with sob with palpitation admitted due to A fib w/ RVR. Symptoms improving. A Fibrillation w/ RVR -cardiology consult appreciated, Irwin Alcantara -rate currently controlled on cardizem 5mg/hour -will hold BB and digoxin for now -c/w xarelto 20 mg home med -f/u cardio consult CHF -systolic -Last ECHO 05/01: EF > 50%, RV systolic dysf'n on last echo -repeat CXR: increase alveolar density in right lung with persistent chf and b/ l effusions -lasix 20 mg IV once today -will consider daily lasix if worsen symptoms and bp is stable Asthma -IV solumedrol x 1 ,Duoneb x 1 in ED -c/w pulmicort and advair ( home medS) Seizures c/w phenytoin BID ( home med) Ppx -DVT: history of PE s/p IVC filter in placed c/w xarelto Diet -HH, fluid restriction
[2016-06-20 08:00] LABS: HEMATOCRIT 36.5 % (34.0-47.0); MEAN CELL VOLUME 97.2 fl (81.0-99.0); MEAN CORPUSCULAR HEMOGLOBIN 31.2 pg (27.0-31.0); MEAN CORPUSCULAR HGB CONC 32.1 g/dL (33.0-37.0); RED CELL DISTRIBUTION WIDTH 19.8 % (11.5-14.5); WHITE BLOOD COUNT 5.7 K/uL (4.8-10.8)
[2016-06-20] MEDS: Budesonide 0.5 mg/2 ml Inhal Susp UD IH SCH ×2 (08:00→20:09)
[2016-06-20 08:10] LABS: ALB/GLOB RATIO 0.8 (1.0-2.1); ALKALINE PHOSPHATASE 109 U/L (38-126); ALT/SGPT 24 U/L (9-52); AST/SGOT 23 U/L (14-36); BILIRUBIN,TOTAL 0.7 mg/dl (0.2-1.3); BLOOD UREA NITROGEN 15 mg/dl (7-17); CALCIUM 8.7 mg/dL (8.4-10.2); CARBON DIOXIDE 28 mmol/L (22-30); CHLORIDE 105 mmol/L (98-107); GFR AFRICAN-AMERICAN > 60; GLUCOSE,RANDOM 87 mg/dL (65-105); POTASSIUM 3.7 MMOL/L (3.6-5.0); SODIUM 141 mmol/l (132-148); TOTAL PROTEIN 6.1 G/DL (6.3-8.2)
--- NOTE | 2016-06-20 09:28 | CARD ---
APPROVED REPORT EKG Measurement Heart [id number] <Conclusion> Atrial fibrillation with rapid ventricular response Inferior infarct, age undetermined Anterior infarct, age undetermined Abnormal ECG
[2016-06-20] MEDS: Fluticasone-Salmeterol 250-50mcg Diskus IH SCH ×2 (10:00→16:14)
--- NOTE | 2016-06-20 10:54 | RAD ---
HISTORY: chf COMPARISON: 06/19/2016 FINDINGS: LUNGS: There appears to be increased alveolar density in the right lung which may suggest increased alveolar edema or other infiltrate. PLEURA: Right pleural effusion is once again identified. Smaller effusion on the left is suspected. CARDIOVASCULAR: Heart is enlarged. Vasculature is once again congested. OSSEOUS STRUCTURES: No significant abnormalities. VISUALIZED UPPER ABDOMEN: Normal. OTHER FINDINGS: None. IMPRESSION: Increased alveolar density in the right lung with persistent CHF and bilateral effusions.
--- NOTE | 2016-06-20 15:33 | CON ---
DATE: 06/20/2016 HISTORY OF PRESENT ILLNESS: The patient is a 70-year-old female who has a history of atrial fibrillation, deep venous thrombosis and pulmonary embolism, history of chronic obstructive lung dis ease, presents because of shortness of breath for the past 2 weeks and poor appetite. The patient de nies chest pain and is unaware of any history of heart attack in the past. SOCIAL HISTORY: The patient is a nonsmoker, nondrinker. PAST MEDICAL HISTORY: Hypertension, atrial fibrillation, seizure disorder, DVT, pulmonary embolism, status post inferior vena cava filter in March of this year. MEDICATIONS: Advair 1 puff twice a day, Dilantin 100 mg 3 times a day, Cardizem infusion at 5 mg per hour, albuterol inhaler q. 4 hours, Xarelto 20 mg once a day. REVIEW OF SYSTEMS: No fever or chills. No hematemesis or melena. PHYSICAL EXAMINATION: GENERAL: The patient is an elderly female who does not appear to be in acute distress. VITAL SIGNS: Blood pressure 107/68, heart rate 101, temperature 97.4, respirations 20. HEENT: Normocephalic. NECK: No JVD. CHEST: Bilateral rhonchi. HEART: S1, S2 irregular. ABDOMEN: Soft. EXTREMITIES: 3+ pitting edema. LABORATORY DATA: Today's SMA-7: Sodium 141, potassium 3.7, chloride 105, CO2 28, glucose 87, BUN 15 , creatinine 0.5. Three sets of troponins are negative. INR is 1.34, PTT 27.3. CBC: WBC 5.7, hemo globin 11.7, hematocrit 36.5, platelet count 137,000. Phenytoin level on admission was 8.1. EKG rev ealed atrial fibrillation with a rapid ventricular response at rate of 160, and old inferior and poss ible old anterior infarcts. Echocardiographic study performed in April of this year revealed mild di lated right ventricle with moderate reduced ejection fraction. The left ventricular systolic functio n was within normal limits. Mild pulmonary hypertension was noted. Chest CT angio in April of this year revealed a large embolus in the right main pulmonary artery, occlusive thrombus in the right mid dle and lower lobe with airspace disease/infarct in the right middle and lower lobes and moderately l arge right effusion, nonocclusive center right upper lobe emboli, small nonocclusive left upper lobe emboli with minimal peripheral airspace disease/infarct, cardiomegaly, 4.3 cm ascending aortic aneury sm. Venous Doppler of lower extremity done on the same date of the above CT angio which was 04/22, rev ealed bilateral lower extremity deep venous thrombosis with occlusive thrombi in both popliteal veins and extensive edema at the knee and in the upper calves. ASSESSMENT: 1. Rapid atrial fibrillation. 2. Bilateral pulmonary emboli. 3. Bilateral deep venous thrombosis. 4. Mild pulmonary hypertension. 5. Ascending aortic aneurysm. 6. Chronic obstructive pulmonary disease. RECOMMENDATIONS: Continue current IV Cardizem at 5 mg per hour. Continue current albuterol inhaler. Continue phenytoin 100 mg twice a day. Continue Xarelto 20 mg once a day. The patient is not a terri table candidate for beta td therapy at least at this time. May consider repeat CT angio of the chest. Harmeet Miranda MD cc: [id number] TT: 06/20/2016 15:32:40 Confirmation # [id number] Dictation # [id number] leann
[2016-06-21] MEDS: Budesonide 0.5 mg/2 ml Inhal Susp UD IH SCH ×2 (07:30→19:33)
[2016-06-21] MEDS: Fluticasone-Salmeterol 250-50mcg Diskus IH SCH ×2 (08:26→17:02)
--- NOTE | 2016-06-21 11:31 | CP.PCM.PN ---
Subjective - Date & Time of Evaluation Date of Evaluation: 06/21/16 Time of Evaluation: 08:30 - Subjective Subjective: 70 y/o F admitted to telemetry unit because of SOB, a.fib with RVR, Hx of PE and DVT, seen at bedside, in chair, no resp distress, patient is talkative pleasant, still C/O SOB with min exertion but improved since admission. Denies CP, palpitations, calf pain, headache, abd pain, vomiting, fever or nausea. Patient states that leg swelling has also improved compared to yesterday. Objective - Vital Signs/Intake and Output Vital Signs (last 24 hours): Temp Pulse Resp BP Pulse Ox 98.4 F 105 H 20 117/73 97 06/21/16 07:51 06/21/16 09:00 06/21/16 07:51 06/21/16 07:51 06/21/16 07:51 - Medications Medications: Current Medications Albuterol (Ventolin Hfa 90 Mcg/Actuation (8 G)) 2 puff IH Q4H PRN PRN Reason: Shortness of Breath Budesonide (Pulmicort Respules) 0.5 mg IH Q12 [facility] Last Admin: 06/21/16 07:30 Dose: 0.5 mg Cholecalciferol (Vitamin D) 1,000 iu PO DAILY [facility] Last Admin: 06/21/16 09:53 Dose: 1,000 iu Diltiazem HCl 125 mg/ Sodium (Chloride) 125 mls @ 5 mls/hr IV .Q24H ONE; 5 MG/ HR PRN Reason: Protocol Stop: 06/21/16 20:38 Last Admin: 06/20/16 21:15 Dose: 5 mg/hr, 5 mls/hr Lactic Acid (Lac-Hydrin 12% Lotion (225 G)) 1 applic TOP DAILY [facility] Last Admin: 06/21/16 08:27 Dose: 1 applic Ondansetron HCl (Zofran Inj) 4 mg IVP Q6 PRN PRN Reason: Nausea/Vomiting Phenytoin Sodium (Dilantin) 100 mg PO Q12@0900,2100 [facility] Last Admin: 06/21/16 08:27 Dose: 100 mg Rivaroxaban (Xarelto) 20 mg PO DAILY [facility] PRN Reason: Protocol Last Admin: 06/21/16 08:27 Dose: 20 mg Fluticasone/Salmeterol (Advair Diskus 250/50) 1 puff IH BID [facility] Last Admin: 06/21/16 08:26 Dose: 1 puff - Labs Labs: 06/20/16 06:00 06/20/16 06:00 PT 13.9 SECONDS (9.6-11.2) H 06/19/16 14:25 INR 1.34 (0.92-1.08) H 06/19/16 14:25 APTT 27.3 SECONDS (23.3-32.5) 06/19/16 14:25 - Constitutional Appears: Non-toxic, No Acute Distress - Eye Exam Eye Exam: PERRL - ENT Exam ENT Exam: Mucous Membranes Moist (shallow inspiration. No accesory muscle use. No resp distress at this time.) - Respiratory Exam Respiratory Exam: absent: Rales, Respiratory Distress - Cardiovascular Exam Cardiovascular Exam: Irregular Rhythm, +S1, +S2. absent: Gallop - GI/Abdominal Exam GI & Abdominal Exam: Soft, Hernia (supraumbilical. No tenderness.), Normal Bowel Sounds. absent: Distended - Extremities Exam Extremities Exam: Normal Capillary Refill, Pedal Edema (ectasis dermatitis in both leg associated with swelling. ). absent: Calf Tenderness - Neurological Exam Neurological Exam: Alert, Awake, Oriented x3 - Psychiatric Exam Psychiatric exam: Normal Affect, Normal Mood - Skin Skin Exam: Warm Assessment and Plan - Assessment and Plan (Free Text) Assessment: 70 y/o F with hx of systolic CHF, HTN, Asthma, Afib, Seizures, Right Pulm Artery PE ( s/p IVC filter) presents with sob with palpitation admitted due to A fib w/ RVR. A Fibrillation w/ RVR -cardiology consult appreciated, Dr. Miranda B. -rate currently controlled on cardizem 5mg/hour -holding BB and digoxin for now -c/w xarelto 20 mg -VS stable -Troponin x3 normal -Will cont folowing cardiology( Dr Miranda) recs. CHF -systolic -ProBNP elevated -Last ECHO 05/01: EF > 50%, RV systolic dysf'n on last echo -repeat CXR: increase alveolar density in right lung with persistent CHF and b/ l effusions -Start lasix 20 mg IV BID -Phosp and Mg WNL Asthma -Cont Albuterol q4h PRN for SOB -c/w pulmicort and advair ( home meds) Seizures -c/w phenytoin BID ( home med) -phenytoin level low -Start Vit D supplement 1000 unit daily Ppx -DVT: history of PE s/p IVC filter in place -Patient on Xarelto 20mg daily -Will consider CT angio however patient already in Xarelto and has a IVC filter. Diet -HH, fluid restriction
--- NOTE | 2016-06-21 14:19 | PN ---
DATE: 06/21/2016 The patient denies chest pain. The patient is currently in rapid atrial fibrillation on the monitor. PHYSICAL EXAMINATION: VITAL SIGNS: Blood pressure 112/67, heart rate 103, temperature 97.5, respirations 20. HEENT: Pale conjunctivae. CHEST: Absent breath sounds over the bases. HEART: S1, S2 regular. EXTREMITIES: 2+ pitting edema. Chest x-ray revealed cardiomegaly, right lower and middle lobe infiltrate and right pleural effusion. ASSESSMENT: 1. Rapid atrial fibrillation. 2. Bilateral pulmonary emboli. 3. Bilateral deep venous thromboses. 4. Mild pulmonary hypertension. 5. Ascending aortic aneurysm. 6. Chronic obstructive lung disease. 7. Right lower lobe and middle lobe infiltrate with parapneumonic effusion. RECOMMENDATIONS: Continue current Xarelto at 20 mg daily. Continue IV Cardizem. Continue oral Dilantin. Start Lopressor at 50 mg orally twice a day. The patient is currently not wheezing. Consider initiating IV antibiotics. Consider repeating Venous Doppler of the lower extremities Harmeet Miranda MD cc: [id number] TT: 06/21/2016 14:18:37 Confirmation # [id number] Dictation # [id number] en MTDD
[2016-06-21 23:15] LABS: RBC URINE 2 /hpf (0-3); URINE BILIRUBIN NEGATIVE (NEGATIVE); URINE BLOOD NEGATIVE (NEGATIVE); URINE COLOR STRAW (YELLOW); URINE GLUCOSE (UA) NEG (Normal); URINE KETONE NEGATIVE (NEGATIVE); URINE LEUKOCYTE ESTERASE NEG Leu/uL (Negative); URINE PROTEIN NEGATIVE (NEGATIVE); URINE UROBILINOGEN 0.2-1.0 mg/dL (0.2-1.0); WBC URINE < 1 /hpf (0-5)
[2016-06-22 07:20] LABS: HEMATOCRIT 37.5 % (34.0-47.0); MEAN CELL VOLUME 96.9 fl (81.0-99.0); MEAN CORPUSCULAR HEMOGLOBIN 31.8 pg (27.0-31.0); MEAN CORPUSCULAR HGB CONC 32.8 g/dL (33.0-37.0); RED CELL DISTRIBUTION WIDTH 19.5 % (11.5-14.5); WHITE BLOOD COUNT 5.4 K/uL (4.8-10.8)
[2016-06-22 07:38] LABS: BLOOD UREA NITROGEN 12 mg/dl (7-17); CALCIUM 8.5 mg/dL (8.4-10.2); CARBON DIOXIDE 34 mmol/L (22-30); CHLORIDE 99 mmol/L (98-107); GFR AFRICAN-AMERICAN > 60; GLUCOSE,RANDOM 99 mg/dL (65-105); POTASSIUM 3.7 MMOL/L (3.6-5.0); SODIUM 138 mmol/l (132-148)
[2016-06-22] MEDS: Budesonide 0.5 mg/2 ml Inhal Susp UD IH SCH ×2 (08:28→20:35)
[2016-06-22] MEDS ORDERED: Digoxin 500 mcg/2ml (0.5 mg/2ml) Inj IVP ONE (11:00)
--- NOTE | 2016-06-22 11:03 | CP.PCM.PN ---
Subjective - Date & Time of Evaluation Date of Evaluation: 06/22/16 Time of Evaluation: 12:20 - Subjective Subjective: Patient seen at bedside after returning from [facility]. She is in not acute distress , denies CP, palpitations, leg pain, fever, vomiting or nausea. Patient SOB improved but is noticeable SOB at rest with NC oxygen. No abnormal resp pattern and is tolerating 30% decubitus with no difficulties. She is tolerating PO reg diet. States that her leg swelling has improved since admission. Objective - Vital Signs/Intake and Output Vital Signs (last 24 hours): Temp Pulse Resp BP Pulse Ox 98.1 F 98 H 20 121/72 95 06/22/16 08:04 06/22/16 08:04 06/22/16 08:04 06/22/16 08:04 06/22/16 08:04 - Medications Medications: Current Medications Albuterol (Ventolin Hfa 90 Mcg/Actuation (8 G)) 2 puff IH Q4H PRN PRN Reason: Shortness of Breath Budesonide (Pulmicort Respules) 0.5 mg IH Q12 [facility] Last Admin: 06/22/16 08:28 Dose: 0.5 mg Cholecalciferol (Vitamin D) 1,000 iu PO DAILY [facility] Last Admin: 06/21/16 09:53 Dose: 1,000 iu Digoxin (Lanoxin Elixir Soln) 0.25 mg PO DAILY [facility] Furosemide (Lasix) 20 mg IVP BID [facility] Last Admin: 06/21/16 17:03 Dose: 20 mg Diltiazem HCl 125 mg/ Sodium (Chloride) 125 mls @ 5 mls/hr IV .Q24H ONE; 5 MG/ HR PRN Reason: Protocol Stop: 06/22/16 17:59 Last Admin: 06/21/16 18:57 Dose: 5 mg/hr, 5 mls/hr Lactic Acid (Lac-Hydrin 12% Lotion (225 G)) 1 applic TOP DAILY [facility] Last Admin: 06/21/16 08:27 Dose: 1 applic Metoprolol Tartrate (Lopressor) 50 mg PO Q12 [facility] Last Admin: 06/21/16 20:36 Dose: Not Given Ondansetron HCl (Zofran Inj) 4 mg IVP Q6 PRN PRN Reason: Nausea/Vomiting Phenytoin Sodium (Dilantin) 100 mg PO Q12@0900,2100 [facility] Last Admin: 06/21/16 20:44 Dose: 100 mg Rivaroxaban (Xarelto) 20 mg PO DAILY [facility] PRN Reason: Protocol Last Admin: 06/21/16 08:27 Dose: 20 mg Fluticasone/Salmeterol (Advair Diskus 250/50) 1 puff IH BID [facility] Last Admin: 06/21/16 17:02 Dose: 1 puff - Labs Labs: 06/22/16 06:30 06/22/16 06:30 PT 13.9 SECONDS (9.6-11.2) H 06/19/16 14:25 INR 1.34 (0.92-1.08) H 06/19/16 14:25 APTT 27.3 SECONDS (23.3-32.5) 06/19/16 14:25 - Constitutional Appears: Non-toxic - Head Exam Head Exam: NORMOCEPHALIC - Eye Exam Eye Exam: PERRL - ENT Exam ENT Exam: Mucous Membranes Moist - Respiratory Exam Respiratory Exam: Rhonchi. absent: Accessory Muscle Use, Wheezes Additional comments: Mildly shallow respirations. No abnormal resp pattern observed. - Cardiovascular Exam Cardiovascular Exam: Irregular Rhythm, +S1, +S2. absent: Gallop - GI/Abdominal Exam GI & Abdominal Exam: Soft, Hernia, Normal Bowel Sounds. absent: Distended, Tenderness - Extremities Exam Extremities Exam: Normal Capillary Refill, Pedal Edema (B/L LE redness with edema below the knees and chronic stasis dermatitis and chronic lymphedema changes). absent: Calf Tenderness, Normal Inspection - Neurological Exam Neurological Exam: Alert, Awake, Oriented x3 - Psychiatric Exam Psychiatric exam: Normal Affect, Normal Mood - Skin Skin Exam: Warm Assessment and Plan - Assessment and Plan (Free Text) Assessment: 70 y/o F with hx of systolic CHF, HTN, Asthma, Afib, Seizures, Right Pulm Artery PE ( s/p IVC filter) presents with sob with palpitation admitted due to A fib w/ RVR. A Fibrillation w/ RVR -cardiology consult appreciated, Irwin Alcantara -rate currently controlled on cardizem 5mg/hour -Metoprolol 50mg BID -Digoxin IV 0.25mg 1 dose and start 0.25mg daily PO -c/w xarelto 20 mg -Will cont following cardiology( Dr Miranda) recs. Chronic Lymphedema -B/L chronic edema with associated chronic skin changes -Afebrile -WBC WNL -Denies LE pain -Aware of LE swelling and redness. Most likely chronic lymphedema without associated cellulitis. Patient WBC WNL and afebrile. NO LE pain. -Will cont monitoring -F/U CBC 06/23/16 -Instructed to keep legs elevated Chronic DVT/PE -S/P IVC filter on 04/2016 -F/U LE US -On Xarelto 20mg daily CHF -systolic -ProBNP elevated -Last ECHO 05/01: EF > 50%, RV systolic dysf'n on last echo -repeat CXR: increase alveolar density in right lung with persistent CHF and b/ l effusions -Cont lasix 20 mg IV BID -Phosp and Mg WNL Asthma -Cont Albuterol q4h PRN for SOB -c/w pulmicort and advair ( home meds) Seizures -c/w phenytoin BID ( home med) -phenytoin level low -Start Vit D supplement 1000 unit daily Ppx -DVT: history of PE s/p IVC filter in place -Patient on Xarelto 20mg daily Diet -HH, fluid restriction
--- NOTE | 2016-06-22 11:13 | PN ---
DATE: 06/22/2016 SUBJECTIVE: The patient is still experiencing shortness breath and leg swelling. PHYSICAL EXAMINATION: VITAL SIGNS: Blood pressure 121/72, heart rate 98, temperature 98.1, respirations 20. HEENT: Normocephalic. NECK: No JVD. CHEST: Absent breath sounds over the bases. HEART: S1, S2 irregular. EXTREMITIES: 2 to 3+ pitting edema. Both lower extremities are suspicious for cellulitis. LABORATORIES: BUN and creatinine are 12 and 0.5 today. Hemoglobin and hematocrit 12.3 and 37.5. Wh ite count and platelet count are within normal limit. ASSESSMENT: 1. Bilateral deep venous thrombosis and bilateral pulmonary embolism, status post inferior vena cava filter placement in 04/2016. 2. Chronic atrial fibrillation. 3. Consider bilateral leg cellulitis. 4. Seizure disorder. RECOMMENDATIONS: Continue current oral Dilantin. Continue IV Cardizem at 5 mg per hour. Continue L opressor 50 mg twice a day, and will administer digoxin 0.25 mg intravenously as a single dose and st art 0.25 mg orally once a day. Follow up venous Doppler of lower extremities. Harmeet Miranda MD cc: [id number] TT: 06/22/2016 11:12:39 Confirmation # [id number] Dictation # [id number] jayden
[2016-06-22] MEDS: Fluticasone-Salmeterol 250-50mcg Diskus IH SCH ×2 (11:15→16:33)
[2016-06-22 11:25] VITALS: PULSE 140
[2016-06-22] MEDS: Digoxin 0.05 mg/mL Elixir 5mL PO SCH (12:02)
--- NOTE | 2016-06-22 13:22 | US ---
Bilateral lower extremity ultrasound. Indication: Rule out DVT Technique: Duplex ultrasound evaluation of the bilateral lower extremities Comparison: Bilateral lower extremity DVT performed 04/22/16 Findings: Right lower extremity: Partial thrombus involving the common femoral vein and proximal femoral vein. Noncompressibility and evidence of occlusive thrombus involving the mid and distal femoral vein as well as the popliteal vein. The posterior tibial vein demonstrates flow. Soft tissue edema. Left lower extremity: No evidence of thrombus involving the common femoral vein, or the proximal and mid portions of the left femoral vein. The distal left femoral vein is not visualized. Partial thrombus involving the left popliteal vein. The posterior tibial vein demonstrates flow. Soft tissue edema. Impression: Extensive bilateral thrombus as above. Bilateral soft tissue edema.
[2016-06-23 06:52] LABS: BASO # 0.1 K/uL (0.0-0.2); EOS # 0.3 K/uL (0.0-0.7); EOS % 6.7 % (0.0-4.0); HEMATOCRIT 38.3 % (34.0-47.0); LYMPH % 19.8 % (20.0-40.0); MEAN CELL VOLUME 96.9 fl (81.0-99.0); MEAN CORPUSCULAR HEMOGLOBIN 31.3 pg (27.0-31.0); MEAN CORPUSCULAR HGB CONC 32.3 g/dL (33.0-37.0); MEAN PLATELET VOLUME 9.6 fl (7.2-11.7); MONO # 0.5 K/uL (0.0-0.8); MONO % 9.5 % (0.0-10.0); NEUT # 3.2 K/uL (1.8-7.0); NRBC % 0.1 % (0.0-0.0); RED CELL DISTRIBUTION WIDTH 19.3 % (11.5-14.5); WHITE BLOOD COUNT 5.1 K/uL (4.8-10.8)
[2016-06-23 07:08] LABS: BLOOD UREA NITROGEN 13 mg/dl (7-17); CALCIUM 8.5 mg/dL (8.4-10.2); CARBON DIOXIDE 31 mmol/L (22-30); CHLORIDE 99 mmol/L (98-107); GFR AFRICAN-AMERICAN > 60; GLUCOSE,RANDOM 100 mg/dL (65-105); POTASSIUM 3.9 MMOL/L (3.6-5.0); SODIUM 137 mmol/l (132-148)
[2016-06-23] MEDS: Budesonide 0.5 mg/2 ml Inhal Susp UD IH SCH ×2 (07:59→21:25)
[2016-06-23] MEDS: Digoxin 0.05 mg/mL Elixir 5mL PO SCH (08:48)
[2016-06-23] MEDS: Fluticasone-Salmeterol 250-50mcg Diskus IH SCH ×2 (09:02→16:34)
--- NOTE | 2016-06-23 11:04 | CP.PCM.PN ---
Subjective - Date & Time of Evaluation Date of Evaluation: 06/23/16 Time of Evaluation: 07:15 - Subjective Subjective: 70 y/o F admitted for SOB, a.fib and DVT seen at bedside receiving nebulizer treatment in not acute distress tolerating flat decubitus. Patient denies CP, SOB, palpitations, leg pain. Admits improvement in SOB since admission. Tolerating PO. Denies urinary symptoms. Patient being evaluated by Cardiology and was restarted on digoxin PO yesterday. Cardizem drip stopped today and patient started on PO dose. Patient c/o L/LE itching and she has been using moisturizer for it with some relief. Objective - Vital Signs/Intake and Output Vital Signs (last 24 hours): Temp Pulse Resp BP Pulse Ox 97.3 F L 88 20 106/69 98 06/23/16 04:45 06/23/16 08:45 06/23/16 04:45 06/23/16 08:46 06/23/16 04:45 - Medications Medications: Current Medications Albuterol (Ventolin Hfa 90 Mcg/Actuation (8 G)) 2 puff IH Q4H PRN PRN Reason: Shortness of Breath Budesonide (Pulmicort Respules) 0.5 mg IH Q12 [facility] Last Admin: 06/23/16 07:59 Dose: 0.5 mg Cholecalciferol (Vitamin D) 1,000 iu PO DAILY [facility] Last Admin: 06/23/16 08:47 Dose: 1,000 iu Digoxin (Lanoxin Elixir Soln) 0.25 mg PO DAILY [facility] Last Admin: 06/23/16 08:48 Dose: 0.25 mg Furosemide (Lasix) 20 mg IVP BID [facility] Last Admin: 06/23/16 08:46 Dose: 20 mg Hydrocortisone (Cortizone 1% Cream) 1 applic TOP BID [facility] Diltiazem HCl 125 mg/ Sodium (Chloride) 125 mls @ 5 mls/hr IV .Q24H ONE; 5 MG/ HR PRN Reason: Protocol Stop: 06/24/16 01:10 Last Admin: 06/23/16 01:42 Dose: 5 mg/hr, 5 mls/hr Lactic Acid (Lac-Hydrin 12% Lotion (225 G)) 1 applic TOP DAILY [facility] Last Admin: 06/23/16 08:49 Dose: 1 applic Metoprolol Tartrate (Lopressor) 50 mg PO Q12 [facility] Last Admin: 06/23/16 08:45 Dose: 50 mg Ondansetron HCl (Zofran Inj) 4 mg IVP Q6 PRN PRN Reason: Nausea/Vomiting Phenytoin Sodium (Dilantin) 100 mg PO Q12@0900,2100 [facility] Last Admin: 06/23/16 08:46 Dose: 100 mg Rivaroxaban (Xarelto) 20 mg PO DAILY [facility] PRN Reason: Protocol Last Admin: 06/23/16 08:47 Dose: 20 mg Fluticasone/Salmeterol (Advair Diskus 250/50) 1 puff IH BID [facility] Last Admin: 06/23/16 09:02 Dose: 1 puff - Labs Labs: 06/23/16 06:20 06/23/16 06:20 PT 13.9 SECONDS (9.6-11.2) H 06/19/16 14:25 INR 1.34 (0.92-1.08) H 06/19/16 14:25 APTT 27.3 SECONDS (23.3-32.5) 06/19/16 14:25 - Constitutional Appears: Non-toxic, No Acute Distress - Head Exam Head Exam: NORMAL INSPECTION - Eye Exam Eye Exam: PERRL - ENT Exam ENT Exam: Mucous Membranes Moist - Respiratory Exam Respiratory Exam: Rhonchi (scattered wheezes and ronchi B/L), Wheezes, NORMAL BREATHING PATTERN. absent: Rales - Cardiovascular Exam Cardiovascular Exam: Irregular Rhythm, +S1, +S2. absent: Gallop - GI/Abdominal Exam GI & Abdominal Exam: Soft, Hernia, Normal Bowel Sounds. absent: Distended, Tenderness - Neurological Exam Neurological Exam: Alert, Awake, Oriented x3 - Psychiatric Exam Psychiatric exam: Normal Affect, Normal Mood - Skin Skin Exam: Rash (LE rash B/L with chronic skin changes noticed. ), Warm Assessment and Plan - Assessment and Plan (Free Text) Assessment: 70 y/o F with hx of systolic CHF, HTN, Asthma, Afib, Seizures, Right Pulm Artery PE ( s/p IVC filter) presents with sob with palpitation admitted due to A fib w/ RVR. A Fibrillation w/ RVR -cardiology consult appreciated, Irwin Alcantara -Metoprolol 50mg BID -Digoxin 0.25mg daily PO -c/w xarelto 20 mg -Will cont following cardiology( Dr Miranda) recs -Cardizem drip discontinued by Cardio patient started on diltiazem PO Chronic Lymphedema -Associated dermatitis on LE -B/L chronic edema with associated chronic skin changes -Afebrile -WBC WNL -Denies LE pain -Start Hydrocortisone cream 1% BID apply on affected leg -Instructed to keep legs elevated Chronic DVT/PE -S/P IVC filter on 04/2016 -LE US shows B/L popliteal thrombosis as reported also in previous LE US. -On Xarelto 20mg daily CHF -systolic -ProBNP elevated -Last ECHO 05/01: EF > 50%, RV systolic dysf'n on last echo -repeat CXR: increase alveolar density in right lung with persistent CHF and b/ l effusions -Cont lasix 20 mg IV BID -Phosp and Mg WNL Asthma -Cont Albuterol q4h PRN for SOB -c/w pulmicort and advair ( home meds) Seizures -c/w phenytoin BID ( home med) -phenytoin level low -Start Vit D supplement 1000 unit daily Ppx -DVT: history of PE s/p IVC filter in place -Patient on Xarelto 20mg daily Diet -HH, fluid restriction
--- NOTE | 2016-06-23 11:25 | PN ---
DATE: 06/23/2016 The patient denies any chest pain. She is currently in controlled heart rate on the monitor. PHYSICAL EXAMINATION: VITAL SIGNS: Blood pressure 106/69, heart rate 88, temperature 97.3, respirations 20. HEENT: Normocephalic. NECK: No JVD. CHEST: Diminished breath sounds over the bases. HEART: S1, S2 regular. EXTREMITIES: Bilateral leg cellulitis. LABORATORIES: White count, hemoglobin, hematocrit and platelet count are within normal limits. Toda y's BUN and creatinine 15 and 0.5 respectively. Lower extremity ultrasound revealed extensive bilateral thrombus. Bilateral soft tissue edema. ASSESSMENT: 1. Bilateral deep venous thromboses and recent pulmonary embolism. 2. Chronic atrial fibrillation. RECOMMENDATIONS: Continue digoxin 0.25 mg orally daily, Lopressor at 50 mg once a day, Xarelto at 20 mg once a day. Discontinue IV Cardizem and start Cardizem at 30 mg q.i.d. Harmeet Miradna MD cc: [id number] TT: 06/23/2016 11:24:57 Confirmation # [id number] Dictation # [id number] en
[2016-06-24] MEDS: Budesonide 0.5 mg/2 ml Inhal Susp UD IH SCH (08:00)
[2016-06-24] MEDS: Fluticasone-Salmeterol 250-50mcg Diskus IH SCH ×2 (08:25→16:34)
[2016-06-24] MEDS: Digoxin 0.05 mg/mL Elixir 5mL PO SCH (08:26)
--- NOTE | 2016-06-24 12:00 | CP.PCM.PN ---
Subjective - Date & Time of Evaluation Date of Evaluation: 06/24/16 Time of Evaluation: 08:00 - Subjective Subjective: 70 y/o female seen at bedside tolerating flat decubitus in not acute distress. Patient states SOB cont improving since admission. She denies CP, palpitations , abd pain, calf pain, leg pain, vomiting. She is afebrile. WBC WNL. Tolerating PO diet. She denies dysuria. Objective - Vital Signs/Intake and Output Vital Signs (last 24 hours): Temp Pulse Resp BP Pulse Ox 98.1 F 83 18 103/65 95 06/24/16 08:23 06/24/16 10:54 06/24/16 08:23 06/24/16 08:27 06/24/16 10:54 - Medications Medications: Current Medications Albuterol (Ventolin Hfa 90 Mcg/Actuation (8 G)) 2 puff IH Q4H PRN PRN Reason: Shortness of Breath Budesonide (Pulmicort Respules) 0.5 mg IH Q12 [facility] Last Admin: 06/24/16 08:00 Dose: 0.5 mg Cephalexin Monohydrate (Keflex) 500 mg PO Q12H [facility] Cholecalciferol (Vitamin D) 1,000 iu PO DAILY [facility] Last Admin: 06/24/16 08:27 Dose: 1,000 iu Digoxin (Lanoxin Elixir Soln) 0.25 mg PO DAILY [facility] Last Admin: 06/24/16 08:26 Dose: 0.25 mg Diltiazem HCl (Cardizem) 30 mg PO QID [facility] Last Admin: 06/24/16 08:25 Dose: 30 mg Furosemide (Lasix) 20 mg IVP BID [facility] Last Admin: 06/24/16 08:26 Dose: 20 mg Hydrocortisone (Cortizone 1% Cream) 1 applic TOP BID [facility] Last Admin: 06/24/16 08:31 Dose: 1 applic Lactic Acid (Lac-Hydrin 12% Lotion (225 G)) 1 applic TOP DAILY [facility] Last Admin: 06/24/16 08:31 Dose: 1 applic Metoprolol Tartrate (Lopressor) 50 mg PO Q12 [facility] Last Admin: 06/24/16 08:27 Dose: 50 mg Ondansetron HCl (Zofran Inj) 4 mg IVP Q6 PRN PRN Reason: Nausea/Vomiting Phenytoin Sodium (Dilantin) 100 mg PO Q12@0900,2100 [facility] Last Admin: 06/24/16 08:25 Dose: 100 mg Rivaroxaban (Xarelto) 20 mg PO DAILY [facility] PRN Reason: Protocol Last Admin: 06/24/16 08:27 Dose: 20 mg Fluticasone/Salmeterol (Advair Diskus 250/50) 1 puff IH BID [facility] Last Admin: 06/24/16 08:25 Dose: 1 puff - Labs Labs: 06/23/16 06:20 06/23/16 06:20 PT 13.9 SECONDS (9.6-11.2) H 06/19/16 14:25 INR 1.34 (0.92-1.08) H 06/19/16 14:25 APTT 27.3 SECONDS (23.3-32.5) 06/19/16 14:25 - Constitutional Appears: Non-toxic, No Acute Distress - Eye Exam Eye Exam: PERRL - ENT Exam ENT Exam: Mucous Membranes Moist - Neck Exam Neck Exam: Normal Inspection - Respiratory Exam Respiratory Exam: Clear to Ausculation Bilateral. absent: Rales, Wheezes - Cardiovascular Exam Cardiovascular Exam: Irregular Rhythm, +S1, +S2. absent: Gallop - GI/Abdominal Exam GI & Abdominal Exam: Soft, Hernia, Normal Bowel Sounds. absent: Tenderness - Extremities Exam Extremities Exam: Normal Capillary Refill, Pedal Edema. absent: Calf Tenderness , Normal Inspection (chronic skin changes and swelling B/L noticed. L/leg shows increased macular rash compared to previous day. There is not difference in temp between both legs. ), Tenderness - Neurological Exam Neurological Exam: Alert, Awake, Oriented x3 - Psychiatric Exam Psychiatric exam: Normal Affect, Normal Mood - Skin Skin Exam: Warm Assessment and Plan - Assessment and Plan (Free Text) Assessment: 70 y/o F with hx of systolic CHF, HTN, Asthma, Afib, Seizures, Right Pulm Artery PE ( s/p IVC filter) presents with sob with palpitation admitted due to A fib w/ RVR. A Fibrillation w/ RVR -cardiology consult appreciated, Ananth Alcantara. -Metoprolol 50mg BID -Digoxin 0.25mg daily PO -c/w xarelto 20 mg -Will cont following cardiology( Dr Hannallah) recs -Cont diltiazem PO QID -Pos DC today to rehab unit today after PT eval. Chronic Lymphedema -Associated dermatitis on LE -B/L chronic edema with associated chronic skin changes -Afebrile -WBC WNL -Denies LE pain -Start Hydrocortisone cream 1% BID apply on affected leg -Instructed to keep legs elevated -Start Keflex 500mg BID for pos associated cellutis Chronic DVT/PE -S/P IVC filter on 04/2016 -LE US shows B/L popliteal thrombosis as reported also in previous LE US. -On Xarelto 20mg daily -Last and previous LE US discussed with radiology today(Dr Henning). No worsening of condition. Possible mild improvement or same CHF -systolic -ProBNP elevated -Last ECHO 05/01: EF > 50%, RV systolic dysf'n on last echo -repeat CXR: increase alveolar density in right lung with persistent CHF and b/ l effusions -Cont lasix 20 mg IV BID -Phosp and Mg WNL Asymptomatic bacteriuria -UCx Klebsiella F/U sensitivity -Started on Keflex for dual coverage Asthma -Cont Albuterol q4h PRN for SOB -c/w pulmicort and advair ( home meds) Seizures -c/w phenytoin BID ( home med) -phenytoin level low -Start Vit D supplement 1000 unit daily Ppx -DVT: history of PE s/p IVC filter in place -Patient on Xarelto 20mg daily Diet -HH, fluid restriction
[2016-06-24 16:20] VITALS: BP 131/72; PULSE 87; RESP 20; TEMP 97.6; O2SAT 97
--- NOTE | 2016-06-25 17:52 | CP.PCM.DIS ---
Provider - Provider Date of Admission: 06/19/16 16:44 Attending physician: Yakelin Chand MD Consults: Dr Miranda(Cardiology) Time Spent in preparation of Discharge (in minutes): 30 Diagnosis - Discharge Diagnosis (1) Atrial fibrillation with RVR Status: Acute Comment: Stable. Rate controlled. S/P cardizem drip (2) CHF (congestive heart failure) Status: Chronic Comment: Stable. (3) DVT of lower extremity, bilateral Status: Chronic Priority: High Comment: On Xarelto PO (4) Lymphedema of both lower extremities Status: Chronic (5) Asymptomatic bacteriuria Status: Acute Hospital Course - Lab Results Lab Results: Micro Results 06/21/16 22:37 Urine,Clean Catch Urine Culture - Final Klebsiella Pneumoniae Ssp Pneu Most Recent Lab Values WBC 5.1 K/uL (4.8-10.8) 06/23/16 06:20 RBC 3.95 Mil/uL (3.80-5.20) 06/23/16 06:20 Hgb 12.4 g/dL (12.0-16.0) 06/23/16 06:20 Hct 38.3 % (34.0-47.0) 06/23/16 06:20 MCV 96.9 fl (81.0-99.0) 06/23/16 06:20 MCH 31.3 pg (27.0-31.0) H 06/23/16 06:20 MCHC 32.3 g/dL (33.0-37.0) L 06/23/16 06:20 RDW 19.3 % (11.5-14.5) H 06/23/16 06:20 Plt Count 163 K/uL (130-400) 06/23/16 06:20 MPV 9.6 fl (7.2-11.7) 06/23/16 06:20 Neut % (Auto) 63.0 % (50.0-75.0) 06/23/16 06:20 Lymph % (Auto) 19.8 % (20.0-40.0) L 06/23/16 06:20 [place] % (Auto) 9.5 % (0.0-10.0) 06/23/16 06:20 Eos % (Auto) 6.7 % (0.0-4.0) H 06/23/16 06:20 Baso % (Auto) 1.0 % (0.0-2.0) 06/23/16 06:20 Neut # 3.2 K/uL (1.8-7.0) 06/23/16 06:20 Lymph # 1.0 K/uL (1.0-4.3) 06/23/16 06:20 [place] # 0.5 K/uL (0.0-0.8) 06/23/16 06:20 Eos # 0.3 K/uL (0.0-0.7) 06/23/16 06:20 Baso # 0.1 K/uL (0.0-0.2) 06/23/16 06:20 PT 13.9 SECONDS (9.6-11.2) H 06/19/16 14:25 INR 1.34 (0.92-1.08) H 06/19/16 14:25 APTT 27.3 SECONDS (23.3-32.5) 06/19/16 14:25 pCO2 34 mm/Hg (35-45) L 06/19/16 14:31 pO2 118 mm/Hg (80-100) H 06/19/16 14:31 HCO3 26.1 mmol/L (21-28) 06/19/16 14:31 ABG pH 7.47 (7.35-7.45) H 06/19/16 14:31 ABG Total CO2 25.7 mmol/L (22-28) 06/19/16 14:31 ABG O2 Saturation 100.8 % (95-98) H 06/19/16 14:31 ABG Base Excess 1.5 mmol/L (-2.0-3.0) 06/19/16 14:31 Frankie Test Yes 06/19/16 14:31 ABG Potassium 3.6 mmol/L (3.6-5.2) 06/19/16 14:31 A-a O2 Difference 39.0 mm/Hg 06/19/16 14:31 Sodium 136.0 mmol/L (132-148) 06/19/16 14:31 Chloride 106.0 mmol/L (98-107) 06/19/16 14:31 Glucose 118 mg/dL (65-105) H 06/19/16 14:31 Lactate 2.1 mmol/L (0.7-2.1) 06/19/16 14:31 FiO2 28.0 % 06/19/16 14:31 Blood Gas Comments 2l/m nc,rb 06/19/16 14:31 Crit Value Read Back N 06/19/16 14:31 Sodium 137 mmol/l (132-148) 06/23/16 06:20 Potassium 3.9 MMOL/L (3.6-5.0) 06/23/16 06:20 Chloride 99 mmol/L (98-107) 06/23/16 06:20 Carbon Dioxide 31 mmol/L (22-30) H 06/23/16 06:20 Anion Gap 11 (10-20) 06/23/16 06:20 BUN 13 mg/dl (7-17) 06/23/16 06:20 Creatinine 0.5 mg/dL (0.7-1.2) L 06/23/16 06:20 Est GFR ( Amer) > 60 06/23/16 06:20 Est GFR (Non-Af Amer) > 60 06/23/16 06:20 Random Glucose 100 mg/dL (65-105) 06/23/16 06:20 Calcium 8.5 mg/dL (8.4-10.2) 06/23/16 06:20 Phosphorus 3.5 mg/dl (2.5-4.5) 06/19/16 14:25 Magnesium 1.8 MG/DL (1.6-2.3) 06/19/16 14:25 Total Bilirubin 0.7 mg/dl (0.2-1.3) 06/20/16 06:00 AST 23 U/L (14-36) 06/20/16 06:00 ALT 24 U/L (9-52) 06/20/16 06:00 Alkaline Phosphatase 109 U/L (38-126) 06/20/16 06:00 Troponin I 0.0180 ng/mL (0.00-0.120) 06/20/16 06:00 NT-Pro-B Natriuret Pep 7180 pg/ml (0-900) H 06/19/16 14:25 Total Protein 6.1 G/DL (6.3-8.2) L 06/20/16 06:00 Albumin 2.7 g/dL (3.5-5.0) L 06/20/16 06:00 Globulin 3.4 gm/dL (2.2-3.9) 06/20/16 06:00 Albumin/Globulin Ratio 0.8 (1.0-2.1) L 06/20/16 06:00 Arterial Blood Potassium 3.6 mmol/L (3.6-5.2) 06/19/16 14:31 Urine Color Straw (YELLOW) 06/21/16 22:37 Urine Clarity Clear (Clear) 06/21/16 22:37 Urine pH 6.0 (5.0-8.0) 06/21/16 22:37 Ur Specific [place] 1.008 (1.003-1.030) 06/21/16 22:37 Urine Protein Negative mg/dL (NEGATIVE) 06/21/16 22:37 Urine Glucose (UA) Neg mg/dL (Normal) 06/21/16 22:37 Urine Ketones Negative mg/dL (NEGATIVE) 06/21/16 22:37 Urine Blood Negative (NEGATIVE) 06/21/16 22:37 Urine Nitrate Negative (NEGATIVE) 06/21/16 22:37 Urine Bilirubin Negative (NEGATIVE) 06/21/16 22:37 Urine Urobilinogen 0.2-1.0 mg/dL (0.2-1.0) 06/21/16 22:37 Ur Leukocyte Esterase Neg Sow[place]/uL (Negative) 06/21/16 22:37 Urine RBC (Auto) 2 /hpf (0-3) 06/21/16 22:37 Urine Microscopic WBC < 1 /hpf (0-5) 06/21/16 22:37 Ur Squamous Epith Cells 1 /hpf (0-5) 06/21/16 22:37 Digoxin < 0.4 ng/mL (0.8-2.0) L 06/19/16 14:25 Phenytoin 8.1 ug/ML (10-20) L 06/19/16 14:25 - Hospital Course Hospital Course: 70 y/o F with PMHx of A.fib, CHF, DVT, PE was admitted to hosp 5 days ago for A.fib with RVR. Patient was treated with Cardizem drip. Rate was controlled and patient restarted with home meds(Digoxin, BB) and started on Diltiazem PO. Patient being followed closely by Cardiology(Dr Miranda). She reamined afebrile and WBC WNL. UCx + for Klebsiella <[id number] colonies(Asymptomatic). Repeat LE US results discussed with radiology and compared with previous study: Stable or slight improvement noticed. Patient on Xarelot 20mg daily. Patient stable yesterday 06/24/16 and is decided to transfer to TCU after PT eval recs for rehabilitation. Discharge Exam - Head Exam Head Exam: NORMAL INSPECTION - Eye Exam Eye Exam: PERRL - Respiratory Exam Respiratory Exam: NORMAL BREATHING PATTERN - Cardiovascular Exam Cardiovascular Exam: Irregular Rhythm, +S1, +S2. absent: Gallop - GI/Abdominal Exam GI & Abdominal Exam: Normal Bowel Sounds, Unremarkable - Extremities Exam Extremities exam: pedal edema (lymphangitis) - Neurological Exam Neurological exam: Alert, Oriented x3, Reflexes Normal - Skin Skin Exam: Warm Discharge Plan - Follow Up Plan Condition: FAIR Disposition: TRANSF TO SNF Additional Instructions: Discharge and admitted to TCU for PT treatment.
== END 2016-06-24 18:19 | DRG 309 ==
LOC: H.ER 13:35 → H.ERHOLD 16:44 → H.TEL 18:34
PROVIDERS: ADMIT Family Medicine Geriatric Medicine; ATTEND Family Medicine Geriatric Medicine
DX: I48.2 Chronic atrial fibrillation (principal); I82.533 Chronic embolism and thrombosis of popliteal vein, bilateral; I11.0 Hypertensive heart disease with heart failure; I27.2 Other secondary pulmonary hypertension; I50.22 Chronic systolic (congestive) heart failure; I71.2 Thoracic aortic aneurysm, without rupture; I89.0 Lymphedema, not elsewhere classified; L30.8 Other specified dermatitis; R82.71 Bacteriuria; J44.9 Chronic obstructive pulmonary disease, unspecified; G40.909 Epilepsy, unspecified, not intractable, without status epilepticus; D64.9 Anemia, unspecified; J45.909 Unspecified asthma, uncomplicated; E78.00 Pure hypercholesterolemia, unspecified; Z79.01 Long term (current) use of anticoagulants; Z86.711 Personal history of pulmonary embolism

== ENCOUNTER 2016-06-24 16:00 | Inpatient (IN) | payer MEDICARE ==
[2016-06-24 17:35] VITALS: BMI 39.2
[2016-06-24] MEDS ORDERED: Albuterol HFA 90 mcg/actuation (8 g) INH PRN (19:00)
--- NOTE | 2016-06-24 20:06 | CON ---
DATE: 06/24/2016 REASON FOR CONSULTATION: Chronic atrial fibrillation, deep venous thrombosis and pulmonary embolism. HISTORY OF PRESENT ILLNESS: The patient is a 70-year-old female who has history of chronic atrial fibrillation, history of deep venous thrombosis and pulmonary embolism, as well as chronic obs tructive lung disease, who was admitted on the of this month because of shortness of breath, leg swelling and rapid atrial fibrillation. The patient was on Xarelto for her bilateral DVT and bilater al pulmonary embolism. It is not clear if the patient is really compliant with her medications. The patient has history of seizure disorder and is on phenytoin therapy. The patient was transferred to TCU today. SOCIAL HISTORY: Nonsmoker, nondrinker. MEDICATIONS: Advair 1 puff twice a day, Cardizem 30 mg q.i.d., Dilantin 100 mg twice a day, Keflex 5 00 mg p.o. twice a day, digoxin 0.25 mg once daily, Lasix 20 mg intravenously twice a day, Lopressor 50 mg twice a day, albuterol inhaler, Xarelto 20 mg once a day. REVIEW OF SYSTEMS: No nausea or vomiting. No fever or chills. No dizziness or syncope. PHYSICAL EXAMINATION: GENERAL: The patient is an elderly female who does not appear to be in acute distress. VITAL SIGNS: Blood pressure 115/64, heart rate 106, temperature 97.5, respirations 20. HEENT: Normocephalic. NECK: No JVD. CHEST: Diminished breath sounds over the bases. HEART: S1, S2 regular. ABDOMEN: Soft. EXTREMITIES: 2+ edema with cellulitic changes in both lower extremities. LABORATORY DATA: Yesterday's hemoglobin and hematocrit 12.4 and 38.3. White count and platelet coun t were within normal limits. Yesterday's chemistry was within normal limits except for carbon dioxid e of 31 and creatinine 0.5. EKG revealed atrial fibrillation with a rapid heart rate of 160 on 06/19 w ith possible old inferior and old anterior infarcts. Echocardiographic study performed in April of t his year revealed dilated right ventricle with moderately reduced ejection fraction of the right vent ricle. The left ventricular systolic function was within normal limits. Mild pulmonary hypertension . CT angio of the chest in April revealed a large embolus in the right main pulmonary artery. Occlu sive thrombus in the right middle and lower lobe with airspace disease in the right middle and lower lobes and moderately large right effusion. Nonocclusive thrombus in the right upper lobe and a small nonocclusive left upper lobe emboli with minimal peripheral airspace disease/infarct, cardiomegaly, a 4.3 cm ascending aortic aneurysm. Venous Doppler of lower extremity in April revealed bilateral low er extremity deep venous thrombosis with occlusive thrombi in both popliteal veins and extensive lynsey a in the knee and upper calves. Repeat venous Doppler during his most recent admission was no differe nt compared to an earlier one, according to the radiology review. ASSESSMENT: 1. Chronic atrial fibrillation. 2. Bilateral deep venous thrombosis and pulmonary embolus diagnosed 2 months ago. 3. Chronic obstructive lung disease. 4. Ascending aortic aneurysm. 5. Mild pulmonary hypertension. 6. Bilateral leg cellulitis. RECOMMENDATIONS: I discussed the case at length with both Dr. Chand and with the medical resi dent. I did suggest more aggressive treatment for the patient's bilateral leg cellulitis, maintenanc e of Xarelto, Lanoxin, intravenous Lasix and oral Cardizem. Obtain serum digoxin level in a.m. Harmeet Miranda MD cc: [id number] TT: 06/24/2016 20:06:15 Confirmation # [id number] Dictation # [id number] leann
[2016-06-24] MEDS: Fluticasone-Salmeterol 250-50mcg Diskus IH SCH (21:05)
[2016-06-24] MEDS: Budesonide 0.5 mg/2 ml Inhal Susp UD IH SCH (22:05)
[2016-06-25] MEDS: Saccharomyces Boulardi 250 mg Cap PO SCH ×2 (09:14→17:23)
[2016-06-25] MEDS: Fluticasone-Salmeterol 250-50mcg Diskus IH SCH ×2 (09:14→21:24)
[2016-06-25] MEDS: Digoxin 0.05 mg/mL Elixir 5mL PO SCH (09:19)
--- NOTE | 2016-06-25 10:35 | CP.PCM.HP ---
History of Present Illness - History of Present Illness History of Present Illness: 70 y/o F PMhx of CHF, DVT, PE, admitted due to A fib w/ RVR on was transferred to TCU yesterday for PT services after inpatient stay. She continues feeling better, she reports today "her SOB is almost gone". Denies CP , SOB, palpitations, leg pain. Afebrile. Patient will continue f/u by cardiology (Dr Barksdale) while in TCU. She denies urinary symptoms. She states leg swelling is also improving. PMH: Systolic CHF, HTN, Asthma, Afib, Seizures, Right Pulm Artery PE ( s/p IVC filter) PSH: IVC filter placement (05/01) Allergies: NKDA Social: living w/ family, denies smoking, alcohol, drugs Present on Admission - Present on Admission Any Indicators Present on Admission: Yes History of DVT/PE: Yes Decubitus Ulcer Present: No Review of Systems - Constitutional Constitutional: absent: Anorexia, Fatigue - EENT Eyes: absent: Blurred Vision, Change in Vision - Cardiovascular Cardiovascular: Dyspnea on Exertion, Pedal Edema. absent: Chest Pain, Palpitations - Respiratory Respiratory: absent: Cough, Dyspnea, Hemoptysis - Gastrointestinal Gastrointestinal: absent: Diarrhea, Nausea, Vomiting - Genitourinary Genitourinary: absent: Dysuria, Flank Pain, Pyuria, Urinary Incontinence - Musculoskeletal Musculoskeletal: Arthralgias. absent: Numbness, Tingling - Integumentary Integumentary: Erythema. absent: Non-Healing Lesions - Neurological Neurological: absent: Confusion, Headaches, Paresthesias - Psychiatric Psychiatric: absent: Depression Past Patient History - Past Medical History & Family History Past Medical History?: Yes - Past Social History Smoking Status: Never Smoked - CARDIAC Hx Congestive Heart Failure: Yes Hx Hypercholesterolemia: Yes Hx Hypertension: Yes Hx Peripheral Edema: Yes - PULMONARY Hx Asthma: Yes Hx Pulmonary Embolism: Yes - NEUROLOGICAL Hx Seizures: Yes - HEENT Hx HEENT Problems: No - RENAL Hx Chronic Kidney Disease: No - ENDOCRINE/METABOLIC Hx Endocrine Disorders: Yes Hx Diabetes Mellitus Type 2: Yes - HEMATOLOGICAL/ONCOLOGICAL Hx Anemia: Yes Hx Human Immunodeficiency Virus (HIV): No - INTEGUMENTARY Hx Dermatological Problems: Yes Other/Comment: Chronic skin changes lower extremities. - MUSCULOSKELETAL/RHEUMATOLOGICAL Hx Falls: No - GASTROINTESTINAL Hx Gastrointestinal Disorders: No - GENITOURINARY/GYNECOLOGICAL Hx Genitourinary Disorders: No - PSYCHIATRIC Hx Substance Use: No - SURGICAL HISTORY Hx Surgeries: Yes Other/Comment: R breast lump removed - ANESTHESIA Hx Anesthesia: Yes Hx Anesthesia Reactions: No Meds Allergies/Adverse Reactions: Allergies Allergy/AdvReac Type Severity Reaction Status Date / Time No Known Allergies Allergy Verified 06/24/16 17:35 Physical Exam - Constitutional Appears: Non-toxic, No Acute Distress - Head Exam Head Exam: NORMAL INSPECTION - Eye Exam Eye Exam: PERRL - ENT Exam ENT Exam: Mucous Membranes Moist - Respiratory Exam Respiratory Exam: NORMAL BREATHING PATTERN. absent: Accessory Muscle Use, Rales , Rhonchi - Cardiovascular Exam Cardiovascular Exam: Irregular Rhythm, +S1, +S2. absent: Gallop - GI/Abdominal Exam GI & Abdominal Exam: Hernia, Normal Bowel Sounds, Soft. absent: Distended, Tenderness - Extremities Exam Extremities exam: Positive for: pedal edema (b/l chronic edema with stasis dermatitis skin changes. Also erythema present B/L legs more evident in l/leg improved since yesterday. ). Negative for: calf tenderness - Neurological Exam Neurological exam: Alert, Oriented x3, Reflexes Normal - Psychiatric Exam Psychiatric exam: Normal Affect, Normal Mood - Skin Skin Exam: Warm Results - Vital Signs Recent Vital Signs: Last Vital Signs Temp 98.6 F 06/25/16 08:09 Pulse 96 H 06/25/16 09:16 Resp 20 06/25/16 08:09 BP 116/68 06/25/16 09:19 Pulse Ox 98 06/25/16 08:09 Assessment & Plan - Assessment and Plan (Free Text) Assessment: 70 y/o F with hx of systolic CHF, HTN, Asthma, Afib, Seizures, Right Pulm Artery PE ( s/p IVC filter) admitted to TCU units for rehabilitation after inpatient stay Deconditioning -Pt services as ordered A Fibrillation w/ RVR stable -cardiology consult appreciated, Dr. Miranda. -Metoprolol 50mg BID -Digoxin 0.25mg daily PO -c/w xarelto 20 mg -Will cont following cardiology( Dr Miranda) recs -Cont diltiazem PO QID Acute on Chronic Lymphedema -Associated dermatitis on LE -B/L chronic edema with associated chronic skin changes -Afebrile -WBC WNL -Denies LE pain -Start Hydrocortisone cream 1% BID apply on affected leg -Instructed to keep legs elevated -Cont Keflex 500mg BID for pos associated cellulitis Chronic DVT/PE stable -S/P IVC filter on 04/2016 -LE US shows B/L popliteal thrombosis as reported also in previous LE US. -On Xarelto 20mg daily -Last and previous LE US discussed with radiology today(Dr Henning). No worsening of condition. Possible mild improvement or same CHF improved -systolic -ProBNP elevated -Last ECHO 05/01: EF > 50%, RV systolic dysf'n on last echo -Lasix 40mg PO changed by Drug Inspector -Phosp and Mg WNL Asymptomatic bacteriuria -UCx Klebsiella -Started on Keflex for dual coverage Asthma -Cont Albuterol q4h PRN for SOB -c/w pulmicort and advair ( home meds) Seizures -c/w phenytoin BID ( home med) -phenytoin level low -Start Vit D supplement 1000 unit daily Ppx -DVT: history of PE s/p IVC filter in place -Patient on Xarelto 20mg daily Diet -HH, fluid restriction
--- NOTE | 2016-06-25 12:08 | PN ---
DATE: 06/25/2016 The patient denies any chest pain or shortness of breath. She is able to start physical therapy. PHYSICAL EXAMINATION: VITAL SIGNS: Blood pressure 116/68, heart rate 96, temperature 98.6, respirations 20. HEENT: Normocephalic. NECK: No JVD. CHEST: Clear. HEART: S1, S2 regular. EXTREMITIES: 2+ to 3+ pitting edema with bilateral leg cellulitis. LABORATORIES: Digoxin level is 1.1. ASSESSMENT: 1. Bilateral deep venous thrombosis and bilateral pulmonary embolus. 2. Chronic atrial fibrillation. 3. Bilateral leg cellulitis. 4. Right-sided heart failure. RECOMMENDATIONS: Continue digoxin 0.25 mg daily, Cardizem at 30 mg q.i.d., Dilantin 100 mg twice a d ay. Continue Lopressor at 50 mg ____ a day. Change Lasix to 40 mg orally once a day. Harmeet Miranda MD cc: [id number] TT: 06/25/2016 12:08:13 Confirmation # [id number] Dictation # [id number] tn
[2016-06-25] MEDS: Budesonide 0.5 mg/2 ml Inhal Susp UD IH SCH ×2 (13:35→19:35)
[2016-06-26 06:46] LABS: BASO # 0.1 K/uL (0.0-0.2); EOS # 0.3 K/uL (0.0-0.7); EOS % 4.5 % (0.0-4.0); HEMATOCRIT 37.9 % (34.0-47.0); LYMPH # 1.5 K/uL (1.0-4.3); LYMPH % 25.7 % (20.0-40.0); MEAN CELL VOLUME 96.2 fl (81.0-99.0); MEAN CORPUSCULAR HEMOGLOBIN 31.4 pg (27.0-31.0); MEAN CORPUSCULAR HGB CONC 32.7 g/dL (33.0-37.0); MEAN PLATELET VOLUME 9.2 fl (7.2-11.7); MONO # 0.7 K/uL (0.0-0.8); MONO % 11.8 % (0.0-10.0); NEUT # 3.4 K/uL (1.8-7.0); NRBC % 0.1 % (0.0-0.0); RED CELL DISTRIBUTION WIDTH 19.1 % (11.5-14.5); WHITE BLOOD COUNT 5.9 K/uL (4.8-10.8)
[2016-06-26 07:44] LABS: BLOOD UREA NITROGEN 11 mg/dl (7-17); CALCIUM 9.1 mg/dL (8.4-10.2); CARBON DIOXIDE 30 mmol/L (22-30); CHLORIDE 102 mmol/L (98-107); GFR AFRICAN-AMERICAN > 60; GLUCOSE,RANDOM 99 mg/dL (65-105); POTASSIUM 4.2 MMOL/L (3.6-5.0); SODIUM 139 mmol/l (132-148)
[2016-06-26] MEDS: Budesonide 0.5 mg/2 ml Inhal Susp UD IH SCH ×2 (07:46→19:09)
[2016-06-26] MEDS: Fluticasone-Salmeterol 250-50mcg Diskus IH SCH ×2 (08:20→21:03)
[2016-06-26] MEDS: Saccharomyces Boulardi 250 mg Cap PO SCH ×2 (08:21→17:55)
[2016-06-26] MEDS: Digoxin 0.05 mg/mL Elixir 5mL PO SCH (08:21)
--- NOTE | 2016-06-26 11:42 | PN ---
DATE: 06/26/2016 The patient denies any chest pain. Leg swelling has improved. PHYSICAL EXAMINATION: VITAL SIGNS: Blood pressure 114/66, heart rate 86, temperature 97.9, respiration 20. HEENT: Normocephalic. NECK: No JVD. CHEST: Clear. HEART: S1, S2 regular. EXTREMITIES: 2+ pitting edema with evidence of bilateral leg cellulitis. LABORATORIES: Today's SMA-7 was within normal limit except for creatinine 0.5. Hemoglobin and hemat ocrit 12.4 and 37.9. White count and platelet count are within normal limit. ASSESSMENT: 1. Chronic atrial fibrillation. 2. Bilateral deep venous thrombosis and bilateral pulmonary embolus. 3. Bilateral leg cellulitis. RECOMMENDATIONS: Continue Xarelto at 20 mg once a day, Lopressor at 50 mg ____ a day, Lasix at 40 mg orally once a day, digoxin 0.25 mg orally once a day, Dilantin 100 mg twice a day, Cardizem at 30 mg q.i.d., ____ current bronchodilators. Harmeet Miranda MD cc: [id number] TT: 06/26/2016 11:41:27 Confirmation # [id number] Dictation # [id number]
[2016-06-27] MEDS: Budesonide 0.5 mg/2 ml Inhal Susp UD IH SCH ×2 (09:00→19:58)
[2016-06-27] MEDS: Saccharomyces Boulardi 250 mg Cap PO SCH ×2 (09:07→16:57)
[2016-06-27] MEDS: Digoxin 0.05 mg/mL Elixir 5mL PO SCH (09:07)
[2016-06-27] MEDS: Fluticasone-Salmeterol 250-50mcg Diskus IH SCH ×2 (09:08→21:38)
[2016-06-27 16:07] VITALS: RESP 20
--- NOTE | 2016-06-27 18:13 | PN ---
DATE: 06/27/2016 SUBJECTIVE: The patient is ambulatory. HER shortness of breath as well as leg swelling have improve d. PHYSICAL EXAMINATION: VITAL SIGNS: Blood pressure 126/75, heart rate 94, temperature 97.9, respirations 20. HEENT: Normocephalic. NECK: No JVD. CHEST: Minimal rhonchi. HEART: S1, S2 regular. EXTREMITIES: 1-2+ pitting edema. ASSESSMENT: 1. Chronic atrial fibrillation. 2. Bilateral deep venous thrombosis and bilateral pulmonary embolus. 3. Bilateral leg cellulitis. 4. History of seizure disorder. RECOMMENDATIONS: Change Cardizem to CD 120 mg daily. Continue Lanoxin 0.25 mg daily, Lasix 40 mg or ally once a day, Lopressor 50 mg twice a day, Xarelto 20 mg once a day. Obtain serum digoxin flynn jenkins a.m. Harmeet Miranda MD cc: [id number] TT: 06/27/2016 18:13:17 Confirmation # [id number] Dictation # [id number] dn
[2016-06-28] MEDS: Budesonide 0.5 mg/2 ml Inhal Susp UD IH SCH ×2 (07:39→19:35)
[2016-06-28] MEDS: Fluticasone-Salmeterol 250-50mcg Diskus IH SCH ×2 (09:02→21:15)
[2016-06-28] MEDS: Saccharomyces Boulardi 250 mg Cap PO SCH ×2 (09:03→16:43)
[2016-06-28] MEDS: Digoxin 0.05 mg/mL Elixir 5mL PO SCH (09:04)
--- NOTE | 2016-06-28 10:04 | CP.PCM.PN ---
Subjective - Date & Time of Evaluation Date of Evaluation: 06/28/16 Time of Evaluation: 09:50 - Subjective Subjective: Follow up for physical therapy in TCU Overnight: afebrile Pt OOB, NAD. States doing well. Tolerating po and pt well. Denies difficulty voiding or bm. Denies f/n/v/chills. Denies sob, palpitation, chest pain. Objective - Vital Signs/Intake and Output Vital Signs (last 24 hours): Temp Pulse Resp BP Pulse Ox 97.9 F 89 20 129/71 99 06/28/16 08:05 06/28/16 09:03 06/28/16 08:05 06/28/16 09:04 06/28/16 08:05 - Medications Medications: Current Medications Albuterol (Ventolin Hfa 90 Mcg/Actuation (8 G)) 2 puff INH RQ4 PRN PRN Reason: Shortness of Breath Budesonide (Pulmicort Respules) 0.5 mg IH RBID [facility] Last Admin: 06/28/16 07:39 Dose: 0.5 mg Cephalexin Monohydrate (Keflex) 500 mg PO Q12 [facility] Last Admin: 06/28/16 09:05 Dose: 500 mg Cholecalciferol (Vitamin D) 1,000 iu PO DAILY [facility] Last Admin: 06/28/16 09:05 Dose: 1,000 iu Digoxin (Lanoxin Elixir Soln) 0.25 mg PO DAILY [facility] Last Admin: 06/28/16 09:04 Dose: 0.25 mg Diltiazem HCl (Cardizem) 120 mg PO DAILY [facility] Last Admin: 06/28/16 09:03 Dose: 120 mg Furosemide (Lasix) 40 mg PO DAILY [facility] Last Admin: 06/28/16 09:04 Dose: 40 mg Hydrocortisone (Cortizone 1% Cream) 1 applic TOP BID [facility] Last Admin: 06/28/16 09:07 Dose: 1 applic Metoprolol Tartrate (Lopressor) 50 mg PO Q12 [facility] Last Admin: 06/28/16 09:03 Dose: 50 mg Phenytoin Sodium (Dilantin) 100 mg PO Q12 [facility] Last Admin: 06/28/16 09:04 Dose: 100 mg Rivaroxaban (Xarelto) 20 mg PO DAILY@1700 BRAD PRN Reason: Protocol Last Admin: 06/27/16 16:57 Dose: 20 mg Saccharomyces Boulardii (Florastor) 250 mg PO BID [facility] Last Admin: 06/28/16 09:03 Dose: 250 mg Fluticasone/Salmeterol (Advair Diskus 250/50) 1 puff IH Q12 [facility] Last Admin: 06/28/16 09:02 Dose: 1 puff - Labs Labs: 06/26/16 05:30 06/26/16 05:30 - Additional Findings Additional findings: - Constitutional Appears: Non-toxic, No Acute Distress - Head Exam Head Exam: NORMAL INSPECTION - Eye Exam Eye Exam: PERRL - ENT Exam ENT Exam: Mucous Membranes Moist - Respiratory Exam Respiratory Exam: NORMAL BREATHING PATTERN. absent: Accessory Muscle Use, Rales , Rhonchi - Cardiovascular Exam Cardiovascular Exam: Irregular Rhythm, +S1, +S2. absent: Gallop - GI/Abdominal Exam GI & Abdominal Exam: Hernia, Normal Bowel Sounds, Soft. absent: Distended, Tenderness - Extremities Exam Extremities exam: Positive for: pedal edema (b/l chronic edema with stasis dermatitis skin changes. Also erythema present B/L legs more evident in l/leg improved since yesterday. ). 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 Miranda. -Metoprolol 50mg BID -Digoxin 0.25mg daily PO -c/w xarelto 20 mg -Will cont following cardiology( Dr Miranda) recs -Cont diltiazem PO QID Acute on Chronic Lymphedema -Associated dermatitis on LE -B/L chronic edema with associated chronic skin changes -Afebrile -WBC WNL -Denies LE pain -Start Hydrocortisone cream 1% BID apply on affected leg -Instructed to keep legs elevated -Cont Keflex 500mg BID for pos associated cellulitis Chronic DVT/PE stable -S/P IVC filter on 04/2016 -LE US shows B/L popliteal thrombosis as reported also in previous LE US. -On Xarelto 20mg daily -Last and previous LE US discussed with radiology today(Dr Henning). No worsening of condition. Possible mild improvement or same CHF improved -systolic -ProBNP elevated -Last ECHO 05/01: EF > 50%, RV systolic dysf'n on last echo -Lasix 40mg PO changed by Brick Paver -Phosp and Mg WNL Asymptomatic bacteriuria -UCx Klebsiella -Started on Keflex for dual coverage Asthma -Cont Albuterol q4h PRN for SOB -c/w pulmicort and advair ( home meds) Seizures -c/w phenytoin BID ( home med) -phenytoin level low -Start Vit D supplement 1000 unit daily Ppx -DVT: history of PE s/p IVC filter in place -Patient on Xarelto 20mg daily Diet -HH, fluid restriction
--- NOTE | 2016-06-28 16:44 | PN ---
DATE: 06/28/2016 SUBJECTIVE: The patient denies any chest pain or shortness of breath. No dizziness or palpitation. PHYSICAL EXAMINATION: VITAL SIGNS: Blood pressure 129/71, heart rate 89, temperature 97.9, respirations 20. HEENT: Normocephalic. NECK: No JVD. CHEST: Clear. HEART: S1, S2 regular. EXTREMITIES: With 1+ pitting edema. LABORATORIES: Repeat digoxin level 0.8. ASSESSMENT: 1. Chronic atrial fibrillation. 2. Bilateral deep venous thrombosis and bilateral pulmonary embolus. 3. Bilateral leg cellulitis. RECOMMENDATIONS: Continue Cardizem CD 120 mg daily, Dilantin 100 mg twice a day, Keflex 500 mg twice a day, Lanoxin 0.25 mg orally once a day, Lasix mg orally once a day, Lopressor 50 mg twice a day. Harmeet Miranda MD cc: [id number] TT: 06/28/2016 16:44:08 Confirmation # [id number] Dictation # [id number] ln
[2016-06-29] MEDS: Budesonide 0.5 mg/2 ml Inhal Susp UD IH SCH ×2 (07:39→20:22)
[2016-06-29] MEDS: Fluticasone-Salmeterol 250-50mcg Diskus IH SCH ×2 (08:41→21:34)
[2016-06-29] MEDS: Digoxin 0.05 mg/mL Elixir 5mL PO SCH (08:42)
[2016-06-29] MEDS: Saccharomyces Boulardi 250 mg Cap PO SCH ×2 (08:42→17:13)
[2016-06-30] MEDS: Budesonide 0.5 mg/2 ml Inhal Susp UD IH SCH ×2 (07:43→16:41)
--- NOTE | 2016-06-30 08:29 | PN ---
DATE: 06/29/2016 The patient is currently undergoing rehab. She denies any dizziness, chest pain or shortness of melvin th. PHYSICAL EXAMINATION: VITAL SIGNS: Blood pressure 115/65, heart rate 90, temperature 97.7, respiration 20. HEENT: Normocephalic. NECK: No JVD. CHEST: Clear. HEART: S1, S2 regular. EXTREMITIES: 1+ pitting edema. ASSESSMENT: 1. Chronic atrial fibrillation. 2. Bilateral deep venous thrombosis and pulmonary embolus. 3. Hypertension and diabetes mellitus. RECOMMENDATIONS: Continue current Cardizem-CD at 120 mg once a day, Dilantin 100 mg twice a day, Siddhartha oxin 0.25 mg once a day, Lasix 40 mg p.o. once a day, Lopressor 50 mg twice a day, Xarelto 20 mg once a day, ____ bronchodilators. Harmeet Miranda MD cc: [id number] TT: 06/29/2016 16:14:29 Confirmation # [id number] Dictation # [id number] 06/30/2016 07:28:06
[2016-06-30] MEDS: Digoxin 0.05 mg/mL Elixir 5mL PO SCH (08:41)
[2016-06-30] MEDS: Saccharomyces Boulardi 250 mg Cap PO SCH (08:41)
[2016-06-30] MEDS: Fluticasone-Salmeterol 250-50mcg Diskus IH SCH (08:41)
--- NOTE | 2016-06-30 12:27 | CP.PCM.DIS ---
Provider - Provider Date of Admission: 06/24/16 17:38 Attending physician: Yakelin Chand MD Primary care physician: Dr Mantilla Consults: Cardiology Dr Miranda Physical Therapy Time Spent in preparation of Discharge (in minutes): 35 Diagnosis - Discharge Diagnosis (1) Asymptomatic bacteriuria Status: Acute Comment: Cont PO Keflex as outpatient (2) Atrial fibrillation with RVR Status: Acute Comment: Stable. Cont Xarelto, cardizem, metoprolol. F/U with Cardio as outptient (3) DVT of lower extremity, bilateral Status: Chronic Priority: High Comment: stable. Cont Xarelto. F/U with LE US as outpatient in 1 month (4) Lymphedema of both lower extremities Status: Chronic Comment: Acute exacerbation. Improved. Cont Lasix , leg elevation and abx Hospital Course - Lab Results Lab Results: Most Recent Lab Values WBC 5.9 K/uL (4.8-10.8) 06/26/16 05:30 RBC 3.94 Mil/uL (3.80-5.20) 06/26/16 05:30 Hgb 12.4 g/dL (12.0-16.0) 06/26/16 05:30 Hct 37.9 % (34.0-47.0) 06/26/16 05:30 MCV 96.2 fl (81.0-99.0) 06/26/16 05:30 MCH 31.4 pg (27.0-31.0) H 06/26/16 05:30 MCHC 32.7 g/dL (33.0-37.0) L 06/26/16 05:30 RDW 19.1 % (11.5-14.5) H 06/26/16 05:30 Plt Count 195 K/uL (130-400) 06/26/16 05:30 MPV 9.2 fl (7.2-11.7) 06/26/16 05:30 Neut % (Auto) 57.0 % (50.0-75.0) 06/26/16 05:30 Lymph % (Auto) 25.7 % (20.0-40.0) 06/26/16 05:30 [place] % (Auto) 11.8 % (0.0-10.0) H 06/26/16 05:30 Eos % (Auto) 4.5 % (0.0-4.0) H 06/26/16 05:30 Baso % (Auto) 1.0 % (0.0-2.0) 06/26/16 05:30 Neut # 3.4 K/uL (1.8-7.0) 06/26/16 05:30 Lymph # 1.5 K/uL (1.0-4.3) 06/26/16 05:30 [place] # 0.7 K/uL (0.0-0.8) 06/26/16 05:30 Eos # 0.3 K/uL (0.0-0.7) 06/26/16 05:30 Baso # 0.1 K/uL (0.0-0.2) 06/26/16 05:30 Sodium 139 mmol/l (132-148) 06/26/16 05:30 Potassium 4.2 MMOL/L (3.6-5.0) 06/26/16 05:30 Chloride 102 mmol/L (98-107) 06/26/16 05:30 Carbon Dioxide 30 mmol/L (22-30) 06/26/16 05:30 Anion Gap 11 (10-20) 06/26/16 05:30 BUN 11 mg/dl (7-17) 06/26/16 05:30 Creatinine 0.5 mg/dL (0.7-1.2) L 06/26/16 05:30 Est GFR ( Amer) > 60 06/26/16 05:30 Est GFR (Non-Af Amer) > 60 06/26/16 05:30 Random Glucose 99 mg/dL (65-105) 06/26/16 05:30 Calcium 9.1 mg/dL (8.4-10.2) 06/26/16 05:30 Procalcitonin < 0.05 NG/ML (0.19-0.49) L 06/25/16 17:28 Digoxin 0.8 ng/mL (0.8-2.0) 06/28/16 06:00 - Hospital Course Hospital Course: 70 y/o with PMhx of CHF, Lymphedema, DVT, PE, admitted to hosp for SOB was diagnosed during her stay in the hosp with Patricia with RVR, patient was treated with Cardizem drip and home meds were readjusted on multiple occasions until rate was controlled. Patient was with Xarelto 20mg PO for Hx of DVT 2 months ago during other hosp admission. She was also found to have LE edema with redness associated and UCx postive for Klebsiella less than [id number] colonies. Patient was started with PO Keflex and transferred to TCU for PT after medically stable. Today she is being discharge home to f/u as outpatient with PMD and Cardiology. Patient has appt scheduled in [facility] with Dr Stephens for July 14. Discharge meds: Albuterol (Ventolin Hfa 90 Mcg/Actuation (8 G)) 2 puff INH RQ4 PRN Budesonide (Pulmicort Respules) 0.5 mg IH RBID BRAD Cephalexin Monohydrate (Keflex) 500 mg PO Q12 [facility] Cholecalciferol (Vitamin D) 1,000 iu PO DAILY [facility] Digoxin (Lanoxin Elixir Soln) 0.25 mg PO DAILY [facility] Diltiazem HCl (Cardizem) 120 mg PO DAILY [facility] Furosemide (Lasix) 40 mg PO DAILY [facility] Metoprolol Tartrate (Lopressor) 50 mg PO Q12 [facility] Phenytoin Sodium (Dilantin) 100 mg PO Q12 [facility] Rivaroxaban (Xarelto) 20 mg PO DAILY@1700 BRAD Fluticasone/Salmeterol (Advair Diskus 250/50) 1 puff IH Q12 [facility] Discharge Exam - Head Exam Head Exam: NORMAL INSPECTION - Eye Exam Eye Exam: PERRL - ENT Exam ENT Exam: Mucous Membranes Moist - Respiratory Exam Respiratory Exam: Clear to PA & Lateral, NORMAL BREATHING PATTERN - Cardiovascular Exam Cardiovascular Exam: +S1, +S2. absent: Gallop - GI/Abdominal Exam GI & Abdominal Exam: Normal Bowel Sounds, Unremarkable. absent: Distended - Neurological Exam Neurological exam: Alert, Normal Gait, Oriented x3 - Psychiatric Exam Psychiatric exam: Normal Affect, Normal Mood - Skin Skin Exam: Warm Discharge Plan - Discharge Medications Prescriptions: Cephalexin [Keflex] 500 mg PO Q12 #8 capsule diltiaZEM [Cardizem] 120 mg PO DAILY #30 tab Metoprolol Tartrate [Lopressor] 50 mg PO Q12 #60 tablet - Follow Up Plan Condition: GOOD Disposition: HOME/ ROUTINE Instructions: Heart Failure (DC), Community Acquired Pneumonia (DC), Fall Prevention (DC) Additional Instructions: F/U by PMD in 3 days. instructions given to pt who verbalized understanding
--- NOTE | 2016-06-30 15:53 | PN ---
DATE: 06/30/2016 The patient denies chest pain or dizziness. PHYSICAL EXAMINATION: VITAL SIGNS: Blood pressure 138/72, heart rate 94, temperature 97, respirations 20. HEENT: Normocephalic. NECK: No JVD. CHEST: Clear. HEART: S1, S2 regular. EXTREMITIES: 1+ pitting edema with resolving bilateral leg cellulitis. ASSESSMENT: 1. Chronic atrial fibrillation. 2. Recent bilateral deep venous thrombosis and bilateral pulmonary embolus. 3. History of seizure disorder. RECOMMENDATIONS: Continue Cardizem at 120 mg once a day, ____ 100 mg twice a day, Lanoxin 0.25 mg or ally daily, Lasix 40 mg p.o. once a day, Lopressor 50 mg twice a day, Xarelto 20 mg once a day. I di scussed the case with the primary physician. In view of the fact that the patient has had no seizure activity for the past 4-5 years on Dilantin, according to the patient, Xarelto can be maintained aft er the 6 month period for the treatment of pulmonary embolism to include the treatment for chronic at rial fibrillation. Harmeet Miranda MD cc: [id number] TT: 06/30/2016 15:53:06 Confirmation # [id number] Dictation # [id number]
[2016-06-30 16:11] VITALS: BP 118/71; PULSE 64; TEMP 97.7; O2SAT 97
== END 2016-06-30 16:58 | disposition home or self-care (01) | DRG 300 ==
LOC: H.TCU 17:38
PROVIDERS: ADMIT Family Medicine Geriatric Medicine; ATTEND Family Medicine Geriatric Medicine
PROC: F07Z9FZ Gait Training/Functional Ambulation Treatment using Assistive, Adaptive, Supportive or Protective Equipment (ICD-10-PCS; principal; 2016-06-24)
PROC: F08Z4FZ Home Management Treatment using Assistive, Adaptive, Supportive or Protective Equipment (ICD-10-PCS; 2016-06-24)
PROC: F07L6FZ Therapeutic Exercise Treatment of Musculoskeletal System - Lower Back / Lower Extremity using Assistive, Adaptive, Supportive or Protective Equipment (ICD-10-PCS; 2016-06-25)
DX: I82.533 Chronic embolism and thrombosis of popliteal vein, bilateral (principal); I50.22 Chronic systolic (congestive) heart failure; I27.2 Other secondary pulmonary hypertension; L03.115 Cellulitis of right lower limb; I71.2 Thoracic aortic aneurysm, without rupture; I48.2 Chronic atrial fibrillation; I11.0 Hypertensive heart disease with heart failure; G40.909 Epilepsy, unspecified, not intractable, without status epilepticus; J44.9 Chronic obstructive pulmonary disease, unspecified; I89.0 Lymphedema, not elsewhere classified; L03.116 Cellulitis of left lower limb; J45.909 Unspecified asthma, uncomplicated; Z86.711 Personal history of pulmonary embolism; Z79.01 Long term (current) use of anticoagulants

== ENCOUNTER 2016-07-14 12:47 | Inpatient (IN) | payer MEDICARE ==
--- NOTE | 2016-07-14 13:00 | ED PDOC ---
HPI: General Adult Time Seen by Provider: 07/14/16 12:54 Chief Complaint (Nursing): Palpitations Chief Complaint (Provider): palpitations History Per: Patient History/Exam Limitations: no limitations Additional Complaint(s): 70yo female brought by EMS from our family practice clinic for complaint of palpitations. Patient also complains of cough with sputum but denies dizziness. No shortness of breath. PMD: Family Practice Past Medical History Reviewed: Historical Data, Nursing Documentation, Vital Signs Vital Signs: Last Vital Signs Temp 97.6 F 07/14/16 12:54 Pulse 143 H 07/14/16 12:54 Resp 18 07/14/16 12:54 BP 140/82 07/14/16 13:48 Pulse Ox 98 07/14/16 14:17 - Medical History PMH: Anemia, Asthma, CHF, HTN, Hypercholesterolemia, Peripheral Edema, Pulmonary Embolism, Seizures Denies: HIV, Chronic Kidney Disease - Family History Family History: States: Unknown Family Hx - Home Medications Home Medications: Ambulatory Orders Medication Instructions Recorded Albuterol HFA [Ventolin HFA 90 2 puff IH Q4H PRN #1 inhaler 05/14/16 mcg/actuation (8 g)] Ammonium Lactate 12% [Lac-Hydrin 1 applic TOP DAILY #1 bottle 05/14/16 12% Lotion (225 g)] Budesonide [Pulmicort Respules] 0.5 mg IH Q12 #1 neb 05/14/16 Phenytoin, Extended [Dilantin] 100 mg PO Q12@0900,2100 #30 cer 05/14/16 Rivaroxaban [Xarelto] 20 mg PO DAILY #30 tab 05/14/16 Fluticasone/Salmeterol [Advair 1 each IH BID 06/19/16 250-50 Diskus] Cephalexin [Keflex] 500 mg PO Q12H cap 06/24/16 Cholecalciferol [Vitamin D 1000 IU] 1,000 iu PO DAILY tab 06/24/16 Digoxin [Lanoxin Elixir Soln] 0.25 mg PO DAILY ml 06/24/16 Furosemide [Lasix] 20 mg IVP BID vial 06/24/16 Hydrocortisone 1% Cream [Cortizone 1 applic TOP BID 06/24/16 1% Cream] Ondansetron [Zofran Inj] 4 mg IVP Q6 PRN vial 06/24/16 Cephalexin [Keflex] 500 mg PO Q12 #8 capsule 06/30/16 Metoprolol Tartrate [Lopressor] 50 mg PO Q12 #60 tablet 06/30/16 diltiaZEM [Cardizem] 120 mg PO DAILY #30 tab 06/30/16 - Allergies Allergies/Adverse Reactions: Allergies Allergy/AdvReac Type Severity Reaction Status Date / Time No Known Allergies Allergy Verified 06/24/16 17:35 Review of Systems ROS Statement: Except As Marked, All Systems Reviewed And Found Negative Cardiovascular: Positive for: Palpitations Respiratory: Positive for: Cough, Sputum. Negative for: Shortness of Breath Neurological: Negative for: Dizziness Physical Exam - Reviewed Nursing Documentation Reviewed: Yes Vital Signs Reviewed: Yes - Physical Exam Appears: Positive for: Well, Non-toxic, No Acute Distress Head Exam: Positive for: ATRAUMATIC, NORMAL INSPECTION, NORMOCEPHALIC Skin: Positive for: Warm, Dry Eye Exam: Positive for: EOMI, PERRL Cardiovascular/Chest: Positive for: Irregularly Irregular Respiratory: Positive for: Rhonchi, Wheezing (expiratory), Respiratory Distress (mild) Gastrointestinal/Abdominal: Positive for: Soft. Negative for: Tenderness Extremity: Positive for: Normal ROM, Other (3+ bilateral lower extremity edema) - Laboratory Results Result Diagrams: 07/14/16 13:15 07/14/16 13:15 - ECG O2 Sat by Pulse Oximetry: 98 (rA) Pulse Ox Interpretation: Normal - Critical Care Total Time (In Min): 30 Documented Critical Care: Time excludes all time spent performint seperately billable procedures Medical Decision Making Medical Decision Makin EKG, CXR, Labs, 2x duonebs, solumedrol 125mg ordered. Disposition - Clinical Impression Clinical Impression: CHF (congestive heart failure), Atrial fibrillation with RVR - Patient ED Disposition Is Patient to be Admitted: Yes - Disposition Disposition Time: 14:23 Condition: STABLE - Pt Status Changed To: Hospital Disposition Of: Observation - POA Present On Arrival: None Additional Comments - Additional Comments Additional Comments: Scribe Attestation Documented by Tre Urban acting as a scribe for Pro Ohara MD. Provider Attestation All medical record entries made by the Scribe were at my direction and personally dictated by me. I have reviewed the chart and agree that the record accurately reflects my personal performance of the history, physical exam, medical decision making, and the department course for this patient. I have also personally directed, reviewed, and agree with the discharge instructions and disposition
[2016-07-14] MEDS ORDERED: Albuterol-Ipratrop 3 mg / 0.5 (3 ml) UD IH STA ×2 (13:03→13:04)
[2016-07-14] MEDS ORDERED: Albuterol-Ipratrop 3 mg / 0.5 (3 ml) UD ONE ×2 (13:25→21:04)
[2016-07-14 13:54] LABS: BASO # 0.1 K/uL (0.0-0.2); BASO % 0.9 % (0.0-2.0); EOS # 0.1 K/uL (0.0-0.7); HEMATOCRIT 39.4 % (34.0-47.0); LYMPH # 1.5 K/uL (1.0-4.3); LYMPH % 22.4 % (20.0-40.0); MEAN CELL VOLUME 97.3 fl (81.0-99.0); MEAN CORPUSCULAR HEMOGLOBIN 31.8 pg (27.0-31.0); MEAN CORPUSCULAR HGB CONC 32.7 g/dL (33.0-37.0); MEAN PLATELET VOLUME 9.9 fl (7.2-11.7); MONO # 0.7 K/uL (0.0-0.8); MONO % 10.4 % (0.0-10.0); NEUT # 4.4 K/uL (1.8-7.0); NEUT % 64.3 % (50.0-75.0); NRBC % 0.1 % (0.0-0.0); RED CELL DISTRIBUTION WIDTH 16.9 % (11.5-14.5); WHITE BLOOD COUNT 6.8 K/uL (4.8-10.8)
[2016-07-14] MEDS ORDERED: Digoxin 500 mcg/2ml (0.5 mg/2ml) Inj IVP STA (13:57)
[2016-07-14 14:07] LABS: CHLORIDE 104 mmol/L (98-107)
[2016-07-14 14:08] LABS: POTASSIUM 3.9 MMOL/L (3.6-5.0); SODIUM 139 mmol/l (132-148)
[2016-07-14 14:10] LABS: ALKALINE PHOSPHATASE 114 U/L (38-126); AST/SGOT 24 U/L (14-36); BILIRUBIN,TOTAL 0.5 mg/dl (0.2-1.3); CARBON DIOXIDE 26 mmol/L (22-30); GFR AFRICAN-AMERICAN > 60; TOTAL PROTEIN 7.4 G/DL (6.3-8.2)
[2016-07-14 14:11] LABS: ALT/SGPT 28 U/L (9-52); BLOOD UREA NITROGEN 12 mg/dl (7-17); CALCIUM 9.6 mg/dL (8.4-10.2); GLUCOSE,RANDOM 114 mg/dL (65-105)
[2016-07-14] MEDS ORDERED: Digoxin 500 mcg/2ml (0.5 mg/2ml) Inj ONE (14:46)
--- NOTE | 2016-07-14 15:44 | RAD ---
HISTORY: Cough. Semi upright study 13:10. COMPARISON: 06/20/2016 FINDINGS: LUNGS: Improving pulmonary edema PLEURA: Focal pleural thickening/ loculated pleural effusion. CARDIOVASCULAR: Cardiomegaly, improving CHF. OSSEOUS STRUCTURES: No significant abnormalities. VISUALIZED UPPER ABDOMEN: Normal. OTHER FINDINGS: None. IMPRESSION: Improving CHF/pulmonary edema.
[2016-07-14] MEDS ORDERED: Albuterol 0.083% Inhal Sol (2.5 mg/3 mL) UD INH PRN (17:51)
[2016-07-14] MEDS: Fluticasone-Salmeterol 250-50mcg Diskus IH SCH (21:03)
[2016-07-14] MEDS: Albuterol-Ipratrop 3 mg / 0.5 (3 ml) UD INH SCH (21:13)
--- NOTE | 2016-07-14 21:31 | CP.PCM.HP ---
History of Present Illness - History of Present Illness History of Present Illness: 70 y/o F PMhx of CHF, DVT, PE, admitted due to A fib w/ RVR. Patient was seen and evaluated in clinic today by PMD and sent to ED for evaluation of elevated heart rate. Patient reports that she has been feeling SOB for 1 week. Patient states productive cough associated to white sputum production x 1 week. Denies fever, chills, headaches, nasal congestion, chest pain, palpitations or other complains. Patient reports that she is taking her medications as directed. PMH: Systolic CHF, HTN, Asthma, Afib, Seizures, Right Pulm Artery PE ( s/p IVC filter) PSH: IVC filter placement (05/01) Allergies: NKDA Social: living w/ family, denies smoking, alcohol, drugs ED course VS: significant for HR 143/min PE: Alert, oriented X 3 resp: clear to auscultation B/L CV: Irregular rhythm, tachycardic abd: soft, non distended, non tender ext: lower extremities edema pitting 2+, associated with skin redness Labs: CBC, CMP, troponin I, Pro-BNP CXR: showed improving CHF/pulmonary edema EKG: Afib Management: Duoneb x 2, Cardizem 25 mg IVP once, then started and c/w Cardizem drip at 5 mg/hr, Digoxin 0.25 mg IVP stat, Solumedrol 125 mg IVP once, Furosemide 40 mg IV once Present on Admission - Present on Admission Any Indicators Present on Admission: No History of DVT/PE: Yes History of Uncontrolled Diabetes: No Urinary Catheter: No Decubitus Ulcer Present: No Review of Systems - Review of Systems All systems: reviewed and no additional remarkable complaints except (as per HPI ) Past Patient History - Past Medical History & Family History Past Medical History?: Yes - Past Social History Smoking Status: Never Smoked - CARDIAC Hx Congestive Heart Failure: Yes Hx Hypercholesterolemia: Yes Hx Hypertension: Yes Hx Peripheral Edema: Yes - PULMONARY Hx Asthma: Yes Hx Pulmonary Embolism: Yes - NEUROLOGICAL Hx Seizures: Yes - HEENT Hx HEENT Problems: No - RENAL Hx Chronic Kidney Disease: No - ENDOCRINE/METABOLIC Hx Endocrine Disorders: Yes Hx Diabetes Mellitus Type 2: Yes - HEMATOLOGICAL/ONCOLOGICAL Hx Anemia: Yes Hx Human Immunodeficiency Virus (HIV): No - INTEGUMENTARY Hx Dermatological Problems: Yes Other/Comment: Chronic skin changes lower extremities. - MUSCULOSKELETAL/RHEUMATOLOGICAL Hx Falls: No - GASTROINTESTINAL Hx Gastrointestinal Disorders: No - GENITOURINARY/GYNECOLOGICAL Hx Genitourinary Disorders: No - PSYCHIATRIC Hx Psychophysiologic Disorder: No Hx Substance Use: No - SURGICAL HISTORY Hx Surgeries: Yes Other/Comment: R breast lump removed - ANESTHESIA Hx Anesthesia: Yes Hx Anesthesia Reactions: No Meds Allergies/Adverse Reactions: Allergies Allergy/AdvReac Type Severity Reaction Status Date / Time No Known Allergies Allergy Verified 06/24/16 17:35 Physical Exam - Constitutional Appears: Non-toxic, No Acute Distress - ENT Exam ENT Exam: Mucous Membranes Moist - Respiratory Exam Respiratory Exam: Clear to Auscultation Bilateral, NORMAL BREATHING PATTERN - Cardiovascular Exam Cardiovascular Exam: Tachycardia, Irregular Rhythm, +S1, +S2 - GI/Abdominal Exam GI & Abdominal Exam: Normal Bowel Sounds, Soft. absent: Distended, Firm, Guarding, Tenderness - Extremities Exam Extremities exam: Positive for: pedal edema. Negative for: calf tenderness Additional comments: Bilateral pitting 2+edema of lower extremities - Back Exam Back exam: NORMAL INSPECTION. absent: CVA tenderness (L), CVA tenderness (R) - Neurological Exam Neurological exam: Alert, Oriented x3 - Psychiatric Exam Psychiatric exam: Normal Affect, Normal Mood - Skin Skin Exam: Dry, Intact, Normal Color Results - Vital Signs Recent Vital Signs: Last Vital Signs Temp 98.4 F 07/14/16 20:28 Pulse 133 H 07/14/16 20:51 Resp 16 07/14/16 20:51 BP 143/107 H 07/14/16 20:28 Pulse Ox 100 07/14/16 20:51 - Labs Result Diagrams: 07/14/16 13:15 07/14/16 13:15 Assessment & Plan - Assessment and Plan (Free Text) Assessment: 70 y/o F PMhx of CHF, DVT, PE, admitted due to A fib w/ RVR. Plan: A Fibrillation w/ RVR Admit to Telemetry for observation, and rate control Continue athletic monitor -c/w Cardizem drip at 5 mg/hr -c/w home Metoprolol 50mg BID -c/w home Digoxin 0.25 mg daily PO -c/w xarelto 20 mg Troponin I 0.0130 -Cardiology consult appreciated. F/U recommendations Heart Failure Improving from previous admission no rales to auscultation Pro-BNP improving from prior exam on 06/19/16 (7180) now is 4650 CXR: showed improving CHF/pulmonary edema Echocardiogram on 04/23/16 showed: Dilated RV. RV systolic function moderately reduced, LV normal function, size, with normal EF. Asthma No wheezing -c/w Home meds Chronic Lower extremities edema -B/L chronic edema with associated chronic skin changes -Afebrile -WBC WNL -Denies LE pain -Continue monitoring Seizures c/w phenytoin BID ( home med) DVT prophylaxis Patient is taking Xarelto Diet Heart healthy diet - Date & Time Date: 07/14/16 Time: 17:00
[2016-07-15] MEDS: Fluticasone-Salmeterol 250-50mcg Diskus IH SCH ×2 (06:50→17:05)
[2016-07-15] MEDS: Albuterol-Ipratrop 3 mg / 0.5 (3 ml) UD INH SCH ×3 (07:42→19:29)
--- NOTE | 2016-07-15 08:15 | CARD ---
APPROVED REPORT EKG Measurement Heart [id number] <Conclusion> Atrial flutter/ fibrillation with rapid ventricular response Poss Inferior wall infarct, age undetermined ST & T wave abnormality, consider lateral ischemia Abnormal ECG
[2016-07-15] MEDS: Digoxin 250 mcg (0.25 mg) Tab PO SCH (09:30)
[2016-07-15 11:10] LABS: HEMATOCRIT 36.4 % (34.0-47.0); MEAN CELL VOLUME 97.8 fl (81.0-99.0); MEAN CORPUSCULAR HEMOGLOBIN 32.1 pg (27.0-31.0); MEAN CORPUSCULAR HGB CONC 32.8 g/dL (33.0-37.0); RED CELL DISTRIBUTION WIDTH 16.6 % (11.5-14.5); WHITE BLOOD COUNT 6.2 K/uL (4.8-10.8)
[2016-07-15 11:26] LABS: ALKALINE PHOSPHATASE 84 U/L (38-126); ALT/SGPT 29 U/L (9-52); AST/SGOT 21 U/L (14-36); BILIRUBIN,TOTAL 0.3 mg/dl (0.2-1.3); BLOOD UREA NITROGEN 12 mg/dl (7-17); CARBON DIOXIDE 27 mmol/L (22-30); CHLORIDE 101 mmol/L (98-107); GFR AFRICAN-AMERICAN > 60; GLUCOSE,RANDOM 108 mg/dL (65-105); POTASSIUM 3.4 MMOL/L (3.6-5.0); SODIUM 137 mmol/l (132-148); TOTAL PROTEIN 6.5 G/DL (6.3-8.2)
--- NOTE | 2016-07-15 11:37 | CP.PCM.PN ---
Subjective - Date & Time of Evaluation Date of Evaluation: 07/15/16 Time of Evaluation: 08:30 - Subjective Subjective: Patient was seen and examined at bedside this morning. Patient is still SOB, but improving. Denies chest pain, dizziness, palpitation sensation, abdominal pain or other complains. Tolerating PO well. Objective - Vital Signs/Intake and Output Vital Signs (last 24 hours): Temp Pulse Resp BP Pulse Ox 97.5 F L 89 18 102/65 94 L 07/15/16 07:48 07/15/16 10:00 07/15/16 07:48 07/15/16 09:32 07/15/16 07:48 Intake and Output: 07/15/16 07/15/16 06:59 18:59 Intake Total 390 Output Total 700 Balance -310 - Medications Medications: Current Medications Albuterol Sulfate (Albuterol 0.083% Inhal Nena (2.5 Mg/3 Ml) Ud) 2.5 mg INH RQ6 PRN PRN Reason: Shortness of Breath Albuterol/Ipratropium (Duoneb 3 Mg/0.5 Mg (3 Ml) Ud) 3 ml INH RTID [facility] Last Admin: 07/15/16 07:42 Dose: 3 ml Digoxin (Lanoxin) 0.25 mg PO DAILY [facility] Last Admin: 07/15/16 09:30 Dose: 0.25 mg Diltiazem HCl (Cardizem Cd) 120 mg PO DAILY [facility] Furosemide (Lasix) 40 mg PO DAILY [facility] Last Admin: 07/15/16 09:32 Dose: 40 mg Metoprolol Tartrate (Lopressor) 50 mg PO Q12 [facility] Last Admin: 07/15/16 09:32 Dose: 50 mg Montelukast Sodium (Singulair) 10 mg PO DAILY [facility] Last Admin: 07/15/16 09:33 Dose: 10 mg Phenytoin Sodium (Dilantin) 100 mg PO Q12@0900,2100 [facility] Last Admin: 07/15/16 09:30 Dose: 100 mg Rivaroxaban (Xarelto) 20 mg PO DIN [facility] PRN Reason: Protocol Fluticasone/Salmeterol (Advair Diskus 250/50) 1 puff IH Q12H [facility] Last Admin: 07/15/16 06:50 Dose: 1 puff - Labs Labs: 07/15/16 10:40 07/15/16 10:40 - Additional Findings Additional findings: Constitutional Appears: Non-toxic, No Acute Distress - ENT Exam ENT Exam: Mucous Membranes Moist - Respiratory Exam Respiratory Exam: Clear to Auscultation left lung, fine, diffuse crackles in right middle/lower lobes, NORMAL BREATHING PATTERN - Cardiovascular Exam Cardiovascular Exam: Irregular Rhythm - GI/Abdominal Exam GI & Abdominal Exam: Normal Bowel Sounds, Soft. absent: Distended, Firm, Guarding, Tenderness - Extremities Exam Extremities exam: Positive for: pedal edema. Negative for: calf tenderness Additional comments: Bilateral pitting 2+edema of lower extremities - Back Exam Back exam: NORMAL INSPECTION. absent: CVA tenderness (L), CVA tenderness (R) - Neurological Exam Neurological exam: Alert, Oriented x3 - Psychiatric Exam Psychiatric exam: Normal Affect, Normal Mood - Skin Skin Exam: Dry, Intact, Normal Color Assessment and Plan - Assessment and Plan (Free Text) Assessment: 70 y/o F PMhx of CHF, DVT, PE, admitted due to A fib w/ RVR, being f/u for rate control. Plan: A Fibrillation w/ RVR Continue cafeteria monitor -Discontinue Cardizem drip at 5 mg/hr -Start Cardizem CD 120 mg daily ( long acting) -c/w home Metoprolol 50mg BID -c/w home Digoxin 0.25 mg daily PO -c/w xarelto 20 mg Troponin I 0.0130 -Cardiology consult appreciated. F/U recommendations Heart Failure Improving from previous admission no rales to auscultation Pro-BNP improving from prior exam on 06/19/16 (7180) now is 4650 CXR: showed improving CHF/pulmonary edema Echocardiogram on 04/23/16 showed: Dilated RV. RV systolic function moderately reduced, LV normal function, size, with normal EF. Asthma No wheezing -c/w Home meds Chronic Lower extremities edema -B/L chronic edema with associated chronic skin changes -Afebrile -WBC WNL -Denies LE pain -Continue monitoring Seizures c/w phenytoin BID ( home med) DVT prophylaxis Patient is taking Xarelto Diet Heart healthy diet
[2016-07-15] MEDS: diltiaZEM 120 mg/24 Hours CD Cap PO SCH ×2 (12:16→17:07)
[2016-07-15] MEDS ORDERED: Potassium Chloride 20 mEq ER Tab PO ONE (19:12)
[2016-07-16 07:18] LABS: BLOOD UREA NITROGEN 10 mg/dl (7-17); CARBON DIOXIDE 28 mmol/L (22-30); CHLORIDE 103 mmol/L (98-107); GFR AFRICAN-AMERICAN > 60; GLUCOSE,RANDOM 87 mg/dL (65-105); POTASSIUM 4.2 MMOL/L (3.6-5.0); SODIUM 138 mmol/l (132-148)
[2016-07-16] MEDS: Albuterol-Ipratrop 3 mg / 0.5 (3 ml) UD INH SCH (07:36)
[2016-07-16 08:25] VITALS: RESP 18
[2016-07-16] MEDS: Fluticasone-Salmeterol 250-50mcg Diskus IH SCH (09:25)
[2016-07-16] MEDS: diltiaZEM 120 mg/24 Hours CD Cap PO SCH (09:26)
[2016-07-16] MEDS: Digoxin 250 mcg (0.25 mg) Tab PO SCH (09:28)
[2016-07-16 09:29] VITALS: PULSE 100
[2016-07-16] MEDS: guaiFENesin 200 mg/10 ml Syrup UD PO PRN ×2 (12:47→16:52)
[2016-07-16 14:00] LABS: ABG ALLEN TEST YES; ARTERIAL BLOOD GAS HCO3 29.4 mmol/L (21-28); ARTERIAL BLOOD GAS O2 CAPACITY 18.7 mL/dL (16-24); ARTERIAL BLOOD GAS O2 CONTENT 18.3 ML/dL (15-23); ARTERIAL BLOOD GAS PH 7.48 (7.35-7.45); ARTERIAL BLOOD GAS PO2 76 mm/Hg (80-100); CARBOXYHEMOGLOBIN 2.1 % (0.5-1.5); HHB 2.1 % (0.0-5.0); METHEMOGLOBIN 1.9 % (0.0-3.0)
[2016-07-16 16:40] VITALS: BP 136/82; PULSE 94; TEMP 97.5; O2SAT 95
--- NOTE | 2016-07-16 20:02 | CP.PCM.DIS ---
Provider - Provider Date of Admission: 07/15/16 15:20 Attending physician: Yakelin Chand MD Primary care physician: [facility] Time Spent in preparation of Discharge (in minutes): 30 Diagnosis - Discharge Diagnosis (1) Atrial fibrillation with RVR Status: Resolved Priority: Medium Hospital Course - Lab Results Lab Results: Most Recent Lab Values WBC 6.2 K/uL (4.8-10.8) 07/15/16 10:40 RBC 3.72 Mil/uL (3.80-5.20) L 07/15/16 10:40 Hgb 11.9 g/dL (12.0-16.0) L 07/15/16 10:40 Hct 36.4 % (34.0-47.0) 07/15/16 10:40 MCV 97.8 fl (81.0-99.0) 07/15/16 10:40 MCH 32.1 pg (27.0-31.0) H 07/15/16 10:40 MCHC 32.8 g/dL (33.0-37.0) L 07/15/16 10:40 RDW 16.6 % (11.5-14.5) H 07/15/16 10:40 Plt Count 172 K/uL (130-400) 07/15/16 10:40 MPV 9.9 fl (7.2-11.7) 07/14/16 13:15 Neut % (Auto) 64.3 % (50.0-75.0) 07/14/16 13:15 Lymph % (Auto) 22.4 % (20.0-40.0) 07/14/16 13:15 [place] % (Auto) 10.4 % (0.0-10.0) H 07/14/16 13:15 Eos % (Auto) 2.0 % (0.0-4.0) 07/14/16 13:15 Baso % (Auto) 0.9 % (0.0-2.0) 07/14/16 13:15 Neut # 4.4 K/uL (1.8-7.0) 07/14/16 13:15 Lymph # 1.5 K/uL (1.0-4.3) 07/14/16 13:15 [place] # 0.7 K/uL (0.0-0.8) 07/14/16 13:15 Eos # 0.1 K/uL (0.0-0.7) 07/14/16 13:15 Baso # 0.1 K/uL (0.0-0.2) 07/14/16 13:15 pCO2 40 mm/Hg (35-45) 07/16/16 13:54 pO2 76 mm/Hg (80-100) L 07/16/16 13:54 HCO3 29.4 mmol/L (21-28) H 07/16/16 13:54 ABG pH 7.48 (7.35-7.45) H 07/16/16 13:54 ABG Total CO2 31.0 mmol/L (22-28) H 07/16/16 13:54 ABG O2 Saturation 97.8 % (95-98) 07/16/16 13:54 ABG O2 Content 18.3 ML/dL (15-23) 07/16/16 13:54 ABG Base Excess 5.8 mmol/L (-2.0-3.0) H 07/16/16 13:54 ABG Hemoglobin 13.8 g/dL (11.7-17.4) 07/16/16 13:54 ABG Carboxyhemoglobin 2.1 % (0.5-1.5) H 07/16/16 13:54 POC ABG HHb (Measured) 2.1 % (0.0-5.0) 07/16/16 13:54 ABG Methemoglobin 1.9 % (0.0-3.0) 07/16/16 13:54 ABG O2 Capacity 18.7 mL/dL (16-24) 07/16/16 13:54 Frankie Test Yes 07/16/16 13:54 A-a O2 Difference 24.0 mm/Hg 07/16/16 13:54 Hgb O2 Saturation 94.0 % (95.0-98.0) L 07/16/16 13:54 FiO2 21.0 % 07/16/16 13:54 Sodium 138 mmol/l (132-148) 07/16/16 05:55 Potassium 4.2 MMOL/L (3.6-5.0) 07/16/16 05:55 Chloride 103 mmol/L (98-107) 07/16/16 05:55 Carbon Dioxide 28 mmol/L (22-30) 07/16/16 05:55 Anion Gap 12 (10-20) 07/16/16 05:55 BUN 10 mg/dl (7-17) 07/16/16 05:55 Creatinine 0.5 mg/dL (0.7-1.2) L 07/16/16 05:55 Est GFR ( Amer) > 60 07/16/16 05:55 Est GFR (Non-Af Amer) > 60 07/16/16 05:55 Random Glucose 87 mg/dL (65-105) 07/16/16 05:55 Calcium 9.0 mg/dL (8.4-10.2) 07/16/16 05:55 Total Bilirubin 0.3 mg/dl (0.2-1.3) 07/15/16 10:40 AST 21 U/L (14-36) 07/15/16 10:40 ALT 29 U/L (9-52) 07/15/16 10:40 Alkaline Phosphatase 84 U/L (38-126) 07/15/16 10:40 Troponin I 0.0130 ng/mL (0.00-0.120) 07/14/16 13:15 NT-Pro-B Natriuret Pep 4650 pg/ml (0-900) H 07/14/16 13:15 Total Protein 6.5 G/DL (6.3-8.2) 07/15/16 10:40 Albumin 3.3 g/dL (3.5-5.0) L 07/15/16 10:40 Globulin 3.2 gm/dL (2.2-3.9) 07/15/16 10:40 Albumin/Globulin Ratio 1.0 (1.0-2.1) 07/15/16 10:40 Digoxin 0.8 ng/mL (0.8-2.0) 07/15/16 10:40 - Hospital Course Hospital Course: 70 yr old F sent from [facility] for SOB and palpitations, admitted on 06/3016 d/t Afib with RVR, tx with Duoneb, Cardizem, Digoxin, Solumedrol and Lasix. SOB and palpitations resolved, patient was discharged on Cardizem 120mg ER PO QD, home medications resumed. Followup appt scheduled at [facility] for 07/23/16. - Date & Time of H&P Date of H&P: 07/14/16 Time of H&P: 17:00 Discharge Exam - Head Exam Head Exam: ATRAUMATIC, NORMAL INSPECTION, NORMOCEPHALIC - Eye Exam Eye Exam: EOMI - ENT Exam ENT Exam: Mucous Membranes Moist - Neck Exam Neck exam: Full Rom - Respiratory Exam Respiratory Exam: Clear to PA & Lateral, NORMAL BREATHING PATTERN - Cardiovascular Exam Cardiovascular Exam: REGULAR RHYTHM, +S1, +S2 - GI/Abdominal Exam GI & Abdominal Exam: Normal Bowel Sounds, Soft (umbilical hernia present). absent: Tenderness - Extremities Exam Extremities exam: full ROM - Back Exam Back exam: absent: CVA tenderness (L), CVA tenderness (R) - Neurological Exam Neurological exam: Alert, CN II-XII Intact, Oriented x3 - Psychiatric Exam Psychiatric exam: Normal Affect, Normal Mood - Skin Skin Exam: Dry, Intact Discharge Plan - Discharge Medications Prescriptions: diltiaZEM CD [Cardizem CD] 120 mg PO DAILY #30 c24 - Follow Up Plan Condition: STABLE Disposition: HOME/ ROUTINE Instructions: Atrial Fibrillation (DC) Additional Instructions: follow up [facility] on July 23 at 2:00 PM
== END 2016-07-16 19:22 | disposition home or self-care (01) | DRG 309 ==
LOC: H.ER 12:47 → H.ERHOLD 14:21 → H.TEL 22:11 → OBSVTOIN 07-15 15:20
PROVIDERS: ADMIT Family Medicine Geriatric Medicine; ATTEND Family Medicine Geriatric Medicine
DX: I48.91 Unspecified atrial fibrillation (principal); I50.22 Chronic systolic (congestive) heart failure; I11.0 Hypertensive heart disease with heart failure; G40.909 Epilepsy, unspecified, not intractable, without status epilepticus; E78.00 Pure hypercholesterolemia, unspecified; J45.909 Unspecified asthma, uncomplicated; Z86.711 Personal history of pulmonary embolism; Z86.718 Personal history of other venous thrombosis and embolism; R60.9 Edema, unspecified

== ENCOUNTER 2017-03-17 11:18 | Emergency (ER) | payer MEDICARE ==
[2017-03-17 11:30] VITALS: RESP 18; TEMP 98.2
[2017-03-17 11:51] VITALS: O2SAT 98
[2017-03-17 12:01] LABS: EOS # 0.1 K/uL (0.0-0.7); EOS % 3.4 % (0.0-4.0); HEMOGLOBIN 13.6 g/dL (12.0-16.0); LYMPH # 1.2 K/uL (1.0-4.3); LYMPH % 27.4 % (20.0-40.0); MEAN CELL VOLUME 94.4 fl (81.0-99.0); MEAN CORPUSCULAR HEMOGLOBIN 30.8 pg (27.0-31.0); MEAN CORPUSCULAR HGB CONC 32.7 g/dL (33.0-37.0); MEAN PLATELET VOLUME 10.7 fl (7.2-11.7); MONO # 0.5 K/uL (0.0-0.8); MONO % 11.7 % (0.0-10.0); NEUT # 2.5 K/uL (1.8-7.0); NEUT % 56.5 % (50.0-75.0); NRBC % 0.1 % (0.0-0.0); RBC 4.42 Mil/uL (3.80-5.20); RED CELL DISTRIBUTION WIDTH 17.8 % (11.5-14.5); WHITE BLOOD COUNT 4.4 K/uL (4.8-10.8)
--- NOTE | 2017-03-17 12:02 | ED PDOC ---
HPI: General Adult Time Seen by Provider: 03/17/17 11:23 Chief Complaint (Nursing): Palpitations Chief Complaint (Provider): elevated HR History Per: Patient, Family History/Exam Limitations: no limitations Onset/Duration Of Symptoms: Intermittent Episodes Current Symptoms Are (Timing): Still Present Severity: Moderate Recently: Treated By A Physician Additional Complaint(s): 70yo female sent from echo department where she c/o palpitations and found to be in rapid Afib. States did not take medications this morning because she doesnt like taking medications on empty stomach and needed bloodwork today also. Denies chest pain, dizziness or weakness. Thinks she took her medications yesterday but unsure. Med list reviewed, includes digoxin, metoprolol, C++ td combo. Past Medical History Reviewed: Historical Data, Nursing Documentation, Vital Signs Vital Signs: Last Vital Signs Temp 98.2 F 03/17/17 11:25 Pulse 104 H 03/17/17 18:55 Resp 18 03/17/17 12:59 BP 151/86 H 03/17/17 18:55 Pulse Ox 98 03/17/17 12:59 - Medical History PMH: Anemia, Asthma, CHF, HTN, Hypercholesterolemia, Peripheral Edema, Pulmonary Embolism, Seizures Denies: HIV, Chronic Kidney Disease - Family History Family History: States: Unknown Family Hx - Living Arrangements Living Arrangements: With Family - Social History Current smoker - smoking cessation education provided: No - Home Medications Home Medications: Ambulatory Orders Medication Instructions Recorded Albuterol HFA [Ventolin HFA 90 2 puff IH Q4H PRN #1 inhaler 05/14/16 mcg/actuation (8 g)] Fluticasone/Salmeterol [Advair 1 puff IH Q12H 06/19/16 250-50 Diskus] Metoprolol Tartrate [Lopressor] 50 mg PO Q12 #60 tablet 06/30/16 Digoxin [Lanoxin] 0.25 mg PO DAILY 07/14/16 Montelukast [Singulair] 10 mg PO DAILY 07/14/16 Phenytoin, Extended [Dilantin] 100 mg PO Q12@0900,2100 cer 07/16/16 Rivaroxaban [Xarelto] 20 mg PO DIN tab 07/16/16 diltiaZEM CD [Cardizem CD] 120 mg PO DAILY #30 c24 07/16/16 - Allergies Allergies/Adverse Reactions: Allergies Allergy/AdvReac Type Severity Reaction Status Date / Time No Known Allergies Allergy Verified 06/24/16 17:35 Review of Systems Constitutional: Negative for: Fever Eyes: Negative for: Vision Change Cardiovascular: Positive for: Palpitations. Negative for: Edema, Light Headedness Respiratory: Negative for: Cough Gastrointestinal: Negative for: Nausea, Vomiting Genitourinary Female: Negative for: Dysuria Musculoskeletal: Negative for: Neck Pain, Arm Pain, Leg Pain Skin: Negative for: Rash, Lesions, Jaundice Neurological: Negative for: Weakness, Numbness Physical Exam - Reviewed Nursing Documentation Reviewed: Yes Vital Signs Reviewed: Yes - Physical Exam Appears: Positive for: Well, Non-toxic, No Acute Distress Head Exam: Positive for: ATRAUMATIC, NORMAL INSPECTION, NORMOCEPHALIC Skin: Positive for: Normal Color, Warm, DRY Eye Exam: Positive for: EOMI, Normal appearance, PERRL ENT: Positive for: Normal ENT Inspection Neck: Positive for: Normal, Painless ROM Cardiovascular/Chest: Positive for: Tachycardia, Irregularly Irregular Respiratory: Positive for: CNT, Normal Breath Sounds Gastrointestinal/Abdominal: Positive for: Normal Exam, Bowel Sounds, Soft Back: Positive for: Normal Inspection Extremity: Positive for: Normal ROM. Negative for: Tenderness, Swelling Neurologic/Psych: Positive for: Alert, Oriented - Laboratory Results Result Diagrams: 03/17/17 11:30 03/17/17 11:30 - ECG O2 Sat by Pulse Oximetry: 98 Medical Decision Making Medical Decision Making: patient found to be in Afib w RVR. Cardizem 10mg IV ordered and metoprolol 25mg ordered (daily medication) Labs to be obtained included dig level lunchroom monitor continued labs reviewed mild elev BNP but lower than prior CXR no acute disease per radiologist, compared to prior CXR Given IV cardizem, PO metoprolol and PO dig with improvement of HR Pt offered hospitalization for Afib but refused, feels well and wants to go home. 615p Monitored 6+ hrs with stabilization HR 80-95. SPO2 97% RA. Clear lungs Denies chest pain, SOB, dizziness or palpitations. Agrees to adherence to medications. Disposition - Clinical Impression Clinical Impression: Atrial fibrillation with rapid ventricular response - Patient ED Disposition Is Patient to be Admitted: No - Disposition Referrals: [facility] [Outside] Disposition Time: 19:07 Condition: STABLE Additional Instructions: Continue medications as prior prescribed. Its very important to take your medications everyday. Return to ER for any difficulty breathing, chest pain, weakness or any concern. Instructions: Atrial Fibrillation (ED) Forms: [facility] (Urdu) Print Language: DANISH
[2017-03-17 12:07] LABS: PROTHROMBIN TIME 13.3 Seconds (9.8-13.1)
[2017-03-17 12:08] LABS: INR 1.2 (0.9-1.2); PARTIAL THROMBOPLASTIN TIME 36.6 Seconds (25.6-37.1)
[2017-03-17 12:23] LABS: ALB/GLOB RATIO 1.1 (1.0-2.1); ALBUMIN 4.2 g/dL (3.5-5.0); ALT/SGPT 40 U/L (9-52); AST/SGOT 36 U/L (14-36); B-TYPE NATRIURETIC PEPTIDE 2480 pg/ml (0-900); BLOOD UREA NITROGEN 22 mg/dl (7-17); CALCIUM 9.8 mg/dL (8.4-10.2); GFR AFRICAN-AMERICAN > 60; GFR NON-AFRICAN AMERICAN > 60
--- NOTE | 2017-03-17 13:47 | RAD ---
HISTORY: SOB COMPARISON: 07/14/2016. FINDINGS: LUNGS: No active pulmonary disease. PLEURA: No significant interval change compared to the prior examination(s). CARDIOVASCULAR: Cardiomegaly. No evidence of acute, significant cardiovascular disease. OSSEOUS STRUCTURES: No significant abnormalities. VISUALIZED UPPER ABDOMEN: Normal. OTHER FINDINGS: None. IMPRESSION: No active disease.
[2017-03-17] MEDS ORDERED: Digoxin 250 mcg (0.25 mg) Tab PO ONE (14:54)
[2017-03-17] MEDS ORDERED: Digoxin 250 mcg (0.25 mg) Tab ONE (18:24)
[2017-03-17 18:25] VITALS: PULSE 96
[2017-03-17 18:58] VITALS: BP 151/86; PULSE 104
--- NOTE | 2017-03-18 09:11 | CARD ---
APPROVED REPORT EKG Measurement Heart [id number] <Conclusion> Atrial fibrillation with rapid ventricular response with premature ventricular or aberrantly conducted complexes Inferior infarct, age undetermined Possible Anterior infarct, age undetermined Abnormal ECG
== END 2017-03-17 19:15 | disposition home or self-care (01) ==
LOC: H.ER 11:18
DX: I48.0 Paroxysmal atrial fibrillation (principal); I11.0 Hypertensive heart disease with heart failure; E78.00 Pure hypercholesterolemia, unspecified; Z86.711 Personal history of pulmonary embolism; J45.909 Unspecified asthma, uncomplicated

== ENCOUNTER 2018-03-26 21:27 | Inpatient (IN) | payer MEDICARE ==
[2018-03-26 22:12] LABS: ABG ALLEN TEST YES; ARTERIAL BLOOD GAS HCO3 25.6 mmol/L (21-28); ARTERIAL BLOOD GAS O2 SAT 90.6 % (95-98); ARTERIAL BLOOD GAS PCO2 44 mm/Hg (35-45); ARTERIAL BLOOD GAS PH 7.39 (7.35-7.45); ARTERIAL BLOOD GAS PO2 55 mm/Hg (80-100)
--- NOTE | 2018-03-26 22:38 | ED PDOC ---
HPI: SOB/CHF/COPD Time Seen by Provider: 03/26/18 21:39 Chief Complaint (Nursing): Shortness Of Breath Chief Complaint (Provider): Shortness Of Breath History Per: Patient History/Exam Limitations: no limitations Onset/Duration Of Symptoms: Days (x1 week) Associated Symptoms: Ankle/Leg Swelling. denies: Chest Pain Additional Complaint(s): 72 y/o female with history of HTN, CHF, AFib, presents to the ED complaining of shortness of breath and swelling, onset a week ago. Patient states that symptoms have gotten worse since onset. She denies chest pain. Patient reports swelling started in her legs and now is now involving upper body and face. Patient admits that she sometimes doesn't take her medications because she doesn't like to take them on an empty stomach and that she has too many to take. Patient reports that today she felt very weak and she put herself to the ground; she states she did not fall or pass out. Patient couldn't get up afterwards. She had to call her niece and the police had to come and break down the door in order for EMS to bring her to the hospital. Patient follows in the clinic. Patient's last echo shows EF of 20-25% which was done in Mar 2017. Patient's last catheterization was also done in Mar 2017 and demonstrated no CAD or non-obstructive CAD. Patient is additionally complaining of a really bad sore throat and dry cough for x2 days. Past Medical History Reviewed: Historical Data, Nursing Documentation, Vital Signs Vital Signs: Last Vital Signs Temp 97.4 F L 03/26/18 21:31 Pulse 134 H 03/26/18 21:31 Resp 20 03/26/18 21:31 BP 136/84 03/26/18 21:31 Pulse Ox 94 L 03/26/18 21:31 - Medical History PMH: Anemia, Asthma, CHF, HTN, Hypercholesterolemia, Peripheral Edema, Pulmonary Embolism, Seizures Denies: HIV, Chronic Kidney Disease - Family History Family History: States: Unknown Family Hx - Home Medications Home Medications: Ambulatory Orders Medication Instructions Recorded Albuterol HFA [Ventolin HFA 90 2 puff IH Q4H PRN #1 inhaler 05/14/16 mcg/actuation (8 g)] Fluticasone/Salmeterol [Advair 1 puff IH Q12H 06/19/16 250-50 Diskus] Metoprolol Tartrate [Lopressor] 50 mg PO Q12 #60 tablet 06/30/16 Digoxin [Lanoxin] 0.25 mg PO DAILY 07/14/16 Montelukast [Singulair] 10 mg PO DAILY 07/14/16 Phenytoin, Extended [Dilantin] 100 mg PO Q12@0900,2100 cer 07/16/16 Rivaroxaban [Xarelto] 20 mg PO DIN tab 07/16/16 diltiaZEM CD [Cardizem CD] 120 mg PO DAILY #30 c24 07/16/16 - Allergies Allergies/Adverse Reactions: Allergies Allergy/AdvReac Type Severity Reaction Status Date / Time No Known Allergies Allergy Verified 06/24/16 17:35 Review of Systems ROS Statement: Except As Marked, All Systems Reviewed And Found Negative (as per HPI otherwise negative) Constitutional: Positive for: Weakness ENT: Positive for: Throat Pain Cardiovascular: Positive for: Edema. Negative for: Chest Pain Respiratory: Positive for: Cough, Shortness of Breath Physical Exam - Reviewed Nursing Documentation Reviewed: Yes Vital Signs Reviewed: Yes - Physical Exam Appears: Positive for: In Acute Distress (respiratory) Head Exam: Negative for: NORMAL INSPECTION (facial edema) Skin: Positive for: Warm, Dry Eye Exam: Positive for: EOMI, PERRL ENT: Positive for: Pharynx Is (erythematous involving uvula, soft palate, and posterior pharynx), Pharyngeal Erythema, Tonsillar Exudate (yellow white pasty ), Other (dry mucous membranes) Neck: Positive for: Painless ROM, Supple Cardiovascular/Chest: Positive for: Tachycardia, Irregularly Irregular Respiratory: Positive for: Decreased Breath Sounds (diffuse), Respiratory Distress (acute), Other (poor air movement) Gastrointestinal/Abdominal: Positive for: Soft, Other (abdominal wall appears edematous). Negative for: Distended Back: Positive for: Normal Inspection. Negative for: Decreased ROM Extremity: Positive for: Pedal Edema (3+ pitting edema bilaterally), Swelling (3+ pitting edema bilaterally to legs with induration), Other (bilateraly positve varicose veins; chronic venous stasis skin changes) Lymphatic: Negative for: Adenopathy Neurologic/Psych: Positive for: Alert, Oriented. Negative for: Motor/Sensory Deficits - Laboratory Results Result Diagrams: 03/26/18 22:25 02/09/19 22:25 Lab Results: pCO2 44 mm/Hg (35-45) 03/26/18 22:09 pO2 55 mm/Hg (80-100) L 03/26/18 22:09 HCO3 25.6 mmol/L (21-28) 03/26/18 22:09 ABG pH 7.39 (7.35-7.45) 03/26/18 22:09 ABG Total CO2 28.0 mmol/L (22-28) 03/26/18 22:09 ABG O2 Saturation 90.6 % (95-98) L 03/26/18 22:09 ABG Base Excess 1.2 mmol/L (-2.0-3.0) 03/26/18 22:09 Frankie Test Yes 03/26/18 22:09 ABG Potassium 4.3 mmol/L (3.6-5.2) 03/26/18 22:09 A-a O2 Difference 40.0 mm/Hg 03/26/18 22:09 Sodium 139.0 mmol/L (132-148) 03/26/18 22:09 Chloride 106.0 mmol/L (98-107) 03/26/18 22:09 Glucose 130 mg/dL (65-105) H 03/26/18 22:09 Lactate 2.7 mmol/L (0.7-2.1) H 03/26/18 22:09 FiO2 21.0 % 03/26/18 22:09 - ECG ECG Rhythm: Positive for: Atrial Fibrillation (with RVR) Interpretation Of ECG: AFib with RVR at 126 bpm Rate: 126 O2 Sat by Pulse Oximetry: 94 Pulse Ox Interpretation: Abnormal - Critical Care Total Time (In Min): 30 Documented Critical Care: Time excludes all time spent performint seperately billable procedures Medical Decision Making Medical Decision Making: Time: 21:47 Initial Impression: AFib with RVR Differential included but not limited to acute coronary syndrome, anasarca, pleural effusion, hypoxia Initial Plan: ABG EKG BNP CMP Creatinine Digoxin Magnesium Phosphorous Troponin CBC w/ diff PTT Prothrombin time CXR IV fluids Cardiazem Levaquin Lasix XRay demonstrates cardiomegaly and perihilar congestion with right side greater than left side. Possible pleural effusion. Patient has 91 percent on Room Air. ABG demonstrates pO2 55. 50% ventimask ordered. Pulse ox increased to 100% Diltiazem load and drip started with improvement of HR. Lasix ordered. Labs demonstrate deranged LFTs, elevated troponin, leukocytosis, elevated probnp. Ordered CT chest/abd/pelvis. 1130p Pt reports feeling better. For admission to telemetry. ARIANA shelton for admission of clinic patient. Scribe Attestation: Documented by Justin Mcdaniel acting as a scribe for Maria Elena Salazar MD. Provider Scribe Attestation: All medical record entries made by the Scribe were at my direction and personally dictated by me. I have reviewed the chart and agree that the record accurately reflects my personal performance of the history, physical exam, medical decision making, and the department course for this patient. I have also personally directed, reviewed, and agree with the discharge instructions and disposition. Disposition - Clinical Impression Clinical Impression: Atrial fibrillation with rapid ventricular response, CHF (congestive heart ne lure), Anasarca Counseled Patient/Family Regarding: Studies Performed, Diagnosis - Disposition Disposition Time: 22:30 Condition: GUARDED Forms: [employer] (Sinhala) - Pt Status Changed To: Hospital Disposition Of: Inpatient - Admit Certification Admit to Inpatient:: After my assessment, the patient will require hospitalization for at least two midnights. This is because of the severity of symptoms shown, intensity of services needed, and/or the medical risk in this patient being treated as an outpatient. - POA Present On Arrival: None
[2018-03-26 22:43] LABS: BASO % 0.2 % (0.0-2.0); EOS % 0.1 % (0.0-4.0); HEMOGLOBIN 15.8 g/dL (12.0-16.0); LYMPH # 0.7 K/uL (1.0-4.3); LYMPH % 5.7 % (20.0-40.0); MEAN CORPUSCULAR HEMOGLOBIN 33.7 pg (27.0-31.0); MEAN CORPUSCULAR HGB CONC 32.4 g/dL (33.0-37.0); MEAN PLATELET VOLUME 10.7 fl (7.2-11.7); MONO # 0.7 K/uL (0.0-0.8); MONO % 5.8 % (0.0-10.0); NEUT # 10.5 K/uL (1.8-7.0); NEUT % 88.2 % (50.0-75.0); NRBC % 0.8 % (0.0-0.0); PLATELET COUNT 105 K/uL (130-400); RBC 4.71 Mil/uL (3.80-5.20); RED CELL DISTRIBUTION WIDTH 15.8 % (11.5-14.5); WHITE BLOOD COUNT 11.9 K/uL (4.8-10.8)
[2018-03-26 22:44] LABS: INR 2.3; PROTHROMBIN TIME 26.3 Seconds (9.8-13.1)
[2018-03-26 22:47] LABS: PARTIAL THROMBOPLASTIN TIME 38.4 Seconds (25.6-37.1)
[2018-03-26 22:50] LABS: ALB/GLOB RATIO 0.9 (1.0-2.1); ALBUMIN 3.1 g/dL (3.5-5.0); BLOOD UREA NITROGEN 41 mg/dl (7-17); GFR NON-AFRICAN AMERICAN 49
[2018-03-26] MEDS ORDERED: levoFLOXacin 750 mg in D5W 750 MG/150 ML BAG IVPB STA (22:58)
[2018-03-26 23:20] LABS: B-TYPE NATRIURETIC PEPTIDE 12400 pg/ml (0-900)
[2018-03-26 23:29] LABS: AST/SGOT 1731 U/L (14-36)
[2018-03-26 23:40] LABS: ALT/SGPT > 1000 U/L (9-52)
[2018-03-26 23:48] LABS: LYMPHOCYTE 7 % (20-50); MONOCYTE 4 % (0-10); NEUTROPHIL 89 % (42-75); PLATELET ESTIMATE DECREASED (NORMAL); TOTAL CELLS COUNTED 100
[2018-03-26 23:49] LABS: ANISOCYTOSIS SLIGHT; LARGE PLATELETS PRESENT
--- NOTE | 2018-03-27 00:35 | CP.PCM.HP ---
<Mary Jane Meek - Last Filed: 03/27/18 03:28> History of Present Illness - History of Present Illness History of Present Illness: 72 y/o F pmhx of CHF, A fib with RVR, B/L DVT, PE, admitted due to A fib w/ RVR, CHF, Anasarca. Pt states she has had leg swelling/SOB for 1 week, and last night she was too weak to go to her bed so she layed down on the floor, the swelling is now in her face and body. Her granddaughter found her lying on the floor and the product management analyst had to break down the door, denies falling, reports no seizures. States she feels palpitations, SOB. Denies dizziness, fever, chills, headaches, chest pain, N/V/D/C, dysuria or frequency. Patient reports last took her medications 2 days ago. Last echo done 04/04 20-25% ef, Last Cath non obstructive CAD. Pt accompanied by granddaughter. 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), B/L DVT PSH: IVC filter placement (05/01), R breast biopsy Allergies: NKDA Social: lives alone, denies smoking, alcohol, drugs Meds: (Unknown today, from 12/22/17- clinic visit): Phenytoin 100 MG 1 cap BID, Montelukast 10 mg 1 tab QD, Advair 1 puff BID,Ventolin 2 puffs PRN Q6hrs, Amlodipine Besy-Benazepril HCl 10-20MG QD, Lasix 20 MG QD, Metoprolol 50 MG 1 tab AM and 2 tab in PM BID, Amiodarone HCl 200 MG Tablet 1 tab BID, Cardizem CD 120 MG ER QD, Xarelto 20 MG Tab QD, Digoxin 250 MCG Tablet 1 tab QD, ED course EKG: Afib with RVR Labs: CBC, CMP, ABG, troponin I, BNP, Creatinine, PT/PTT, Digoxin, Mg, Phos CXR IVF's Cardizem 125 @ 5ml/hr, Levaquin 750mg @100ml/hr, Lasix 80mg once Present on Admission - Present on Admission Any Indicators Present on Admission: Yes History of DVT/PE: Yes History of Uncontrolled Diabetes: No Urinary Catheter: No Review of Systems - Cardiovascular Cardiovascular: Dyspnea, Irregular Heart Rhythm, Leg Edema, Palpitations, Rapid Heart Rate - Respiratory Respiratory: Dyspnea Past Patient History - Past Medical History & Family History Past Medical History?: Yes - Past Social History Smoking Status: Never Smoked Alcohol: None Drugs: Denies Home Situation {Lives}: Alone - CARDIAC Hx Cardiac Disorders: Yes - PULMONARY Hx Asthma: Yes Hx Pulmonary Embolism: Yes - NEUROLOGICAL Hx Seizures: Yes - HEENT Hx HEENT Problems: No - RENAL Hx Chronic Kidney Disease: No - ENDOCRINE/METABOLIC Hx Endocrine Disorders: Yes Hx Diabetes Mellitus Type 2: Yes - HEMATOLOGICAL/ONCOLOGICAL Hx Anemia: Yes Hx Human Immunodeficiency Virus (HIV): No - INTEGUMENTARY Hx Dermatological Problems: Yes Other/Comment: chronic reddened lower extremities. - MUSCULOSKELETAL/RHEUMATOLOGICAL Hx Musculoskeletal Disorders: No Hx Falls: No - GASTROINTESTINAL Hx Gastrointestinal Disorders: No - GENITOURINARY/GYNECOLOGICAL Hx Genitourinary Disorders: No - PSYCHIATRIC Hx Psychophysiologic Disorder: No Hx Substance Use: No - SURGICAL HISTORY Hx Surgeries: Yes Other/Comment: R breast lump removed - ANESTHESIA Hx Anesthesia: Yes Hx Anesthesia Reactions: No Hx Malignant Hyperthermia: No Meds Allergies/Adverse Reactions: Allergies Allergy/AdvReac Type Severity Reaction Status Date / Time No Known Allergies Allergy Verified 06/24/16 17:35 Physical Exam - Constitutional Appears: Non-toxic, No Acute Distress Additional comments: Anasarca diffuse - Head Exam Head Exam: ATRAUMATIC Additional comments: Anasarca - Eye Exam Eye Exam: EOMI, Periorbital swelling Additional comments: Sclera non incteric - ENT Exam ENT Exam: Mucous Membranes Moist - Respiratory Exam Respiratory Exam: Rales (Diffuse) - Cardiovascular Exam Cardiovascular Exam: Tachycardia, Irregular Rhythm, +S1, +S2 - GI/Abdominal Exam GI & Abdominal Exam: Hernia (Umbilical- reducible, non tender), Normal Bowel Sounds, Soft - Extremities Exam Extremities exam: Positive for: pedal edema (venous stasis, stasis dermatitis) Additional comments: Left hand- dark brown blister/old cut on 3rd metacarpal region, denies pain, no drainage, no blood - Neurological Exam Neurological exam: Alert, Oriented x3 Results - Vital Signs Recent Vital Signs: Last Vital Signs Temp 97.4 F L 03/26/18 21:31 Pulse 126 H 03/27/18 00:21 Resp 22 03/26/18 22:40 BP 128/78 03/26/18 22:45 Pulse Ox 94 L 03/26/18 23:44 - Labs Result Diagrams: 03/26/18 22:25 03/26/18 22:25 Labs: Laboratory Results - last 24 hr 03/26/18 03/26/18 03/26/18 22:01 22:09 22:25 WBC RBC Hgb Hct MCV MCH MCHC RDW Plt Count MPV Neut % (Auto) Lymph % (Auto) [place] % (Auto) Eos % (Auto) Baso % (Auto) Neut # (Auto) Lymph # (Auto) [place] # (Auto) Eos # (Auto) Baso # (Auto) Neutrophils % (Manual) Lymphocytes % (Manual) Monocytes % (Manual) Platelet Estimate Large Platelets Anisocytosis (manual) Macrocytosis (manual) PT INR APTT pCO2 44 pO2 55 L HCO3 25.6 ABG pH 7.39 ABG Total CO2 28.0 ABG O2 Saturation 90.6 L ABG Base Excess 1.2 Frankie Test Yes ABG Potassium 4.3 A-a O2 Difference 40.0 Sodium 139.0 140 Chloride 106.0 101 Glucose 130 H Lactate 2.7 H FiO2 21.0 Potassium 4.3 Carbon Dioxide 27 Anion Gap 16 BUN 41 H Creatinine 1.1 Est GFR ( Amer) 59 Est GFR (Non-Af Amer) 49 POC Glucose (mg/dL) 122 H Random Glucose 117 H Calcium 9.0 Phosphorus 3.9 Magnesium 2.0 Total Bilirubin 3.9 H AST 1731 H ALT > 1000 H Alkaline Phosphatase 120 Total Creatine Kinase 1446 H Troponin I 0.1710 H* NT-Pro-B Natriuret Pep 29818 H Total Protein 6.5 Albumin 3.1 L D Globulin 3.5 Albumin/Globulin Ratio 0.9 L Arterial Blood Potassium 4.3 Digoxin Blood Type Antibody Screen BBK History Checked 03/26/18 03/26/18 03/26/18 22:25 22:25 22:25 WBC 11.9 H D RBC 4.71 Hgb 15.8 D Hct 48.9 H MCV 104.0 H D MCH 33.7 H MCHC 32.4 L RDW 15.8 H Plt Count 105 L D MPV 10.7 Neut % (Auto) 88.2 H Lymph % (Auto) 5.7 L [place] % (Auto) 5.8 Eos % (Auto) 0.1 Baso % (Auto) 0.2 Neut # (Auto) 10.5 H Lymph # (Auto) 0.7 L [place] # (Auto) 0.7 Eos # (Auto) 0.0 Baso # (Auto) 0.0 Neutrophils % (Manual) 89 H Lymphocytes % (Manual) 7 L Monocytes % (Manual) 4 Platelet Estimate Decreased L Large Platelets Present Anisocytosis (manual) Slight Macrocytosis (manual) Slight PT 26.3 H INR 2.3 APTT 38.4 H pCO2 pO2 HCO3 ABG pH ABG Total CO2 ABG O2 Saturation ABG Base Excess Frankie Test ABG Potassium A-a O2 Difference Sodium Chloride Glucose Lactate FiO2 Potassium Carbon Dioxide Anion Gap BUN Creatinine Est GFR ( Amer) Est GFR (Non-Af Amer) POC Glucose (mg/dL) Random Glucose Calcium Phosphorus Magnesium Total Bilirubin AST ALT Alkaline Phosphatase Total Creatine Kinase Troponin I NT-Pro-B Natriuret Pep Total Protein Albumin Globulin Albumin/Globulin Ratio Arterial Blood Potassium Digoxin Blood Type O POSITIVE Antibody Screen Negative BBK History Checked No verified bt 03/26/18 23:20 WBC RBC Hgb Hct MCV MCH MCHC RDW Plt Count MPV Neut % (Auto) Lymph % (Auto) [place] % (Auto) Eos % (Auto) Baso % (Auto) Neut # (Auto) Lymph # (Auto) [place] # (Auto) Eos # (Auto) Baso # (Auto) Neutrophils % (Manual) Lymphocytes % (Manual) Monocytes % (Manual) Platelet Estimate Large Platelets Anisocytosis (manual) Macrocytosis (manual) PT INR APTT pCO2 pO2 HCO3 ABG pH ABG Total CO2 ABG O2 Saturation ABG Base Excess Frankie Test ABG Potassium A-a O2 Difference Sodium Chloride Glucose Lactate FiO2 Potassium Carbon Dioxide Anion Gap BUN Creatinine Est GFR ( Amer) Est GFR (Non-Af Amer) POC Glucose (mg/dL) Random Glucose Calcium Phosphorus Magnesium Total Bilirubin AST ALT Alkaline Phosphatase Total Creatine Kinase Troponin I NT-Pro-B Natriuret Pep Total Protein Albumin Globulin Albumin/Globulin Ratio Arterial Blood Potassium Digoxin < 0.4 L Blood Type Antibody Screen BBK History Checked Assessment & Plan - Assessment and Plan (Free Text) Assessment: 72 y/o F PMhx of CHF, A fib with RVR, B/L DVT, PE, admitted due to A fib w/ RVR, CHF, Anasarca. A Fib w/ RVR Admit to Telemetry for observation, and rate control Continue teletypesetter monitor c/w Cardizem 125mg drip @ 5 m/hr Troponin I 0.44591 H Cardiology consult- Dr. Clements- ordered Echo CPK, amylase, lipase F/u CXR, Echo, CPK, amylase, lipase, BMP, U/A, Urine Cx, Blood Cx, procalcitonin, Trops q6 Congestive Heart Failure B/L Diffuse crackles [place]BNP- 71654, CXR, BMP c/w Furosemide 60mg BID Cardiology consult- Dr. Clements- ordered Echo CPK, amylase, lipase Deployment Engineer referral- CHF F/u CXR, Echo, CPK, amylase, lipase, BMP, U/A, Urine Cx, Blood Cx, procalcitonin, Trops q6 Transaminitis AST 1731 ALT >1000 CT Abdomen/pelvis-mild B/L pleural effusion, passive atelectasis dz of lower lobes, 4.2cm ascending aortic aneurysm, bronchitis changes, mild central pulmonary venous congestion, moderate cardiomegaly, non incarcerated hernia, generalizes anasarca, IVC filter Levaquin 750mg one dose F/u Liver profile, hepatitis panel Venous stasis, with stasis dermatitis B/L chronic edema with associated stasis dermatitis Afebrile WBC WNL Denies LE pain Continue monitoring Asthma No wheezing -c/w Xopenex Q6 Seizures chronic, reports no recent seizures DVT PPX c/w Xarelto Diet Heart Healthy Case reviewed and discussed with Dr. Danie Meek PGY1 <Chip Helton - Last Filed: 03/27/18 05:05> Results - Vital Signs Recent Vital Signs: Last Vital Signs Temp 97.4 F L 03/27/18 02:15 Pulse 91 H 03/27/18 02:20 Resp 20 03/27/18 02:20 BP 126/66 03/27/18 02:15 Pulse Ox 96 03/27/18 02:20 - Labs Result Diagrams: 03/26/18 22:25 03/26/18 22:25 Labs: Laboratory Results - last 24 hr 02/11/0303/26/18 03/26/18 22:01 22:09 22:25 WBC RBC Hgb Hct MCV MCH MCHC RDW Plt Count MPV Neut % (Auto) Lymph % (Auto) [place] % (Auto) Eos % (Auto) Baso % (Auto) Neut # (Auto) Lymph # (Auto) [place] # (Auto) Eos # (Auto) Baso # (Auto) Neutrophils % (Manual) Lymphocytes % (Manual) Monocytes % (Manual) Platelet Estimate Large Platelets Anisocytosis (manual) Macrocytosis (manual) PT INR APTT pCO2 44 pO2 55 L HCO3 25.6 ABG pH 7.39 ABG Total CO2 28.0 ABG O2 Saturation 90.6 L ABG Base Excess 1.2 Frankie Test Yes ABG Potassium 4.3 A-a O2 Difference 40.0 Sodium 139.0 140 Chloride 106.0 101 Glucose 130 H Lactate 2.7 H FiO2 21.0 Potassium 4.3 Carbon Dioxide 27 Anion Gap 16 BUN 41 H Creatinine 1.1 Est GFR ( Amer) 59 Est GFR (Non-Af Amer) 49 POC Glucose (mg/dL) 122 H Random Glucose 117 H Calcium 9.0 Phosphorus 3.9 Magnesium 2.0 Total Bilirubin 3.9 H AST 1731 H ALT > 1000 H Alkaline Phosphatase 120 Total Creatine Kinase 1446 H Troponin I 0.1710 H* NT-Pro-B Natriuret Pep 24263 H Total Protein 6.5 Albumin 3.1 L D Globulin 3.5 Albumin/Globulin Ratio 0.9 L Arterial Blood Potassium 4.3 Urine Color Urine Clarity Urine pH Ur Specific [place] Urine Protein Urine Glucose (UA) Urine Ketones Urine Blood Urine Nitrate Urine Bilirubin Urine Urobilinogen Ur Leukocyte Esterase Urine RBC (Auto) Urine Microscopic WBC Urine Bacteria Digoxin Blood Type Antibody Screen BBK History Checked 03/26/18 03/26/18 03/26/18 22:25 22:25 22:25 WBC 11.9 H D RBC 4.71 Hgb 15.8 D Hct 48.9 H MCV 104.0 H D MCH 33.7 H MCHC 32.4 L RDW 15.8 H Plt Count 105 L D MPV 10.7 Neut % (Auto) 88.2 H Lymph % (Auto) 5.7 L [place] % (Auto) 5.8 Eos % (Auto) 0.1 Baso % (Auto) 0.2 Neut # (Auto) 10.5 H Lymph # (Auto) 0.7 L [place] # (Auto) 0.7 Eos # (Auto) 0.0 Baso # (Auto) 0.0 Neutrophils % (Manual) 89 H Lymphocytes % (Manual) 7 L Monocytes % (Manual) 4 Platelet Estimate Decreased L Large Platelets Present Anisocytosis (manual) Slight Macrocytosis (manual) Slight PT 26.3 H INR 2.3 APTT 38.4 H pCO2 pO2 HCO3 ABG pH ABG Total CO2 ABG O2 Saturation ABG Base Excess Frankie Test ABG Potassium A-a O2 Difference Sodium Chloride Glucose Lactate FiO2 Potassium Carbon Dioxide Anion Gap BUN Creatinine Est GFR ( Amer) Est GFR (Non-Af Amer) POC Glucose (mg/dL) Random Glucose Calcium Phosphorus Magnesium Total Bilirubin AST ALT Alkaline Phosphatase Total Creatine Kinase Troponin I NT-Pro-B Natriuret Pep Total Protein Albumin Globulin Albumin/Globulin Ratio Arterial Blood Potassium Urine Color Urine Clarity Urine pH Ur Specific [place] Urine Protein Urine Glucose (UA) Urine Ketones Urine Blood Urine Nitrate Urine Bilirubin Urine Urobilinogen Ur Leukocyte Esterase Urine RBC (Auto) Urine Microscopic WBC Urine Bacteria Digoxin Blood Type O POSITIVE Antibody Screen Negative BBK History Checked No verified bt 03/26/18 03/27/18 23:20 01:00 WBC RBC Hgb Hct MCV MCH MCHC RDW Plt Count MPV Neut % (Auto) Lymph % (Auto) [place] % (Auto) Eos % (Auto) Baso % (Auto) Neut # (Auto) Lymph # (Auto) [place] # (Auto) Eos # (Auto) Baso # (Auto) Neutrophils % (Manual) Lymphocytes % (Manual) Monocytes % (Manual) Platelet Estimate Large Platelets Anisocytosis (manual) Macrocytosis (manual) PT INR APTT pCO2 pO2 HCO3 ABG pH ABG Total CO2 ABG O2 Saturation ABG Base Excess Frankie Test ABG Potassium A-a O2 Difference Sodium Chloride Glucose Lactate FiO2 Potassium Carbon Dioxide Anion Gap BUN Creatinine Est GFR ( Amer) Est GFR (Non-Af Amer) POC Glucose (mg/dL) Random Glucose Calcium Phosphorus Magnesium Total Bilirubin AST ALT Alkaline Phosphatase Total Creatine Kinase Troponin I NT-Pro-B Natriuret Pep Total Protein Albumin Globulin Albumin/Globulin Ratio Arterial Blood Potassium Urine Color Straw Urine Clarity Slighty-cloudy Urine pH 6.0 Ur Specific [place] 1.006 Urine Protein Negative Urine Glucose (UA) Neg Urine Ketones Negative Urine Blood Small Urine Nitrate Negative Urine Bilirubin Negative Urine Urobilinogen 0.2-1.0 Ur Leukocyte Esterase Neg Urine RBC (Auto) 1 Urine Microscopic WBC < 1 Urine Bacteria Rare Digoxin < 0.4 L Blood Type Antibody Screen BBK History Checked Attending/Attestation - Attestation I have personally seen and examined this patient.: Yes I have fully participated in the care of the patient.: Yes I have reviewed all pertinent clinical information: Yes Notes (Text): 03/27/18 04:36 I saw and examined this patient, shoulder to shoulder with Dr Meek. I agree with the assessment and plan outlined. This is a 72 years old female who was on the floor and could not get up for two days, comes with SOB and generalized edema . In ED she was found to be in A- Fib with Rapid Ventricle rate, Chest congestion, Pro BNP of 12,400, Troponin of 0.1710, CPK of 1446 and Transaminitis. We will treat A Fib with RVR with Cardizem drip. Restart home mediation of Metoprolol, Digoxin and xarelto as anticoagulant. Property Condition Assessor on consult Acute on chronic Systolic CHF with bilateral Pleural effusion will be treated with Oxygen, Lasix, Metoprolol, ARB and Thoracentesis if needed. Transaminits caused by Hepatic congestion for which we would treat the CHF, follow Hepatitis panel,Review medications ej, Amiodarone. Follow LFT Elevated Troponin caused by the CHF. r/o ACS. Follow serial Troponin and EKG. Cardiology on consult. Follow CPK for Rhabdomyolisis Treat Asthma Stasis Dermatis will be treated with Lac-Hydrin topical. Follow Procalcitonin, and continue Antibiotic if elevated. Fat containing Umbilical hernia is stable. Follow Left palm with a mild healing injury Chip Helton MD
[2018-03-27] MEDS ORDERED: Levalbuterol 0.63 MG/3 ML Inhal Soln UD INH PRN (01:19)
[2018-03-27 01:30] LABS: URINE BACTERIA RARE (<OCC); URINE BILIRUBIN NEGATIVE (NEGATIVE); URINE BLOOD SMALL (NEGATIVE); URINE CLARITY SLIGHTY-CLOUDY (Clear); URINE COLOR STRAW (YELLOW); URINE GLUCOSE (UA) NEG (NEGATIVE); URINE LEUKOCYTE ESTERASE NEG Leu/uL (Negative); URINE PROTEIN NEGATIVE (NEGATIVE); URINE UROBILINOGEN 0.2-1.0 mg/dL (0.2-1.0)
[2018-03-27 02:48] VITALS: BMI 41.8
[2018-03-27] MEDS: Fluticasone-Salmeterol 250-50mcg Diskus IH SCH ×2 (04:30→16:06)
[2018-03-27 07:43] LABS: ALB/GLOB RATIO 0.9 (1.0-2.1); ALBUMIN 2.9 g/dL (3.5-5.0); CALCIUM 8.8 mg/dL (8.4-10.2)
[2018-03-27 08:47] LABS: BASO % 0.1 % (0.0-2.0); EOS % 0.2 % (0.0-4.0); HEMOGLOBIN 15.8 g/dL (12.0-16.0); LYMPH # 0.3 K/uL (1.0-4.3); LYMPH % 2.8 % (20.0-40.0); MEAN CELL VOLUME 103.1 fl (81.0-99.0); MEAN CORPUSCULAR HEMOGLOBIN 33.6 pg (27.0-31.0); MEAN CORPUSCULAR HGB CONC 32.6 g/dL (33.0-37.0); MEAN PLATELET VOLUME 11.2 fl (7.2-11.7); MONO # 0.6 K/uL (0.0-0.8); MONO % 6.1 % (0.0-10.0); NEUT # 8.3 K/uL (1.8-7.0); NEUT % 90.8 % (50.0-75.0); NRBC % 0.3 % (0.0-0.0); PLATELET COUNT 84 K/uL (130-400); RED CELL DISTRIBUTION WIDTH 15.7 % (11.5-14.5); WHITE BLOOD COUNT 9.1 K/uL (4.8-10.8)
[2018-03-27] MEDS: Digoxin 250 mcg (0.25 mg) Tab PO SCH (09:06)
[2018-03-27 09:17] LABS: TROPONIN I 0.199 ng/mL (0.00-0.120)
--- NOTE | 2018-03-27 10:30 | RAD ---
Date of service: 03/26/2018 HISTORY: sob COMPARISON: Chest radiograph dated 03/17/2017. FINDINGS: LUNGS: Bibasilar atelectasis. PLEURA: Right lateral subpleural blebs. Small bilateral pleural effusions. No appreciable pneumothorax. CARDIOVASCULAR: Aortic atherosclerotic calcifications. Cardiomediastinal silhouette stably enlarged. OSSEOUS STRUCTURES: Unchanged. VISUALIZED UPPER ABDOMEN: Inferior vena cava filter. OTHER FINDINGS: None. IMPRESSION: Small bilateral pleural effusions.
--- NOTE | 2018-03-27 11:31 | CP.PCM.CON ---
History of Present Illness - History of Present Illness History of Present Illness: Podiatry consult notes for attending Dr. Juarez: 72 y/o F patient with PMH of CHF, A fib with RVR, B/L DVT, PE, seen and evaluated at the bedside for B/L LE swelling with chronic skin changes and LLE redness. Patient states she has had leg swelling and redness for about 2 weeks, Patient states that her legs skin looks like this long time. She denies any pain in her legs. Patient states she has palpitations, SOB. She denies dizziness, fever, chills, headaches, chest pain, N/V/D/C, dysuria or frequency. 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 Allergies: NKDA Social: Denies smoking, EtOH use, Illicit drugs use. Review of Systems - Review of Systems Review of Systems: As per HPI - Constitutional Constitutional: As Per HPI Past Patient History - Past Medical History & Family History Past Medical History?: Yes - Past Social History Smoking Status: Never Smoked Alcohol: None Drugs: Denies Home Situation {Lives}: Alone - CARDIAC Hx Cardiac Disorders: Yes - PULMONARY Hx Asthma: Yes Hx Pulmonary Embolism: Yes - NEUROLOGICAL Hx Seizures: Yes - HEENT Hx HEENT Problems: No - RENAL Hx Chronic Kidney Disease: No - ENDOCRINE/METABOLIC Hx Endocrine Disorders: Yes Hx Diabetes Mellitus Type 2: Yes - HEMATOLOGICAL/ONCOLOGICAL Hx Anemia: Yes Hx Human Immunodeficiency Virus (HIV): No - INTEGUMENTARY Hx Dermatological Problems: Yes Other/Comment: chronic reddened lower extremities. - MUSCULOSKELETAL/RHEUMATOLOGICAL Hx Musculoskeletal Disorders: No Hx Falls: No - GASTROINTESTINAL Hx Gastrointestinal Disorders: No - GENITOURINARY/GYNECOLOGICAL Hx Genitourinary Disorders: No - PSYCHIATRIC Hx Psychophysiologic Disorder: No Hx Substance Use: No - SURGICAL HISTORY Hx Surgeries: Yes Other/Comment: R breast lump removed - ANESTHESIA Hx Anesthesia: Yes Hx Anesthesia Reactions: No Hx Malignant Hyperthermia: No Meds Allergies/Adverse Reactions: Allergies Allergy/AdvReac Type Severity Reaction Status Date / Time No Known Allergies Allergy Verified 06/24/16 17:35 - Medications Medications: Current Medications Digoxin (Lanoxin) 0.25 mg PO DAILY [facility] Last Admin: 03/27/18 09:06 Dose: 0.25 mg Furosemide (Lasix) 60 mg IV BID [facility] Last Admin: 03/27/18 09:08 Dose: Not Given Lactic Acid (Lac-Hydrin 12% Lotion (225 G)) 1 applic TOP TID [facility] Last Admin: 03/27/18 09:07 Dose: 1 applic Levalbuterol HCl (Xopenex) 0.63 mg INH RQ6 PRN PRN Reason: Shortness of Breath Losartan Potassium (Cozaar) 50 mg PO DAILY [facility] Last Admin: 03/27/18 09:06 Dose: Not Given Metoprolol Tartrate (Lopressor) 50 mg PO Q12 [facility] Last Admin: 03/27/18 09:05 Dose: Not Given Montelukast Sodium (Singulair) 10 mg PO DAILY [facility] Last Admin: 03/27/18 09:08 Dose: 10 mg Rivaroxaban (Xarelto) 15 mg PO DAILY [facility]; Protocol Last Admin: 03/27/18 09:08 Dose: 15 mg Fluticasone/Salmeterol (Advair Diskus 250/50) 1 puff IH Q12H [facility] Last Admin: 03/27/18 04:30 Dose: 1 puff Physical Exam - Constitutional Appears: Non-toxic, In Acute Distress - Head Exam Head Exam: ATRAUMATIC, NORMOCEPHALIC - Extremities Exam Additional comments: B/L LE focused exam: Vasc: DP palpable 1/4 b/l. PT non palkpable due to pitting edema, Cap refill < 3 sec to all digits, Temp gradient warm to cool from proximal to distal b/l with the LLE warmer than the RLE. Erythema noted at the LLE extending up to the tibial tuberosity. +2 Pitting edema noted b/l with L>R. Neuro: Gross sensation intact b/l, Protective sensation diminished b/l. Derm: No open lesions. Erythema noted at the LLE extending up to the tibial tuberosity. +2 Pitting edema noted b/l with L>R. Skin looks thickened and folded with chronic skin changes noted b/l in the form of dark skin discoloration with lichnification. Toe nails are elongated, dystrophic, discolored and thickened to all digits. MSK: Muscle power intact 5/5 to all groups b/l. No pain on palpating the legs b/l. No pain on squeezing the calf b/l. R 2nd toe overrides the R hallux. - Neurological Exam Neurological exam: Alert, Oriented x3 - Psychiatric Exam Psychiatric exam: Normal Affect, Normal Mood Results - Vital Signs Recent Vital Signs: Last Vital Signs Temp 97.8 F 03/27/18 09:00 Pulse 91 H 03/27/18 09:06 Resp 20 03/27/18 09:00 BP 100/64 03/27/18 09:08 Pulse Ox 97 03/27/18 09:00 - Labs Result Diagrams: 03/27/18 06:30 03/27/18 06:30 Labs: Laboratory Results - last 24 hr 03/26/18 03/26/18 03/26/18 22:01 22:09 22:25 WBC RBC Hgb Hct MCV MCH MCHC RDW Plt Count MPV Neut % (Auto) Lymph % (Auto) [place] % (Auto) Eos % (Auto) Baso % (Auto) Neut # (Auto) Lymph # (Auto) [place] # (Auto) Eos # (Auto) Baso # (Auto) Neutrophils % (Manual) Lymphocytes % (Manual) Monocytes % (Manual) Platelet Estimate Large Platelets Anisocytosis (manual) Macrocytosis (manual) PT INR APTT pCO2 44 pO2 55 L HCO3 25.6 ABG pH 7.39 ABG Total CO2 28.0 ABG O2 Saturation 90.6 L ABG Base Excess 1.2 Frankie Test Yes ABG Potassium 4.3 A-a O2 Difference 40.0 Sodium 139.0 140 Chloride 106.0 101 Glucose 130 H Lactate 2.7 H FiO2 21.0 Potassium 4.3 Carbon Dioxide 27 Anion Gap 16 BUN 41 H Creatinine 1.1 Est GFR ( Amer) 59 Est GFR (Non-Af Amer) 49 POC Glucose (mg/dL) 122 H Random Glucose 117 H Calcium 9.0 Phosphorus 3.9 Magnesium 2.0 Total Bilirubin 3.9 H Direct Bilirubin AST 1731 H ALT > 1000 H Alkaline Phosphatase 120 Total Creatine Kinase 1446 H Troponin I 0.1710 H* NT-Pro-B Natriuret Pep 02373 H Total Protein 6.5 Albumin 3.1 L D Globulin 3.5 Albumin/Globulin Ratio 0.9 L Amylase Lipase Arterial Blood Potassium 4.3 Urine Color Urine Clarity Urine pH Ur Specific [place] Urine Protein Urine Glucose (UA) Urine Ketones Urine Blood Urine Nitrate Urine Bilirubin Urine Urobilinogen Ur Leukocyte Esterase Urine RBC (Auto) Urine Microscopic WBC Urine Bacteria Digoxin Acetaminophen Phenytoin Blood Type Antibody Screen BBK History Checked 03/26/18 03/26/18 03/26/18 22:25 22:25 22:25 WBC 11.9 H D RBC 4.71 Hgb 15.8 D Hct 48.9 H MCV 104.0 H D MCH 33.7 H MCHC 32.4 L RDW 15.8 H Plt Count 105 L D MPV 10.7 Neut % (Auto) 88.2 H Lymph % (Auto) 5.7 L [place] % (Auto) 5.8 Eos % (Auto) 0.1 Baso % (Auto) 0.2 Neut # (Auto) 10.5 H Lymph # (Auto) 0.7 L [place] # (Auto) 0.7 Eos # (Auto) 0.0 Baso # (Auto) 0.0 Neutrophils % (Manual) 89 H Lymphocytes % (Manual) 7 L Monocytes % (Manual) 4 Platelet Estimate Decreased L Large Platelets Present Anisocytosis (manual) Slight Macrocytosis (manual) Slight PT 26.3 H INR 2.3 APTT 38.4 H pCO2 pO2 HCO3 ABG pH ABG Total CO2 ABG O2 Saturation ABG Base Excess Frankie Test ABG Potassium A-a O2 Difference Sodium Chloride Glucose Lactate FiO2 Potassium Carbon Dioxide Anion Gap BUN Creatinine Est GFR ( Amer) Est GFR (Non-Af Amer) POC Glucose (mg/dL) Random Glucose Calcium Phosphorus Magnesium Total Bilirubin Direct Bilirubin AST ALT Alkaline Phosphatase Total Creatine Kinase Troponin I NT-Pro-B Natriuret Pep Total Protein Albumin Globulin Albumin/Globulin Ratio Amylase Lipase Arterial Blood Potassium Urine Color Urine Clarity Urine pH Ur Specific [place] Urine Protein Urine Glucose (UA) Urine Ketones Urine Blood Urine Nitrate Urine Bilirubin Urine Urobilinogen Ur Leukocyte Esterase Urine RBC (Auto) Urine Microscopic WBC Urine Bacteria Digoxin Acetaminophen Phenytoin Blood Type O POSITIVE Antibody Screen Negative BBK History Checked No verified bt 03/26/18 03/27/18 03/27/18 23:20 01:00 06:30 WBC RBC Hgb Hct MCV MCH MCHC RDW Plt Count MPV Neut % (Auto) Lymph % (Auto) [place] % (Auto) Eos % (Auto) Baso % (Auto) Neut # (Auto) Lymph # (Auto) [place] # (Auto) Eos # (Auto) Baso # (Auto) Neutrophils % (Manual) Lymphocytes % (Manual) Monocytes % (Manual) Platelet Estimate Large Platelets Anisocytosis (manual) Macrocytosis (manual) PT INR APTT pCO2 pO2 HCO3 ABG pH ABG Total CO2 ABG O2 Saturation ABG Base Excess Frankie Test ABG Potassium A-a O2 Difference Sodium 139 Chloride 99 Glucose Lactate FiO2 Potassium 3.9 Carbon Dioxide 32 H Anion Gap 12 BUN 41 H Creatinine 1.1 Est GFR ( Amer) 59 Est GFR (Non-Af Amer) 49 POC Glucose (mg/dL) Random Glucose 100 Calcium 8.8 Phosphorus Magnesium Total Bilirubin 3.9 H Direct Bilirubin 2.0 H AST 1263 H ALT 987 H Alkaline Phosphatase 109 Total Creatine Kinase 868 H Troponin I 0.1990 H* NT-Pro-B Natriuret Pep Total Protein 6.3 Albumin 2.9 L Globulin 3.4 Albumin/Globulin Ratio 0.9 L Amylase 88 Lipase 237 Arterial Blood Potassium Urine Color Straw Urine Clarity Slighty-cloudy Urine pH 6.0 Ur Specific [place] 1.006 Urine Protein Negative Urine Glucose (UA) Neg Urine Ketones Negative Urine Blood Small Urine Nitrate Negative Urine Bilirubin Negative Urine Urobilinogen 0.2-1.0 Ur Leukocyte Esterase Neg Urine RBC (Auto) 1 Urine Microscopic WBC < 1 Urine Bacteria Rare Digoxin < 0.4 L Acetaminophen Phenytoin Blood Type Antibody Screen BBK History Checked 03/27/18 03/27/18 03/27/18 06:30 06:30 06:30 WBC 9.1 RBC 4.70 Hgb 15.8 Hct 48.4 H MCV 103.1 H MCH 33.6 H MCHC 32.6 L RDW 15.7 H Plt Count 84 L D MPV 11.2 Neut % (Auto) 90.8 H Lymph % (Auto) 2.8 L [place] % (Auto) 6.1 Eos % (Auto) 0.2 Baso % (Auto) 0.1 Neut # (Auto) 8.3 H Lymph # (Auto) 0.3 L [place] # (Auto) 0.6 Eos # (Auto) 0.0 Baso # (Auto) 0.0 Neutrophils % (Manual) Lymphocytes % (Manual) Monocytes % (Manual) Platelet Estimate Large Platelets Anisocytosis (manual) Macrocytosis (manual) PT INR APTT pCO2 pO2 HCO3 ABG pH ABG Total CO2 ABG O2 Saturation ABG Base Excess Frankie Test ABG Potassium A-a O2 Difference Sodium Chloride Glucose Lactate FiO2 Potassium Carbon Dioxide Anion Gap BUN Creatinine Est GFR ( Amer) Est GFR (Non-Af Amer) POC Glucose (mg/dL) Random Glucose Calcium Phosphorus Magnesium Total Bilirubin Direct Bilirubin AST ALT Alkaline Phosphatase Total Creatine Kinase Troponin I NT-Pro-B Natriuret Pep Total Protein Albumin Globulin Albumin/Globulin Ratio Amylase Lipase Arterial Blood Potassium Urine Color Urine Clarity Urine pH Ur Specific [place] Urine Protein Urine Glucose (UA) Urine Ketones Urine Blood Urine Nitrate Urine Bilirubin Urine Urobilinogen Ur Leukocyte Esterase Urine RBC (Auto) Urine Microscopic WBC Urine Bacteria Digoxin Acetaminophen < 10.0 L Phenytoin < 3.0 L Blood Type Antibody Screen BBK History Checked Assessment & Plan - Assessment and Plan (Free Text) Assessment: 72 y/o F patient with PMH of CHF, A fib with RVR, B/L DVT, PE, seen and evaluated at the bedside for B/L LE swelling with chronic skin changes and LLE Erythema (questionable cellulitis of the LLE). Plan: Patient seen and evaluated at the bedside. Plan discussed with attending Larry Herrmann Charts, labs and vitals reviewed; Afebrile, WBCs 9.1 Ordered B/L Tib-fibula x-ray Ordered B/L Ankle x-ray No dressing applied to the LE b/l. Ordered B/L venous duplex. Discussed with primary team the patient condition, Patient might need prophylactic abx with putting in consideration the patient's elevated liver enzymes. Ordered ESR/CRP. Podiatry will continue to follow up the patient while in house. Thank you for consulting the podiatry service. - Date & Time Date: 03/27/18 Time: 11:37
[2018-03-27 12:31] LABS: ANISOCYTOSIS SLIGHT; LARGE PLATELETS PRESENT; LYMPHOCYTE 3 % (20-50); MONOCYTE 6 % (0-10); NEUTROPHIL 91 % (42-75); PLATELET ESTIMATE DECREASED (NORMAL); TOTAL CELLS COUNTED 100
--- NOTE | 2018-03-27 12:31 | CT ---
Date of service: 03/27/2018 PROCEDURE: CT Chest, Abdomen and Pelvis without intravenous contrast HISTORY: anasarca elevated LFTs COMPARISON: CT chest dated 05/05/2016; no prior CT imaging of the abdomen and pelvis. TECHNIQUE: Radiation dose: Total exam DLP = 954.2 mGy-cm. This CT exam was performed using one or more of the following dose reduction techniques: Automated exposure control, adjustment of the mA and/or kV according to patient size, and/or use of iterative reconstruction technique. FINDINGS: LUNGS: Pulmonary vascular congestion. And atelectasis no nodule, mass or consolidation. MEDIASTINUM: Ascending aortic aneurysm measuring 4.1 cm. Cardiomegaly. Coronary arterial and valvular calcifications. LYMPH NODES: Unremarkable. PLEURA: Small bilateral pleural effusions, right slightly larger than left. No pneumothorax. LIVER: Unremarkable. No gross lesion or ductal dilatation. GALLBLADDER AND BILE DUCTS: Unremarkable. PANCREAS: Unremarkable. No gross lesion or ductal dilatation. SPLEEN: Unremarkable. ADRENALS: Unremarkable. No mass. KIDNEYS AND URETERS: Unremarkable. No hydronephrosis. No solid mass. VASCULATURE: Aortic atherosclerotic calcifications present. Infrarenal inferior vena cava filter. BOWEL: Unremarkable. No obstruction. No gross mural thickening. APPENDIX: No findings to suggest acute appendicitis. PERITONEUM: Left paraumbilical fat containing hernia measuring 7.9 x 4.8 cm with neck measuring 2.3 cm. No free fluid. No free air. LYMPH NODES: Unremarkable. No enlarged lymph nodes. BLADDER: Partially decompressed around a Sweeney catheter REPRODUCTIVE: Unremarkable. BONES: Questionable sternal fractures versus respiratory motion artifact. OTHER FINDINGS: Diffuse anasarca IMPRESSION: Diffuse anasarca. Very small right larger than left pleural effusions. Questionable sternal fractures versus respiratory motion artifact. Ascending aortic aneurysm measuring 4.1 cm. Additional findings as above.
--- NOTE | 2018-03-27 13:03 | US ---
Date of service: 03/27/2018 PROCEDURE: Bilateral lower extremity venous duplex Doppler. HISTORY: stasis dermatitis with increased erythema COMPARISON: Bilateral lower extremity venous duplex ultrasound performed 06/22/2016. TECHNIQUE: Bilateral common femoral, superficial femoral, popliteal and posterior tibial veins were evaluated. Flow was assessed with color Doppler, compressibility, assessment of phasic flow and augmentation response. FINDINGS: COMMON FEMORAL VEIN: Right CFV: Unremarkable. Left CFV: Unremarkable. SUPERFICIAL FEMORAL VEIN: Right SFV: Nonocclusive thrombus seen in the proximal and midportions. Distal portion not well-visualized Left SFV: Proximal portion unremarkable. Mid and distal portions not well-visualized. POPLITEAL VEIN: Right Popliteal: Nonocclusive thrombus Left Popliteal: Occlusive thrombus POSTERIOR TIBIAL VEIN: Right PTV: Unremarkable. Left PTV: Unremarkable. OTHER FINDINGS: None. IMPRESSION: Nonocclusive thrombus in the right proximal/mid femoral vein and popliteal vein, chronicity indeterminate. Occlusive thrombus in the left popliteal vein, chronicity indeterminate.
[2018-03-27 15:09] LABS: OPIATES, UR NEGATIVE (NEGATIVE)
--- NOTE | 2018-03-27 15:49 | CP.PCM.CON ---
History of Present Illness - History of Present Illness History of Present Illness: 72 yo female found on minimally responsive in her home. Pt bought to er and found to have afib w rvr and decompensated chf (acute on chronic combined sys and chatterjee chf with underlying multivalular disease. Pt unaware of med compliance for at least 2 days. pt denies cp, admits to barrett, orthopnea, increase in MARCO ANTONIO. She feels weak. Pt has a complicated medical history. all studies personally reviewed and resulted in the a/p section. should be noted pt with chronic B/L MARCO ANTONIO due to chf, lymphedema and ivcf. she does however have crackles in lungs and jvd. Review of Systems - Review of Systems Systems not reviewed;Unavailable: Respiratory Distress Review of Systems: also fatigue and drowsiness Past Patient History - Past Medical History & Family History Past Medical History?: Yes - Past Social History Smoking Status: Never Smoked Chewing Tobacco Use: No Cigar Use: No Alcohol: None Drugs: Denies Home Situation {Lives}: Alone - CARDIAC Hx Cardiac Disorders: Yes Hx Atrial Fibrillation: Yes Hx Congestive Heart Failure: Yes Hx Heart Murmur: Yes Hx Hypertension: Yes Hx Peripheral Edema: Yes - PULMONARY Hx Respiratory Disorders: Yes Hx Asthma: Yes Hx Pulmonary Embolism: Yes - NEUROLOGICAL Hx Neurological Disorder: Yes Hx Seizures: Yes - HEENT Hx HEENT Problems: No - RENAL Hx Chronic Kidney Disease: No - ENDOCRINE/METABOLIC Hx Endocrine Disorders: Yes Hx Diabetes Mellitus Type 2: Yes - HEMATOLOGICAL/ONCOLOGICAL Hx Blood Disorders: Yes Hx Anemia: Yes Hx Human Immunodeficiency Virus (HIV): No - INTEGUMENTARY Hx Dermatological Problems: Yes Other/Comment: chronic reddened lower extremities. - MUSCULOSKELETAL/RHEUMATOLOGICAL Hx Musculoskeletal Disorders: No Hx Falls: No - GASTROINTESTINAL Hx Gastrointestinal Disorders: No - GENITOURINARY/GYNECOLOGICAL Hx Genitourinary Disorders: No - PSYCHIATRIC Hx Psychophysiologic Disorder: No Hx Substance Use: No - SURGICAL HISTORY Hx Surgeries: Yes Other/Comment: R breast lump removed - ANESTHESIA Hx Anesthesia: Yes Hx Anesthesia Reactions: No Hx Malignant Hyperthermia: No Meds Allergies/Adverse Reactions: Allergies Allergy/AdvReac Type Severity Reaction Status Date / Time No Known Allergies Allergy Verified 06/24/16 17:35 - Medications Medications: Current Medications Digoxin (Lanoxin) 0.25 mg PO DAILY [facility] Last Admin: 03/27/18 09:06 Dose: 0.25 mg Furosemide (Lasix) 60 mg IV BID [facility] Last Admin: 03/27/18 09:08 Dose: Not Given Lactic Acid (Lac-Hydrin 12% Lotion (225 G)) 1 applic TOP TID [facility] Last Admin: 03/27/18 13:16 Dose: 1 applic Levalbuterol HCl (Xopenex) 0.63 mg INH RQ6 PRN PRN Reason: Shortness of Breath Losartan Potassium (Cozaar) 100 mg PO DAILY [facility] Metoprolol Tartrate (Lopressor) 50 mg PO Q12 [facility] Last Admin: 03/27/18 09:05 Dose: Not Given Montelukast Sodium (Singulair) 10 mg PO DAILY [facility] Last Admin: 03/27/18 09:08 Dose: 10 mg Rivaroxaban (Xarelto) 15 mg PO DAILY [facility]; Protocol Last Admin: 03/27/18 09:08 Dose: 15 mg Fluticasone/Salmeterol (Advair Diskus 250/50) 1 puff IH Q12H [facility] Last Admin: 03/27/18 04:30 Dose: 1 puff Physical Exam - Constitutional Appears: In Acute Distress, Chronically Ill - Head Exam Head Exam: ATRAUMATIC, NORMAL INSPECTION, NORMOCEPHALIC - Eye Exam Eye Exam: EOMI, Normal appearance, PERRL. absent: Conjunctival injection, Nystagmus, Periorbital swelling, Periorbital tenderness, Scleral icterus Pupil Exam: NORMAL ACCOMODATION, PERRL. absent: Fixed, Irregular, Miosis, Mydriatic, Unequal - ENT Exam ENT Exam: Mucous Membranes Dry, Normal Exam. absent: Mucous Membranes Moist, Normal External Ear Exam, Normal Oropharynx, TM's Normal Bilaterally - Neck Exam Neck exam: Positive for: Normal Inspection Additional comments: jvd - Respiratory Exam Respiratory Exam: Decreased Breath Sounds, Rales. absent: Accessory Muscle Use, Chest Wall Tenderness, Clear to Auscultation Bilateral, Prolonged Expiratory Phase, Rhonchi, Wheezes, Respiratory Distress, Stridor, NORMAL BREATHING PATTERN - Cardiovascular Exam Cardiovascular Exam: Diastolic murmur, Irregular Rhythm, +S1, +S2, Systolic Murmur. absent: Bradycardia, Tachycardia, Clicks, Gallop, REGULAR RHYTHM, JVD, RRR, Rubs, +S4 - GI/Abdominal Exam GI & Abdominal Exam: Distended, Normal Bowel Sounds, Soft. absent: Bruit, Diminished Bowel Sounds, Firm, Guarding, Hernia, Hyperactive Bowel Sounds, Hypoactive Bowel Sounds, Mass, Organomegaly, Pulsatile Mass, Rebound, Rigid, Tenderness - Rectal Exam Rectal Exam: Deferred - Extremities Exam Extremities exam: Positive for: pedal edema, tenderness. Negative for: calf tenderness, full ROM, joint swelling, normal capillary refill, normal in spection, pedal pulses present - Back Exam Back exam: NORMAL INSPECTION. absent: CVA tenderness (L), CVA tenderness (R), FULL ROM, muscle spasm, paraspinal tenderness, rash noted, tenderness, vertebral tenderness - Neurological Exam Neurological exam: Alert, CN II-XII Intact, Oriented x3 - Psychiatric Exam Psychiatric exam: Normal Affect, Normal Mood - Skin Skin Exam: Dry, Intact, Normal Color, Warm Results - Vital Signs Recent Vital Signs: Last Vital Signs Temp 97.9 F 03/27/18 14:04 Pulse 82 03/27/18 14:04 Resp 20 03/27/18 14:04 BP 113/73 03/27/18 14:04 Pulse Ox 94 L 03/27/18 14:04 - Labs Result Diagrams: 03/27/18 06:30 03/27/18 06:30 Labs: Laboratory Results - last 24 hr 03/26/18 03/26/18 03/26/18 10:00 22:01 22:09 WBC RBC Hgb Hct MCV MCH MCHC RDW Plt Count MPV Neut % (Auto) Lymph % (Auto) Waller % (Auto) Eos % (Auto) Baso % (Auto) Neut # (Auto) Lymph # (Auto) Waller # (Auto) Eos # (Auto) Baso # (Auto) Neutrophils % (Manual) Lymphocytes % (Manual) Monocytes % (Manual) Platelet Estimate Large Platelets Anisocytosis (manual) Macrocytosis (manual) PT INR APTT pCO2 44 pO2 55 L HCO3 25.6 ABG pH 7.39 ABG Total CO2 28.0 ABG O2 Saturation 90.6 L ABG Base Excess 1.2 Frankie Test Yes ABG Potassium 4.3 A-a O2 Difference 40.0 Sodium 139.0 Chloride 106.0 Glucose 130 H Lactate 2.7 H FiO2 21.0 Potassium Carbon Dioxide Anion Gap BUN Creatinine Est GFR ( Amer) Est GFR (Non-Af Amer) POC Glucose (mg/dL) 122 H Random Glucose Calcium Phosphorus Magnesium Total Bilirubin Direct Bilirubin AST ALT Alkaline Phosphatase Total Creatine Kinase Troponin I NT-Pro-B Natriuret Pep Total Protein Albumin Globulin Albumin/Globulin Ratio Amylase Lipase Vitamin B12 Procalcitonin Arterial Blood Potassium 4.3 Urine Color Urine Clarity Urine pH Ur Specific Hayden Urine Protein Urine Glucose (UA) Urine Ketones Urine Blood Urine Nitrate Urine Bilirubin Urine Urobilinogen Ur Leukocyte Esterase Urine RBC (Auto) Urine Microscopic WBC Urine Bacteria Digoxin Urine Opiates Screen Urine Methadone Screen Acetaminophen Phenytoin Blood Type Blood Type Confirm O POSITIVE Antibody Screen BBK History Checked 03/26/18 03/26/18 03/26/18 22:25 22:25 22:25 WBC 11.9 H D RBC 4.71 Hgb 15.8 D Hct 48.9 H MCV 104.0 H D MCH 33.7 H MCHC 32.4 L RDW 15.8 H Plt Count 105 L D MPV 10.7 Neut % (Auto) 88.2 H Lymph % (Auto) 5.7 L Waller % (Auto) 5.8 Eos % (Auto) 0.1 Baso % (Auto) 0.2 Neut # (Auto) 10.5 H Lymph # (Auto) 0.7 L Waller # (Auto) 0.7 Eos # (Auto) 0.0 Baso # (Auto) 0.0 Neutrophils % (Manual) 89 H Lymphocytes % (Manual) 7 L Monocytes % (Manual) 4 Platelet Estimate Decreased L Large Platelets Present Anisocytosis (manual) Slight Macrocytosis (manual) Slight PT 26.3 H INR 2.3 APTT 38.4 H pCO2 pO2 HCO3 ABG pH ABG Total CO2 ABG O2 Saturation ABG Base Excess Frankie Test ABG Potassium A-a O2 Difference Sodium 140 Chloride 101 Glucose Lactate FiO2 Potassium 4.3 Carbon Dioxide 27 Anion Gap 16 BUN 41 H Creatinine 1.1 Est GFR ( Amer) 59 Est GFR (Non-Af Amer) 49 POC Glucose (mg/dL) Random Glucose 117 H Calcium 9.0 Phosphorus 3.9 Magnesium 2.0 Total Bilirubin 3.9 H Direct Bilirubin AST 1731 H ALT > 1000 H Alkaline Phosphatase 120 Total Creatine Kinase 1446 H Troponin I 0.1710 H* NT-Pro-B Natriuret Pep 49846 H Total Protein 6.5 Albumin 3.1 L D Globulin 3.5 Albumin/Globulin Ratio 0.9 L Amylase Lipase Vitamin B12 Procalcitonin Arterial Blood Potassium Urine Color Urine Clarity Urine pH Ur Specific Hayden Urine Protein Urine Glucose (UA) Urine Ketones Urine Blood Urine Nitrate Urine Bilirubin Urine Urobilinogen Ur Leukocyte Esterase Urine RBC (Auto) Urine Microscopic WBC Urine Bacteria Digoxin Urine Opiates Screen Urine Methadone Screen Acetaminophen Phenytoin Blood Type Blood Type Confirm Antibody Screen BBK History Checked 03/26/18 03/26/18 03/27/18 22:25 23:20 01:00 WBC RBC Hgb Hct MCV MCH MCHC RDW Plt Count MPV Neut % (Auto) Lymph % (Auto) Waller % (Auto) Eos % (Auto) Baso % (Auto) Neut # (Auto) Lymph # (Auto) Waller # (Auto) Eos # (Auto) Baso # (Auto) Neutrophils % (Manual) Lymphocytes % (Manual) Monocytes % (Manual) Platelet Estimate Large Platelets Anisocytosis (manual) Macrocytosis (manual) PT INR APTT pCO2 pO2 HCO3 ABG pH ABG Total CO2 ABG O2 Saturation ABG Base Excess Frankie Test ABG Potassium A-a O2 Difference Sodium Chloride Glucose Lactate FiO2 Potassium Carbon Dioxide Anion Gap BUN Creatinine Est GFR ( Amer) Est GFR (Non-Af Amer) POC Glucose (mg/dL) Random Glucose Calcium Phosphorus Magnesium Total Bilirubin Direct Bilirubin AST ALT Alkaline Phosphatase Total Creatine Kinase Troponin I NT-Pro-B Natriuret Pep Total Protein Albumin Globulin Albumin/Globulin Ratio Amylase Lipase Vitamin B12 Procalcitonin Arterial Blood Potassium Urine Color Straw Urine Clarity Slighty-cloudy Urine pH 6.0 Ur Specific Hayden 1.006 Urine Protein Negative Urine Glucose (UA) Neg Urine Ketones Negative Urine Blood Small Urine Nitrate Negative Urine Bilirubin Negative Urine Urobilinogen 0.2-1.0 Ur Leukocyte Esterase Neg Urine RBC (Auto) 1 Urine Microscopic WBC < 1 Urine Bacteria Rare Digoxin < 0.4 L Urine Opiates Screen Urine Methadone Screen Acetaminophen Phenytoin Blood Type O POSITIVE Blood Type Confirm Antibody Screen Negative BBK History Checked No verified bt 03/27/18 03/27/18 03/27/18 06:30 06:30 06:30 WBC 9.1 RBC 4.70 Hgb 15.8 Hct 48.4 H MCV 103.1 H MCH 33.6 H MCHC 32.6 L RDW 15.7 H Plt Count 84 L D MPV 11.2 Neut % (Auto) 90.8 H Lymph % (Auto) 2.8 L Waller % (Auto) 6.1 Eos % (Auto) 0.2 Baso % (Auto) 0.1 Neut # (Auto) 8.3 H Lymph # (Auto) 0.3 L Waller # (Auto) 0.6 Eos # (Auto) 0.0 Baso # (Auto) 0.0 Neutrophils % (Manual) 91 H Lymphocytes % (Manual) 3 L Monocytes % (Manual) 6 Platelet Estimate Decreased L Large Platelets Present Anisocytosis (manual) Slight Macrocytosis (manual) Slight PT INR APTT pCO2 pO2 HCO3 ABG pH ABG Total CO2 ABG O2 Saturation ABG Base Excess Frankie Test ABG Potassium A-a O2 Difference Sodium 139 Chloride 99 Glucose Lactate FiO2 Potassium 3.9 Carbon Dioxide 32 H Anion Gap 12 BUN 41 H Creatinine 1.1 Est GFR ( Amer) 59 Est GFR (Non-Af Amer) 49 POC Glucose (mg/dL) Random Glucose 100 Calcium 8.8 Phosphorus Magnesium Total Bilirubin 3.9 H Direct Bilirubin 2.0 H AST 1263 H ALT 987 H Alkaline Phosphatase 109 Total Creatine Kinase 868 H Troponin I 0.1990 H* NT-Pro-B Natriuret Pep Total Protein 6.3 Albumin 2.9 L Globulin 3.4 Albumin/Globulin Ratio 0.9 L Amylase 88 Lipase 237 Vitamin B12 Procalcitonin 0.30 Arterial Blood Potassium Urine Color Urine Clarity Urine pH Ur Specific Hayden Urine Protein Urine Glucose (UA) Urine Ketones Urine Blood Urine Nitrate Urine Bilirubin Urine Urobilinogen Ur Leukocyte Esterase Urine RBC (Auto) Urine Microscopic WBC Urine Bacteria Digoxin Urine Opiates Screen Urine Methadone Screen Acetaminophen Phenytoin Blood Type Blood Type Confirm Antibody Screen BBK History Checked 03/27/18 03/27/18 03/27/18 06:30 06:30 06:30 WBC RBC Hgb Hct MCV MCH MCHC RDW Plt Count MPV Neut % (Auto) Lymph % (Auto) Waller % (Auto) Eos % (Auto) Baso % (Auto) Neut # (Auto) Lymph # (Auto) Waller # (Auto) Eos # (Auto) Baso # (Auto) Neutrophils % (Manual) Lymphocytes % (Manual) Monocytes % (Manual) Platelet Estimate Large Platelets Anisocytosis (manual) Macrocytosis (manual) PT INR APTT pCO2 pO2 HCO3 ABG pH ABG Total CO2 ABG O2 Saturation ABG Base Excess Frankie Test ABG Potassium A-a O2 Difference Sodium Chloride Glucose Lactate FiO2 Potassium Carbon Dioxide Anion Gap BUN Creatinine Est GFR ( Amer) Est GFR (Non-Af Amer) POC Glucose (mg/dL) Random Glucose Calcium Phosphorus Magnesium Total Bilirubin Direct Bilirubin AST ALT Alkaline Phosphatase Total Creatine Kinase Troponin I NT-Pro-B Natriuret Pep Total Protein Albumin Globulin Albumin/Globulin Ratio Amylase Lipase Vitamin B12 > 1000 H Procalcitonin Arterial Blood Potassium Urine Color Urine Clarity Urine pH Ur Specific Hayden Urine Protein Urine Glucose (UA) Urine Ketones Urine Blood Urine Nitrate Urine Bilirubin Urine Urobilinogen Ur Leukocyte Esterase Urine RBC (Auto) Urine Microscopic WBC Urine Bacteria Digoxin Urine Opiates Screen Urine Methadone Screen Acetaminophen < 10.0 L Phenytoin < 3.0 L Blood Type Blood Type Confirm Antibody Screen BBK History Checked 03/27/18 03/27/18 10:00 14:40 WBC RBC Hgb Hct MCV MCH MCHC RDW Plt Count MPV Neut % (Auto) Lymph % (Auto) Waller % (Auto) Eos % (Auto) Baso % (Auto) Neut # (Auto) Lymph # (Auto) Waller # (Auto) Eos # (Auto) Baso # (Auto) Neutrophils % (Manual) Lymphocytes % (Manual) Monocytes % (Manual) Platelet Estimate Large Platelets Anisocytosis (manual) Macrocytosis (manual) PT INR APTT pCO2 pO2 HCO3 ABG pH ABG Total CO2 ABG O2 Saturation ABG Base Excess Frankie Test ABG Potassium A-a O2 Difference Sodium Chloride Glucose Lactate FiO2 Potassium Carbon Dioxide Anion Gap BUN Creatinine Est GFR ( Amer) Est GFR (Non-Af Amer) POC Glucose (mg/dL) Random Glucose Calcium Phosphorus Magnesium Total Bilirubin Direct Bilirubin AST ALT Alkaline Phosphatase Total Creatine Kinase Troponin I 0.1800 H* NT-Pro-B Natriuret Pep Total Protein Albumin Globulin Albumin/Globulin Ratio Amylase Lipase Vitamin B12 Procalcitonin Arterial Blood Potassium Urine Color Urine Clarity Urine pH Ur Specific Hayden Urine Protein Urine Glucose (UA) Urine Ketones Urine Blood Urine Nitrate Urine Bilirubin Urine Urobilinogen Ur Leukocyte Esterase Urine RBC (Auto) Urine Microscopic WBC Urine Bacteria Digoxin Urine Opiates Screen Negative Urine Methadone Screen Negative Acetaminophen Phenytoin Blood Type Blood Type Confirm Antibody Screen BBK History Checked Assessment & Plan (1) Acute on chronic combined systolic and diastolic congestive heart failure Status: Acute (2) Aortic regurgitation Status: Chronic Priority: High (3) Mitral regurgitation Status: Acute (4) Presence of IVC filter Status: Acute (5) Atrial fibrillation with rapid ventricular response Status: Acute (6) Pulmonary artery hypertension Status: Acute (7) DVT of lower extremity, bilateral Status: Chronic Priority: High (8) Hypertension Status: Chronic - Assessment and Plan (Free Text) Plan: I PERSONALLY REVIEWED PRIOR ECHOS AI DIFFICULT TO QUANTIFY GIVEN AFIB. HOWEVER GIVEN 2D VALVE PLANE IMAGE THE RVO APPEARS LARGE AND DESPITE AFIB P1/2T APPEARS SHORT. AI IS LIKELY MOD TO SEVERE AND POSSIBLY ETIOLOGY OF DCM. MR VELOCITY IS 4-5 INDICATIVE OF MOD TO SEVERE MR. MR JET APPEARS MILD GIVEN SEVERITY OF LA ENGLARGEMENT AND ELEVATED LA PRESSURE. PRIOR CATH REVEALS ELEVATE LVEDP/FILLING PRESSURES. ELEVATED WEDGE INDICATIVE OF CHF WITHOUT UNDERLYING PULM HTN. RIGHT HEART REVEALS ELEVATED RV AND RA PRESSURE DUE TO LV FAILURE. WOULD DO THE FOLLOWING: RATE CONTROL WITH HR IN 70-90 RANGE TITRATE MEDS TO ACHIEVE MAP 60-65 (DO NOT USE SYS BP TARGET) LASIX IV BID, CPAP, MORPHINE IF NEEDED FOR AIR HUNGER INCREASE ARB MONITOR LYTES AND CR CONT ANTICOAG STOP NEBS PT HAS CHF ACUTE NOT ASTHMA. NEBS WILL INCREASE HR AND WORSEN CHF. TREND TROP WHICH APPEARS SECONDARY TO CHF TREND BNP 95 MIN TOTAL CARE TIME. I HAVE DISCUSSED THE BP GOAL WITH THE RN AND RESIDENT. AGAIN TARGET IS MAP 60- 65 (DO NOT USE SYS BP TARGET).
[2018-03-27 15:50] LABS: BARBITURATES, UR NEGATIVE (NEGATIVE); BENZODIAZEPINES, UR NEGATIVE (NEGATIVE); PHENCYCLIDINE, UR NEGATIVE (NEGATIVE)
[2018-03-27] MEDS ORDERED: Benzocaine/Menthol (Cepacol) Lozenge PO ONE (16:35)
--- NOTE | 2018-03-27 16:54 | CARD ---
APPROVED REPORT Date of service: 03/26/2018 EKG Measurement Heart [id number] <Conclusion> Atrial fibrillation Anteroseptal infarct, age undetermined Abnormal ECG
--- NOTE | 2018-03-27 16:56 | CARD ---
APPROVED REPORT Date of service: 03/26/2018 EKG Measurement Heart [id number] <Conclusion> Atrial fibrillation with rapid ventricular response Septal infarct, age undetermined Abnormal ECG
[2018-03-27] MEDS: Docusate-Senna 50 mg-8.6 mg Tab PO SCH (21:17)
[2018-03-28] MEDS: Fluticasone-Salmeterol 250-50mcg Diskus IH SCH ×2 (04:15→18:08)
[2018-03-28 05:14] LABS: BASO % 0.1 % (0.0-2.0); EOS # 0.1 K/uL (0.0-0.7); EOS % 0.9 % (0.0-4.0); HEMOGLOBIN 13.9 g/dL (12.0-16.0); LYMPH # 0.5 K/uL (1.0-4.3); LYMPH % 8.6 % (20.0-40.0); MEAN CELL VOLUME 102.5 fl (81.0-99.0); MEAN CORPUSCULAR HEMOGLOBIN 33.5 pg (27.0-31.0); MEAN CORPUSCULAR HGB CONC 32.7 g/dL (33.0-37.0); MEAN PLATELET VOLUME 10.6 fl (7.2-11.7); MONO # 0.5 K/uL (0.0-0.8); MONO % 8.2 % (0.0-10.0); NEUT # 4.6 K/uL (1.8-7.0); NEUT % 82.2 % (50.0-75.0); RBC 4.16 Mil/uL (3.80-5.20); RED CELL DISTRIBUTION WIDTH 15.2 % (11.5-14.5); WHITE BLOOD COUNT 5.6 K/uL (4.8-10.8)
--- NOTE | 2018-03-28 05:30 | CP.PCM.PN ---
Subjective - Date & Time of Evaluation Date of Evaluation: 03/28/18 Time of Evaluation: 05:28 - Subjective Subjective: Podiatry progress note for Dr. Juarez: 72 y/o F patient with PMH of CHF, A fib with RVR, B/L DVT, PE, seen and evaluated at the bedside for B/L LE swelling with chronic skin changes and LLE redness.AAOx3 and in NAD. denies any acute overnight events. Denies pain to the lower extremity. Denies f/nv/sob/cp. Objective - Vital Signs/Intake and Output Vital Signs (last 24 hours): Temp Pulse Resp BP Pulse Ox 98.3 F 89 18 108/74 97 03/28/18 04:49 03/28/18 04:49 03/28/18 04:49 03/28/18 04:49 03/28/18 04:49 Intake and Output: 03/27/18 03/28/18 18:59 06:59 Intake Total 760 Output Total 1800 Balance -1040 - Medications Medications: Current Medications Digoxin (Lanoxin) 0.25 mg PO DAILY [facility] Last Admin: 03/27/18 09:06 Dose: 0.25 mg Furosemide (Lasix) 60 mg IV BID [facility] Last Admin: 03/27/18 16:20 Dose: Not Given Lactic Acid (Lac-Hydrin 12% Lotion (225 G)) 1 applic TOP TID [facility] Last Admin: 03/27/18 16:07 Dose: 1 applic Losartan Potassium (Cozaar) 100 mg PO DAILY [facility] Metoprolol Tartrate (Lopressor) 50 mg PO Q12 [facility] Last Admin: 03/27/18 21:15 Dose: Not Given Montelukast Sodium (Singulair) 10 mg PO DAILY [facility] Last Admin: 03/27/18 09:08 Dose: 10 mg Rivaroxaban (Xarelto) 15 mg PO DAILY [facility]; Protocol Last Admin: 03/27/18 09:08 Dose: 15 mg Fluticasone/Salmeterol (Advair Diskus 250/50) 1 puff IH Q12H [facility] Last Admin: 03/28/18 04:15 Dose: 1 puff Senna/Docusate Sodium (Senokot S 50 Mg-8.6 Mg) 1 tab PO HS [facility] Last Admin: 03/27/18 21:17 Dose: 1 tab - Labs Labs: 03/27/18 06:30 03/27/18 06:30 PT 26.3 Seconds (9.8-13.1) H 03/26/18 22:25 INR 2.3 03/26/18 22:25 APTT 38.4 Seconds (25.6-37.1) H 03/26/18 22:25 - Constitutional Appears: Well, Non-toxic, No Acute Distress - Head Exam Head Exam: ATRAUMATIC - Extremities Exam Additional comments: B/L LE focused exam: Vasc: DP palpable 1/4 b/l. PT non palkpable due to pitting edema, Cap refill < 3 sec to all digits, Temp gradient warm to cool from proximal to distal b/l with the LLE warmer than the RLE. Erythema noted at the LLE extending up to the tibial tuberosity. +2 Pitting edema noted b/l with L>R. Neuro: Gross sensation intact b/l, Protective sensation diminished b/l. Derm: No open lesions. Erythema noted at the LLE extending up to the tibial tuberosity. +2 Pitting edema noted b/l with L>R. Skin looks thickened and folded with chronic skin changes noted b/l in the form of dark skin discoloration with lichenification. Toe nails are elongated, dystrophic, discolored and thickened to all digits. MSK: Muscle power intact 5/5 to all groups b/l. No pain on palpating the legs b/l. No pain on squeezing the calf b/l. R 2nd toe overrides the R hallux. Assessment and Plan - Assessment and Plan (Free Text) Assessment: 72 y/o F patient with PMH of CHF, A fib with RVR, B/L DVT, PE, seen and evaluated at the bedside for B/L LE swelling with chronic skin changes and LLE Erythema (questionable cellulitis of the LLE). Plan: Patient seen and evaluated at the bedside. Plan discussed with attending Larry Herrmann Charts, labs and vitals reviewed; Afebrile, WBCs 9.1 B/L Tib-fibula x-ray: no acute osseous changes B/L Ankle x-ray: no acute osseous changes No dressing applied to the LE b/l. B/L venous duplex.thrombus in b/l popliteal vein Discussed with primary team the patient condition, Patient might need prophylactic abx with putting in consideration the patient's elevated liver enzymes. Ordered ESR/CRP. ESr:1 vascular surgeon on board for b/l lower extremity thrombus; appreciate recs Podiatry will now sign off; please reconsult as necessary
[2018-03-28 05:42] LABS: ALB/GLOB RATIO 0.8 (1.0-2.1); ALBUMIN 2.3 g/dL (3.5-5.0); CALCIUM 8.2 mg/dL (8.4-10.2)
[2018-03-28] MEDS ORDERED: Potassium Chloride 20 mEq/15 ml LIQ UD PO ONE (07:49)
[2018-03-28 08:41] LABS: HEPATITIS B SURFACE AG Negative (NEGATIVE)
[2018-03-28 08:47] LABS: HEPATITIS A IGM NEGATIVE (NEGATIVE); HEPATITIS B CORE AB NEGATIVE (NEGATIVE)
[2018-03-28 08:58] LABS: HEPATITIS C ANTIBODY NEGATIVE (NEGATIVE)
[2018-03-28 09:43] LABS: TROPONIN I 0.084 ng/mL (0.00-0.120)
[2018-03-28] MEDS: Digoxin 250 mcg (0.25 mg) Tab PO SCH (11:15)
--- NOTE | 2018-03-28 12:38 | RAD ---
Date of service: 03/28/2018 PROCEDURE: Radiographs of the bilateral Tibiae and Fibulae. HISTORY: B/L LE edema. possible LLE infection. COMPARISON: None available. TECHNIQUE: Frontal and lateral views obtained. FINDINGS: BONES: No acute fracture or destructive bony lesion identified, bilateral tibia and fibula. Body habitus limits technique however osteopenia suspected bilaterally diffusely. JOINT SPACES: Medial lateral femorotibial joint space narrowing is appreciated as well as patellofemoral articulations compatible with degenerative joint disease. Cortical sclerosis accompanies these findings diffusely. SOFT TISSUES: Left lower extremity subcutaneous heterogeneity is appreciated which may indicate nonspecific cellulitis. No emphysema soft tissue changes or retained radiodense foreign body appreciable bilaterally. OTHER FINDINGS: None. IMPRESSION: Potential cellulitis left lower extremity diffusely noted. No fracture dislocation bilateral tibia and fibula. Osteopenia is not excluded bilaterally diffusely. Tricompartmental knee osteoarthritis.
--- NOTE | 2018-03-28 12:40 | RAD ---
Date of service: 03/28/2018 PROCEDURE: BILATERAL ANKLES RADIOGRAPHS HISTORY: B/L LE edema. possible LLE infection. COMPARISON: None available. TECHNIQUE: Three views of each ankle and submitted for interpretation. FINDINGS: No acute fracture or dislocation is identified nor destructive bony lesion at the bilateral ankles. Diffuse osteopenia suggests osteoporosis. The bilateral mortise ease are intact without subluxation or with the talar dome is intact as well. Limited degenerative cortical sclerosis appreciate the tibiotalar and subtalar joints compatible degenerative joint disease. Unremarkable lateral ankle soft tissues. IMPRESSION: No acute fracture or dislocation bilateral ankles. No destructive bony lesion evident. Degenerative changes are identified at the tibiotalar and subtalar joints mildly.
--- NOTE | 2018-03-28 12:42 | CP.PCM.PN ---
Subjective - Date & Time of Evaluation Date of Evaluation: 03/28/18 Time of Evaluation: 09:16 - Subjective Subjective: Patient seen and examined this AM sitting up in bed on 2 L of oxygen via NC saturating at 95% breathing comfortably. Patient slept well, and states she is feeling better. Objective - Vital Signs/Intake and Output Vital Signs (last 24 hours): Temp Pulse Resp BP Pulse Ox 98.1 F 95 H 18 100/72 97 03/28/18 08:46 03/28/18 08:46 03/28/18 08:46 03/28/18 11:18 03/28/18 08:46 Intake and Output: 03/28/18 03/28/18 06:59 18:59 Intake Total 120 Output Total 600 Balance -480 - Medications Medications: Current Medications Digoxin (Lanoxin) 0.25 mg PO DAILY [facility] Last Admin: 03/28/18 11:15 Dose: 0.25 mg Furosemide (Lasix) 40 mg IV BID [facility] Last Admin: 03/28/18 11:18 Dose: Not Given Ampicillin Sodium/Sulbactam (Sodium 3 gm/ Sodium Chloride) 100 mls @ 100 mls/hr IVPB Q12 [facility]; Protocol Lactic Acid (Lac-Hydrin 12% Lotion (225 G)) 1 applic TOP TID [facility] Last Admin: 03/28/18 09:00 Dose: 1 applic Losartan Potassium (Cozaar) 100 mg PO DAILY [facility] Last Admin: 03/28/18 11:15 Dose: Not Given Metoprolol Tartrate (Lopressor) 50 mg PO Q12 [facility] Last Admin: 03/28/18 11:16 Dose: Not Given Montelukast Sodium (Singulair) 10 mg PO DAILY [facility] Last Admin: 03/28/18 11:17 Dose: 10 mg Rivaroxaban (Xarelto) 15 mg PO DAILY [facility]; Protocol Last Admin: 03/28/18 11:18 Dose: 15 mg Fluticasone/Salmeterol (Advair Diskus 250/50) 1 puff IH Q12H [facility] Last Admin: 03/28/18 04:15 Dose: 1 puff Senna/Docusate Sodium (Senokot S 50 Mg-8.6 Mg) 1 tab PO HS BRAD Last Admin: 03/27/18 21:17 Dose: 1 tab - Labs Labs: 03/28/18 04:20 03/28/18 04:20 PT 26.3 Seconds (9.8-13.1) H 03/26/18 22:25 INR 2.3 03/26/18 22:25 APTT 38.4 Seconds (25.6-37.1) H 03/26/18 22:25 - Constitutional Appears: Non-toxic - Head Exam Head Exam: ATRAUMATIC - Eye Exam Eye Exam: EOMI - ENT Exam ENT Exam: Mucous Membranes Dry - Cardiovascular Exam Cardiovascular Exam: Irregular Rhythm Additional comments: borderline tachycardia - GI/Abdominal Exam GI & Abdominal Exam: Soft, Normal Bowel Sounds. absent: Rigid, Tenderness - Extremities Exam Additional comments: Left leg- decreased erythema compared to yesterday B/L: hyperpigmented & thickened skin changes noted with long think toe nails that are elongated. - Neurological Exam Neurological Exam: Alert, Awake, Oriented x3 - Psychiatric Exam Psychiatric exam: Normal Affect, Normal Mood Assessment and Plan - Assessment and Plan (Free Text) Assessment: 72 y/o F with medical hx of CHF, Afib, hx of PE , b/l DVT with IVC filter & HTN admitted for evaluation & management of CHF exacerbation, weakness & inability to walk. 1. CHF exacerbation (acute on chronic) Dr. Clements recommendations appreciated. -I & O's: 2.767 kg weight loss following diuresis with lasix 60mg BID. -Initial BNP: 12,400 decreased to 3,140. -Lasix decreased to 40mg IV BID this AM. -Continue DIg 0.25mg PO QD. -Continue metoprolol 50mg PO BID. -FU AM BMP. 2. Atrial fibrillation with RVR (acute on chronic) -Continue rate control. -Continue to monitor VS. 3. Elevated LFT's (acute) -Likely due to hypoperfusion of liver -AST/ALT trending down. -Continue diuresis. -FU repeat in AM. 4. hx of PE & DVT (chronic) -Patient with IVC filter -Dopper US of b/l lower extremity performed yesterday showed nonocclusive DVT bilaterally. -Continue xarelto 15mg PO QD (renally dose because of low creatinine clearance) 5. Stasis dermatitis (chronic) -Podiatry consult appreciated. 6. Cellulitis of LLE -Erythema of left lower leg noted yesterday is decreased today. -Continue Unasyn (day #1 with first dose given this AM) 7. DVT prophylaxis Patient has IVC filter and on xarelto
[2018-03-28 12:44] LABS: FOLATE 14.7 ng/mL
--- NOTE | 2018-03-28 19:53 | CARD ---
APPROVED REPORT Date of service: 03/28/2018 EXAM: Two-dimensional and M-mode echocardiogram with Doppler and color Doppler. Other Information Quality : GoodRhythm : Atrial Fibrillation INDICATION Atrial Fibrillation Congestive Heart Failure 2D DIMENSIONS IVSd1.11 (0.7-1.1cm)LVDd5.23 (3.9-5.9cm) LVOT Diameter2.23 (1.8-2.4cm)PWd1.54 (0.7-1.1cm) IVSs1.15 (0.8-1.2cm)LVDs5.33 (2.5-4.0cm) FS (%) 1.7 %PWs1.38 (0.8-1.2cm) M-Mode DIMENSIONS Left Atrium (MM)5.59 (2.5-4.0cm)IVSd0.86 (0.7-1.1cm) Aortic Root3.38 (2.2-3.7cm)LVDd5.72 (4.0-5.6cm) Aortic Cusp Exc.1.92 (1.5-2.0cm)PWd1.29 (0.7-1.1cm) IVSs0.96 cmFS (%) 18 % LVDs4.67 (2.0-3.8cm)PWs1.69 cm Mitral Valve E/A ratio0.0 TDI E/Lateral E'0.0E/Medial E'0.0 Tricuspid Valve TR Peak [id number] Peak Gr.29mmHg [id number] LEFT VENTRICLE The Left Ventricle is mildly dilated. There is normal left ventricular wall thickness. The systolic function is severely impaired. The estimated ejection fraction is -20%. There is global hypokinesis of the left ventricle. The left ventricular diastolic function cannot be assessed due to underlying atrial fibrillation. No left ventricle thrombus noted on this study. There is no ventricular septal defect visualized. There is no left ventricular aneurysm. There is no mass noted in the left ventricle. RIGHT VENTRICLE The right ventricle is normal size. There is normal right ventricular wall thickness. The right ventricular systolic function is normal. ATRIA The left atrium is severely dilated. The right atrium size is normal. The interatrial septum is intact with no evidence for an atrial septal defect. AORTIC VALVE The aortic valve is normal in structure. Mild to moderate aortic regurgitation is present. There is no aortic valvular stenosis. There is no aortic valvular vegetation. MITRAL VALVE The mitral valve is normal in structure. There is no evidence of mitral valve prolapse. There is no mitral valve stenosis. There is mild mitral valve regurgitation noted. TRICUSPID VALVE The tricuspid valve is normal in structure. There is moderate to severe tricuspid valve regurgitation noted. RVSP is calculated at 52 mm Hg. Consistent with mild pulmonary hypertension. There is no tricuspid valve prolapse or vegetation. There is no tricuspid valve stenosis. PULMONIC VALVE The pulmonary valve is normal in structure. There is trace pulmonic valvular regurgitation. There is no pulmonic valvular stenosis. GREAT VESSELS The aortic root is normal in size. The ascending aorta is normal in size. The pulmonary artery is normal. The IVC is dilated in size and collapses <50% with inspiration. PERICARDIAL EFFUSION There is no pericardial effusion. There is no pleural effusion. <Conclusion> The Left Ventricle is mildly dilated. The systolic function is severely impaired. The estimated ejection fraction is -20%. The left ventricular diastolic function cannot be assessed due to underlying atrial fibrillation. The left atrium is severely dilated. Mild to moderate aortic regurgitation is present. There is mild mitral valve regurgitation noted. There is moderate to severe tricuspid valve regurgitation noted. RVSP is calculated at 52 mm Hg. Consistent with mild pulmonary hypertension. The IVC is dilated in size and collapses <50% with inspiration.
[2018-03-28] MEDS: Docusate-Senna 50 mg-8.6 mg Tab PO SCH (21:27)
[2018-03-29] MEDS: Fluticasone-Salmeterol 250-50mcg Diskus IH SCH ×2 (04:32→16:44)
[2018-03-29 05:36] LABS: BASO % 0.5 % (0.0-2.0); EOS # 0.1 K/uL (0.0-0.7); HEMOGLOBIN 13.9 g/dL (12.0-16.0); LYMPH # 0.5 K/uL (1.0-4.3); MEAN CELL VOLUME 103.5 fl (81.0-99.0); MEAN CORPUSCULAR HEMOGLOBIN 33.6 pg (27.0-31.0); MEAN CORPUSCULAR HGB CONC 32.4 g/dL (33.0-37.0); MEAN PLATELET VOLUME 10.2 fl (7.2-11.7); MONO # 0.5 K/uL (0.0-0.8); MONO % 10.2 % (0.0-10.0); NEUT # 3.4 K/uL (1.8-7.0); NEUT % 76.3 % (50.0-75.0); NRBC % 0.3 % (0.0-0.0); RBC 4.15 Mil/uL (3.80-5.20); RED CELL DISTRIBUTION WIDTH 15.7 % (11.5-14.5); WHITE BLOOD COUNT 4.5 K/uL (4.8-10.8)
[2018-03-29 06:06] LABS: ALB/GLOB RATIO 0.8 (1.0-2.1); ALBUMIN 2.5 g/dL (3.5-5.0); ALT/SGPT 572 U/L (9-52); AST/SGOT 423 U/L (14-36); BLOOD UREA NITROGEN 28 mg/dl (7-17); GFR NON-AFRICAN AMERICAN > 60
[2018-03-29] MEDS ORDERED: Potassium Chloride 20 mEq 100 ML IVPB ONE (08:00)
[2018-03-29] MEDS: Digoxin 250 mcg (0.25 mg) Tab PO SCH (08:35)
--- NOTE | 2018-03-29 12:23 | CP.PCM.DIS ---
<Suha Olivera - Last Filed: 03/29/18 14:04> Provider - Provider Date of Admission: 03/26/18 23:29 Attending physician: Chip Helton Consults: 03/27/18 01:28 Cardiology Consult Routine Comment: Consulting Provider: Ricky Clements Consulting Physician: Ricky Clements Reason for Consult: Afib with RVR, CHF 03/27/18 02:36 Case Management Referral Routine Comment: no homemaker Physician Instructions: Reason For Exam: lives alone Reason for Referral: Discharge Planning Nursing Referral for Wound Care Routine Comment: Physician Instructions: Reason For Exam: swollen legs bilateral 03/27/18 10:54 Podiatry Consult Routine Comment: Consulting Provider: Filemon Juarez Consulting Physician: Filemon Juarez Reason for Consult: STASIS DERMATITIS 03/28/18 11:08 Vascular Surgery Routine Comment: Consulting Provider: Julio Cesar Donato Physician Instructions: Reason For Exam: bilateral LE thrombus with IVC filter Time Spent in preparation of Discharge (in minutes): 45 Hospital Course - Lab Results Lab Results: Micro Results 03/27/18 17:50 Throat Group A Strep Throat Culture - Final NO BETA STREP GROUP A ISOLATED. 03/26/18 23:49 Blood Blood Culture - Preliminary NO GROWTH AFTER 48 HOURS 03/26/18 22:25 Blood Blood Culture - Preliminary NO GROWTH AFTER 48 HOURS 03/27/18 07:15 Urine,Sweeney Urine Culture - Final No Growth (<1,000 CFU/ML) Most Recent Lab Values WBC 4.5 K/uL (4.8-10.8) L 03/29/18 04:25 RBC 4.15 Mil/uL (3.80-5.20) 03/29/18 04:25 Hgb 13.9 g/dL (12.0-16.0) 03/29/18 04:25 Hct 43.0 % (34.0-47.0) 03/29/18 04:25 MCV 103.5 fl (81.0-99.0) H 03/29/18 04:25 MCH 33.6 pg (27.0-31.0) H 03/29/18 04:25 MCHC 32.4 g/dL (33.0-37.0) L 03/29/18 04:25 RDW 15.7 % (11.5-14.5) H 03/29/18 04:25 Plt Count 71 K/uL (130-400) L 03/29/18 04:25 MPV 10.2 fl (7.2-11.7) 03/29/18 04:25 Neut % (Auto) 76.3 % (50.0-75.0) H 03/29/18 04:25 Lymph % (Auto) 11.0 % (20.0-40.0) L 03/29/18 04:25 [place] % (Auto) 10.2 % (0.0-10.0) H 03/29/18 04:25 Eos % (Auto) 2.0 % (0.0-4.0) 03/29/18 04:25 Baso % (Auto) 0.5 % (0.0-2.0) 03/29/18 04:25 Neut # (Auto) 3.4 K/uL (1.8-7.0) 03/29/18 04:25 Lymph # (Auto) 0.5 K/uL (1.0-4.3) L 03/29/18 04:25 [place] # (Auto) 0.5 K/uL (0.0-0.8) 03/29/18 04:25 Eos # (Auto) 0.1 K/uL (0.0-0.7) 03/29/18 04:25 Baso # (Auto) 0.0 K/uL (0.0-0.2) 03/29/18 04:25 Neutrophils % (Manual) 91 % (42-75) H 03/27/18 06:30 Lymphocytes % (Manual) 3 % (20-50) L 03/27/18 06:30 Monocytes % (Manual) 6 % (0-10) 03/27/18 06:30 Platelet Estimate Decreased (NORMAL) L 03/27/18 06:30 Large Platelets Present 03/27/18 06:30 Anisocytosis (manual) Slight 03/27/18 06:30 Macrocytosis (manual) Slight 03/27/18 06:30 ESR 1 mm/hr (0-30) 03/27/18 15:35 PT 26.3 Seconds (9.8-13.1) H 03/26/18 22:25 INR 2.3 03/26/18 22:25 APTT 38.4 Seconds (25.6-37.1) H 03/26/18 22:25 pCO2 44 mm/Hg (35-45) 03/26/18 22:09 pO2 55 mm/Hg (80-100) L 03/26/18 22:09 HCO3 25.6 mmol/L (21-28) 03/26/18 22:09 ABG pH 7.39 (7.35-7.45) 03/26/18 22:09 ABG Total CO2 28.0 mmol/L (22-28) 03/26/18 22:09 ABG O2 Saturation 90.6 % (95-98) L 03/26/18 22:09 ABG Base Excess 1.2 mmol/L (-2.0-3.0) 03/26/18 22:09 Frankie Test Yes 03/26/18 22:09 ABG Potassium 4.3 mmol/L (3.6-5.2) 03/26/18 22:09 A-a O2 Difference 40.0 mm/Hg 03/26/18 22:09 Sodium 139.0 mmol/L (132-148) 03/26/18 22:09 Chloride 106.0 mmol/L (98-107) 03/26/18 22:09 Glucose 130 mg/dL (65-105) H 03/26/18 22:09 Lactate 2.7 mmol/L (0.7-2.1) H 03/26/18 22:09 FiO2 21.0 % 03/26/18 22:09 Sodium 138 mmol/l (132-148) 03/29/18 04:25 Potassium 3.3 MMOL/L (3.6-5.0) L 03/29/18 04:25 Chloride 95 mmol/L (98-107) L 03/29/18 04:25 Carbon Dioxide 36 mmol/L (22-30) H 03/29/18 04:25 Anion Gap 10 (10-20) 03/29/18 04:25 BUN 28 mg/dl (7-17) H 03/29/18 04:25 Creatinine 0.8 mg/dl (0.7-1.2) 03/29/18 04:25 Est GFR ( Amer) > 60 03/29/18 04:25 Est GFR (Non-Af Amer) > 60 03/29/18 04:25 POC Glucose (mg/dL) 122 mg/dL (65-110) H 03/26/18 22:01 Random Glucose 107 mg/dL (65-105) H 03/29/18 04:25 Calcium 8.0 mg/dL (8.4-10.2) L 03/29/18 04:25 Phosphorus 3.9 mg/dl (2.5-4.5) 03/26/18 22:25 Magnesium 1.6 MG/DL (1.6-2.3) 03/29/18 07:12 Total Bilirubin 2.5 mg/dl (0.2-1.3) H 03/29/18 04:25 Direct Bilirubin 2.0 mg/ml (0.0-0.4) H 03/27/18 06:30 AST 423 U/L (14-36) H D 03/29/18 04:25 ALT 572 U/L (9-52) H 03/29/18 04:25 Alkaline Phosphatase 106 U/L (38-126) 03/29/18 04:25 Total Creatine Kinase 277 U/L (30-135) H 03/28/18 04:20 Troponin I 0.0840 ng/mL (0.00-0.120) 03/28/18 09:14 C-Reactive Protein 46.10 mg/L (0.0-9.9) H 03/27/18 15:35 NT-Pro-B Natriuret Pep 3020 pg/ml (0-900) H 03/29/18 07:10 Total Protein 5.5 G/DL (6.3-8.2) L 03/29/18 04:25 Albumin 2.5 g/dL (3.5-5.0) L 03/29/18 04:25 Globulin 3.0 gm/dL (2.2-3.9) 03/29/18 04:25 Albumin/Globulin Ratio 0.8 (1.0-2.1) L 03/29/18 04:25 Amylase 88 U/L (30-110) 03/27/18 06:30 Lipase 237 U/L (23-300) 03/27/18 06:30 Vitamin B12 > 1000 pg/mL (239-931) H 03/27/18 06:30 Folate 14.7 ng/mL 03/27/18 06:30 Procalcitonin 0.30 NG/ML (0.19-0.49) 03/27/18 06:30 Arterial Blood Potassium 4.3 mmol/L (3.6-5.2) 03/26/18 22:09 Urine Color Straw (YELLOW) 03/27/18 01:00 Urine Clarity Slighty-cloudy (Clear) 03/27/18 01:00 Urine pH 6.0 (5.0-8.0) 03/27/18 01:00 Ur Specific Yoder 1.006 (1.003-1.030) 03/27/18 01:00 Urine Protein Negative mg/dL (NEGATIVE) 03/27/18 01:00 Urine Glucose (UA) Neg mg/dL (NEGATIVE) 03/27/18 01:00 Urine Ketones Negative mg/dL (NEGATIVE) 03/27/18 01:00 Urine Blood Small (NEGATIVE) 03/27/18 01:00 Urine Nitrate Negative (NEGATIVE) 03/27/18 01:00 Urine Bilirubin Negative (NEGATIVE) 03/27/18 01:00 Urine Urobilinogen 0.2-1.0 mg/dL (0.2-1.0) 03/27/18 01:00 Ur Leukocyte Esterase Neg Sowmya/uL (Negative) 03/27/18 01:00 Urine RBC (Auto) 1 /hpf (0-3) 03/27/18 01:00 Urine Microscopic WBC < 1 /hpf (0-5) 03/27/18 01:00 Urine Bacteria Rare (<OCC) 03/27/18 01:00 Digoxin < 0.4 ng/mL (0.8-2.0) L 03/26/18 23:20 Urine Opiates Screen Negative (NEGATIVE) 03/27/18 14:40 Urine Methadone Screen Negative (NEGATIVE) 03/27/18 14:40 Acetaminophen < 10.0 ug/ml (10.0-30.0) L 03/27/18 06:30 Ur Barbiturates Screen Negative (NEGATIVE) 03/27/18 14:40 Phenytoin < 3.0 ug/ML (10-20) L 03/27/18 06:30 Ur Phencyclidine Scrn Negative (NEGATIVE) 03/27/18 14:40 Ur Amphetamines Screen Negative (NEGATIVE) 03/27/18 14:40 U Benzodiazepines Scrn Negative (NEGATIVE) 03/27/18 14:40 U Oth Cocaine Metabols Negative (NEGATIVE) 03/27/18 14:40 U Cannabinoids Screen Negative (NEGATIVE) 03/27/18 14:40 Hepatitis A IgM Ab Negative (NEGATIVE) 03/27/18 06:30 Hep Bs Antigen Negative (NEGATIVE) 03/27/18 06:30 Hep B Core IgM Ab Negative (NEGATIVE) 03/27/18 06:30 Hepatitis C Antibody Negative (NEGATIVE) 03/27/18 06:30 Influenza Typ A,B (EIA) Negative for flu a/b (NEGATIVE) 03/27/18 17:50 Grp A Beta Strep Ag Negative (NEGATIVE) 03/27/18 17:50 Blood Type O POSITIVE 03/26/18 22:25 Blood Type Confirm O POSITIVE 03/26/18 10:00 Antibody Screen Negative 03/26/18 22:25 BBK History Checked No verified bt 03/26/18 22:25 - Hospital Course Hospital Course: 72 y/o F with medical hx of CHF, Afib, hx of PE , b/l DVT with IVC filter & HTN admitted for evaluation & management of CHF exacerbation, weakness & inability to walk. In ED, patient was found to be in atrial fibrillation with elevated LFT's, elevated troponins and pro-BNP (12, 400). Cardizem drip was started for rate control along with lasix for diuresis. Home medications of digoxin, metoprolol, and xarelto. Cardiology was consulted and Dr. Clements's recommendations were appreciated. Elev ated LFT's, troponins, and pro-BNP were due to acute CHF exacerbation with hypoperfusion of liver. During the patient's hospitalization, patient lost a total 7.8 lbs following diuresis. LFT's & troponin trended down with normalization of LFT's. Podiatry was consulted for increased erythema of left lower leg. Unasyn was started. 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 Lower extremity ultrasound was performed showing nonocclusive DVT bilaterally (patient has IVC filter and on xarelto). This am, patient was seen and examined, awake slaying in supine position. No acute events overnight. Patient denied any fever, chills, chest pain or shortness of breath. 1. CHF exacerbation with hx of anasarca(acute on chronic) -Lasix 40mg IV BID -Continue Dig 0.25mg PO QD. -Continue metoprolol tartate 50mg PO BID. -hold Spironolactone 25mg (1/2 tablet) PO QD ; once furosemide which to PO BP will likely increase -Amlodipine discontinued due to lower leg swelling 2. Atrial fibrillation with RVR (acute on chronic) -Continue metoprolol tartate 50mg PO BID. -C/w Amiodarone 200mg PO BID -Cardizem discontinued because of lower leg swelling 3. Elevated LFT's (acute, trending down) -Likely due to hypoperfusion of liver -AST/ALT trending down. 4. hx of PE & DVT (chronic) -Patient with IVC filter -Continue xarelto 20mg PO QD 5. Stasis dermatitis (chronic) -Ammonium lactate Top TID 6. Cellulitis of LLE -Continue Unasyn (day #2) 7. Chronic constipation -Docusate sodium/sennokote 1 tab PO HS 8. HTN losartan 100mg PO QD 9. COPD singulair 10mg PO QD Advair Diskus 250/50 1 puff IH Q12 10. hx of seizure -Phenytoin 100mg PO BID Discharge Exam - Head Exam Head Exam: ATRAUMATIC - ENT Exam ENT Exam: Mucous Membranes Moist - Respiratory Exam Respiratory Exam: absent: Wheezes, Respiratory Distress Additional comments: crackles noted but decreased from yesterday - Cardiovascular Exam Cardiovascular Exam: Irregular Rhythm - GI/Abdominal Exam GI & Abdominal Exam: Normal Bowel Sounds, Soft. absent: Guarding, Rigid, Tenderness - Extremities Exam Additional comments: b/l chronic stasis dermatitis with erythema of left low leg; decreased from yesterday - Neurological Exam Neurological exam: Alert, Oriented x3 - Psychiatric Exam Psychiatric exam: Normal Affect, Normal Mood Discharge Plan - Discharge Medications Prescriptions: AMPicillin/Sulbactam [Unasyn 3 gm] 3 gm IVPB Q12 7 Days vial Furosemide [Lasix] 40 mg PO Q12 #1 tab Spironolactone 12.5 mg PO DAILY #30 tablet - Follow Up Plan Condition: GUARDED Disposition: REHAB FACILITY/REHAB UNIT Instructions: Heart Failure and Atrial Fibrillation Additional Instructions: d/c to TCU Referrals: [facility] [Provider Group] Ricky Clements MD [Staff Provider] - Clinical Quality Measures - CQM - Stroke Anticoagulation Prescribed for Atrial Flutter, Atrial Fibrillation and History of:: Yes - CQM - VTE Did patient receive overlap therapy during hosptialization?: No - CQM - Heart Failure Ejection Fraction: Less Than 40 % JOSÉ LUIS Inhibitor Prescribed: No Contraindication/Reason for not providing: on an ARB Contraindication/Reason for not providing: on metoprolol tartrate Angiotensin II Receptor Tirso Prescribed: Yes AnticoagulationTherapy for Atrial Fibrillation/Atrialflutter: Yes Aldosterone Antagonist Prescribed: No Contraindication/Reason for not providing: systolic BP low normal; will restart once IV furesomide changed to BP Hydralazine Nitrate Prescribed: No Contraindication/Reason for not providing: not recommended at this time given patient's A fib with RVR on admission Will be discharged to: [facility] <Reshma Goodman Lindsey - Last Filed: 03/29/18 14:35> Provider - Provider Date of Admission: 03/26/18 23:29 Attending physician: Chip Helton Consults: 03/27/18 01:28 Cardiology Consult Routine Comment: Consulting Provider: Ricky Clements Consulting Physician: Ricky Clements Reason for Consult: Afib with RVR, CHF 03/27/18 02:36 Case Management Referral Routine Comment: no homemaker Physician Instructions: Reason For Exam: lives alone Reason for Referral: Discharge Planning Nursing Referral for Wound Care Routine Comment: Physician Instructions: Reason For Exam: swollen legs bilateral 03/27/18 10:54 Podiatry Consult Routine Comment: Consulting Provider: Filemon Juarez Consulting Physician: Filemon Juarez Reason for Consult: STASIS DERMATITIS 03/28/18 11:08 Vascular Surgery Routine Comment: Consulting Provider: Julio Cesar Donato Physician Instructions: Reason For Exam: bilateral LE thrombus with IVC filter Hospital Course - Lab Results Lab Results: Micro Results 03/27/18 17:50 Throat Group A Strep Throat Culture - Final NO BETA STREP GROUP A ISOLATED. 03/26/18 23:49 Blood Blood Culture - Preliminary NO GROWTH AFTER 48 HOURS 03/26/18 22:25 Blood Blood Culture - Preliminary NO GROWTH AFTER 48 HOURS 03/27/18 07:15 Urine,Sweeney Urine Culture - Final No Growth (<1,000 CFU/ML) Most Recent Lab Values WBC 4.5 K/uL (4.8-10.8) L 03/29/18 04:25 RBC 4.15 Mil/uL (3.80-5.20) 03/29/18 04:25 Hgb 13.9 g/dL (12.0-16.0) 03/29/18 04:25 Hct 43.0 % (34.0-47.0) 03/29/18 04:25 MCV 103.5 fl (81.0-99.0) H 03/29/18 04:25 MCH 33.6 pg (27.0-31.0) H 03/29/18 04:25 MCHC 32.4 g/dL (33.0-37.0) L 03/29/18 04:25 RDW 15.7 % (11.5-14.5) H 03/29/18 04:25 Plt Count 71 K/uL (130-400) L 03/29/18 04:25 MPV 10.2 fl (7.2-11.7) 03/29/18 04:25 Neut % (Auto) 76.3 % (50.0-75.0) H 03/29/18 04:25 Lymph % (Auto) 11.0 % (20.0-40.0) L 03/29/18 04:25 [place] % (Auto) 10.2 % (0.0-10.0) H 03/29/18 04:25 Eos % (Auto) 2.0 % (0.0-4.0) 03/29/18 04:25 Baso % (Auto) 0.5 % (0.0-2.0) 03/29/18 04:25 Neut # (Auto) 3.4 K/uL (1.8-7.0) 03/29/18 04:25 Lymph # (Auto) 0.5 K/uL (1.0-4.3) L 03/29/18 04:25 [place] # (Auto) 0.5 K/uL (0.0-0.8) 03/29/18 04:25 Eos # (Auto) 0.1 K/uL (0.0-0.7) 03/29/18 04:25 Baso # (Auto) 0.0 K/uL (0.0-0.2) 03/29/18 04:25 Neutrophils % (Manual) 91 % (42-75) H 03/27/18 06:30 Lymphocytes % (Manual) 3 % (20-50) L 03/27/18 06:30 Monocytes % (Manual) 6 % (0-10) 03/27/18 06:30 Platelet Estimate Decreased (NORMAL) L 03/27/18 06:30 Large Platelets Present 03/27/18 06:30 Anisocytosis (manual) Slight 03/27/18 06:30 Macrocytosis (manual) Slight 03/27/18 06:30 ESR 1 mm/hr (0-30) 03/27/18 15:35 PT 26.3 Seconds (9.8-13.1) H 03/26/18 22:25 INR 2.3 03/26/18 22:25 APTT 38.4 Seconds (25.6-37.1) H 03/26/18 22:25 pCO2 44 mm/Hg (35-45) 03/26/18 22:09 pO2 55 mm/Hg (80-100) L 03/26/18 22:09 HCO3 25.6 mmol/L (21-28) 03/26/18 22:09 ABG pH 7.39 (7.35-7.45) 03/26/18 22:09 ABG Total CO2 28.0 mmol/L (22-28) 03/26/18 22:09 ABG O2 Saturation 90.6 % (95-98) L 03/26/18 22:09 ABG Base Excess 1.2 mmol/L (-2.0-3.0) 03/26/18 22:09 Frankie Test Yes 03/26/18 22:09 ABG Potassium 4.3 mmol/L (3.6-5.2) 03/26/18 22:09 A-a O2 Difference 40.0 mm/Hg 03/26/18 22:09 Sodium 139.0 mmol/L (132-148) 03/26/18 22:09 Chloride 106.0 mmol/L (98-107) 03/26/18 22:09 Glucose 130 mg/dL (65-105) H 03/26/18 22:09 Lactate 2.7 mmol/L (0.7-2.1) H 03/26/18 22:09 FiO2 21.0 % 03/26/18 22:09 Sodium 138 mmol/l (132-148) 03/29/18 04:25 Potassium 3.3 MMOL/L (3.6-5.0) L 03/29/18 04:25 Chloride 95 mmol/L (98-107) L 03/29/18 04:25 Carbon Dioxide 36 mmol/L (22-30) H 03/29/18 04:25 Anion Gap 10 (10-20) 03/29/18 04:25 BUN 28 mg/dl (7-17) H 03/29/18 04:25 Creatinine 0.8 mg/dl (0.7-1.2) 03/29/18 04:25 Est GFR ( Amer) > 60 03/29/18 04:25 Est GFR (Non-Af Amer) > 60 03/29/18 04:25 POC Glucose (mg/dL) 122 mg/dL (65-110) H 03/26/18 22:01 Random Glucose 107 mg/dL (65-105) H 03/29/18 04:25 Calcium 8.0 mg/dL (8.4-10.2) L 03/29/18 04:25 Phosphorus 3.9 mg/dl (2.5-4.5) 03/26/18 22:25 Magnesium 1.6 MG/DL (1.6-2.3) 03/29/18 07:12 Total Bilirubin 2.5 mg/dl (0.2-1.3) H 03/29/18 04:25 Direct Bilirubin 2.0 mg/ml (0.0-0.4) H 03/27/18 06:30 AST 423 U/L (14-36) H D 03/29/18 04:25 ALT 572 U/L (9-52) H 03/29/18 04:25 Alkaline Phosphatase 106 U/L (38-126) 03/29/18 04:25 Total Creatine Kinase 277 U/L (30-135) H 03/28/18 04:20 Troponin I 0.0840 ng/mL (0.00-0.120) 03/28/18 09:14 C-Reactive Protein 46.10 mg/L (0.0-9.9) H 03/27/18 15:35 NT-Pro-B Natriuret Pep 3020 pg/ml (0-900) H 03/29/18 07:10 Total Protein 5.5 G/DL (6.3-8.2) L 03/29/18 04:25 Albumin 2.5 g/dL (3.5-5.0) L 03/29/18 04:25 Globulin 3.0 gm/dL (2.2-3.9) 03/29/18 04:25 Albumin/Globulin Ratio 0.8 (1.0-2.1) L 03/29/18 04:25 Amylase 88 U/L (30-110) 03/27/18 06:30 Lipase 237 U/L (23-300) 03/27/18 06:30 Vitamin B12 > 1000 pg/mL (239-931) H 03/27/18 06:30 Folate 14.7 ng/mL 03/27/18 06:30 Procalcitonin 0.30 NG/ML (0.19-0.49) 03/27/18 06:30 Arterial Blood Potassium 4.3 mmol/L (3.6-5.2) 03/26/18 22:09 Urine Color Straw (YELLOW) 03/27/18 01:00 Urine Clarity Slighty-cloudy (Clear) 03/27/18 01:00 Urine pH 6.0 (5.0-8.0) 03/27/18 01:00 Ur Specific Yoder 1.006 (1.003-1.030) 03/27/18 01:00 Urine Protein Negative mg/dL (NEGATIVE) 03/27/18 01:00 Urine Glucose (UA) Neg mg/dL (NEGATIVE) 03/27/18 01:00 Urine Ketones Negative mg/dL (NEGATIVE) 03/27/18 01:00 Urine Blood Small (NEGATIVE) 03/27/18 01:00 Urine Nitrate Negative (NEGATIVE) 03/27/18 01:00 Urine Bilirubin Negative (NEGATIVE) 03/27/18 01:00 Urine Urobilinogen 0.2-1.0 mg/dL (0.2-1.0) 03/27/18 01:00 Ur Leukocyte Esterase Neg Sowmya/uL (Negative) 03/27/18 01:00 Urine RBC (Auto) 1 /hpf (0-3) 03/27/18 01:00 Urine Microscopic WBC < 1 /hpf (0-5) 03/27/18 01:00 Urine Bacteria Rare (<OCC) 03/27/18 01:00 Digoxin < 0.4 ng/mL (0.8-2.0) L 03/26/18 23:20 Urine Opiates Screen Negative (NEGATIVE) 03/27/18 14:40 Urine Methadone Screen Negative (NEGATIVE) 03/27/18 14:40 Acetaminophen < 10.0 ug/ml (10.0-30.0) L 03/27/18 06:30 Ur Barbiturates Screen Negative (NEGATIVE) 03/27/18 14:40 Phenytoin < 3.0 ug/ML (10-20) L 03/27/18 06:30 Ur Phencyclidine Scrn Negative (NEGATIVE) 03/27/18 14:40 Ur Amphetamines Screen Negative (NEGATIVE) 03/27/18 14:40 U Benzodiazepines Scrn Negative (NEGATIVE) 03/27/18 14:40 U Oth Cocaine Metabols Negative (NEGATIVE) 03/27/18 14:40 U Cannabinoids Screen Negative (NEGATIVE) 03/27/18 14:40 Hepatitis A IgM Ab Negative (NEGATIVE) 03/27/18 06:30 Hep Bs Antigen Negative (NEGATIVE) 03/27/18 06:30 Hep B Core IgM Ab Negative (NEGATIVE) 03/27/18 06:30 Hepatitis C Antibody Negative (NEGATIVE) 03/27/18 06:30 Influenza Typ A,B (EIA) Negative for flu a/b (NEGATIVE) 03/27/18 17:50 Grp A Beta Strep Ag Negative (NEGATIVE) 03/27/18 17:50 Blood Type O POSITIVE 03/26/18 22:25 Blood Type Confirm O POSITIVE 03/26/18 10:00 Antibody Screen Negative 03/26/18 22:25 BBK History Checked No verified bt 03/26/18 22:25 Attending/Attestation - Attestation I have personally seen and examined this patient.: Yes I have fully participated in the care of the patient.: Yes I have reviewed all pertinent clinical information, including history, physical exam and plan: Yes Notes (Text): CHF acute on chronic exacerbation, systolic and diastolic dysfunction with EF 20% Chronic A Fib with RVR Chronic DVT ( POA) Left LE Cellulitis History of PE COPD chronic Physical Deconditioning - will discharge pt to TCU for 1 more week of IV antibiotics and for physical therapy - cont Lasix, Spirinolactone, Toprol ,Losartan -cont Amiodarone, Toprol and Xarelto \
[2018-03-29] MEDS: Phenytoin 100 mg/4 ml Oral Susp UD PO SCH ×2 (13:32→16:44)
--- NOTE | 2018-03-29 16:20 | CP.PCM.PN ---
Subjective - Date & Time of Evaluation Date of Evaluation: 03/29/18 Time of Evaluation: 09:16 - Subjective Subjective: Patient was seen and examined this morning, awake laying in supine position. No acute events overnight. Patient denied any fever, chills, chest pain or shortness of breath. Patient will need physical therapy and one more week of antibiotics. Objective - Vital Signs/Intake and Output Vital Signs (last 24 hours): Temp Pulse Resp BP Pulse Ox 97.3 F L 92 H 18 95/55 L 95 03/29/18 12:49 03/29/18 13:58 03/29/18 12:49 03/29/18 13:58 03/29/18 12:49 Intake and Output: 03/29/18 03/29/18 06:59 18:59 Intake Total 460 Output Total 3000 Balance -2540 - Medications Medications: Current Medications Amiodarone HCl (Cordarone) 200 mg PO BID [facility] Last Admin: 03/29/18 13:58 Dose: 200 mg Digoxin (Lanoxin) 0.25 mg PO DAILY [facility] Last Admin: 03/29/18 08:35 Dose: 0.25 mg Furosemide (Lasix) 40 mg IV BID [facility] Last Admin: 03/29/18 08:35 Dose: 40 mg Ampicillin Sodium/Sulbactam (Sodium 3 gm/ Sodium Chloride) 100 mls @ 100 mls/hr IVPB Q12 [facility]; Protocol Last Admin: 03/29/18 08:39 Dose: 100 mls/hr Lactic Acid (Lac-Hydrin 12% Lotion (225 G)) 1 applic TOP TID [facility] Last Admin: 03/29/18 13:33 Dose: 1 applic Losartan Potassium (Cozaar) 100 mg PO DAILY [facility] Last Admin: 03/29/18 08:35 Dose: 100 mg Metoprolol Tartrate (Lopressor) 50 mg PO Q12 [facility] Montelukast Sodium (Singulair) 10 mg PO DAILY [facility] Last Admin: 03/29/18 08:36 Dose: 10 mg Phenytoin (Dilantin) 100 mg PO BID [facility] Last Admin: 03/29/18 13:32 Dose: 100 mg Rivaroxaban (Xarelto) 15 mg PO DAILY [facility]; Protocol Last Admin: 03/29/18 08:36 Dose: 15 mg Fluticasone/Salmeterol (Advair Diskus 250/50) 1 puff IH Q12H [facility] Last Admin: 03/29/18 04:32 Dose: 1 puff Senna/Docusate Sodium (Senokot S 50 Mg-8.6 Mg) 1 tab PO HS [facility] Last Admin: 03/28/18 21:27 Dose: 1 tab - Labs Labs: 03/29/18 04:25 03/29/18 04:25 PT 26.3 Seconds (9.8-13.1) H 03/26/18 22:25 INR 2.3 03/26/18 22:25 APTT 38.4 Seconds (25.6-37.1) H 03/26/18 22:25 - Constitutional Appears: Non-toxic - Eye Exam Eye Exam: EOMI - ENT Exam ENT Exam: Mucous Membranes Moist - Respiratory Exam Respiratory Exam: absent: Wheezes, Respiratory Distress, NORMAL BREATHING PATTERN - Cardiovascular Exam Cardiovascular Exam: Irregular Rhythm - GI/Abdominal Exam GI & Abdominal Exam: Soft. absent: Guarding, Rigid, Tenderness - Extremities Exam Extremities Exam: absent: Calf Tenderness Additional comments: chronic b/l lower leg changes consistent with stasis dermatitis with erythema of left lower leg decreased from yesterday - Neurological Exam Neurological Exam: Alert, Awake, Oriented x3 - Psychiatric Exam Psychiatric exam: Normal Affect, Normal Mood Assessment and Plan - Assessment and Plan (Free Text) Assessment: 72 y/o F with medical hx of CHF, Afib, hx of PE , b/l DVT with IVC filter & HTN admitted for evaluation & management of CHF exacerbation, weakness & inability to walk. 1. CHF exacerbation with hx of anasarca (acute on chronic) -Lasix 40mg IV BID -Continue Dig 0.25mg PO QD. -Continue metoprolol tartate 50mg PO BID. -hold Spironolactone 12.5mg PO QD ; once furosemide changed from IV to PO BP will likely increase and patient will be able to tolerate. -Amlodipine discontinued due to lower leg swelling -FU AM BMP. 2. Atrial fibrillation with RVR (acute on chronic) -Continue metoprolol tartate 50mg PO BID. -Continue Amiodarone 200mg PO BID -Cardizem discontinued because of lower leg swelling 3. Elevated LFT's (acute, trending down) -Likely due to hypoperfusion of liver -AST/ALT trending down. 4. hx of PE & DVT (chronic) -Patient with IVC filter -Continue xarelto 15mg PO QD 5. Stasis dermatitis (chronic) -Ammonium lactate Top TID 6. Cellulitis of LLE -Continue Unasyn (day #2); will need antibiotics for 7 more additional days. 7. Chronic constipation -Docusate sodium/sennokote 1 tab PO HS 8. HTN losartan 100mg PO QD 9. COPD singulair 10mg PO QD Advair Diskus 250/50 1 puff IH Q12 10. hx of seizure -Phenytoin 100mg PO BID 11 . DVT prophylaxis Patient has IVC filter and on xarelto
--- NOTE | 2018-03-29 20:24 | CP.PCM.PN ---
Subjective - Date & Time of Evaluation Date of Evaluation: 03/29/18 Time of Evaluation: 13:00 - Subjective Subjective: Pt seen and examined this morning at bedside. Pt has no new complaints at this time. Objective - Vital Signs/Intake and Output Vital Signs (last 24 hours): Temp Pulse Resp BP Pulse Ox 98.3 F 79 16 97/65 L 97 03/29/18 19:41 03/29/18 19:41 03/29/18 19:41 03/29/18 19:41 03/29/18 19:41 - Medications Medications: Current Medications Amiodarone HCl (Cordarone) 200 mg PO BID [facility] Digoxin (Lanoxin) 0.25 mg PO DAILY [facility] Last Admin: 03/29/18 08:35 Dose: 0.25 mg Furosemide (Lasix) 40 mg IV BID [facility] Last Admin: 03/29/18 16:45 Dose: Not Given Ampicillin Sodium/Sulbactam (Sodium 3 gm/ Sodium Chloride) 100 mls @ 100 mls/hr IVPB Q12 [facility]; Protocol Last Admin: 03/29/18 08:39 Dose: 100 mls/hr Lactic Acid (Lac-Hydrin 12% Lotion (225 G)) 1 applic TOP TID [facility] Last Admin: 03/29/18 16:43 Dose: 1 applic Losartan Potassium (Cozaar) 100 mg PO DAILY [facility] Metoprolol Tartrate (Lopressor) 50 mg PO Q12 [facility] Montelukast Sodium (Singulair) 10 mg PO DAILY [facility] Last Admin: 03/29/18 08:36 Dose: 10 mg Phenytoin (Dilantin) 100 mg PO BID [facility] Last Admin: 03/29/18 16:44 Dose: 100 mg Rivaroxaban (Xarelto) 15 mg PO DAILY [facility]; Protocol Last Admin: 03/29/18 08:36 Dose: 15 mg Fluticasone/Salmeterol (Advair Diskus 250/50) 1 puff IH Q12H [facility] Last Admin: 03/29/18 16:44 Dose: 1 puff Senna/Docusate Sodium (Senokot S 50 Mg-8.6 Mg) 1 tab PO HS [facility] Last Admin: 03/28/18 21:27 Dose: 1 tab - Labs Labs: 03/29/18 04:25 03/29/18 04:25 PT 26.3 Seconds (9.8-13.1) H 03/26/18 22:25 INR 2.3 03/26/18 22:25 APTT 38.4 Seconds (25.6-37.1) H 03/26/18 22:25 - Constitutional Appears: No Acute Distress - Head Exam Head Exam: ATRAUMATIC, NORMOCEPHALIC - Eye Exam Eye Exam: EOMI - ENT Exam ENT Exam: Mucous Membranes Moist - Neck Exam Neck Exam: Full ROM - Respiratory Exam Respiratory Exam: Clear to Ausculation Bilateral, NORMAL BREATHING PATTERN. absent: Accessory Muscle Use, Respiratory Distress - Cardiovascular Exam Cardiovascular Exam: RRR, +S1, +S2. absent: Diastolic murmur, Irregular Rhythm - GI/Abdominal Exam GI & Abdominal Exam: Soft, Normal Bowel Sounds - Extremities Exam Extremities Exam: Full ROM, Pedal Edema. absent: Calf Tenderness Additional comments: venous stasis - Neurological Exam Neurological Exam: Normal Gait, Oriented x3 - Psychiatric Exam Psychiatric exam: Normal Affect, Normal Mood - Skin Additional comments: venous stasus in BL LE Assessment and Plan - Assessment and Plan (Free Text) Assessment: BL LE venous thrombosis positive troponins CHF A fib with RVR Plan: D dimer 1534 CT venogram BNP 3020 improving Pt seen, examined, assessment and plan discussed with Dr Donato. Solomon Temple PGY1
[2018-03-29] MEDS: Docusate-Senna 50 mg-8.6 mg Tab PO SCH (21:00)
[2018-03-30] MEDS: Fluticasone-Salmeterol 250-50mcg Diskus IH SCH ×2 (04:33→17:25)
[2018-03-30 05:37] LABS: BASO % 0.7 % (0.0-2.0); EOS # 0.1 K/uL (0.0-0.7); EOS % 2.2 % (0.0-4.0); HEMOGLOBIN 13.7 g/dL (12.0-16.0); LYMPH # 0.7 K/uL (1.0-4.3); LYMPH % 17.1 % (20.0-40.0); MEAN CELL VOLUME 102.5 fl (81.0-99.0); MEAN CORPUSCULAR HEMOGLOBIN 33.7 pg (27.0-31.0); MEAN CORPUSCULAR HGB CONC 32.9 g/dL (33.0-37.0); MEAN PLATELET VOLUME 10.2 fl (7.2-11.7); MONO # 0.5 K/uL (0.0-0.8); MONO % 11.9 % (0.0-10.0); NEUT % 68.1 % (50.0-75.0); NRBC % 0.2 % (0.0-0.0); RBC 4.08 Mil/uL (3.80-5.20); RED CELL DISTRIBUTION WIDTH 15.5 % (11.5-14.5); WHITE BLOOD COUNT 4.4 K/uL (4.8-10.8)
[2018-03-30 05:51] LABS: INR 2.2; PROTHROMBIN TIME 25.5 Seconds (9.8-13.1)
[2018-03-30 05:53] LABS: PARTIAL THROMBOPLASTIN TIME 35.5 Seconds (25.6-37.1)
[2018-03-30 05:58] LABS: ALB/GLOB RATIO 0.8 (1.0-2.1); ALBUMIN 2.4 g/dL (3.5-5.0); ALT/SGPT 415 U/L (9-52); AST/SGOT 240 U/L (14-36); BLOOD UREA NITROGEN 26 mg/dl (7-17); GFR NON-AFRICAN AMERICAN > 60
[2018-03-30] MEDS ORDERED: Potassium Chloride 20 mEq/15 ml LIQ UD PO ONE (07:07)
[2018-03-30] MEDS: Digoxin 250 mcg (0.25 mg) Tab PO SCH (08:40)
[2018-03-30] MEDS: Phenytoin 100 mg/4 ml Oral Susp UD PO SCH ×2 (08:40→17:25)
[2018-03-30 08:43] VITALS: PULSE 88
[2018-03-30] MEDS ORDERED: Iodixanol 320 MG/ML 100 ML BOTTLE IV ONE (09:58)
[2018-03-30] MEDS ORDERED: Sodium Chloride 0.9% 100 ML ONE (09:59)
--- NOTE | 2018-03-30 13:22 | CT ---
HISTORY: Leg swelling, history of DVT Technique: CT venography of the abdomen, pelvis and bilateral lower extremities performed in the venous phase of enhancement. Coronal and sagittal reformats, and well as rotating MIP images of the vessels generated at the workstation. Intravenous contrast dose: 150 milliliters Visipaque 320 with a 120 second delay Radiation dose: Total exam DLP = 1336.22 mGy-cm. This CT exam was performed using one or more of the following dose reduction techniques: Automated exposure control, adjustment of the mA and/or kV according to patient size, and/or use of iterative reconstruction technique. FINDINGS: VENOGRAM: Is infrarenal IVC filter. The struts of the IVC filter has penetrated the IVC. A small filling defect is noted within the superior aspect of the IVC filter likely representing small amount of thrombus. Remainder of the IVC is unremarkable. Left common iliac veins are unremarkable. There opacification of the common femoral veins, deep and superficial femoral veins and popliteal veins with no obvious filling defect to suggest thrombus. Opacification of the tibial veins are also noted. These veins are likely also patent without any thrombus. There is prominence of great saphenous veins along with several varicosities in the right or left lower extremities. There is significant soft tissue edema. LIVER AND GALLBLADDER: Unremarkable KIDNEYS/URETER/BLADDER: Unremarkable. Two subcentimeter hypodense lesions within posterior midpole left kidney too small to characterize. PANCREAS: Unremarkable LARGE AND SMALL BOWEL: Limited evaluation of PO contrast. No obvious mass. No mural thickening. OTHER FINDINGS: Ventral fat containing abdominal hernia. IMPRESSION: Small filling defects stent above infrarenal IVC filter likely representing a small amount of nonocclusive thrombus. 2. Previously placed infrarenal IVC filter. The struts of the IVC filter has penetrated the IVC. 3. The remainder of the IVC along with the pelvic veins are unremarkable. 4. Evaluation of right and left lower extremity veins is limited secondary to artifact. No obvious filling defect is noted within common femoral vein, superficial femoral vein, deep femoral vein or popliteal vein to suggest acute thrombus. Flow was also noted within the tibial veins. These are also likely unremarkable without any occlusive thrombus.
[2018-03-30 16:09] VITALS: BP 100/65; PULSE 81; RESP 20; TEMP 98.7; O2SAT 95
--- NOTE | 2018-03-30 16:21 | CP.PCM.DIS ---
<Suha Olivera - Last Filed: 03/30/18 17:35> Provider - Provider Date of Admission: 03/26/18 23:29 Attending physician: Chip Helton Consults: 03/27/18 01:28 Cardiology Consult Routine Comment: Consulting Provider: Ricky Clements Consulting Physician: Ricky Clements Reason for Consult: Afib with RVR, CHF 03/27/18 02:36 Case Management Referral Routine Comment: no homemaker Physician Instructions: Reason For Exam: lives alone Reason for Referral: Discharge Planning Nursing Referral for Wound Care Routine Comment: Physician Instructions: Reason For Exam: swollen legs bilateral 03/27/18 10:54 Podiatry Consult Routine Comment: Consulting Provider: Filemon Juarez Consulting Physician: Filemon Juarez Reason for Consult: STASIS DERMATITIS 03/28/18 11:08 Vascular Surgery Routine Comment: Consulting Provider: Julio Cesar Donato Physician Instructions: Reason For Exam: bilateral LE thrombus with IVC filter 03/30/18 13:20 Wound Care [Nursing Referral for Wound Care] Routine Comment: Physician Instructions: Reason For Exam: breakdown of skin on right buttocks Time Spent in preparation of Discharge (in minutes): 60 Hospital Course - Lab Results Lab Results: Micro Results 03/26/18 23:49 Blood Blood Culture - Preliminary NO GROWTH AFTER 3 DAYS 03/26/18 22:25 Blood Blood Culture - Preliminary NO GROWTH AFTER 3 DAYS 03/27/18 17:50 Throat Group A Strep Throat Culture - Final NO BETA STREP GROUP A ISOLATED. 03/27/18 07:15 Urine,Sweeney Urine Culture - Final No Growth (<1,000 CFU/ML) Most Recent Lab Values WBC 4.4 K/uL (4.8-10.8) L 03/30/18 04:45 RBC 4.08 Mil/uL (3.80-5.20) 03/30/18 04:45 Hgb 13.7 g/dL (12.0-16.0) 03/30/18 04:45 Hct 41.8 % (34.0-47.0) 03/30/18 04:45 MCV 102.5 fl (81.0-99.0) H 03/30/18 04:45 MCH 33.7 pg (27.0-31.0) H 03/30/18 04:45 MCHC 32.9 g/dL (33.0-37.0) L 03/30/18 04:45 RDW 15.5 % (11.5-14.5) H 03/30/18 04:45 Plt Count 78 K/uL (130-400) L 03/30/18 04:45 MPV 10.2 fl (7.2-11.7) 03/30/18 04:45 Neut % (Auto) 68.1 % (50.0-75.0) 03/30/18 04:45 Lymph % (Auto) 17.1 % (20.0-40.0) L 03/30/18 04:45 [place] % (Auto) 11.9 % (0.0-10.0) H 03/30/18 04:45 Eos % (Auto) 2.2 % (0.0-4.0) 03/30/18 04:45 Baso % (Auto) 0.7 % (0.0-2.0) 03/30/18 04:45 Neut # (Auto) 3.0 K/uL (1.8-7.0) 03/30/18 04:45 Lymph # (Auto) 0.7 K/uL (1.0-4.3) L 03/30/18 04:45 [place] # (Auto) 0.5 K/uL (0.0-0.8) 03/30/18 04:45 Eos # (Auto) 0.1 K/uL (0.0-0.7) 03/30/18 04:45 Baso # (Auto) 0.0 K/uL (0.0-0.2) 03/30/18 04:45 Neutrophils % (Manual) 91 % (42-75) H 03/27/18 06:30 Lymphocytes % (Manual) 3 % (20-50) L 03/27/18 06:30 Monocytes % (Manual) 6 % (0-10) 03/27/18 06:30 Platelet Estimate Decreased (NORMAL) L 03/27/18 06:30 Large Platelets Present 03/27/18 06:30 Anisocytosis (manual) Slight 03/27/18 06:30 Macrocytosis (manual) Slight 03/27/18 06:30 ESR 1 mm/hr (0-30) 03/27/18 15:35 PT 25.5 Seconds (9.8-13.1) H 03/30/18 04:45 INR 2.2 03/30/18 04:45 APTT 35.5 Seconds (25.6-37.1) 03/30/18 04:45 D-Dimer, Quantitative 1534 ng/mlDDU (0-230) H 03/29/18 18:00 pCO2 44 mm/Hg (35-45) 03/26/18 22:09 pO2 55 mm/Hg (80-100) L 03/26/18 22:09 HCO3 25.6 mmol/L (21-28) 03/26/18 22:09 ABG pH 7.39 (7.35-7.45) 03/26/18 22:09 ABG Total CO2 28.0 mmol/L (22-28) 03/26/18 22:09 ABG O2 Saturation 90.6 % (95-98) L 03/26/18 22:09 ABG Base Excess 1.2 mmol/L (-2.0-3.0) 03/26/18 22:09 Frankie Test Yes 03/26/18 22:09 ABG Potassium 4.3 mmol/L (3.6-5.2) 03/26/18 22:09 A-a O2 Difference 40.0 mm/Hg 03/26/18 22:09 Sodium 139.0 mmol/L (132-148) 03/26/18 22:09 Chloride 106.0 mmol/L (98-107) 03/26/18 22:09 Glucose 130 mg/dL (65-105) H 03/26/18 22:09 Lactate 2.7 mmol/L (0.7-2.1) H 03/26/18 22:09 FiO2 21.0 % 03/26/18 22:09 Sodium 136 mmol/l (132-148) 03/30/18 04:45 Potassium 3.5 MMOL/L (3.6-5.0) L 03/30/18 04:45 Chloride 93 mmol/L (98-107) L 03/30/18 04:45 Carbon Dioxide 36 mmol/L (22-30) H 03/30/18 04:45 Anion Gap 11 (10-20) 03/30/18 04:45 BUN 26 mg/dl (7-17) H 03/30/18 04:45 Creatinine 0.9 mg/dl (0.7-1.2) 03/30/18 04:45 Est GFR ( Amer) > 60 03/30/18 04:45 Est GFR (Non-Af Amer) > 60 03/30/18 04:45 POC Glucose (mg/dL) 122 mg/dL (65-110) H 03/26/18 22:01 Random Glucose 92 mg/dL (65-105) 03/30/18 04:45 Calcium 8.0 mg/dL (8.4-10.2) L 03/30/18 04:45 Phosphorus 3.9 mg/dl (2.5-4.5) 03/26/18 22:25 Magnesium 1.6 MG/DL (1.6-2.3) 03/29/18 07:12 Total Bilirubin 2.3 mg/dl (0.2-1.3) H 03/30/18 04:45 Direct Bilirubin 2.0 mg/ml (0.0-0.4) H 03/27/18 06:30 AST 240 U/L (14-36) H D 03/30/18 04:45 ALT 415 U/L (9-52) H D 03/30/18 04:45 Alkaline Phosphatase 99 U/L (38-126) 03/30/18 04:45 Total Creatine Kinase 277 U/L (30-135) H 03/28/18 04:20 Troponin I 0.0840 ng/mL (0.00-0.120) 03/28/18 09:14 C-Reactive Protein 46.10 mg/L (0.0-9.9) H 03/27/18 15:35 NT-Pro-B Natriuret Pep 4410 pg/ml (0-900) H 03/30/18 07:08 Total Protein 5.5 G/DL (6.3-8.2) L 03/30/18 04:45 Albumin 2.4 g/dL (3.5-5.0) L 03/30/18 04:45 Globulin 3.0 gm/dL (2.2-3.9) 03/30/18 04:45 Albumin/Globulin Ratio 0.8 (1.0-2.1) L 03/30/18 04:45 Amylase 88 U/L (30-110) 03/27/18 06:30 Lipase 237 U/L (23-300) 03/27/18 06:30 Vitamin B12 > 1000 pg/mL (239-931) H 03/27/18 06:30 Folate 14.7 ng/mL 03/27/18 06:30 Procalcitonin 0.30 NG/ML (0.19-0.49) 03/27/18 06:30 Arterial Blood Potassium 4.3 mmol/L (3.6-5.2) 03/26/18 22:09 Urine Color Straw (YELLOW) 03/27/18 01:00 Urine Clarity Slighty-cloudy (Clear) 03/27/18 01:00 Urine pH 6.0 (5.0-8.0) 03/27/18 01:00 Ur Specific [place] 1.006 (1.003-1.030) 03/27/18 01:00 Urine Protein Negative mg/dL (NEGATIVE) 03/27/18 01:00 Urine Glucose (UA) Neg mg/dL (NEGATIVE) 03/27/18 01:00 Urine Ketones Negative mg/dL (NEGATIVE) 03/27/18 01:00 Urine Blood Small (NEGATIVE) 03/27/18 01:00 Urine Nitrate Negative (NEGATIVE) 03/27/18 01:00 Urine Bilirubin Negative (NEGATIVE) 03/27/18 01:00 Urine Urobilinogen 0.2-1.0 mg/dL (0.2-1.0) 03/27/18 01:00 Ur Leukocyte Esterase Neg [place]/uL (Negative) 03/27/18 01:00 Urine RBC (Auto) 1 /hpf (0-3) 03/27/18 01:00 Urine Microscopic WBC < 1 /hpf (0-5) 03/27/18 01:00 Urine Bacteria Rare (<OCC) 03/27/18 01:00 Digoxin < 0.4 ng/mL (0.8-2.0) L 03/26/18 23:20 Urine Opiates Screen Negative (NEGATIVE) 03/27/18 14:40 Urine Methadone Screen Negative (NEGATIVE) 03/27/18 14:40 Acetaminophen < 10.0 ug/ml (10.0-30.0) L 03/27/18 06:30 Ur Barbiturates Screen Negative (NEGATIVE) 03/27/18 14:40 Phenytoin < 3.0 ug/ML (10-20) L 03/27/18 06:30 Ur Phencyclidine Scrn Negative (NEGATIVE) 03/27/18 14:40 Ur Amphetamines Screen Negative (NEGATIVE) 03/27/18 14:40 U Benzodiazepines Scrn Negative (NEGATIVE) 03/27/18 14:40 U Oth Cocaine Metabols Negative (NEGATIVE) 03/27/18 14:40 U Cannabinoids Screen Negative (NEGATIVE) 03/27/18 14:40 Hepatitis A IgM Ab Negative (NEGATIVE) 03/27/18 06:30 Hep Bs Antigen Negative (NEGATIVE) 03/27/18 06:30 Hep B Core IgM Ab Negative (NEGATIVE) 03/27/18 06:30 Hepatitis C Antibody Negative (NEGATIVE) 03/27/18 06:30 Influenza Typ A,B (EIA) Negative for flu a/b (NEGATIVE) 03/27/18 17:50 Grp A Beta Strep Ag Negative (NEGATIVE) 03/27/18 17:50 Blood Type O POSITIVE 03/26/18 22:25 Blood Type Confirm O POSITIVE 03/26/18 10:00 Antibody Screen Negative 03/26/18 22:25 BBK History Checked No verified bt 03/26/18 22:25 - Hospital Course Hospital Course: 72 y/o F with medical hx of CHF, Afib, hx of PE , b/l DVT with IVC filter & HTN admitted for evaluation & management of CHF exacerbation, weakness & inability to walk. In ED, patient was found to be in atrial fibrillation with elevated LFT's, elevated troponins and pro-BNP (12, 400). Cardizem drip was started for rate control along with lasix for diuresis. Home medications of digoxin, metoprolol, and xarelto. Echocardiogram showed severly impaired systolic function with EF of -20% with severly dilated left atrium. Cardiology was consulted and recommendations were appreciated. Elevated LFT's, troponins, and pro-BNP were due to acute CHF exacerbation with hypoperfusion of liver. During the patient's hospitalization, patient lost a total 7.8 lbs following diuresis. LFT's & troponin trended down with normalization of LFT's. Podiatry was consulted for increased erythema of left lower leg. Unasyn was started. Bilateral legs were significant for stasis dermatitis which was chronic. Lower extremity ultrasound was performed showing nonocclusive DVT bilaterally (patient has IVC filter and on xarelto). Venogram was also performed and showed small filling defects stent above infrarenal IVC likely representing small amount of nonocclusive thombus & previously placed infrarenal IVC filter with the struts of the IVC filter penetrating the IVC. Patient was seen and examined this morning, awake laying in supine position. No acute events overnight. Patient denied any fever, chills, chest pain or shortness of breath. Portable dopper showed good flow in dorsal pedal pulses. 1. CHF exacerbation with hx of anasarca(acute on chronic) -Bumex 1mg PO BID -Continue Dig 0.25mg PO QD. -Continue metoprolol tartate 50mg PO BID. -Spironolactone 12.5mg PO QD -Amlodipine discontinued due to lower leg swelling 2. Atrial fibrillation with RVR (acute on chronic) -Continue metoprolol tartate 50mg PO BID. - Amiodarone 200mg PO QD -Cardizem discontinued because of lower leg swelling 3. Elevated LFT's (acute, trending down) -Likely due to hypoperfusion of liver -AST/ALT trending down. 4. hx of PE & DVT (chronic) -Patient with IVC filter -Eliquis 2.5mg PO BID -discontinue xarelto 15mg PO QD because of thrombocytopenia 5. Stasis dermatitis (chronic) -Ammonium lactate Top TID 6. Cellulitis of LLE -Continue Unasyn (day #3); will need antibiotics for 6 more additional days. 7. Chronic constipation -Docusate sodium/sennokote 1 tab PO HS 8. HTN losartan 100mg PO QD 9. COPD singulair 10mg PO QD Advair Diskus 250/50 1 puff IH Q12 10. hx of seizure -Phenytoin 100mg PO BID 11 . DVT prophylaxis Patient has IVC filter and on xarelto 12. Ascending aortic aneurysm -4.1cm ascending aortic aneurysm noted on CT 03/27/2018, previouly noted as 4.3 04/22/2016 Discharge Exam - Head Exam Head Exam: ATRAUMATIC, NORMOCEPHALIC - Eye Exam Eye Exam: EOMI - ENT Exam ENT Exam: Mucous Membranes Moist - Respiratory Exam Respiratory Exam: absent: Respiratory Distress, Stridor Additional comments: rales in lower bases no wheeze - Cardiovascular Exam Cardiovascular Exam: Irregular Rhythm - GI/Abdominal Exam GI & Abdominal Exam: Normal Bowel Sounds, Soft. absent: Guarding, Rigid, Ten derness - Extremities Exam Additional comments: b/l chronic stasis of lower legs with decreasing erythema of left leg; distal pulses present b/l to deep palpation - Neurological Exam Neurological exam: Alert, Oriented x3 - Psychiatric Exam Psychiatric exam: Normal Affect, Normal Mood Discharge Plan - Discharge Medications Prescriptions: AMPicillin/Sulbactam [Unasyn 3 gm] 3 gm IVPB Q12 7 Days vial - Follow Up Plan Condition: GUARDED Disposition: TRANSF TO SNF Instructions: Heart Failure and Atrial Fibrillation Additional Instructions: d/c to TCU Referrals: [facility] [Provider Group] Julio Cesar Donato MD [Staff Provider] - Ricky Clements MD [Staff Provider] - Clinical Quality Measures - CQM - Stroke Anticoagulation Prescribed for Atrial Flutter, Atrial Fibrillation and History of:: Yes - CQM - VTE Did patient receive overlap therapy during hosptialization?: No Is patient being discharged on overlap therapy?: No - CQM - Heart Failure Ejection Fraction: Less Than 40 % Left Ventricular Function to be assessed after discharge: Yes JOSÉ LUIS Inhibitor Prescribed: No Contraindication/Reason for not providing: current treatment is recommended by dwarf tree grower Contraindication/Reason for not providing: metoprolol tartrate 50mg PO Q12 Angiotensin II Receptor Tirso Prescribed: Yes AnticoagulationTherapy for Atrial Fibrillation/Atrialflutter: Yes Aldosterone Antagonist Prescribed: Yes Hydralazine Nitrate Prescribed: No Contraindication/Reason for not providing: blood pressure running on the low side Implantable Cardioverter Defibrillator Therapy: No Contraindication/Reason for not providing: will be considered for insertion post-discharge from TCU <Reshma Goodman - Last Filed: 03/30/18 18:45> Provider - Provider Date of Admission: 03/26/18 23:29 Attending physician: Chip Helton Consults: 03/27/18 01:28 Cardiology Consult Routine Comment: Consulting Provider: Ricky Clements Consulting Physician: Ricky Clements Reason for Consult: Afib with RVR, CHF 03/27/18 02:36 Case Management Referral Routine Comment: no homemaker Physician Instructions: Reason For Exam: lives alone Reason for Referral: Discharge Planning Nursing Referral for Wound Care Routine Comment: Physician Instructions: Reason For Exam: swollen legs bilateral 03/27/18 10:54 Podiatry Consult Routine Comment: Consulting Provider: Filemon Juarez Consulting Physician: Filemon Juarez Reason for Consult: STASIS DERMATITIS 03/28/18 11:08 Vascular Surgery Routine Comment: Consulting Provider: Julio Cesar Donato Physician Instructions: Reason For Exam: bilateral LE thrombus with IVC filter 03/30/18 13:20 Wound Care [Nursing Referral for Wound Care] Routine Comment: Physician Instructions: Reason For Exam: breakdown of skin on right buttocks Hospital Course - Lab Results Lab Results: Micro Results 03/26/18 23:49 Blood Blood Culture - Preliminary NO GROWTH AFTER 3 DAYS 03/26/18 22:25 Blood Blood Culture - Preliminary NO GROWTH AFTER 3 DAYS 03/27/18 17:50 Throat Group A Strep Throat Culture - Final NO BETA STREP GROUP A ISOLATED. 03/27/18 07:15 Urine,Sweeney Urine Culture - Final No Growth (<1,000 CFU/ML) Most Recent Lab Values WBC 4.4 K/uL (4.8-10.8) L 03/30/18 04:45 RBC 4.08 Mil/uL (3.80-5.20) 03/30/18 04:45 Hgb 13.7 g/dL (12.0-16.0) 03/30/18 04:45 Hct 41.8 % (34.0-47.0) 03/30/18 04:45 MCV 102.5 fl (81.0-99.0) H 03/30/18 04:45 MCH 33.7 pg (27.0-31.0) H 03/30/18 04:45 MCHC 32.9 g/dL (33.0-37.0) L 03/30/18 04:45 RDW 15.5 % (11.5-14.5) H 03/30/18 04:45 Plt Count 78 K/uL (130-400) L 03/30/18 04:45 MPV 10.2 fl (7.2-11.7) 03/30/18 04:45 Neut % (Auto) 68.1 % (50.0-75.0) 03/30/18 04:45 Lymph % (Auto) 17.1 % (20.0-40.0) L 03/30/18 04:45 [place] % (Auto) 11.9 % (0.0-10.0) H 03/30/18 04:45 Eos % (Auto) 2.2 % (0.0-4.0) 03/30/18 04:45 Baso % (Auto) 0.7 % (0.0-2.0) 03/30/18 04:45 Neut # (Auto) 3.0 K/uL (1.8-7.0) 03/30/18 04:45 Lymph # (Auto) 0.7 K/uL (1.0-4.3) L 03/30/18 04:45 [place] # (Auto) 0.5 K/uL (0.0-0.8) 03/30/18 04:45 Eos # (Auto) 0.1 K/uL (0.0-0.7) 03/30/18 04:45 Baso # (Auto) 0.0 K/uL (0.0-0.2) 03/30/18 04:45 Neutrophils % (Manual) 91 % (42-75) H 03/27/18 06:30 Lymphocytes % (Manual) 3 % (20-50) L 03/27/18 06:30 Monocytes % (Manual) 6 % (0-10) 03/27/18 06:30 Platelet Estimate Decreased (NORMAL) L 03/27/18 06:30 Large Platelets Present 03/27/18 06:30 Anisocytosis (manual) Slight 03/27/18 06:30 Macrocytosis (manual) Slight 03/27/18 06:30 ESR 1 mm/hr (0-30) 03/27/18 15:35 PT 25.5 Seconds (9.8-13.1) H 03/30/18 04:45 INR 2.2 03/30/18 04:45 APTT 35.5 Seconds (25.6-37.1) 03/30/18 04:45 D-Dimer, Quantitative 1534 ng/mlDDU (0-230) H 03/29/18 18:00 pCO2 44 mm/Hg (35-45) 03/26/18 22:09 pO2 55 mm/Hg (80-100) L 03/26/18 22:09 HCO3 25.6 mmol/L (21-28) 03/26/18 22:09 ABG pH 7.39 (7.35-7.45) 03/26/18 22:09 ABG Total CO2 28.0 mmol/L (22-28) 03/26/18 22:09 ABG O2 Saturation 90.6 % (95-98) L 03/26/18 22:09 ABG Base Excess 1.2 mmol/L (-2.0-3.0) 03/26/18 22:09 Frankie Test Yes 03/26/18 22:09 ABG Potassium 4.3 mmol/L (3.6-5.2) 03/26/18 22:09 A-a O2 Difference 40.0 mm/Hg 03/26/18 22:09 Sodium 139.0 mmol/L (132-148) 03/26/18 22:09 Chloride 106.0 mmol/L (98-107) 03/26/18 22:09 Glucose 130 mg/dL (65-105) H 03/26/18 22:09 Lactate 2.7 mmol/L (0.7-2.1) H 03/26/18 22:09 FiO2 21.0 % 03/26/18 22:09 Sodium 136 mmol/l (132-148) 03/30/18 04:45 Potassium 3.5 MMOL/L (3.6-5.0) L 03/30/18 04:45 Chloride 93 mmol/L (98-107) L 03/30/18 04:45 Carbon Dioxide 36 mmol/L (22-30) H 03/30/18 04:45 Anion Gap 11 (10-20) 03/30/18 04:45 BUN 26 mg/dl (7-17) H 03/30/18 04:45 Creatinine 0.9 mg/dl (0.7-1.2) 03/30/18 04:45 Est GFR ( Amer) > 60 03/30/18 04:45 Est GFR (Non-Af Amer) > 60 03/30/18 04:45 POC Glucose (mg/dL) 122 mg/dL (65-110) H 03/26/18 22:01 Random Glucose 92 mg/dL (65-105) 03/30/18 04:45 Calcium 8.0 mg/dL (8.4-10.2) L 03/30/18 04:45 Phosphorus 3.9 mg/dl (2.5-4.5) 03/26/18 22:25 Magnesium 1.6 MG/DL (1.6-2.3) 03/29/18 07:12 Total Bilirubin 2.3 mg/dl (0.2-1.3) H 03/30/18 04:45 Direct Bilirubin 2.0 mg/ml (0.0-0.4) H 03/27/18 06:30 AST 240 U/L (14-36) H D 03/30/18 04:45 ALT 415 U/L (9-52) H D 03/30/18 04:45 Alkaline Phosphatase 99 U/L (38-126) 03/30/18 04:45 Total Creatine Kinase 277 U/L (30-135) H 03/28/18 04:20 Troponin I 0.0840 ng/mL (0.00-0.120) 03/28/18 09:14 C-Reactive Protein 46.10 mg/L (0.0-9.9) H 03/27/18 15:35 NT-Pro-B Natriuret Pep 4410 pg/ml (0-900) H 03/30/18 07:08 Total Protein 5.5 G/DL (6.3-8.2) L 03/30/18 04:45 Albumin 2.4 g/dL (3.5-5.0) L 03/30/18 04:45 Globulin 3.0 gm/dL (2.2-3.9) 03/30/18 04:45 Albumin/Globulin Ratio 0.8 (1.0-2.1) L 03/30/18 04:45 Amylase 88 U/L (30-110) 03/27/18 06:30 Lipase 237 U/L (23-300) 03/27/18 06:30 Vitamin B12 > 1000 pg/mL (239-931) H 03/27/18 06:30 Folate 14.7 ng/mL 03/27/18 06:30 Procalcitonin 0.30 NG/ML (0.19-0.49) 03/27/18 06:30 Arterial Blood Potassium 4.3 mmol/L (3.6-5.2) 03/26/18 22:09 Urine Color Straw (YELLOW) 03/27/18 01:00 Urine Clarity Slighty-cloudy (Clear) 03/27/18 01:00 Urine pH 6.0 (5.0-8.0) 03/27/18 01:00 Ur Specific [place] 1.006 (1.003-1.030) 03/27/18 01:00 Urine Protein Negative mg/dL (NEGATIVE) 03/27/18 01:00 Urine Glucose (UA) Neg mg/dL (NEGATIVE) 03/27/18 01:00 Urine Ketones Negative mg/dL (NEGATIVE) 03/27/18 01:00 Urine Blood Small (NEGATIVE) 03/27/18 01:00 Urine Nitrate Negative (NEGATIVE) 03/27/18 01:00 Urine Bilirubin Negative (NEGATIVE) 03/27/18 01:00 Urine Urobilinogen 0.2-1.0 mg/dL (0.2-1.0) 03/27/18 01:00 Ur Leukocyte Esterase Neg [place]/uL (Negative) 03/27/18 01:00 Urine RBC (Auto) 1 /hpf (0-3) 03/27/18 01:00 Urine Microscopic WBC < 1 /hpf (0-5) 03/27/18 01:00 Urine Bacteria Rare (<OCC) 03/27/18 01:00 Digoxin < 0.4 ng/mL (0.8-2.0) L 03/26/18 23:20 Urine Opiates Screen Negative (NEGATIVE) 03/27/18 14:40 Urine Methadone Screen Negative (NEGATIVE) 03/27/18 14:40 Acetaminophen < 10.0 ug/ml (10.0-30.0) L 03/27/18 06:30 Ur Barbiturates Screen Negative (NEGATIVE) 03/27/18 14:40 Phenytoin < 3.0 ug/ML (10-20) L 03/27/18 06:30 Ur Phencyclidine Scrn Negative (NEGATIVE) 03/27/18 14:40 Ur Amphetamines Screen Negative (NEGATIVE) 03/27/18 14:40 U Benzodiazepines Scrn Negative (NEGATIVE) 03/27/18 14:40 U Oth Cocaine Metabols Negative (NEGATIVE) 03/27/18 14:40 U Cannabinoids Screen Negative (NEGATIVE) 03/27/18 14:40 Hepatitis A IgM Ab Negative (NEGATIVE) 03/27/18 06:30 Hep Bs Antigen Negative (NEGATIVE) 03/27/18 06:30 Hep B Core IgM Ab Negative (NEGATIVE) 03/27/18 06:30 Hepatitis C Antibody Negative (NEGATIVE) 03/27/18 06:30 Influenza Typ A,B (EIA) Negative for flu a/b (NEGATIVE) 03/27/18 17:50 Grp A Beta Strep Ag Negative (NEGATIVE) 03/27/18 17:50 Blood Type O POSITIVE 03/26/18 22:25 Blood Type Confirm O POSITIVE 03/26/18 10:00 Antibody Screen Negative 03/26/18 22:25 BBK History Checked No verified bt 03/26/18 22:25 Attending/Attestation - Attestation I have personally seen and examined this patient.: Yes I have fully participated in the care of the patient.: Yes I have reviewed all pertinent clinical information, including history, physical exam and plan: Yes Notes (Text): CHF acute on chronic exacerbation, systolic and diastolic dysfunction with EF 20% Chronic A Fib with RVR Chronic DVT ( POA) Left LE Cellulitis History of PE COPD chronic Physical Deconditioning - will discharge pt to TCU for 1 more week of IV antibiotics and for physical therapy - cont Spirinolactone, Toprol ,Losartan, change Lasix to Bumex -cont Amiodarone, Toprol and change Xarelto to Eliquis
--- NOTE | 2018-03-30 16:30 | CP.PCM.PN ---
Subjective - Date & Time of Evaluation Date of Evaluation: 03/30/18 Time of Evaluation: 06:00 - Subjective Subjective: Pt seen and examined this morning at bedside. Pt offers no new complaints at this time. Objective - Vital Signs/Intake and Output Vital Signs (last 24 hours): Temp Pulse Resp BP Pulse Ox 98.7 F 81 20 100/65 95 03/30/18 16:09 03/30/18 16:09 03/30/18 16:09 03/30/18 16:09 03/30/18 16:09 Intake and Output: 03/30/18 03/30/18 06:59 18:59 Intake Total 300 Output Total 1100 Balance -800 - Medications Medications: Current Medications Amiodarone HCl (Cordarone) 200 mg PO DAILY [facility] Apixaban (Eliquis) 2.5 mg PO Q12 [facility]; Protocol Bumetanide (Bumex) 1 mg PO BID [facility] Digoxin (Lanoxin) 0.25 mg PO DAILY [facility] Last Admin: 03/30/18 08:40 Dose: 0.25 mg Ampicillin Sodium/Sulbactam (Sodium 3 gm/ Sodium Chloride) 100 mls @ 100 mls/hr IVPB Q12 [facility]; Protocol Last Admin: 03/30/18 08:46 Dose: 100 mls/hr Lactic Acid (Lac-Hydrin 12% Lotion (225 G)) 1 applic TOP TID [facility] Last Admin: 03/30/18 13:04 Dose: 1 applic Losartan Potassium (Cozaar) 25 mg PO DAILY [facility] Last Admin: 03/30/18 13:03 Dose: 25 mg Metoprolol Tartrate (Lopressor) 50 mg PO Q12 [facility] Last Admin: 03/30/18 08:42 Dose: 50 mg Montelukast Sodium (Singulair) 10 mg PO DAILY [facility] Last Admin: 03/30/18 08:42 Dose: 10 mg Phenytoin (Dilantin) 100 mg PO BID [facility] Last Admin: 03/30/18 08:40 Dose: 100 mg Fluticasone/Salmeterol (Advair Diskus 250/50) 1 puff IH Q12H [facility] Last Admin: 03/30/18 04:33 Dose: 1 puff Senna/Docusate Sodium (Senokot S 50 Mg-8.6 Mg) 1 tab PO HS [facility] Last Admin: 03/29/18 21:00 Dose: Not Given Spironolactone (Aldactone) 12.5 mg PO DAILY [facility] Last Admin: 03/30/18 13:03 Dose: 12.5 mg - Labs Labs: 03/30/18 04:45 03/30/18 04:45 PT 25.5 Seconds (9.8-13.1) H 03/30/18 04:45 INR 2.2 03/30/18 04:45 APTT 35.5 Seconds (25.6-37.1) 03/30/18 04:45 - Head Exam Head Exam: ATRAUMATIC, NORMOCEPHALIC - Eye Exam Eye Exam: EOMI - ENT Exam ENT Exam: Mucous Membranes Moist - Neck Exam Neck Exam: Full ROM - Respiratory Exam Respiratory Exam: Clear to Ausculation Bilateral, NORMAL BREATHING PATTERN. absent: Accessory Muscle Use - Cardiovascular Exam Cardiovascular Exam: RRR, +S1, +S2. absent: Diastolic murmur, Murmur - GI/Abdominal Exam GI & Abdominal Exam: Soft, Normal Bowel Sounds - Neurological Exam Neurological Exam: Alert, Awake, Oriented x3 - Psychiatric Exam Psychiatric exam: Normal Affect, Normal Mood - Skin Skin Exam: Dry, Normal Color, Warm Assessment and Plan - Assessment and Plan (Free Text) Assessment: BL LE venous thrombosis positive troponins CHF A fib with RVR Plan: D dimer 1534 CT venogram small filling defects stent above infrarenal IVC filter likely representing a small amount of non occulsive thrombus. BNP 3020 improving switch lasix to Bumex 1mg daily digoxin 0.25mg daily cozaar 25mg aldactone 12.5mg amio 200mg daily eliquis 2.5 plavix 75mg daily Pt seen, examined, assessment and plan discussed with Dr Donato. Solomon Temple PGY1, Internal Medicine Resident
== END 2018-03-30 18:40 | DRG 292 ==
LOC: H.ER 21:27 → H.ERHOLD 23:29 → H.TEL 03-27 01:52
PROVIDERS: ADMIT Internal Medicine; ATTEND Internal Medicine
PROC: B50DYZZ Plain Radiography of Bilateral Lower Extremity Veins using Other Contrast (ICD-10-PCS; principal; 2018-03-29)
DX: I11.0 Hypertensive heart disease with heart failure (principal); L03.116 Cellulitis of left lower limb; I82.513 Chronic embolism and thrombosis of femoral vein, bilateral; I50.33 Acute on chronic diastolic (congestive) heart failure; I48.2 Chronic atrial fibrillation; D69.6 Thrombocytopenia, unspecified; I25.10 Atherosclerotic heart disease of native coronary artery without angina pectoris; I27.21 Secondary pulmonary arterial hypertension; I71.2 Thoracic aortic aneurysm, without rupture; I87.2 Venous insufficiency (chronic) (peripheral); I08.0 Rheumatic disorders of both mitral and aortic valves; I89.0 Lymphedema, not elsewhere classified; K76.1 Chronic passive congestion of liver; J44.9 Chronic obstructive pulmonary disease, unspecified; E11.9 Type 2 diabetes mellitus without complications; R56.9 Unspecified convulsions; E78.00 Pure hypercholesterolemia, unspecified; K59.09 Other constipation; Z86.711 Personal history of pulmonary embolism; Z79.01 Long term (current) use of anticoagulants; Z79.51 Long term (current) use of inhaled steroids

== ENCOUNTER 2018-03-30 18:55 | Inpatient (IN) | payer MEDICARE ==
[2018-03-30 19:49] VITALS: BMI 39.3
[2018-03-30] MEDS ORDERED: Albuterol HFA 90 mcg/actuation (8 g) IH PRN (20:54)
[2018-03-30] MEDS: Fluticasone-Salmeterol 250-50mcg Diskus IH SCH (22:40)
[2018-03-30] MEDS: Docusate-Senna 50 mg-8.6 mg Tab PO SCH (22:44)
[2018-03-31 06:30] LABS: BASO % 0.9 % (0.0-2.0); EOS # 0.2 K/uL (0.0-0.7); EOS % 3.6 % (0.0-4.0); HEMOGLOBIN 14.2 g/dL (12.0-16.0); LYMPH # 0.8 K/uL (1.0-4.3); LYMPH % 17.4 % (20.0-40.0); MEAN CORPUSCULAR HEMOGLOBIN 33.5 pg (27.0-31.0); MEAN CORPUSCULAR HGB CONC 33.1 g/dL (33.0-37.0); MONO # 0.7 K/uL (0.0-0.8); MONO % 14.5 % (0.0-10.0); NEUT # 2.9 K/uL (1.8-7.0); NEUT % 63.6 % (50.0-75.0); RBC 4.25 Mil/uL (3.80-5.20); RED CELL DISTRIBUTION WIDTH 15.5 % (11.5-14.5); WHITE BLOOD COUNT 4.6 K/uL (4.8-10.8)
[2018-03-31 06:51] LABS: ALB/GLOB RATIO 0.9 (1.0-2.1); ALBUMIN 2.7 g/dL (3.5-5.0); ALT/SGPT 314 U/L (9-52); AST/SGOT 145 U/L (14-36); BLOOD UREA NITROGEN 22 mg/dl (7-17); CALCIUM 8.5 mg/dL (8.4-10.2); GFR NON-AFRICAN AMERICAN > 60
[2018-03-31] MEDS: Fluticasone-Salmeterol 250-50mcg Diskus IH SCH ×2 (08:10→20:36)
[2018-03-31] MEDS: Digoxin 250 mcg (0.25 mg) Tab PO SCH (08:13)
--- NOTE | 2018-03-31 08:18 | CP.PCM.HP ---
<Suha Olivera - Last Filed: 03/31/18 10:58> History of Present Illness - History of Present Illness History of Present Illness: 72 y/o F with medical hx of CHF, Afib, hx of PE , b/l DVT with IVC filter & HTN admitted for further physical therapy following recent hospital admission for management of CHF exacerbation & weakness. In ED, patient was found to be in atrial fibrillation with elevated LFT's, elevated troponins and pro-BNP. Patient was also found to have increased erythema of left lower leg with baseline of chronic stasis dermatitis on b/l lower legs. Cardiology & podiatry was consulted. Patient was medically optimized, and showed clinical improvement. There were no acute events overnight. This morning, patient was seen and examined sitting upright in chair breathing comfortably off of oxygen saturating at 97%. Patient has no complaints. She denied fever, chills, chest pain or shortness of breath. Present on Admission - Present on Admission Any Indicators Present on Admission: Yes History of DVT/PE: Yes History of Uncontrolled Diabetes: No Urinary Catheter: No Decubitus Ulcer Present: No Past Patient History - Past Medical History & Family History Past Medical History?: Yes - Past Social History Smoking Status: Never Smoked - CARDIAC Hx Congestive Heart Failure: Yes Hx Hypercholesterolemia: Yes Hx Hypertension: Yes Hx Peripheral Edema: Yes - PULMONARY Hx Asthma: Yes Hx Pulmonary Embolism: Yes - NEUROLOGICAL Hx Seizures: Yes - HEENT Hx HEENT Problems: No - RENAL Hx Chronic Kidney Disease: No - ENDOCRINE/METABOLIC Hx Endocrine Disorders: Yes Hx Diabetes Mellitus Type 2: Yes - HEMATOLOGICAL/ONCOLOGICAL Hx AIDS: No Hx Anemia: Yes Hx Human Immunodeficiency Virus (HIV): No - INTEGUMENTARY Hx Dermatological Problems: Yes Hx Cellulitis: Yes Other/Comment: chronic reddened lower extremities. - MUSCULOSKELETAL/RHEUMATOLOGICAL Hx Musculoskeletal Disorders: No Hx Falls: No - GASTROINTESTINAL Hx Gastrointestinal Disorders: No - GENITOURINARY/GYNECOLOGICAL Hx Genitourinary Disorders: No - PSYCHIATRIC Hx Psychophysiologic Disorder: No Hx Substance Use: No - SURGICAL HISTORY Hx Surgeries: Yes Other/Comment: R breast lump removed, IVC filter insertion - ANESTHESIA Hx Anesthesia: Yes Hx Anesthesia Reactions: No Hx Malignant Hyperthermia: No Meds Allergies/Adverse Reactions: Allergies Allergy/AdvReac Type Severity Reaction Status Date / Time No Known Allergies Allergy Verified 06/24/16 17:35 Physical Exam - Constitutional Appears: Non-toxic - Head Exam Head Exam: ATRAUMATIC - Eye Exam Eye Exam: EOMI - ENT Exam ENT Exam: Mucous Membranes Moist - Respiratory Exam Respiratory Exam: absent: Wheezes, Respiratory Distress, Stridor Additional comments: crackles in lower bases - Cardiovascular Exam Cardiovascular Exam: Irregular Rhythm - GI/Abdominal Exam GI & Abdominal Exam: Normal Bowel Sounds, Soft, Tenderness - Extremities Exam Extremities exam: Negative for: calf tenderness Additional comments: b/l lower leg chronic stasis with erythema of left lower leg (showing decreased erythema note previously) with palpable DPP - Neurological Exam Neurological exam: Alert, Oriented x3 - Psychiatric Exam Psychiatric exam: Normal Affect, Normal Mood Results - Vital Signs Recent Vital Signs: Last Vital Signs Temp 97.5 F L 03/31/18 08:12 Pulse 85 03/31/18 08:13 Resp 20 03/31/18 08:12 BP 119/72 03/31/18 08:13 Pulse Ox 97 03/31/18 08:12 - Labs Result Diagrams: 03/31/18 05:40 03/31/18 05:40 Labs: Laboratory Results - last 24 hr 03/31/18 03/31/18 03/31/18 05:40 05:40 05:40 WBC 4.6 L RBC 4.25 Hgb 14.2 Hct 42.9 MCV 101.0 H MCH 33.5 H MCHC 33.1 RDW 15.5 H Plt Count 97 L MPV 10.0 Neut % (Auto) 63.6 Lymph % (Auto) 17.4 L [place] % (Auto) 14.5 H Eos % (Auto) 3.6 Baso % (Auto) 0.9 Neut # (Auto) 2.9 Lymph # (Auto) 0.8 L [place] # (Auto) 0.7 Eos # (Auto) 0.2 Baso # (Auto) 0.0 Sodium 137 Potassium 3.5 L Chloride 92 L Carbon Dioxide 37 H Anion Gap 12 BUN 22 H Creatinine 0.8 Est GFR ( Amer) > 60 Est GFR (Non-Af Amer) > 60 Random Glucose 96 Calcium 8.5 Total Bilirubin 2.4 H AST 145 H D ALT 314 H D Alkaline Phosphatase 103 Total Protein 5.8 L Albumin 2.7 L Globulin 3.1 Albumin/Globulin Ratio 0.9 L Digoxin 1.2 Assessment & Plan - Assessment and Plan (Free Text) Assessment: 72 y/o F with medical hx of CHF, Afib, hx of PE , b/l DVT with IVC filter & HTN admitted to TCU for further physical therapy following recent hospital admission for further management of CHF exacerbation & weakness. 1. CHF exacerbation with hx of anasarca(acute on chronic) -Bumex 1mg PO BID -Continue Dig 0.25mg PO QD. -Continue metoprolol tartate 50mg PO BID. -Spironolactone 12.5mg PO QD -Amlodipine discontinued due to lower leg swelling 2. Atrial fibrillation with RVR (acute on chronic) -Continue metoprolol tartate 50mg PO BID. - Amiodarone 200mg PO QD -Cardizem discontinued because of lower leg swelling 3. Elevated LFT's (acute, trending down) -Likely due to hypoperfusion of liver -AST/ALT trending down. 4. hx of PE & DVT (chronic) -Patient with IVC filter -Eliquis 2.5mg PO BID -discontinue xarelto 15mg PO QD because of thrombocytopenia 5. Stasis dermatitis (chronic) -Ammonium lactate Top TID 6. Cellulitis of LLE -Continue Unasyn (day #3); will need antibiotics for 6 more additional days. 7. Chronic constipation -Docusate sodium/sennokote 1 tab PO HS 8. HTN losartan 100mg PO QD 9. COPD singulair 10mg PO QD Advair Diskus 250/50 1 puff IH Q12 10. hx of seizure -Phenytoin 100mg PO BID 11 . DVT prophylaxis Patient has IVC filter and on xarelto 12. Ascending aortic aneurysm -4.1cm ascending aortic aneurysm noted on CT 03/27/2018, previouly noted as 4.3 04/22/2016 <Joy Vergara - Last Filed: 04/02/18 16:44> Results - Vital Signs Recent Vital Signs: Last Vital Signs Temp 97.5 F L 04/02/18 16:13 Pulse 85 04/02/18 16:13 Resp 20 04/02/18 16:13 BP 118/78 04/02/18 16:13 Pulse Ox 94 L 04/02/18 16:13 - Labs Result Diagrams: 03/31/18 05:40 03/31/18 05:40 Attending/Attestation - Attestation I have personally seen and examined this patient.: Yes I have fully participated in the care of the patient.: Yes I have reviewed all pertinent clinical information: Yes Notes (Text): 04/02/18 16:43 agree with findings and plan as above
--- NOTE | 2018-03-31 19:45 | CP.PCM.CON ---
History of Present Illness - History of Present Illness History of Present Illness: Solomon Temple PGY1, Cardio Consult note for Dr Donato Pt is a 72 yo female with a PMH of CHF, Atrial fibrillation with RVR, DVT, and PE, who was admitted for A fib w/ RVR, CHF exacerbation and, anasarca. Pt LE edema and SOB began about 1 week ago. Pt was found by her grandchildren down on the ground. Pt reports palpitations and SOB as well. Past Patient History - Past Medical History & Family History Past Medical History?: Yes - Past Social History Smoking Status: Never Smoked - CARDIAC Hx Congestive Heart Failure: Yes Hx Hypercholesterolemia: Yes Hx Hypertension: Yes Hx Peripheral Edema: Yes - PULMONARY Hx Asthma: Yes Hx Pulmonary Embolism: Yes - NEUROLOGICAL Hx Seizures: Yes - HEENT Hx HEENT Problems: No - RENAL Hx Chronic Kidney Disease: No - ENDOCRINE/METABOLIC Hx Endocrine Disorders: Yes Hx Diabetes Mellitus Type 2: Yes - HEMATOLOGICAL/ONCOLOGICAL Hx AIDS: No Hx Anemia: Yes Hx Human Immunodeficiency Virus (HIV): No - INTEGUMENTARY Hx Dermatological Problems: Yes Hx Cellulitis: Yes Other/Comment: chronic reddened lower extremities. - MUSCULOSKELETAL/RHEUMATOLOGICAL Hx Musculoskeletal Disorders: No Hx Falls: No - GASTROINTESTINAL Hx Gastrointestinal Disorders: No - GENITOURINARY/GYNECOLOGICAL Hx Genitourinary Disorders: No - PSYCHIATRIC Hx Psychophysiologic Disorder: No Hx Substance Use: No - SURGICAL HISTORY Hx Surgeries: Yes Other/Comment: R breast lump removed, IVC filter insertion - ANESTHESIA Hx Anesthesia: Yes Hx Anesthesia Reactions: No Hx Malignant Hyperthermia: No Meds Allergies/Adverse Reactions: Allergies Allergy/AdvReac Type Severity Reaction Status Date / Time No Known Allergies Allergy Verified 06/24/16 17:35 - Medications Medications: Current Medications Albuterol (Ventolin Hfa 90 Mcg/Actuation (8 G)) 2 puff IH Q4H PRN PRN Reason: Shortness of Breath Amiodarone HCl (Cordarone) 200 mg PO DAILY [facility]PL[facility] BY [facility] Last Admin: 03/31/18 08:11 Dose: 200 mg Apixaban (Eliquis) 2.5 mg PO Q12 [facility]PL[facility] BY [facility]; Protocol Last Admin: 03/31/18 08:12 Dose: 2.5 mg Bumetanide (Bumex) 1 mg PO BID [facility]PL[facility] BY [facility] Last Admin: 03/31/18 17:12 Dose: 1 mg Clopidogrel Bisulfate (Plavix) 75 mg PO DAILY [facility] BY [facility] Digoxin (Lanoxin) 0.25 mg PO DAILY [facility] BY [facility] Last Admin: 03/31/18 08:13 Dose: 0.25 mg Ampicillin Sodium/Sulbactam (Sodium 3 gm/ Sodium Chloride) 100 mls @ 100 mls/hr IVPB Q12@0000,1200 REPLACED BY [facility] Last Admin: 03/31/18 13:00 Dose: 100 mls/hr Lactic Acid (Lac-Hydrin 12% Lotion (225 G)) 1 applic TOP TID REPLACED BY [facility] Last Admin: 03/31/18 17:12 Dose: 1 applic Losartan Potassium (Cozaar) 25 mg PO DAILY [facility] BY [facility] Last Admin: 03/31/18 08:12 Dose: 25 mg Metoprolol Tartrate (Lopressor) 50 mg PO Q12 [facility]PL[facility] BY [facility] Last Admin: 03/31/18 08:13 Dose: 50 mg Montelukast Sodium (Singulair) 10 mg PO DAILY [facility]PL[facility] BY [facility] Last Admin: 03/31/18 08:13 Dose: 10 mg Phenytoin Sodium (Dilantin) 100 mg PO Q12@0900,2100 REPLACED BY [facility] Last Admin: 03/31/18 08:13 Dose: 100 mg Fluticasone/Salmeterol (Advair Diskus 250/50) 1 puff IH Q12H REPLACED BY [facility] Last Admin: 03/31/18 08:10 Dose: 1 puff Senna/Docusate Sodium (Senokot S 50 Mg-8.6 Mg) 1 tab PO HS REPLACED BY [facility] Last Admin: 03/30/18 22:44 Dose: 1 tab Spironolactone (Aldactone) 12.5 mg PO DAILY [facility]PL[facility]ED BY [facility] Last Admin: 03/31/18 08:10 Dose: 12.5 mg Physical Exam - Constitutional Appears: No Acute Distress - Head Exam Head Exam: ATRAUMATIC, NORMOCEPHALIC - Eye Exam Eye Exam: EOMI - ENT Exam ENT Exam: Mucous Membranes Moist - Neck Exam Neck exam: Positive for: Full Rom - Respiratory Exam Respiratory Exam: Clear to Auscultation Bilateral, NORMAL BREATHING PATTERN. absent: Accessory Muscle Use - Cardiovascular Exam Cardiovascular Exam: +S1, +S2. absent: Diastolic murmur, Systolic Murmur - GI/Abdominal Exam GI & Abdominal Exam: Normal Bowel Sounds, Soft - Extremities Exam Extremities exam: Positive for: full ROM, pedal edema. Negative for: pedal pulses present - Neurological Exam Neurological exam: Oriented x3 - Psychiatric Exam Psychiatric exam: Normal Affect, Normal Mood - Skin Skin Exam: Dry, Intact, Warm Results - Vital Signs Recent Vital Signs: Last Vital Signs Temp 98.2 F 03/31/18 19:29 Pulse 82 03/31/18 19:29 Resp 20 03/31/18 19:29 BP 138/76 03/31/18 19:29 Pulse Ox 90 L 03/31/18 19:29 - Labs Result Diagrams: 03/31/18 05:40 03/31/18 05:40 Labs: Laboratory Results - last 24 hr 03/31/18 03/31/18 03/31/18 05:40 05:40 05:40 WBC 4.6 L RBC 4.25 Hgb 14.2 Hct 42.9 MCV 101.0 H MCH 33.5 H MCHC 33.1 RDW 15.5 H Plt Count 97 L MPV 10.0 Neut % (Auto) 63.6 Lymph % (Auto) 17.4 L [place] % (Auto) 14.5 H Eos % (Auto) 3.6 Baso % (Auto) 0.9 Neut # (Auto) 2.9 Lymph # (Auto) 0.8 L [place] # (Auto) 0.7 Eos # (Auto) 0.2 Baso # (Auto) 0.0 Sodium 137 Potassium 3.5 L Chloride 92 L Carbon Dioxide 37 H Anion Gap 12 BUN 22 H Creatinine 0.8 Est GFR ( Amer) > 60 Est GFR (Non-Af Amer) > 60 Random Glucose 96 Calcium 8.5 Total Bilirubin 2.4 H AST 145 H D ALT 314 H D Alkaline Phosphatase 103 Total Protein 5.8 L Albumin 2.7 L Globulin 3.1 Albumin/Globulin Ratio 0.9 L Digoxin 1.2 Assessment & Plan - Assessment and Plan (Free Text) Assessment: BL LE venous thrombosis positive troponins CHF A fib with RVR Plan: D dimer 1534 CT venogram small filling defects stent above infrarenal IVC filter likely representing a small amount of non occulsive thrombus. BNP 3020 improving Bumex 1mg daily digoxin 0.25mg daily cozaar 25mg aldactone 12.5mg amio 200mg daily eliquis 2.5 plavix 75mg daily metoprolol 50 q12 Pt seen, examined, assessment and plan discussed with Dr Donato. Solomon Temple PGY1, Internal Medicine Resident - Date & Time Date: 03/31/18 Time: 17:30
[2018-03-31] MEDS: Docusate-Senna 50 mg-8.6 mg Tab PO SCH (21:46)
[2018-04-01] MEDS: Fluticasone-Salmeterol 250-50mcg Diskus IH SCH ×2 (08:03→21:16)
[2018-04-01] MEDS: Digoxin 250 mcg (0.25 mg) Tab PO SCH (08:05)
[2018-04-01] MEDS: Docusate-Senna 50 mg-8.6 mg Tab PO SCH (21:19)
[2018-04-02] MEDS: Fluticasone-Salmeterol 250-50mcg Diskus IH SCH ×2 (08:13→20:38)
[2018-04-02] MEDS: Digoxin 250 mcg (0.25 mg) Tab PO SCH (08:21)
[2018-04-02] MEDS: Docusate-Senna 50 mg-8.6 mg Tab PO SCH (22:29)
[2018-04-03] MEDS: Fluticasone-Salmeterol 250-50mcg Diskus IH SCH ×2 (08:37→21:40)
[2018-04-03] MEDS: Digoxin 250 mcg (0.25 mg) Tab PO SCH (08:39)
[2018-04-03] MEDS: Docusate-Senna 50 mg-8.6 mg Tab PO SCH (21:40)
[2018-04-04 08:22] LABS: HEMOGLOBIN 16.2 g/dL (12.0-16.0); MEAN CELL VOLUME 100.5 fl (81.0-99.0); MEAN CORPUSCULAR HEMOGLOBIN 33.3 pg (27.0-31.0); MEAN CORPUSCULAR HGB CONC 33.2 g/dL (33.0-37.0); RBC 4.87 Mil/uL (3.80-5.20); RED CELL DISTRIBUTION WIDTH 14.8 % (11.5-14.5)
[2018-04-04 08:27] LABS: INR 1.1; PROTHROMBIN TIME 12.3 Seconds (9.8-13.1)
[2018-04-04 08:29] LABS: PARTIAL THROMBOPLASTIN TIME 36.7 Seconds (25.6-37.1)
[2018-04-04] MEDS: Fluticasone-Salmeterol 250-50mcg Diskus IH SCH ×2 (08:31→21:15)
[2018-04-04] MEDS: Digoxin 250 mcg (0.25 mg) Tab PO SCH (08:36)
[2018-04-04 09:01] LABS: ALB/GLOB RATIO 0.9 (1.0-2.1); ALBUMIN 3.6 g/dL (3.5-5.0); ALT/SGPT 127 U/L (9-52); AST/SGOT 54 U/L (14-36); BLOOD UREA NITROGEN 21 mg/dl (7-17); CALCIUM 9.3 mg/dL (8.4-10.2); GFR NON-AFRICAN AMERICAN > 60
[2018-04-04] MEDS: Docusate-Senna 50 mg-8.6 mg Tab PO SCH (21:16)
[2018-04-05 03:54] VITALS: RESP 20
[2018-04-05] MEDS: Digoxin 250 mcg (0.25 mg) Tab PO SCH (08:37)
--- NOTE | 2018-04-05 11:33 | CP.PCM.PN ---
Subjective - Date & Time of Evaluation Date of Evaluation: 04/05/18 Time of Evaluation: 11:28 - Subjective Subjective: Pt seen and examined this morning at bedside. Pt has no new complaints at this time. Objective - Vital Signs/Intake and Output Vital Signs (last 24 hours): Temp Pulse Resp BP Pulse Ox 97.2 F L 95 H 20 123/61 96 04/04/18 20:00 04/05/18 08:38 04/04/18 20:00 04/05/18 08:38 04/04/18 20:00 - Medications Medications: Current Medications Albuterol (Ventolin Hfa 90 Mcg/Actuation (8 G)) 2 puff IH Q4H PRN PRN Reason: Shortness of Breath Amiodarone HCl (Cordarone) 200 mg PO DAILY [facility] Last Admin: 04/05/18 08:36 Dose: 200 mg Apixaban (Eliquis) 5 mg PO Q12 [facility]; Protocol Last Admin: 04/05/18 08:36 Dose: 5 mg Bumetanide (Bumex) 1 mg PO BID [facility] Last Admin: 04/05/18 08:37 Dose: 1 mg Clopidogrel Bisulfate (Plavix) 75 mg PO DAILY [facility] Last Admin: 04/05/18 08:36 Dose: 75 mg Digoxin (Lanoxin) 0.25 mg PO DAILY [facility] Last Admin: 04/05/18 08:37 Dose: 0.25 mg Ampicillin Sodium/Sulbactam (Sodium 3 gm/ Sodium Chloride) 100 mls @ 100 mls/hr IVPB Q12@0000,1200 [facility] Last Admin: 04/05/18 11:14 Dose: 100 mls/hr Lactic Acid (Lac-Hydrin 12% Lotion (225 G)) 1 applic TOP TID [facility] Last Admin: 04/05/18 08:38 Dose: 1 applic Losartan Potassium (Cozaar) 25 mg PO DAILY [facility] Last Admin: 04/05/18 08:37 Dose: 25 mg Metoprolol Tartrate (Lopressor) 50 mg PO Q12 [facility] Last Admin: 04/05/18 08:38 Dose: 50 mg Montelukast Sodium (Singulair) 10 mg PO DAILY [facility] Last Admin: 04/05/18 08:38 Dose: 10 mg Phenytoin Sodium (Dilantin) 100 mg PO Q12@0900,2100 [facility] Last Admin: 04/05/18 08:36 Dose: 100 mg Senna/Docusate Sodium (Senokot S 50 Mg-8.6 Mg) 1 tab PO HS [facility] Last Admin: 04/04/18 21:16 Dose: 1 tab Spironolactone (Aldactone) 12.5 mg PO DAILY [facility] Last Admin: 04/05/18 08:38 Dose: 12.5 mg - Labs Labs: 04/04/18 07:45 04/04/18 07:45 PT 12.3 Seconds (9.8-13.1) 04/04/18 07:45 INR 1.1 04/04/18 07:45 APTT 36.7 Seconds (25.6-37.1) 04/04/18 07:45 - Head Exam Head Exam: ATRAUMATIC, NORMOCEPHALIC - Eye Exam Eye Exam: EOMI - ENT Exam ENT Exam: Mucous Membranes Moist - Cardiovascular Exam Cardiovascular Exam: RRR, +S1, +S2. absent: Diastolic murmur - GI/Abdominal Exam GI & Abdominal Exam: Soft, Normal Bowel Sounds. absent: Tenderness - Extremities Exam Extremities Exam: Full ROM, Pedal Edema - Neurological Exam Neurological Exam: Alert, Awake, Oriented x3 - Psychiatric Exam Psychiatric exam: Normal Affect, Normal Mood - Skin Skin Exam: Dry, Normal Color, Warm Assessment and Plan - Assessment and Plan (Free Text) Assessment: BL LE venous thrombosis positive troponins CHF A fib with RVR Plan: D Dimer 1534 CT venogram small filling defects stent above infrarenal IVC filter likely representing a small amount of non occlusive thrombus. BNP 04/05/18 1580 improving Bumex 1mg daily amio 200mg daily eliquis 5 plavix 75mg daily digoxin 0.25mg daily metoprolol 50 po Q12 cozaar 25mg aldactone 12.5mg Pt seen, examined, assessment and plan discussed with Dr Donato. Solomon Temple PGY1, Internal Medicine Resident
--- NOTE | 2018-04-05 12:04 | CP.PCM.PN ---
Subjective - Date & Time of Evaluation Date of Evaluation: 04/05/18 Time of Evaluation: 10:00 - Subjective Subjective: Patient was seen bedside.Hemodynamically stable, afebrile Feeling better . Participating with PT No acute issues overnight Objective - Vital Signs/Intake and Output Vital Signs (last 24 hours): Temp Pulse Resp BP Pulse Ox 97.2 F L 95 H 20 123/61 96 04/04/18 20:00 04/05/18 08:38 04/04/18 20:00 04/05/18 08:38 04/04/18 20:00 - Medications Medications: Current Medications Albuterol (Ventolin Hfa 90 Mcg/Actuation (8 G)) 2 puff IH Q4H PRN PRN Reason: Shortness of Breath Amiodarone HCl (Cordarone) 200 mg PO DAILY [facility] Last Admin: 04/05/18 08:36 Dose: 200 mg Apixaban (Eliquis) 5 mg PO Q12 [facility]; Protocol Last Admin: 04/05/18 08:36 Dose: 5 mg Bumetanide (Bumex) 1 mg PO BID [facility] Last Admin: 04/05/18 08:37 Dose: 1 mg Clopidogrel Bisulfate (Plavix) 75 mg PO DAILY [facility] Last Admin: 04/05/18 08:36 Dose: 75 mg Digoxin (Lanoxin) 0.25 mg PO DAILY [facility] Last Admin: 04/05/18 08:37 Dose: 0.25 mg Ampicillin Sodium/Sulbactam (Sodium 3 gm/ Sodium Chloride) 100 mls @ 100 mls/hr IVPB Q12@0000,1200 [facility] Last Admin: 04/05/18 11:14 Dose: 100 mls/hr Lactic Acid (Lac-Hydrin 12% Lotion (225 G)) 1 applic TOP TID [facility] Last Admin: 04/05/18 08:38 Dose: 1 applic Losartan Potassium (Cozaar) 25 mg PO DAILY [facility] Last Admin: 04/05/18 08:37 Dose: 25 mg Metoprolol Tartrate (Lopressor) 50 mg PO Q12 [facility] Last Admin: 04/05/18 08:38 Dose: 50 mg Montelukast Sodium (Singulair) 10 mg PO DAILY [facility] Last Admin: 04/05/18 08:38 Dose: 10 mg Phenytoin Sodium (Dilantin) 100 mg PO Q12@0900,2100 [facility] Last Admin: 04/05/18 08:36 Dose: 100 mg Senna/Docusate Sodium (Senokot S 50 Mg-8.6 Mg) 1 tab PO HS [facility] Last Admin: 04/04/18 21:16 Dose: 1 tab Spironolactone (Aldactone) 12.5 mg PO DAILY [facility] Last Admin: 04/05/18 08:38 Dose: 12.5 mg - Labs Labs: 04/04/18 07:45 04/04/18 07:45 PT 12.3 Seconds (9.8-13.1) 04/04/18 07:45 INR 1.1 04/04/18 07:45 APTT 36.7 Seconds (25.6-37.1) 04/04/18 07:45 - Constitutional Appears: Non-toxic, No Acute Distress - Head Exam Head Exam: ATRAUMATIC, NORMOCEPHALIC - Eye Exam Eye Exam: EOMI, Normal appearance, PERRL Pupil Exam: NORMAL ACCOMODATION - ENT Exam ENT Exam: Mucous Membranes Moist, Normal Exam - Neck Exam Neck Exam: Full ROM, Normal Inspection - Respiratory Exam Respiratory Exam: Clear to Ausculation Bilateral, NORMAL BREATHING PATTERN. absent: Rhonchi, Wheezes, Respiratory Distress - Cardiovascular Exam Cardiovascular Exam: Irregular Rhythm. absent: JVD - GI/Abdominal Exam GI & Abdominal Exam: Soft, Normal Bowel Sounds. absent: Distended, Guarding, Rebound - Rectal Exam Rectal Exam: Deferred - Extremities Exam Additional comments: bilateral LE stasis dermatitis - Back Exam Back Exam: NORMAL INSPECTION - Neurological Exam Neurological Exam: Alert, Awake, CN II-XII Intact - Psychiatric Exam Psychiatric exam: Normal Affect - Skin Skin Exam: Dry, Warm Assessment and Plan - Assessment and Plan (Free Text) Assessment: 72 y/o F with medical hx of CHF, Afib, hx of PE , b/l DVT with IVC filter & HTN admitted to TCU for further physical therapy following recent hospital admission for further management of CHF exacerbation & weakness. At present doing well,participating with PT 1. Generalized weakness Participating with PT and doing well 2. CHF exacerbation with hx of anasarca(acute on chronic) stable -Bumex 1mg PO BID -Continue Dig 0.25mg PO QD. -Continue metoprolol tartate 50mg PO BID. -Spironolactone 12.5mg PO QD -Amlodipine discontinued due to lower leg swelling 3. Atrial fibrillation with RVR (acute on chronic) rate controlled Continue metoprolol tartate 50mg PO BID. Amiodarone 200mg PO QD Cardizem discontinued because of lower leg swelling 4. Elevated LFT's (acute, trending down) Likely due to hypoperfusion of liver AST/ALT trending down. 5. hx of PE & DVT (chronic) Patient with IVC filter on Eliquis 2.5mg PO BID discontinued xarelto 15mg PO QD because of thrombocytopenia 6. Stasis dermatitis (chronic) on Ammonium lactate Top TID 7. Cellulitis of LLE Continue Unasyn 8. Chronic constipation on Docusate sodium/sennokote 1 tab PO HS 9. HTN losartan 100mg PO QD 10. COPD singulair 10mg PO QD Advair Diskus 250/50 1 puff IH Q12 11. hx of seizure -Phenytoin 100mg PO BID 12. DVT prophylaxis Patient has IVC filter and on xarelto 13. Ascending aortic aneurysm -4.1cm ascending aortic aneurysm noted on CT 03/27/2018, previouly noted as 4.3 04/22/2016
[2018-04-05] MEDS: Docusate-Senna 50 mg-8.6 mg Tab PO SCH (21:03)
[2018-04-06] MEDS: Digoxin 250 mcg (0.25 mg) Tab PO SCH (08:21)
--- NOTE | 2018-04-06 15:33 | CP.PCM.PN ---
Subjective - Date & Time of Evaluation Date of Evaluation: 04/06/18 Time of Evaluation: 08:00 - Subjective Subjective: Pt seen and examined this morning, no new complaints Objective - Vital Signs/Intake and Output Vital Signs (last 24 hours): Temp Pulse Resp BP Pulse Ox 98.2 F 71 20 127/70 97 04/06/18 07:36 04/06/18 07:36 04/06/18 07:36 04/06/18 07:36 04/06/18 07:36 - Medications Medications: Current Medications Albuterol (Ventolin Hfa 90 Mcg/Actuation (8 G)) 2 puff IH Q4H PRN PRN Reason: Shortness of Breath Amiodarone HCl (Cordarone) 200 mg PO DAILY [facility] Last Admin: 04/06/18 08:21 Dose: 200 mg Apixaban (Eliquis) 5 mg PO Q12 [facility]; Protocol Last Admin: 04/06/18 08:21 Dose: 5 mg Bumetanide (Bumex) 1 mg PO BID [facility] Last Admin: 04/06/18 08:21 Dose: 1 mg Clopidogrel Bisulfate (Plavix) 75 mg PO DAILY [facility] Last Admin: 04/06/18 08:21 Dose: 75 mg Digoxin (Lanoxin) 0.25 mg PO DAILY [facility] Last Admin: 04/06/18 08:21 Dose: 0.25 mg Lactic Acid (Lac-Hydrin 12% Lotion (225 G)) 1 applic TOP TID [facility] Last Admin: 04/06/18 12:17 Dose: Not Given Losartan Potassium (Cozaar) 25 mg PO DAILY [facility] Last Admin: 04/06/18 08:21 Dose: 25 mg Metoprolol Tartrate (Lopressor) 50 mg PO Q12 [facility] Last Admin: 04/06/18 08:21 Dose: 50 mg Montelukast Sodium (Singulair) 10 mg PO DAILY [facility] Last Admin: 04/06/18 08:22 Dose: 10 mg Phenytoin Sodium (Dilantin) 100 mg PO Q12@0900,2100 [facility] Last Admin: 04/06/18 08:21 Dose: 100 mg Senna/Docusate Sodium (Senokot S 50 Mg-8.6 Mg) 1 tab PO HS [facility] Last Admin: 04/05/18 21:03 Dose: Not Given Spironolactone (Aldactone) 12.5 mg PO DAILY [facility] Last Admin: 04/06/18 08:21 Dose: 12.5 mg - Labs Labs: 04/04/18 07:45 04/04/18 07:45 PT 12.3 Seconds (9.8-13.1) 04/04/18 07:45 INR 1.1 04/04/18 07:45 APTT 36.7 Seconds (25.6-37.1) 04/04/18 07:45 - Constitutional Appears: No Acute Distress - Head Exam Head Exam: ATRAUMATIC, NORMOCEPHALIC - Eye Exam Eye Exam: EOMI - ENT Exam ENT Exam: Mucous Membranes Moist, Normal Exam - Neck Exam Neck Exam: Full ROM - Respiratory Exam Respiratory Exam: Clear to Ausculation Bilateral, NORMAL BREATHING PATTERN. absent: Accessory Muscle Use - Cardiovascular Exam Cardiovascular Exam: RRR, +S1, +S2. absent: Diastolic murmur, Murmur - GI/Abdominal Exam GI & Abdominal Exam: Soft, Normal Bowel Sounds. absent: Tenderness - Extremities Exam Extremities Exam: Full ROM, Pedal Edema - Neurological Exam Neurological Exam: Alert, Awake, Oriented x3 - Psychiatric Exam Psychiatric exam: Normal Affect, Normal Mood - Skin Skin Exam: Dry, Normal Color Assessment and Plan - Assessment and Plan (Free Text) Assessment: BL LE venous thrombosis positive troponins CHF A fib with RVR Plan: Consulted for A fib CT venogram small filling defects stent above infrarenal IVC filter likely representing a small amount of non occlusive thrombus. BNP 04/05/18 1580 improving D Dimer 1534 medications amio 200mg daily Bumex 1mg daily digoxin 0.25mg daily cozaar 25mg metoprolol 50 po Q12 aldactone 12.5mg plavix 75mg daily eliquis 5 Pt seen, examined, assessment and plan discussed with Dr Donato. Solomon Temple PGY1, Internal Medicine Resident
[2018-04-06] MEDS: Docusate-Senna 50 mg-8.6 mg Tab PO SCH (21:10)
[2018-04-07] MEDS: Digoxin 250 mcg (0.25 mg) Tab PO SCH (08:14)
[2018-04-07 08:16] VITALS: BP 112/64; PULSE 68; PULSE 73
--- NOTE | 2018-04-07 09:11 | CP.PCM.PN ---
Subjective - Date & Time of Evaluation Date of Evaluation: 04/07/18 Time of Evaluation: 08:00 - Subjective Subjective: Pt seen and examined this morning in TCU. Pt has no complaints at this time. Objective - Vital Signs/Intake and Output Vital Signs (last 24 hours): Temp Pulse Resp BP Pulse Ox 97.6 F 73 20 112/64 96 04/06/18 19:16 04/07/18 08:15 04/06/18 19:16 04/07/18 08:15 04/06/18 19:16 - Medications Medications: Current Medications Albuterol (Ventolin Hfa 90 Mcg/Actuation (8 G)) 2 puff IH Q4H PRN PRN Reason: Shortness of Breath Amiodarone HCl (Cordarone) 200 mg PO DAILY [facility] Last Admin: 04/07/18 08:11 Dose: 200 mg Apixaban (Eliquis) 5 mg PO Q12 [facility]; Protocol Last Admin: 04/07/18 08:10 Dose: 5 mg Bumetanide (Bumex) 1 mg PO BID [facility] Last Admin: 04/07/18 08:11 Dose: 1 mg Clopidogrel Bisulfate (Plavix) 75 mg PO DAILY [facility] Last Admin: 04/07/18 08:11 Dose: 75 mg Digoxin (Lanoxin) 0.25 mg PO DAILY [facility] Last Admin: 04/07/18 08:14 Dose: 0.25 mg Lactic Acid (Lac-Hydrin 12% Lotion (225 G)) 1 applic TOP TID [facility] Last Admin: 04/07/18 08:13 Dose: 1 applic Losartan Potassium (Cozaar) 25 mg PO DAILY [facility] Last Admin: 04/07/18 08:14 Dose: Not Given Metoprolol Tartrate (Lopressor) 50 mg PO Q12 [facility] Last Admin: 04/07/18 08:15 Dose: Not Given Montelukast Sodium (Singulair) 10 mg PO DAILY [facility] Last Admin: 04/07/18 08:15 Dose: 10 mg Phenytoin Sodium (Dilantin) 100 mg PO Q12@0900,2100 [facility] Last Admin: 04/07/18 08:13 Dose: 100 mg Senna/Docusate Sodium (Senokot S 50 Mg-8.6 Mg) 1 tab PO HS [facility] Last Admin: 04/06/18 21:10 Dose: Not Given Spironolactone (Aldactone) 12.5 mg PO DAILY [facility] Last Admin: 04/07/18 08:11 Dose: 12.5 mg - Labs Labs: 04/04/18 07:45 04/04/18 07:45 PT 12.3 Seconds (9.8-13.1) 04/04/18 07:45 INR 1.1 04/04/18 07:45 APTT 36.7 Seconds (25.6-37.1) 04/04/18 07:45 - Constitutional Appears: No Acute Distress - Head Exam Head Exam: ATRAUMATIC, NORMOCEPHALIC - Eye Exam Eye Exam: EOMI - ENT Exam ENT Exam: Mucous Membranes Moist - Neck Exam Neck Exam: Full ROM - Respiratory Exam Respiratory Exam: Clear to Ausculation Bilateral, NORMAL BREATHING PATTERN. absent: Accessory Muscle Use, Respiratory Distress - Cardiovascular Exam Cardiovascular Exam: RRR, +S1, +S2. absent: Diastolic murmur - GI/Abdominal Exam GI & Abdominal Exam: Soft, Normal Bowel Sounds. absent: Tenderness - Extremities Exam Extremities Exam: Full ROM, Pedal Edema. absent: Calf Tenderness - Neurological Exam Neurological Exam: Alert, Oriented x3 - Psychiatric Exam Psychiatric exam: Normal Affect, Normal Mood - Skin Skin Exam: Normal Color, Warm Assessment and Plan - Assessment and Plan (Free Text) Assessment: BL LE venous thrombosis positive troponins CHF A fib with RVR Plan: Consulted for A fib CT venogram small filling defects stent above infrarenal IVC filter likely representing a small amount of non occlusive thrombus. BNP 04/05/18 1580 D Dimer 1534 medications amio 200mg daily Bumex 1mg daily digoxin 0.25mg daily cozaar 25mg metoprolol 50 po Q12 aldactone 12.5mg plavix 75mg daily eliquis 5 Pt seen, examined, assessment and plan discussed with Dr Donato. Solomon Temple PGY1, Internal Medicine Resident
--- NOTE | 2018-04-07 09:42 | CP.PCM.DIS ---
Provider - Provider Date of Admission: 03/30/18 20:03 Attending physician: Chip Helton Consults: 03/30/18 20:51 Case Management Referral Routine Comment: Physician Instructions: Reason For Exam: Reason for Referral: Discharge Planning 03/30/18 21:04 Cardiology Consult Routine Comment: Consulting Provider: Julio Cesar Donato Consulting Physician: Julio Cesar Donato Reason for Consult: A Fib 03/30/18 23:36 Wound Care [Nursing Referral for Wound Care] Routine Comment: Physician Instructions: Reason For Exam: opening to left buttock area. Time Spent in preparation of Discharge (in minutes): 30 Diagnosis - Discharge Diagnosis (1) Acute on chronic combined systolic and diastolic congestive heart failure Status: Acute Hospital Course - Lab Results Lab Results: Most Recent Lab Values WBC 5.0 K/uL (4.8-10.8) 04/04/18 07:45 RBC 4.87 Mil/uL (3.80-5.20) 04/04/18 07:45 Hgb 16.2 g/dL (12.0-16.0) H D 04/04/18 07:45 Hct 48.9 % (34.0-47.0) H 04/04/18 07:45 MCV 100.5 fl (81.0-99.0) H 04/04/18 07:45 MCH 33.3 pg (27.0-31.0) H 04/04/18 07:45 MCHC 33.2 g/dL (33.0-37.0) 04/04/18 07:45 RDW 14.8 % (11.5-14.5) H 04/04/18 07:45 Plt Count 157 K/uL (130-400) 04/04/18 07:45 MPV 10.0 fl (7.2-11.7) 03/31/18 05:40 Neut % (Auto) 63.6 % (50.0-75.0) 03/31/18 05:40 Lymph % (Auto) 17.4 % (20.0-40.0) L 03/31/18 05:40 [place] % (Auto) 14.5 % (0.0-10.0) H 03/31/18 05:40 Eos % (Auto) 3.6 % (0.0-4.0) 03/31/18 05:40 Baso % (Auto) 0.9 % (0.0-2.0) 03/31/18 05:40 Neut # (Auto) 2.9 K/uL (1.8-7.0) 03/31/18 05:40 Lymph # (Auto) 0.8 K/uL (1.0-4.3) L 03/31/18 05:40 [place] # (Auto) 0.7 K/uL (0.0-0.8) 03/31/18 05:40 Eos # (Auto) 0.2 K/uL (0.0-0.7) 03/31/18 05:40 Baso # (Auto) 0.0 K/uL (0.0-0.2) 03/31/18 05:40 PT 12.3 Seconds (9.8-13.1) 04/04/18 07:45 INR 1.1 04/04/18 07:45 APTT 36.7 Seconds (25.6-37.1) 04/04/18 07:45 Sodium 136 mmol/l (132-148) 04/04/18 07:45 Potassium 4.0 MMOL/L (3.6-5.0) 04/04/18 07:45 Chloride 93 mmol/L (98-107) L 04/04/18 07:45 Carbon Dioxide 32 mmol/L (22-30) H 04/04/18 07:45 Anion Gap 15 (10-20) 04/04/18 07:45 BUN 21 mg/dl (7-17) H 04/04/18 07:45 Creatinine 0.9 mg/dl (0.7-1.2) 04/04/18 07:45 Est GFR ( Amer) > 60 04/04/18 07:45 Est GFR (Non-Af Amer) > 60 04/04/18 07:45 Random Glucose 103 mg/dL (65-105) 04/04/18 07:45 Calcium 9.3 mg/dL (8.4-10.2) 04/04/18 07:45 Total Bilirubin 1.6 mg/dl (0.2-1.3) H 04/04/18 07:45 AST 54 U/L (14-36) H D 04/04/18 07:45 ALT 127 U/L (9-52) H D 04/04/18 07:45 Alkaline Phosphatase 136 U/L (38-126) H D 04/04/18 07:45 NT-Pro-B Natriuret Pep 1580 pg/ml (0-900) H 04/05/18 09:52 Total Protein 7.4 G/DL (6.3-8.2) 04/04/18 07:45 Albumin 3.6 g/dL (3.5-5.0) 04/04/18 07:45 Globulin 3.9 gm/dL (2.2-3.9) 04/04/18 07:45 Albumin/Globulin Ratio 0.9 (1.0-2.1) L 04/04/18 07:45 Digoxin 1.2 ng/mL (0.8-2.0) 03/31/18 05:40 - Hospital Course Hospital Course: 72 y/o F with medical hx of CHF, Afib, hx of PE , b/l DVT with IVC filter & HTN admitted to TCU for further physical therapy following recent hospital admission for further management of CHF exacerbation & weakness. At present doing well, participating with PT, improving. Stable for discharge home. 1. Generalized weakness Participating with PT and doing well 2. CHF exacerbation with hx of anasarca(acute on chronic) stable -Bumex 1mg PO BID -Continue Dig 0.25mg PO QD. -Continue metoprolol tartate 50mg PO BID. -Spironolactone 12.5mg PO QD -Amlodipine discontinued due to lower leg swelling 3. Atrial fibrillation with RVR (acute on chronic) rate controlled Continue metoprolol tartate 50mg PO BID. Amiodarone 200mg PO QD Cardizem discontinued because of lower leg swelling 4. Elevated LFT's (acute, trending down) Likely due to hypoperfusion of liver AST/ALT trending down. 5. hx of PE & DVT (chronic) Patient with IVC filter on Eliquis 2.5mg PO BID discontinued xarelto 15mg PO QD because of thrombocytopenia 6. Stasis dermatitis (chronic) on Ammonium lactate Top TID 7. Cellulitis of LLE Continue Unasyn 8. Chronic constipation on Docusate sodium/sennokote 1 tab PO HS 9. HTN losartan 100mg PO QD 10. COPD singulair 10mg PO QD Advair Diskus 250/50 1 puff IH Q12 11. hx of seizure -Phenytoin 100mg PO BID 12. DVT prophylaxis Patient has IVC filter and on xarelto 13. Ascending aortic aneurysm -4.1cm ascending aortic aneurysm noted on CT 03/27/2018, previouly noted as 4.3 04/22/2016 Discharge Exam - Head Exam Head Exam: ATRAUMATIC, NORMOCEPHALIC - Eye Exam Eye Exam: EOMI, Normal appearance, PERRL Pupil Exam: NORMAL ACCOMODATION - ENT Exam ENT Exam: Mucous Membranes Moist, Normal Oropharynx - Respiratory Exam Respiratory Exam: Clear to PA & Lateral, NORMAL BREATHING PATTERN - Cardiovascular Exam Cardiovascular Exam: RRR, +S1, +S2 - GI/Abdominal Exam GI & Abdominal Exam: Normal Bowel Sounds, Soft. absent: Mass - Extremities Exam Extremities exam: normal capillary refill, pedal pulses present - Back Exam Back exam: absent: CVA tenderness (L), CVA tenderness (R) - Neurological Exam Neurological exam: Alert, Reflexes Normal - Psychiatric Exam Psychiatric exam: Normal Affect, Normal Mood - Skin Skin Exam: Dry, Normal Color, Warm Discharge Plan - Discharge Medications Prescriptions: Albuterol HFA [Ventolin HFA 90 mcg/actuation (8 g)] 2 puff IH Q4H PRN #1 inhaler PRN Reason: Shortness Of Breath Amiodarone [Cordarone] 200 mg PO DAILY #30 tab Ammonium Lactate 12% [Lac-Hydrin 12% Lotion (225 g)] 1 applic TOP TID #1 bottle Apixaban [Eliquis] 2.5 mg PO Q12 #60 tab Bumetanide [Bumex] 1 mg PO BID #60 tab Clopidogrel [Plavix] 75 mg PO DAILY #30 tab Digoxin [Lanoxin] 0.25 mg PO DAILY #30 tab Docusate Sodium/Sennosides A [Senokot S 50 MG-8.6 MG] 1 tab PO HS #30 tab Losartan [Cozaar] 25 mg PO DAILY #30 tab Metoprolol Tartrate [Lopressor] 50 mg PO Q12 #60 tab Montelukast [Singulair] 10 mg PO DAILY #30 tab Phenytoin, Extended [Dilantin] 100 mg PO Q12@0900,2100 #60 cer Spironolactone [Aldactone] 12.5 mg PO DAILY #30 tab - Follow Up Plan Condition: GOOD Disposition: HOME/ ROUTINE
[2018-04-07 10:49] VITALS: TEMP 98.5; O2SAT 95
== END 2018-04-07 17:05 | disposition home health service (06) | DRG 292 ==
LOC: H.TCU 20:03
PROVIDERS: ADMIT Internal Medicine; ATTEND Internal Medicine
PROC: F07Z8FZ Transfer Training Treatment using Assistive, Adaptive, Supportive or Protective Equipment (ICD-10-PCS; principal; 2018-03-30)
PROC: F07Z9FZ Gait Training/Functional Ambulation Treatment using Assistive, Adaptive, Supportive or Protective Equipment (ICD-10-PCS; 2018-03-30)
PROC: F07L6GZ Therapeutic Exercise Treatment of Musculoskeletal System - Lower Back / Lower Extremity using Aerobic Endurance and Conditioning Equipment (ICD-10-PCS; 2018-03-30)
PROC: F08Z1FZ Dressing Techniques Treatment using Assistive, Adaptive, Supportive or Protective Equipment (ICD-10-PCS; 2018-03-30)
PROC: F08Z0FZ Bathing/Showering Techniques Treatment using Assistive, Adaptive, Supportive or Protective Equipment (ICD-10-PCS; 2018-03-30)
PROC: F08Z4FZ Home Management Treatment using Assistive, Adaptive, Supportive or Protective Equipment (ICD-10-PCS; 2018-03-30)
DX: I11.0 Hypertensive heart disease with heart failure (principal); L03.116 Cellulitis of left lower limb; I87.2 Venous insufficiency (chronic) (peripheral); Z86.711 Personal history of pulmonary embolism; I48.91 Unspecified atrial fibrillation; R74.8 Abnormal levels of other serum enzymes; E78.00 Pure hypercholesterolemia, unspecified; K59.09 Other constipation; J44.9 Chronic obstructive pulmonary disease, unspecified; I71.2 Thoracic aortic aneurysm, without rupture; I50.43 Acute on chronic combined systolic (congestive) and diastolic (congestive) heart failure; R53.1 Weakness; R56.9 Unspecified convulsions; Z86.718 Personal history of other venous thrombosis and embolism; D69.59 Other secondary thrombocytopenia; T45.515A Adverse effect of anticoagulants, initial encounter